=== PATIENT | male | born 1940 | race Caucasian/White ===

== ENCOUNTER → 2023-07-12 09:29 | Outpatient (REF) | payer MEDICARE, BC, SELFPAY ==
[2023-07-12 13:16] LABS: % Basophils 0.4 % (0-2); % Eosinophils 2.1 % (0-6); % Immature Granulocytes 0.6 % (0-0.5); % Lymphocytes 13.8 % (20.5-51.1); % Monocytes 7.5 % (1.7-9.3); % Neutrophils 75.6 % (42.2-75.2); Absolute Eosinophils 0.2 10^3/uL (0-0.7); Absolute Immature Granulocytes 0.1 10^3/uL (0-0.05); Absolute Lymphocytes 1.1 10^3/uL (1.2-3.4); Absolute Monocytes 0.6 10^3/uL (0.1-0.6); Absolute Neutrophils 6.3 10^3/uL (1.4-6.5); Hematocrit 34.4 % (39.0-52.0); Hemoglobin 11.3 g/dL (13.0-18.0); Mean Corp Hgb Conc. 32.8 g/dL (33.0-37.0); Mean Corpuscular Hgb 31.9 pg (27.0-31.0); Mean Corpuscular Volume 97.2 fL (80.0-94.0); Mean Platelet Volume 10.9 fL (7.4-10.4); Nucleated Red Blood Cells % 0 % (-); Platelet Count 207 10^3/uL (130-400); Red Blood Cell Count 3.54 10^6/uL (4.70-6.10); Red Cell Dist. Width 14.6 % (11.5-14.5); White Blood Cell Count 8.3 10^3/uL (4.8-10.8)
[2023-07-12 13:29] LABS: ALT (SGPT) 13 U/L (0-50); AST (SGOT) 22 U/L (17-59); Albumin 3.1 g/dl (3.5-5.0); Alkaline Phosphatase 71 U/L (38-126); Blood Urea Nitrogen 21 mg/dl (9-20); Calcium 8.5 mg/dl (8.4-10.2); Carbon Dioxide 26 mmol/L (22-30); Chloride 108 mmol/L (98-107); Glucose 91 mg/dl (70-99); Potassium 3.8 mmol/L (3.5-5.1); Sodium 137 mmol/L (135-145); Total Bilirubin 0.7 mg/dl (0.2-1.3); Total Protein 5.7 g/dl (6.3-8.2); eGFR 43.29
== END ==
LOC: HWLAB 09:29
PROVIDERS: ATTENDING PHYSICIAN Internal Medicine
DX: I10 Essential (primary) hypertension (principal); I82.501 Chronic embolism and thrombosis of unspecified deep veins of right lower extremity; I48.21 Permanent atrial fibrillation; I50.32 Chronic diastolic (congestive) heart failure; I12.9 Hypertensive chronic kidney disease with stage 1 through stage 4 chronic kidney disease, or unspecified chronic kidney disease; D68.69 Other thrombophilia; N18.32 Chronic kidney disease, stage 3b
CPT/HCPCS: 36415; 80053; 85025

== ENCOUNTER → 2023-08-12 09:59 | Outpatient (REF) | payer MEDICARE, BC, SELFPAY ==
[2023-08-12 13:00] LABS: Blood Urea Nitrogen 26 mg/dl (9-20); Carbon Dioxide 22 mmol/L (22-30); Chloride 108 mmol/L (98-107); Glucose 84 mg/dl (70-99); Potassium 3.9 mmol/L (3.5-5.1); Sodium 137 mmol/L (135-145); eGFR 50.81
== END ==
LOC: HWLAB 09:59
PROVIDERS: ATTENDING PHYSICIAN Internal Medicine Cardiovascular Disease; FAMILY PHYSICIAN Internal Medicine
DX: I50.32 Chronic diastolic (congestive) heart failure (principal)
CPT/HCPCS: 36415; 80048

== ENCOUNTER → 2023-09-19 10:07 | Outpatient (REF) | payer MEDICARE, BC, SELFPAY | LOC: DHCBS MAIN 10:07 | PROVIDERS: ATTENDING PHYSICIAN Internal Medicine Cardiovascular Disease; FAMILY PHYSICIAN Internal Medicine | DX: I50.32 Chronic diastolic (congestive) heart failure (principal) | CPT/HCPCS: 93306 ==

== ENCOUNTER 2023-09-29 12:03 | Inpatient (IN) | payer MEDICARE, BC, SELFPAY ==
[2023-09-29] VITALS (54 sets, daily range): BP systolic 55–147; BP diastolic 31–103; BMI 28.9; BMI 28.4
[2023-09-29 09:54] LABS: Glucose - Point of Care 92 mg/dl (70-99)
[2023-09-29 09:58] LABS: % Basophils 0.3 % (0-2); % Lymphocytes 4.5 % (20.5-51.1); % Monocytes 6.6 % (1.7-9.3); % Neutrophils 86.6 % (42.2-75.2); Absolute Eosinophils 0.2 10^3/uL (0-0.7); Absolute Immature Granulocytes 0.2 10^3/uL (0-0.05); Absolute Lymphocytes 0.7 10^3/uL (1.2-3.4); Absolute Neutrophils 13.6 10^3/uL (1.4-6.5); Hematocrit 29.5 % (39.0-52.0); Hemoglobin 9.9 g/dL (13.0-18.0); Mean Corp Hgb Conc. 33.6 g/dL (33.0-37.0); Mean Corpuscular Hgb 28.7 pg (27.0-31.0); Mean Corpuscular Volume 85.5 fL (80.0-94.0); Nucleated Red Blood Cells % 0 % (-); Platelet Count 132 10^3/uL (130-400); Red Blood Cell Count 3.45 10^6/uL (4.70-6.10); Red Cell Dist. Width 16.8 % (11.5-14.5); White Blood Cell Count 15.7 10^3/uL (4.8-10.8)
--- NOTE | 2023-09-29 10:04 | EDRN ---
the pt is hypotensive at 86/59 (70), rectal temp 94.7, this RN notified Feliciano LEBLANC who is currently at the pts bedside, the pt reports urinating blood and having blood in his stool
[2023-09-29 10:09] LABS: INR 3.19; PT 32.6 Sec (11.4-14.6)
[2023-09-29 10:11] LABS: APTT 102.1 Sec (23.4-35.0)
[2023-09-29] MEDS: LEVOPHED 250 IV ×2 (10:13→19:51)
--- NOTE | 2023-09-29 10:13 | ED.GENMED ---
History of Present Illness
<Feliciano Tierney PA-C - Last Filed: 09/29/23 13:34>
General
Chief Complaint: Rectal Bleeding
Source: patient and ambulance crew
Time Seen by Provider: 09/29/23 09:53
Travel History
Have you had any contact with someone who has COVID-19?: No
Do you have any symptoms of coronavirus? Fever > 100 degrees, chills, cough, shortness of breath, sore throat, loss of taste or smell, muscle aches, or headache?: No
History of Present Illness
History of Present Illness:
82-year-old male with past medical history of atrial fibrillation, CHF, CAD status post coronary stenting, hypertension, hyperlipidemia, chronic kidney disease, previous PE presenting to the emergency department via EMS for evaluation after patient
started to experience some hematuria yesterday, noticed hematochezia today is also stating he may have had blood in his stool earlier in the week. EMS was called to the patient's house where they found patient hypotensive at 60/40, they gave around
500 mL of IV fluids but patient remains hypotensive on arrival. Patient is denying any pain presently but does admit to some generalized weakness and fatigue. Patient is on Xarelto due to a history of atrial fibrillation he states he is also on
another blood thinner but unable to recall (Brilinta is listed on his medication list). Patient denies any history of previous GI bleeding. Unknown last colonoscopy. Denies any fevers, chills, rigors.
Past History
<Feliciano Tierney PA-C - Last Filed: 09/29/23 13:34>
Past History
ED Past Medical History: Arrthythmia, CHF, HTN, Hypercholesterolemia, AL, Renal failure (insufficiency) and Other (DVT X3, Cellulitis)
ED Past Surgical History: Tonsilectomy
Social History
Tobacco: Smoker (Pipe)
Alcohol: Daily (Scotch or Vodka 5-6 glasses)
Drug: None
Personal:
Living: with family
Employment: Employed
Family History
Family History: Other (reviewed and non-contributory)
Review of Systems
<Feliciano Tierney PA-C - Last Filed: 09/29/23 13:34>
Review of Systems
All Other Systems: ROS reviewed and negative except as documented in HPI and ROS
Phy Exam
<Feliciano Tierney PA-C - Last Filed: 09/29/23 13:34>
Physical Exam
Physical Exam:
GENERAL: Alert , appears older than stated age, ill-appearing
EYE: Clear conjunctiva
NECK: Supple
ENT: o/p clr, mmm.
CARDIAC: Irregularly irregular rate and rhythm, currently rate controlled, systolic murmur left sternal border
LUNGS: Clear breath sounds bilaterally, no acute respiratory distress, no wheezes/rales/rhonchi
ABDOMEN: Soft, without focal tenderness, no r/g, no cvat
Rectal exam: Stool dark brown heme positive
NEUROLOGICAL: Alert and oriented x3
SKIN: Warm and dry, skin intact.
MUSCULOSKELETAL: No edema, well perfused.
PSYCH: Normal and appropriate interaction.
Scores
<Feliciano Tierney PA-C - Last Filed: 09/29/23 13:34>
Heart Failure Risk
Heart Failure Risk Score: Not Applicable
Heart Score for Chest Pain Patients
STEMI patient?: Not applicable
Withdrawal Assessment of Alcohol
Withdrawal Assessment Completed?: Not applicable
Course
<GORDY Gandara Last Filed: 09/29/23 13:34>
Orders/Labs/Results
Orders:
Orders
09/29/23 09:46
Electrocardiogram (*1) Urgent
Reason for Study: Vertigo / Dizzy
09/29/23 09:47
EKG- Treatment ONCE
09/29/23 09:50
Type+Screen Urgent
Complete Blood Count/With Diff Urgent
Comprehensive Metabolic Panel Urgent
NT-proBNP Urgent
Comment: PROBNP ADDED ON BY FLOOR 10:10AM 09-29-23
PTT Urgent
Prothrombin Time Urgent
Troponin I Urgent
Urinalysis Reflex To Culture Urgent
Date Specimen was Collected: 09/29/23
Time Specimen was Collected: 09:47
Urine Microscopic Reflex Cult Urgent
Urine Culture Urgent
MATT Source: U
Specimen Description:
Date Specimen was Collected: 09/29/23
Time Specimen was Collected: 09:47
09/29/23 Lunch
NPO
Allow oral meds: No
Allow clear liquids: No
09/29/23 10:10
Add On- LAB Urgent
Tests Added?: Pro BNP
09/29/23 10:11
Ramo Hugger [Ramo Hugger-Treatment] ONCE
Patient's goal temperature:: 97 F
Additional Instructions:: Temperature and skin assessment per unit protocol
09/29/23 10:12
CR Chest Portable - 1 View Urgent
Comment:
Reason For Exam: SOB, GI bleed
Reason Study Needs to be Portable: Patient Unstable
09/29/23 10:15
NORepinephrine 4 MG/250 ML [Levophed] 4 mg in 250 ml IV PER PROTOCOL
Initial dose in mcg/min, then titrate:: 4
Titrate to keep:: MAP > 65 mmHg
Titrate by mcg/min:: 1-2 mcg/min
Frequency of titrations (minutes):: 5
Maximum dose in ICU in mcg/min:: 30
Maximum dose in IMU in mcg/min:: 8
Maximum dose in IVU in mcg/min:: 4
Begin to taper infusion when:: Remained at goal for 4hrs
Taper by mcg/min:: 1-2 mcg/min
Frequency of taper (minutes) if patient maintains goal:: 30
Taper to off?: Yes
If infusion off & no longer maintaining goal:: Contact Provider
09/29/23 10:19
Prothrombin Complex(Pcc),Human [Kcentra] 2,184 unit Empty Viaflex Container 100 ml [Viaflex Empty Container] 80 ml IV NOW
Does patient have a dx of serious acute active bleeding?: Yes
Does patient have prior history of HIT?: No
09/29/23 10:26
Piperacillin/Tazo 4.5 Gram [Zosyn] 4.5 gram in 100 ml IV NOW
09/29/23 10:27
CT Abd/pel Without Iv Or Oral Urgent
Comment:
Reason For Exam: JUAN, uremia, GI bleed/hematuria
09/29/23 10:28
Dextrose 50%-Water [Dextrose 50% Syringe] 25 grams IV NOW STA
Insulin Aspart [NOVOLOG vial] 4 units SC NOW STA
Sodium Bicarbonate 50 meq IV NOW STA
09/29/23 10:31
0.9% Sodium Chloride 500 ml [Nss] 500 ml IV BOLUS
09/29/23 10:32
Vancomycin [Vancocin] 2,000 mg 0.9% Sodium Chloride 500 ml [Nss] 500 ml IV NOW
09/29/23 10:34
Padilla Placement- Treatment ONCE
Reason for insertion: I&O's Critical Care
09/29/23 10:55
CBI- Treatment PRN
Solution: NSS
Irrigate to Clear?: Yes
09/29/23 11:45
Admit/Transfer Patient As Directed
Co-Sign Provider:
Level of Care: Inpatient admission
Assign to:: ICU
Physician / Group: Dr Bone
Diagnosis: Shock
Reason for Hospitalization: pte p/w hypotension, hematuria, possible gi bleed
Expected length of stay greater than two midnights?: Yes
ELOS- Estimated Length of Stay in days: 2
I certify the patient meets the requirements for IP care: Yes
09/29/23 11:46
Code Status As Directed
Resuscitation Status: Full Code
09/29/23 12:24
Arterial Blood Gas Urgent
%Oxygen/Room Air: room air
Comment: severe acidosis - need accurate pH
09/29/23 14:06
Bisacodyl [Dulcolax] 10 mg RECTAL [id number] PRN
Docusate W/Senna [Senokot-S] 1 tablet PO BIDPRN PRN
Polyethylene Glycol Powder [Miralax] 17 grams PO DAILYPRN PRN
09/29/23 14:06
Activity As Directed
Activity Level: Bedrest for limited time
Bedrest duration in hours then activity as indicated above:: 24
Pneumatic Compression Sleeves As Directed
Type: Knee high
Vital Signs As Directed
Frequency: Per unit guidelines
DX Deep Vein Thrombosis Video Routine
09/30/23 06:00
Basic Metabolic Panel IN AM
Complete Blood Count/With Diff IN AM
Abnormal Lab Results
09/29/23
09:50
WBC 15.7 H 10^3/uL
(4.8-10.8)
RBC 3.45 L 10^6/uL
(4.70-6.10)
Hgb 9.9 L g/dL
(13.0-18.0)
Hct 29.5 L %
(39.0-52.0)
RDW 16.8 H %
(11.5-14.5)
Abs Immat Gran (auto) 0.2 H 10^3/uL
(0-0.05)
Absolute Neuts (auto) 13.6 H 10^3/uL
(1.4-6.5)
Absolute Lymphs (auto) 0.7 L 10^3/uL
(1.2-3.4)
Absolute Monos (auto) 1.0 H 10^3/uL
(0.1-0.6)
Immature Gran % 1.0 H %
(0-0.5)
Neutrophils % 86.6 H %
(42.2-75.2)
Lymphocytes % 4.5 L %
(20.5-51.1)
PT 32.6 H Sec
(11.4-14.6)
APTT 102.1 H Sec
(23.4-35.0)
Sodium 127 L mmol/L
(135-145)
Potassium 6.0 H mmol/L
(3.5-5.1)
Chloride 109 H mmol/L
(98-107)
Carbon Dioxide 10 L* mmol/L
(22-30)
BUN 55 H mg/dl
(9-20)
Creatinine 3.2 H mg/dL
(0.7-1.3)
Total Protein 5.4 L g/dl
(6.3-8.2)
Albumin 2.6 L g/dl
(3.5-5.0)
Urine Ketones 1+ A
(Negative)
Ur Occult Blood Reflex 4+ A
(Negative)
Leukocyte Esterase Rfl 2+ A
(Negative)
Urine RBC 80-90 A /HPF
(0-2)
Urine WBC (Reflex) 50-60 A /HPF
(0-5)
Urine Bacteria (Reflex) Many A
(Negative)
Urine Albumin (Reflex) 2+ A
(Neg - Trace)
09/29/23 09:50
09/29/23 09:50
Vital Signs
Initial and Last Documented VS:
Initial Vital Signs
Temp Pulse Resp BP Pulse Ox
94.7 F L 67 21 86/59 96
09/29/23 09:47 09/29/23 09:47 09/29/23 09:47 09/29/23 09:47 09/29/23 09:47
Last Documented Vital Signs
Temp Pulse Resp BP Pulse Ox
96.1 F L 62 23 96/54 98
09/29/23 11:30 09/29/23 14:00 09/29/23 11:41 09/29/23 14:00 09/29/23 13:45
<Dwight Kohli, DO - Last Filed: 09/29/23 14:24>
Orders/Labs/Results
Orders:
Orders
09/29/23 09:46
Electrocardiogram (*1) Urgent
Reason for Study: Vertigo / Dizzy
09/29/23 09:47
EKG- Treatment ONCE
09/29/23 09:50
Type+Screen Urgent
Complete Blood Count/With Diff Urgent
Comprehensive Metabolic Panel Urgent
NT-proBNP Urgent
Comment: PROBNP ADDED ON BY FLOOR 10:10AM 09-29-23
PTT Urgent
Prothrombin Time Urgent
Troponin I Urgent
Urinalysis Reflex To Culture Urgent
Date Specimen was Collected: 09/29/23
Time Specimen was Collected: 09:47
Urine Microscopic Reflex Cult Urgent
Urine Culture Urgent
MATT Source: U
Specimen Description:
Date Specimen was Collected: 09/29/23
Time Specimen was Collected: 09:47
09/29/23 Lunch
NPO
Allow oral meds: No
Allow clear liquids: No
09/29/23 10:10
Add On- LAB Urgent
Tests Added?: Pro BNP
09/29/23 10:11
Ramo Hugger [Ramo Hugger-Treatment] ONCE
Patient's goal temperature:: 97 F
Additional Instructions:: Temperature and skin assessment per unit protocol
09/29/23 10:12
CR Chest Portable - 1 View Urgent
Comment:
Reason For Exam: SOB, GI bleed
Reason Study Needs to be Portable: Patient Unstable
09/29/23 10:15
NORepinephrine 4 MG/250 ML [Levophed] 4 mg in 250 ml IV PER PROTOCOL
Initial dose in mcg/min, then titrate:: 4
Titrate to keep:: MAP > 65 mmHg
Titrate by mcg/min:: 1-2 mcg/min
Frequency of titrations (minutes):: 5
Maximum dose in ICU in mcg/min:: 30
Maximum dose in IMU in mcg/min:: 8
Maximum dose in IVU in mcg/min:: 4
Begin to taper infusion when:: Remained at goal for 4hrs
Taper by mcg/min:: 1-2 mcg/min
Frequency of taper (minutes) if patient maintains goal:: 30
Taper to off?: Yes
If infusion off & no longer maintaining goal:: Contact Provider
09/29/23 10:19
Prothrombin Complex(Pcc),Human [Kcentra] 2,184 unit Empty Viaflex Container 100 ml [Viaflex Empty Container] 80 ml IV NOW
Does patient have a dx of serious acute active bleeding?: Yes
Does patient have prior history of HIT?: No
09/29/23 10:26
Piperacillin/Tazo 4.5 Gram [Zosyn] 4.5 gram in 100 ml IV NOW
09/29/23 10:27
CT Abd/pel Without Iv Or Oral Urgent
Comment:
Reason For Exam: JUAN, uremia, GI bleed/hematuria
09/29/23 10:28
Dextrose 50%-Water [Dextrose 50% Syringe] 25 grams IV NOW STA
Insulin Aspart [NOVOLOG vial] 4 units SC NOW STA
Sodium Bicarbonate 50 meq IV NOW STA
09/29/23 10:31
0.9% Sodium Chloride 500 ml [Nss] 500 ml IV BOLUS
09/29/23 10:32
Vancomycin [Vancocin] 2,000 mg 0.9% Sodium Chloride 500 ml [Nss] 500 ml IV NOW
09/29/23 10:34
Padilla Placement- Treatment ONCE
Reason for insertion: I&O's Critical Care
09/29/23 10:55
CBI- Treatment PRN
Solution: NSS
Irrigate to Clear?: Yes
09/29/23 11:45
Admit/Transfer Patient As Directed
Co-Sign Provider:
Level of Care: Inpatient admission
Assign to:: ICU
Physician / Group: Dr Bone
Diagnosis: Shock
Reason for Hospitalization: pte p/w hypotension, hematuria, possible gi bleed
Expected length of stay greater than two midnights?: Yes
ELOS- Estimated Length of Stay in days: 2
I certify the patient meets the requirements for IP care: Yes
09/29/23 11:46
Code Status As Directed
Resuscitation Status: Full Code
09/29/23 12:24
Arterial Blood Gas Urgent
%Oxygen/Room Air: room air
Comment: severe acidosis - need accurate pH
09/29/23 14:06
Bisacodyl [Dulcolax] 10 mg RECTAL [id number] PRN
Docusate W/Senna [Senokot-S] 1 tablet PO BIDPRN PRN
Polyethylene Glycol Powder [Miralax] 17 grams PO DAILYPRN PRN
09/29/23 14:06
Activity As Directed
Activity Level: Bedrest for limited time
Bedrest duration in hours then activity as indicated above:: 24
Pneumatic Compression Sleeves As Directed
Type: Knee high
Vital Signs As Directed
Frequency: Per unit guidelines
DX Deep Vein Thrombosis Video Routine
09/30/23 06:00
Basic Metabolic Panel IN AM
Complete Blood Count/With Diff IN AM
Abnormal Lab Results
09/29/23
09:50
WBC 15.7 H 10^3/uL
(4.8-10.8)
RBC 3.45 L 10^6/uL
(4.70-6.10)
Hgb 9.9 L g/dL
(13.0-18.0)
Hct 29.5 L %
(39.0-52.0)
RDW 16.8 H %
(11.5-14.5)
Abs Immat Gran (auto) 0.2 H 10^3/uL
(0-0.05)
Absolute Neuts (auto) 13.6 H 10^3/uL
(1.4-6.5)
Absolute Lymphs (auto) 0.7 L 10^3/uL
(1.2-3.4)
Absolute Monos (auto) 1.0 H 10^3/uL
(0.1-0.6)
Immature Gran % 1.0 H %
(0-0.5)
Neutrophils % 86.6 H %
(42.2-75.2)
Lymphocytes % 4.5 L %
(20.5-51.1)
PT 32.6 H Sec
(11.4-14.6)
APTT 102.1 H Sec
(23.4-35.0)
Sodium 127 L mmol/L
(135-145)
Potassium 6.0 H mmol/L
(3.5-5.1)
Chloride 109 H mmol/L
(98-107)
Carbon Dioxide 10 L* mmol/L
(22-30)
BUN 55 H mg/dl
(9-20)
Creatinine 3.2 H mg/dL
(0.7-1.3)
Total Protein 5.4 L g/dl
(6.3-8.2)
Albumin 2.6 L g/dl
(3.5-5.0)
Urine Ketones 1+ A
(Negative)
Ur Occult Blood Reflex 4+ A
(Negative)
Leukocyte Esterase Rfl 2+ A
(Negative)
Urine RBC 80-90 A /HPF
(0-2)
Urine WBC (Reflex) 50-60 A /HPF
(0-5)
Urine Bacteria (Reflex) Many A
(Negative)
Urine Albumin (Reflex) 2+ A
(Neg - Trace)
09/29/23 09:50
09/29/23 09:50
Vital Signs
Initial and Last Documented VS:
Initial Vital Signs
Temp Pulse Resp BP Pulse Ox
94.7 F L 67 21 86/59 96
09/29/23 09:47 09/29/23 09:47 09/29/23 09:47 09/29/23 09:47 09/29/23 09:47
Last Documented Vital Signs
Temp Pulse Resp BP Pulse Ox
96.1 F L 62 23 96/54 98
09/29/23 11:30 09/29/23 14:00 09/29/23 11:41 09/29/23 14:00 09/29/23 13:45
<Feliciano Tierney PA-C - Last Filed: 09/29/23 13:34>
MDM/Problems Addressed
Differential Diagnosis Includes:
Lower GI bleed, upper GI bleed, urinary tract infection, sepsis
MDM/Problems Addressed:
82-year-old male present emergency department for evaluation of hematuria x 1 day, reported hematochezia today. Hypotensive on arrival, also found to be hypothermic. Patient is ill-appearing. Off of chart review patient was recently admitted at
this facility for an extended stay in June where he had an NSTEMI and cardiac stent placed. Patient is on Xarelto due to his history of atrial fibrillation which is permanent as well as a history of PE. He reports compliance with this as well
as the Brilinta. There is significant clinical concern for life-threatening GI bleeding. Will discuss with cardiology about reversing his Xarelto. Will also consent patient for blood transfusion. Would like to try to avoid IV fluids given his
cardiac history but will have low threshold to order this as well patient is septic or needs further resuscitation due to his hypotension. Anticipate admission to the ICU.
Chronic conditions affecting care: CAD, Cardiomyopathy, Arrhythmia and Kidney disease
Acute Exacerbation and/or Progression of Chronic Illness: CAD, Cardiomyopathy, Arrhythmia and Kidney disease
<Feliciano Teirney PA-C - Last Filed: 09/29/23 13:34>
*Pulse Oximetry
Patient hypoxic: no
*EKG
Interpreted by ED Provider?: Yes
Comparison EKG: no changes
Heart Rate: 75
Rate: normal
Rhythm: a-fib
[place]: left axis deviation
Ischemia: no ischemia
*Shoe Sticks Repairer Interpretation
Rate: normal
Rhythm: a-fib
*Critical Care Note
Total Time (30-74mins, 75-104mins- exclusive of procedures): 40
comment:
Critical care statement: A total of 40 minutes of critical care time was provided for this patient. This includes management of unstable vital signs, evaluation of the patient at bedside, reviewing the patient's pertinent medical records, discussion
with consultants, review of old EKGs and review of pertinent medical records. This time with separate from time utilized to perform the aforementioned documented procedures
Data Reviewed
Review of Other/Old Records Reveals: Labs, Records, Radiology Studies and Discharge Summary
Source: patient, records, family and ambulance crew
<Feliciano Tierney PA-C - Last Filed: 09/29/23 13:34>
Comment
Comment:
Patient had colonoscopy in November 2017, he had a single polyp removed which showed tubular adenoma on biopsy. No colonoscopies following this.
Patient Management
Discussion with other providers: Hospitalist and Fire Sprinkler Apparatus Inspector
Escalation/DeEscalation of care consider admission/obs:
10:32 AM: Initially we did order Kcentra and 1 unit of blood however patient's hemoglobin returned at 9.9 and currently without any active bleeding. Decision was made to hold the Kcentra and blood products but if patient is to resume bleeding again
that we would reorder this. Patient has a leukocytosis of near 16,000 with a leftward shift. Patient's chemistry is also significantly deranged with a sodium of 127, potassium of 6.0, bicarb of 10 as well as significant acute on chronic kidney
injury. Dry scan of the abdomen pelvis was ordered to ensure no obstructive process given his hematuria. Additionally we ordered dextrose, insulin and sodium bicarb for the potassium. Would like to avoid Lokelma or Kayexalate given patient's
reported GI bleed. Patient also notes that after he had stopped drinking alcohol for a while he is now drinking bourbon nightly again. Possible upper GI bleed given his current presenting symptoms. Continued plan for likely ICU admission.
Hospitalist team was notified for admission. While in patient's room starting the admission process hospitalist team agreed with initial plan that we should start patient on Kcentra for anticoagulation reversal. Kcentra order was reordered.
Patient will be dispositioned to the ICU.
ED Attending Note
<Feliciano Tierney PA-C - Last Filed: 09/29/23 13:34>
-
Portions of this chart may have been created with voice recognition software.� Occasional wrong word or��sound alike� substitutions may have occurred due to the inherent limitations of voice recognition software.
<Dwight Kohli DO - Last Filed: 09/29/23 14:24>
ED Attending Note
Patient seen and examined by attending physician: Yes
ED Attending Note:
I agree with history and treatment plan by Ruiz Tierney.. My exam revealed 10-year-old male alert and oriented, hypotensive with hematuria, possible GI bleed as well. Patient given Kcentra, admit to ICU. CBI initiated.
Discharge Plan
Departure
Patient Disposition: Admit
Date of Disposition: 09/29/23
Time of Disposition: 11:26
Presentation/result/management discussed w/ accepting MD/DO: Hospitalist
Discharge Problem:
Acute UTI, JUAN (acute kidney injury), Acute GI bleeding, Acute hyperkalemia
Interventions
Interventions:
*Risk Screen - Suicide Last Done: 09/29/23 09:47
*General Assessment Last Done: 09/29/23 09:47
*Neglect/Abuse Screening Last Done: 09/29/23 09:47
ED- Fall Risk Assessment Last Done: 09/29/23 09:47
*ED COVID-19 Vaccine History Last Done: 09/29/23 09:47
*Nursing Disposition Last Done: 09/29/23 14:16
YR-Fpzuti-Xjdfycuxik Assessment Last Done: 09/29/23 09:47
ED- Cardiac Assessment Last Done: 09/29/23 09:47
ED- Pulmonary Assessment Last Done: 09/29/23 09:47
Discharge Date and Time
Discharge Date/Time: 09/29/23 14:17
--- NOTE | 2023-09-29 10:17 | EDRN ---
this RN initiated Levophed at 4mcg/min per providers orders and called pharmacy to confirm Kcentra medication
--- NOTE | 2023-09-29 10:19 | EDRN ---
Dr. Kohli currently at the pts bedside
[2023-09-29 10:24] LABS: Troponin I < 0.012 ng/ml
[2023-09-29 10:26] LABS: ALT (SGPT) 17 U/L (0-50); AST (SGOT) 18 U/L (17-59); Albumin 2.6 g/dl (3.5-5.0); Alkaline Phosphatase 118 U/L (38-126); Blood Urea Nitrogen 55 mg/dl (9-20); Calcium 8.7 mg/dl (8.4-10.2); Carbon Dioxide 10 mmol/L (22-30); Chloride 109 mmol/L (98-107); Estimated Creatinine Clearance 18 ml/min; Glucose 79 mg/dl (70-99); Sodium 127 mmol/L (135-145); Total Bilirubin 0.2 mg/dl (0.2-1.3); Total Protein 5.4 g/dl (6.3-8.2); eGFR 18.84
--- NOTE | 2023-09-29 10:35 | EDRN ---
Marlyn discontinued per the providers Feliciano LEBLANC and Dr. Kohli
[2023-09-29 10:40] LABS: NT-proBNP 6200 pg/ml
--- NOTE | 2023-09-29 10:40 | EDRN ---
this RN attempted to place a 24french and [address] indwelling urinary catheter for CBI however this RN was unsuccessful, this RN notified provider and [address]
[2023-09-29 10:52] LABS: Urine Albumin 2+ (Neg - Trace); Urine Bilirubin Negative (Negative); Urine Character Bloody (Clear); Urine Color Red; Urine Glucose Negative (Negative); Urine Ketone 1+ (Negative); Urine Leukocyte 2+ (Negative); Urine Nitrite Negative (Negative); Urine Occult Blood 4+ (Negative); Urine Specific Gravity 1.015 (<1.030); Urine Urobilinogen Negative (Neg - 1+)
--- NOTE | 2023-09-29 11:06 | EDRN ---
continuous bladder irrigation started per providers orders
[2023-09-29] MEDS: ZOSYN 100 IV (11:11)
[2023-09-29] MEDS: DEXTROSE 50% SYRINGE 25 GRAMS IV (11:11)
[2023-09-29] MEDS: SODIUM BICARBONATE 50 MEQ IV ×2 (11:12→13:19)
[2023-09-29] MEDS: VANCOCIN 540 MG IV (11:13)
[2023-09-29] MEDS: NOVOLOG vial 4 UNITS SC (11:13)
[2023-09-29] MEDS: NSS 500 IV (11:19)
[2023-09-29 11:24] LABS: Urine Red Blood Cell 80-90 /HPF (0-2); Urine Squamous Cell 16-20 /LPF (Few)
[2023-09-29 11:25] LABS: Urine Bacteria Many (Negative); Urine White Cell 50-60 /HPF (0-5)
--- NOTE | 2023-09-29 11:31 | EDRN ---
CBI drainage bag changed to a 4,000cc bag, CBI draining punch colored urine, the pt is resting in stretcher in the lowest position, side rails up x2, call wiggins within reach, HOB elevated, the pt is currently in Afib in the 80's, last BP 101/57 (70),
Levophed currently running at 2mcg/min, the pt is currently on RA Sp02 98%, the pt has an expiratory wheeze that this RN took note to and this RN notified the provider Feliciano Tierney, the pt currently has IVF Bolus hung and running, Zosyn and
Vancomycin running as well, the pt has no c/o chest pain and no c/o SOB, this RN changed the pts gown, pad, brief, and linens, no obvious skin issues other than discoloration to the pts b/l lower extremities, the pts friend is currently at the pts
bedside, will take the pt to CT scan shortly, will continue to monitor the pt closely
--- NOTE | 2023-09-29 11:48 | HPS.HSE ---
Family Physician
-
Family Physician: Maxime Manjarrez
Chief Complaint
-
hypotension
History of Present Illness
Patient 82 years old with history of multiple medical problems including CAD, CHF, alcohol use disorder, A-fib, CKD, BPH, pulmonary hypertension, PE, hypertension, hyperlipidemia, stroke, presented to the hospital with hypotension and hematuria.
Patient has been developing some dysuria and urgency recently and some hematuria over the last week and he has been seen in urology as outpatient. Patient also has been experiencing some bright blood per rectum for last several days and having
hematuria since last Saturday. He has some abdominal discomfort and some nausea. He does take Xarelto on a regular basis and he is not sure but he said he took it last night. Denies melena or hematemesis. Denies chest pain. He denies shortness of
breath although had mild conversational dyspnea. Patient was noted to be hypertensive at his house and EMS was called. Patient was found to have blood pressure 60/40 and given half a liter of fluid and still hypotensive when he came into the ER.
Complains of generalized fatigue and weakness. In the ER, hemoglobin 9.9, INR 3.19, creatinine 3.2, bicarb 10, potassium of 6, sodium 127. Patient is critically ill and started on pressors, bicarb bolus, broad-spectrum IV antibiotics of Zosyn and
vancomycin, and Kcentra ordered by ED to reverse bleeding.
Medical History
Past Medical History
Past Medical History: Reports Other (HFrEF, history of alcoholic abuse, history of NSTEMI, CAD, permanent A-fib on Xarelto, CKD IIIa, BPH, obesity, pulmonary hypertension, history of PE, history of RLE DVT, tobacco use disorder, venous
insufficiency, hypertension, hyperlipidemia, Hx of CVA)
Past Surgical History: Reports Other (Hydrocele surgery, cataract extractions, tonsillectomy)
Social History
Tobacco: Smoker
Alcohol: Daily
Drug: None
Family History
Family History: CAD, Cancer (Colon cancer and lung cancer mother and father.) and Hypertension
Allergies / Home Medications
Allergies reflects when Allergies were last updated in [employer].
Home Medications with original date entered in [employer]
Allergy/Medication List:
Allergies
Allergy/AdvReac Type Severity Reaction Status Date / Time
clopidogrel [From Plavix] Allergy Severe Rash Verified 05/31/23 15:50
ammonium [Ammonium] Allergy Unknown Verified 05/21/23 09:34
hydrochlorothiazide Allergy 'killed my Verified 05/21/23 09:34
[From Dyazide] sex drive'
triamterene [From Dyazide] Allergy 'killed my Verified 05/21/23 09:[address]'
warfarin [Warfarin] Allergy RASH,INCREASED Verified 05/21/23 09:34
BACK PAIN
creams w/ ammonia hydrate Allergy bright red Uncoded 05/21/23 09:34
skin
reaction
Home Medications
multivitamin with folic acid 400 mcg tablet (Tab-A-Edd) 1 tab PO HS Supplement 02/12/08
vitamin B complex (Complex B-100 tablet,extended release) 1 tab PO DAILY Supplement 10/11/14
finasteride 5 mg tablet 5 mg PO DAILY prostate issue 12/22/18
tamsulosin 0.4 mg capsule (Flomax) 0.4 mg PO DAILY Urinary Issue 12/22/18
atorvastatin 40 mg tablet (Lipitor) 40 mg PO HS High Cholesterol 05/21/23
carvedilol 3.125 mg tablet 3.125 mg PO BID 30 days #60 tabs 06/03/23
rivaroxaban 15 mg tablet (Xarelto) 15 mg PO QPM 30 days #30 tabs 06/03/23
ticagrelor 90 mg tablet (Brilinta) 90 mg PO BID 30 days #60 tabs 06/03/23
potassium chloride 20 mEq tablet,extended release 20 meq PO TID #90 tabs 06/04/23
folic acid 1 mg tablet 1 mg PO DAILY 09/29/23
furosemide 40 mg tablet (Lasix) 40 mg PO DAILY@1400 09/29/23
furosemide 80 mg tablet 80 mg PO DAILY 09/29/23
Review of Systems
-
Unable to obtain full review of systems at this time due to: Acuity
Physical Exam
Vital Signs
Vital Signs
Temp Pulse Resp BP Pulse Ox
94.7 F L 79 29 101/57 97
09/29/23 09:47 09/29/23 11:30 09/29/23 11:30 09/29/23 11:30 09/29/23 11:30
Physical exam:
General: Acutely ill
HEENT: Normocephalic, Atraumatic and Dry Mucous Membranes
Respiratory: Decreased breath sounds bilateral; Negative Wheezes, Rales or Rhonchi. Tachypneic
Cardiac: Regular Rhythm and S1/S2
GI: Soft, Nontender and Nondistended
Musculoskeletal: Bilateral edema in lower extremities. No Clubbing, No Cyanosis
Neuro: Lethargic, able to answer questions and falls back to sleep, no gross neurological deficits appreciated.
Physical Exam
General: Other
Laboratory Results
-
09/29/23 09:50
09/29/23 09:50
Laboratory Results
PT 32.6 Sec (11.4-14.6) H 09/29/23 09:50
INR 3.19 09/29/23 09:50
APTT 102.1 Sec (23.4-35.0) H 09/29/23 09:50
Total Bilirubin 0.2 mg/dl (0.2-1.3) 09/29/23 09:50
AST 18 U/L (17-59) 09/29/23 09:50
ALT 17 U/L (0-50) 09/29/23 09:50
Alkaline Phosphatase 118 U/L (38-126) 09/29/23 09:50
Troponin I < 0.012 ng/ml 09/29/23 09:50
Impression/Plan
-
IMPRESSION:
Patient 82 years old male with multiple comorbidities presented to the hospital with shock likely septic versus hypovolemic. Patient with active bleeding from hematuria and possible acute GI bleed and with supratherapeutic INR on anticoagulant.
Patient with several metabolic managements. Patient is critically ill and prognosis guarded.
Impression:
Shock, likely septic shock due to UTI versus hypovolemia with hemorrhage
Gross hematuria
Probable acute GI bleed
Acute blood loss anemia
Coagulopathy with supratherapeutic INR
Alcohol use disorder
Severe metabolic acidosis
Acute kidney injury
Chronic kidney disease
Hyponatremia
Hyperkalemia
Hypothermia
Conditions prior to presentation:
Hypertension
Hyperlipidemia
Chronic systolic congestive heart failure
Chronic kidney disease
BPH
Permanent atrial fibrillation
History of DVT/PE in the past
Alcohol use disorder
PLAN:
Continue with pressors
Stat H&H, BMP, lactic acid.
Obtain blood cultures x 2
Change Zosyn vancomycin to IV cefepime and follow-up cultures
Urology consult ([place] texted specialist today)
GI consult ([place] texted specialist today)
Inspector [place] consult ([place] texted specialist today). Discussed with dental laboratory supervisor in person today.
Nephrology consult ([place] texted specialist today)
Trend hemoglobin
Trend acidosis
Trend electrolytes
IV Protonix twice daily
Obtained consent for blood transfusion or blood products to reverse anticoagulant
Seen and reviewed twelve-lead EKG
Seen and reviewed chest x-ray
CT scan of abdomen pending results
CBI for hematuria
Will place him on alcohol withdrawal protocol.
DVT prophylaxis SCDs
CODE STATUS full code
Total Critical Care Time 65 minutes. I was immediately available to the patient and staff. I personally examined, reviewed labs, diagnostic images/reports, interpretations, treatment plans, discussed patient care with other providers and family
or caregivers (if patient is unable to make decisions), entered orders as appropriate and documented the medical record.
--- NOTE | 2023-09-29 11:50 | CON.INTV ---
Consultation
Consultation Request
Date/Time Consultation Requested: 09/29/2023 - 1139
Date/Time Consultation Performed: 09/29/2023 - 1146
Requesting Provider: Dr. Bone
Performing Provider: Dr. Sands
Reason for Consultation: GIB/Hypotension
Medical History
-
Chief Complaint: Blood and urine + stool
History of Present Illness:
82-year-old male with a past medical history of alcohol abuse, tobacco use disorder, HFrEF, CAD with history of NSTEMI, A-fib on Xarelto, CKD IIIa, pulmonary hypertension, history of PE/DVT, hypertension/hyperlipidemia who presents with blood seen
in urine and stool X 1 day. When EMS arrived patient was hypotensive to 60/40 and they administered 0.5L IV fluid bolus. BG was 100. Here in the ER patient was hypothermic to 94.7 �F, [place]: 67 bpm, RR: 21 breaths/min, SpO2 96% on room air and BP
86/59. Labs showed leukocytosis to 15.7, anemia to 9.9, elevated INR 3.19, serum sodium 127, serum bicarbonate level of 10, creatinine 3.2, potassium of 6, proBNP of 6200, and serum albumin 2.6. Patient had +1 ketones in the urine with +2
leukocyte esterase and many bacteria. Urine culture was collected. CXR shows no evidence of acute pulmonary edema or pneumonia. Patient treated for his hyperkalemia in the ER with insulin aspart 4 units and 25 g dextrose, also given sodium
bicarbonate X1 amp, given antibiotics with vancomycin/Zosyn, given IV fluids with NS 0.5L and started on levophed due to persistent hypotension with SBP in the mid 80s. Due to his electrolyte abnormalities with hypotension requiring vasopressors,
patient being admitted to the ICU. Critical care services now consulted for additional management/recommendations.
When I saw the patient he was in bed, labor crew supervisor/neighbor at bedside. He is on 2mcg/min of Levophed with BP 106/51, HR: 78 and saturating 98% on room air. He does had a bloody bowel movement and he has been bleeding from his rectum for about 1
week. He has been having hematuria since last Saturday as well. He saw urology (Dr. Ortega) here at [facility] on 09/25/2023 and a urinalysis/culture was obtained. Urinalysis dipstick was positive for leukocyte Estrace, nitrites and blood at that
time. No antibiotics were given at that time.
PMHx: HFrEF, history of alcoholic abuse, history of NSTEMI, CAD, permanent A-fib on Xarelto, CKD IIIa, BPH, obesity, pulmonary hypertension, history of PE, history of RLE DVT, tobacco use disorder, venous insufficiency, hypertension, hyperlipidemia,
Hx of CVA
PSHx: Hydrocele surgery, cataract extractions, tonsillectomy
Past Medical History
Past Medical History: Other (Above as per HPI)
Past Surgical History: Other (Above as per HPI)
Social History
Tobacco: Smoker (Smokes a pipe daily)
Alcohol: Daily (2-3 drinks of alcohol daily)
Drug: None
Family History
Family History: CAD (Father), Cancer (Father & Mother: Lung cancer; mother: Colon cancer) and Hypertension (Father)
Allergies / Home Medications
Allergies
Allergy/AdvReac Type Severity Reaction Status Date / Time
clopidogrel [From Plavix] Allergy Severe Rash Verified 05/31/23 15:50
ammonium [Ammonium] Allergy Unknown Verified 05/21/23 09:34
hydrochlorothiazide Allergy 'killed my Verified 05/21/23 09:34
[From Dyazide] sex drive'
triamterene [From Dyazide] Allergy 'killed my Verified 05/21/23 09:[address]'
warfarin [Warfarin] Allergy RASH,INCREASED Verified 05/21/23 09:34
BACK PAIN
creams w/ ammonia hydrate Allergy bright red Uncoded 05/21/23 09:34
skin
reaction
Home Medications
�Medication �Instructions �Recorded �Confirmed �Last Taken �Type
multivitamin with folic acid 400 1 tab PO HS Supplement 02/12/08 09/29/2305/21/23 History
mcg tablet (Tab-A-Edd)
vitamin B complex (Complex B-100 1 tab PO DAILY Supplement 10/11/14 09/29/23 05/20/23 History
tablet,extended release)
finasteride 5 mg tablet 5 mg PO DAILY prostate issue 12/22/18 09/29/23 05/21/23 History
tamsulosin 0.4 mg capsule (Flomax) 0.4 mg PO DAILY Urinary Issue 12/22/18 09/29/23 05/21/23 History
atorvastatin 40 mg tablet (Lipitor) 40 mg PO HS High Cholesterol 05/21/23 09/29/23 05/20/23 History
carvedilol 3.125 mg tablet 3.125 mg PO BID 30 days #60 tabs 06/03/23 09/29/23 Unknown Rx
ferrous sulfate 325 mg (65 mg 325 mg PO DAILY 30 days #30 tabs 06/03/23 09/29/23 Unknown Rx
iron) tablet (FeroSul)
rivaroxaban 15 mg tablet (Xarelto) 15 mg PO QPM 30 days #30 tabs 06/03/23 09/29/23 Unknown Rx
ticagrelor 90 mg tablet (Brilinta) 90 mg PO BID 30 days #60 tabs 06/03/23 09/29/23 Unknown Rx
furosemide 80 mg tablet 80 mg PO BID@0800,1600 #180 tabs 06/04/23 09/29/23 Unknown Rx
potassium chloride 20 mEq 20 meq PO TID #90 tabs 06/04/23 09/29/23 Unknown Rx
tablet,extended release
folic acid 1 mg tablet 1 mg PO DAILY 09/29/23 09/29/23 Unknown History
Review of Systems
-
History Source: Patient
All other systems: Negative unless noted
Vitals / Labs / Diagnostic Testing
Vital Signs
Temp Pulse Resp BP Pulse Ox
94.7 F L 79 29 101/57 97
09/29/23 09:47 09/29/23 11:30 09/29/23 11:30 09/29/23 11:30 09/29/23 11:30
Lab Data
09/29/23 09:50
09/29/23 09:50
Laboratory Results
09/29/23
09:50
PT 32.6 H
INR 3.19
APTT 102.1 H
Diagnostic Testing:
Physical Exam
-
HEENT: Normocephalic and Anicteric
Cardiovascular: S1/S2 and Peripheral Edema (negative)
Respiratory: Wheeze (negative), Rales (negative) and Rhonchi (negative)
GI: Soft, Non Distended, Non Tender and Normal Bowel Sounds
Neurology: Awake and Alert
Skin: Warm and Dry
General: Comfortable, Fever (negative) and Other (appears fatigued; pale)
Assessment
-
Assessment: 82-year-old male with a past medical history of alcohol abuse, tobacco use disorder, HFrEF, CAD with history of NSTEMI, A-fib on Xarelto, CKD IIIa, pulmonary hypertension, history of PE/DVT, hypertension/hyperlipidemia who presents
with blood seen in urine and stool X 1 day. When EMS arrived patient was hypotensive to 60/40 and they administered 0.5L IV fluid bolus. BG was 100. Here in the ER patient was hypothermic to 94.7 �F, [place]: 67 bpm, RR: 21 breaths/min, SpO2 96% on
room air and BP 86/59. Labs showed leukocytosis to 15.7, anemia to 9.9, elevated INR 3.19, serum sodium 127, serum bicarbonate level of 10, creatinine 3.2, potassium of 6, proBNP of 6200, and serum albumin 2.6. Patient had +1 ketones in the urine
with +2 leukocyte esterase and many bacteria. Urine culture was collected. CXR shows no evidence of acute pulmonary edema or pneumonia. Patient treated for his hyperkalemia in the ER with insulin aspart 4 units and 25 g dextrose, also given
sodium bicarbonate X1 amp, given antibiotics with vancomycin/Zosyn, given IV fluids with NS 0.5L and started on levophed due to persistent hypotension with SBP in the mid 80s. Due to his electrolyte abnormalities with hypotension requiring
vasopressors, patient being admitted to the ICU. Critical care services now consulted for additional management/recommendations.
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
hypertension, hyperlipidemia
Impression:
#Shock - suspected sepsis from UTI in setting of vasoplegia from severe metabolic acidosis
#UTI - originally Dx as outpatient on 09/25/2023 with Urology
#JUAN superimposed on CKD with hyperkalemia (baseline Cr approx 1.1)
#Metabolic acidosis with normal anion gap
#Hyponatremia
#Acute on chronic anemia (baseline Hb 11.5-12.5)
#Coagulopathy with elevated INR
#A-fib on Xarelto
#Alcohol abuse
#Tobacco abuse
Plan:
- Empiric Abx for now with cefepime; there is no evidence of PNA so do not need vanco or atypical coverage at this time
- Follow up urine Cx; check blood Cx
- Renally dose all meds, trend UOP, serum [K] and serum HCO3
- Goal K 4-5.2; goal serum HCO3 20-24
- Given severe acidosis, check ABG to get accurate pH and then consider HCO3 infusion depending on results
- Consult nephrology
- Maintain MAP>65
- Consult GI
- Trend Hb with serial CBC and transfuse if needed to keep Hb>7, plt>50k
- Hold antiplatelets/anticoagulants for now
- If Hb downtrends and/or GI bleed worsens then will need to reverse INR with PCC vs FFP
- Goal HR <110
- Maintain SpO2 >90-94%
- Replete electrolytes with K>4, Mg>2
- Maintain euglycemia with goal BG 140-180
- prn nebulized bronchodilators
- Incentive spirometer
- DVT ppx
The above was discussed in layman's terms with the patient and the patient's neighbor/labor crew supervisor, Ken, and all questions were answered.
Critical care statement: A total of 40 minutes of critical care time was provided for this patient today. This includes management of unstable vital signs, evaluation of the patient at bedside, reviewing the patient's pertinent medical records
including radiographs, microbiology, laboratory evaluations, and discussion with primary team, consultants, pharmacy, nutrition, physical therapy, case management, charge nurse, critical care nursing, and respiratory therapy.
Data:
CXR 09-29-2023:
1. Mild cardiomegaly without evidence for acute pulmonary edema.
2. Severe calcific atherosclerotic plaque in the thoracic aorta, axillary, and subclavian arteries.
3. Central pulmonary arterial distention suggesting pulmonary arterial hypertension.
4. Mild to moderate elevation of the right hemidiaphragm.
--- NOTE | 2023-09-29 11:50 | EDRN ---
this RN and Milena BENDER are taking the pt to CT scan
--- NOTE | 2023-09-29 12:02 | EDRN ---
the pt was brought back from CT scan, the pt is resting in stretcher in the lowest position, side rails up x2, call wiggins within reach, HOB elevated, hospitalist currently at the pts bedside, ABG ordered, this RN will notify respiratory
--- NOTE | 2023-09-29 12:08 | EDRN ---
the provider now wants Kcentra given, this RN notified pharmacy
--- NOTE | 2023-09-29 12:23 | CONS.URO ---
Medical History
History of Present Illness
82 male with numerous comorbidities admitted with GIB with severe hypotension.
Pt of Dr Ortega ,most recently seen 09/16/2023 for BPH managed with 5- BRIANA and Alpha-fran.
Grossly blood urine was noted earlier during the week.
Past Medical History
Past Medical History: Other ( Obesity. HYPERLIPIDEMIA (HLP). Hypertension. Pulmonary Embolus. Glaucoma-resolved. right lower extremity DVT. Alcoholism. Gout. Tobacco abuse. Afib. Enlarged prostate.
Neuropathy-legs. CVA. Elevated PSA.)
Allergies/Home Medications
Allergies
Allergy/AdvReac Type Severity Reaction Status Date / Time
clopidogrel [From Plavix] Allergy Severe Rash Verified 05/31/23 15:50
ammonium [Ammonium] Allergy Unknown Verified 05/21/23 09:34
hydrochlorothiazide Allergy 'killed my Verified 05/21/23 09:34
[From Dyazide] sex drive'
triamterene [From Dyazide] Allergy 'killed my Verified 05/21/23 09:[address]'
warfarin [Warfarin] Allergy RASH,INCREASED Verified 05/21/23 09:34
BACK PAIN
creams w/ ammonia hydrate Allergy bright red Uncoded 05/21/23 09:34
skin
reaction
Home Medications
�Medication �Instructions �Recorded �Confirmed �Type
multivitamin with folic acid 400 1 tab PO HS Supplement 02/12/08 09/29/23 History
mcg tablet (Tab-A-Edd)
vitamin B complex (Complex B-100 1 tab PO DAILY Supplement 10/11/14 09/29/23 History
tablet,extended release)
finasteride 5 mg tablet 5 mg PO DAILY prostate issue 12/22/18 09/29/23 History
tamsulosin 0.4 mg capsule (Flomax) 0.4 mg PO DAILY Urinary Issue 12/22/18 09/29/23 History
atorvastatin 40 mg tablet (Lipitor) 40 mg PO HS High Cholesterol 05/21/23 09/29/23 History
carvedilol 3.125 mg tablet 3.125 mg PO BID 30 days #60 tabs 06/03/23 09/29/23 Rx
rivaroxaban 15 mg tablet (Xarelto) 15 mg PO QPM 30 days #30 tabs 06/03/23 09/29/23 Rx
ticagrelor 90 mg tablet (Brilinta) 90 mg PO BID 30 days #60 tabs 06/03/23 09/29/23 Rx
potassium chloride 20 mEq 20 meq PO TID #90 tabs 06/04/23 09/29/23 Rx
tablet,extended release
folic acid 1 mg tablet 1 mg PO DAILY 09/29/23 09/29/23 History
furosemide 40 mg tablet (Lasix) 40 mg PO DAILY@1400 09/29/23 09/29/23 History
furosemide 80 mg tablet 80 mg PO DAILY 09/29/23 09/29/23 History
Physical Exam
Vital Signs
Vital Signs
Temp Pulse Resp BP Pulse Ox
94.7 F L 81 23 106/51 97
09/29/23 09:47 09/29/23 12:00 09/29/23 11:41 09/29/23 11:59 09/29/23 12:00
Physical Exam
adult male who appears acutely ill
conversant
Genito-urinary: Padilla Catheter (18 Fr 3-way with CBI draining frankly bloody outflow)
Assessment / Plan
-
Principal, life-threatening issue is GIB
Gross hematuria can be managed with CBI
Data Reviewed
-
CT Scan: Image personally visualized and interpreted (normal kidneys; enlarge prostate, Padilla in bladder along with clotted blood)
Lab Data: Labs Reviewed
Old Records: Reviewed
[2023-09-29] MEDS: KCENTRA 80 UNIT IV (12:24)
[2023-09-29 12:36] LABS: Hematocrit 26.1 % (39.0-52.0); Hemoglobin 8.9 g/dL (13.0-18.0)
--- NOTE | 2023-09-29 12:41 | W.CON.NEPH ---
Consultation
-
Date/Time Consultation Requested: September 29, 2023 11 AM
Date/Time Consultation Performed: September 29, 2023 12:45 PM
Requesting Provider: Dr. Bone
Performing Provider: Dr. Tse
Reason for Consultation: Acute kidney injury, hyperkalemia, metabolic acidosis, hypotension
Medical History
-
Chief Complaint: Acute kidney injury
History of Present Illness:
This is an 82-year-old gentleman who has no chronic kidney disease stage IIIa with baseline creatinine around 1.3 who has heart failure reduced ejection fraction on chronic diuretic therapy on Xarelto for atrial fibrillation. He came to the
emergency room today because of persistent gross hematuria with blood in the stool as well. When EMS had come to the patient's house he was noted to be hypotensive and remained hypotensive spite IV fluid bolus. He was placed on pressor therapy to
maintain blood pressures. Blood work had shown acute kidney injury with a creatinine of 3.2 up from his baseline as well as hyperkalemia, hyponatremia, metabolic acidosis. He is critically ill and will be going to the ICU.
Past Medical History
Atrial fibrillation, heart failure reduced action fraction, hypertension, hyperlipidemia, pulmonary embolus, right lower extremity DVT, alcoholism, tobacco abuse, neuropathy, BPH, CKD 3A, cellulitis, venous insufficiency, tonsillectomy, hydrocele
surgery, cataract extraction
Social History
Tobacco: Smoker (Type)
Alcohol: Daily
Family History
was on dialysis
Lung cancer colon cancer.
Allergies / Home Medications
Allergy/AdvReac Type Severity Reaction Status Date / Time
clopidogrel [From Plavix] Allergy Severe Rash Verified 05/31/23 15:50
ammonium [Ammonium] Allergy Unknown Verified 05/21/23 09:34
hydrochlorothiazide Allergy 'killed my Verified 05/21/23 09:34
[From Dyazide] sex drive'
triamterene [From Dyazide] Allergy 'killed my Verified 05/21/23 09:[address]'
warfarin [Warfarin] Allergy RASH,INCREASED Verified 05/21/23 09:34
BACK PAIN
creams w/ ammonia hydrate Allergy bright red Uncoded 05/21/23 09:34
skin
reaction
�Medication �Instructions �Recorded �Confirmed �Type
multivitamin with folic acid 400 1 tab PO HS Supplement 02/12/08 09/29/23 History
mcg tablet (Tab-A-Edd)
vitamin B complex (Complex B-100 1 tab PO DAILY Supplement 10/11/14 09/29/23 History
tablet,extended release)
finasteride 5 mg tablet 5 mg PO DAILY prostate issue 12/22/18 09/29/23 History
tamsulosin 0.4 mg capsule (Flomax) 0.4 mg PO DAILY Urinary Issue 12/22/18 09/29/23 History
atorvastatin 40 mg tablet (Lipitor) 40 mg PO HS High Cholesterol 05/21/23 09/29/23 History
carvedilol 3.125 mg tablet 3.125 mg PO BID 30 days #60 tabs 06/03/23 09/29/23 Rx
rivaroxaban 15 mg tablet (Xarelto) 15 mg PO QPM 30 days #30 tabs 06/03/23 09/29/23 Rx
ticagrelor 90 mg tablet (Brilinta) 90 mg PO BID 30 days #60 tabs 06/03/23 09/29/23 Rx
potassium chloride 20 mEq 20 meq PO TID #90 tabs 06/04/23 09/29/23 Rx
tablet,extended release
folic acid 1 mg tablet 1 mg PO DAILY 09/29/23 09/29/23 History
furosemide 40 mg tablet (Lasix) 40 mg PO DAILY@1400 09/29/23 09/29/23 History
furosemide 80 mg tablet 80 mg PO DAILY 09/29/23 09/29/23 History
Review of Systems
-
No chest pain or shortness of breath. Difficulty urinating. Diarrhea. The remainder of the complete review of systems was negative
Physical Exam
Vital Signs
Vital Signs
Temp Pulse Resp BP Pulse Ox
94.7 F L 81 23 106/51 97
09/29/23 09:47 09/29/23 12:00 09/29/23 11:41 09/29/23 11:59 09/29/23 12:00
Lab Results
WBC 15.7 10^3/uL (4.8-10.8) H 09/29/23 09:50
RBC 3.45 10^6/uL (4.70-6.10) L 09/29/23 09:50
Plt Count 132 10^3/uL (130-400) 09/29/23 09:50
eGFR 18.84 09/29/23 09:50
Jbw-A-Xrhckarfpsx Pept 6200 pg/ml 09/29/23 09:50
Albumin 2.6 g/dl (3.5-5.0) L 09/29/23 09:50
Physical Exam
Patient is awake alert oriented and in no distress. Mood and affect were pleasant, insight and judgment were good. Pupils are equal round and reactive to light, extraocular movements are intact, sclera were anicteric. Hearing was normal, ears and
nose are intact. Oropharynx was dry. Neck was supple with trachea midline and no thyromegaly. Heart was regular rate and rhythm without rubs. Lower extremities with 1+ edema. Lungs were clear to auscultation bilaterally and with normal excursion.
Abdomen was soft, nontender, with normal active bowel sounds, and no hepatosplenomegaly. Skin was without rash and with normal turgor.
Data Reviewed
-
Radiology: Image Personally Visualized and interpreted (Chest x-ray on 09/29/2023 by my read shows cardiomegaly with elevated right hemidiaphragm)
Medical Tests (Nuc Med, Echo etc): Image Personally Visualized and interpreted (EKG on 09/21/2023 by read shows atrial fibrillation left axis deviation nonspecific interventricular conduction block)
Labs: Labs Reviewed by me (Sodium 127 potassium 6.0, chloride 109, bicarbonate 10, BUN 55, creatinine 3.2, calcium 8.9, hemoglobin 9.9, INR 3.19, AST 18, ALT 12, troponin less than 0.012, urinalysis pH Phiso-Scrub 1.015, 4+ blood 2+ leuk esterase
many bacteria, 2+ abdomen)
Old Records: Reviewed (On August 12, 2023 creatinine 1.4, bicarbonate 22, sodium 137, potassium 3.9)
Assessment/Plan
-
Assessment:
Acute kidney injury
Hypotension
Metabolic acidosis
Hyponatremia
Hyperkalemia
Anemia
Gross hematuria
GI bleed
Edema
Atrial fibrillation
Heart failure reduced ejection fraction
Moderate pulmonary hypertension
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
Plan:
IV fluid volume resuscitation
Follow hemoglobin, transfuse as required
Use bicarbonate IV fluids
Treat potassium medically, serial BMP
Keep mean arterial pressure greater than 65
Bicarbonate IV bolus
ICU monitoring
Critical care time spent 34 minutes
--- NOTE | 2023-09-29 12:42 | EDRN ---
Dr. Muñoz was at the pts bedside and did not want an 18french indwelling urinary catheter in place, Dr. Muñoz stated to this RN that he wanted a 24french [address], this RN attempted to explain to the provider that this RN did try to
place a 24 czech and was unsuccessful in advancing the catheter, Dr. Muñoz wants this RN to place a 24french [address] catheter, this RN will attempt to do so
[2023-09-29 12:43] LABS: B.E. -14.4 mmol/L; O2 Saturation % 98.5 % (94-98); PCO2 24 mmHg (35-48); PO2 136 mmHg (83-108); pH 7.27 (7.35-7.45)
[2023-09-29 12:48] LABS: Lactic Acid 0.8 mmol/L (0.7-2.0)
[2023-09-29 12:54] LABS: Blood Urea Nitrogen 57 mg/dl (9-20); Calcium 8.1 mg/dl (8.4-10.2); Carbon Dioxide 9 mmol/L (22-30); Chloride 109 mmol/L (98-107); Estimated Creatinine Clearance 20 ml/min; Glucose 142 mg/dl (70-99); Potassium 4.9 mmol/L (3.5-5.1); Sodium 129 mmol/L (135-145); eGFR 20.36
[2023-09-29] MEDS: LIDOCAINE URO-JET 2% 1 SYRINGE TOPICAL (12:56)
--- NOTE | 2023-09-29 12:57 | EDRN ---
this RN place a 24french [address] indwelling urinary catheter per Dr. Muñoz, ANJALII currently running, the pt had a large liquid/soft bowel movement and this RN cleaned the pt, changed the pts brief, pad, gown, and linens, will call report to ICU
--- NOTE | 2023-09-29 13:15 | EDRN ---
pharmacy was called regarding the sodium bicarb gtt that was ordered
[2023-09-29] MEDS: PROTONIX IV 40 MG IV ×2 (13:19→19:51)
[2023-09-29] MEDS: NSS (PRESERVATIVE FREE) 10 ML IV ×2 (13:19→19:50)
[2023-09-29] MEDS: SODIUM BICARBONATE 1150 MEQ IV (13:19)
--- NOTE | 2023-09-29 13:27 | EDRN ---
Sodium Bicarb gtt hung and running at 100cc/hour, Levophed currently still running at 2mcg/min, the pt is AAO, able to answer questions appropriately, the pt had second bowel movement and this RN and another RUG DYER HELPER cleaned the pt and changed the pts
brief, pad, gown, and linens, CBI currently still running with blood tinged urine with blood clots present, second dose of Bicarb administered per Dr. Tse, the pt appears to be pale and stated to this RN that he is, 'wiped out', the pt is currently
still in Afib in the 60-70's, last BP 91/55 (68), the pt is currently still on RA Sp02 98%, this RN attempted to call report to the receiving ICU nurse, will attempt to call back
--- NOTE | 2023-09-29 13:46 | EDRN ---
verbal report called to the receiving ICU nurse Antonio INFANTE
[2023-09-29] MEDS: VALIUM INJECTION 2 MG IV ×2 (15:30→19:52)
--- NOTE | 2023-09-29 15:57 | CON.GI ---
Consultation
-
Date/Time Consultation Requested: 09/29/2023
Date/Time Consultation Performed: 09/29/2023
Requesting Provider:
Performing Provider: Dr. Rivera
Reason for Consultation: Anemia, heme positive stool
Medical History
Chief Complaint / HPI
Chief Complaint: Hematuria/rectal bleeding
History of Present Illness:
82-year-old male with a past medical history of CAD with history of NSTEMI, A-fib on Xarelto, pulmonary hypertension, history of PE/DVT, hypertension/hyperlipidemia, h/o alcohol abuse, smoker , who presenting with complaints of blood in the urine
and also rectal bleeding. Reports that he has had history of constipation/diarrhea, has been taking laxatives, he does have some bright blood with bowel movements on a regular basis, no black stool. He also has been having blood in the urine, UA
last week showing possible infection.he was feeling weak and called 911, noted to be hypotensive to 60/40 by EMS, resuscitated with IV fluid bolus,in the ER patient was hypothermic and BP 86/59. Labs showed leukocytosis- 15.7, anemia - 9.9, - INR
3.19, acidosis, hyponatremia, elevated creatinine 3.2-CXR shows no evidence of acute pulmonary edema or pneumonia. On pressors due to hypotension, broad-spectrum antibiotics for sepsis.
Patient denies any abdominal pain, nausea or vomiting. No heartburn or trouble swallowing.As reported above, either constipation or diarrhea but has been taking MiraLAX and prune juice. Has bright blood on the toilet tissue and in the bowl. He
did report losing significant weight since after his cardiac stent since he has been on diuretics. No NSAID use.
Drinks about 8 ounces of bourbon daily in the last 2 weeks, he has been sober after his cardiac stent for few months. Prior to that reports drinking significant alcohol for few years.
In the emergency room, CT scan of the abdomen and pelvis without contrast, mild right hydronephrosis and hydroureter, moderate air in the bladder, diverticulosis, gallstones noted.
Family history of colon cancer in mother at age 93.
Colonoscopy in [address] Obrien, 8 mm ascending colon tubular adenoma removed and diverticulosis noted.
Past Medical History
Past Medical History: Other (NSTEMI, CAD, permanent A-fib on Xarelto, CKD IIIa, BPH, obesity, pulmonary hypertension, history of PE, history of RLE DVT, tobacco use disorder, venous insufficiency, hypertension, hyperlipidemia, Hx of CVA)
Past Surgical History: Other (Hydrocele repair, tonsillectomy)
Social History
Tobacco: Smoker
Alcohol: Daily
Family History
Family History: Other (Mother with history of colon cancer)
Allergies / Home Medications
Allergy/AdvReac Type Severity Reaction Status Date / Time
clopidogrel [From Plavix] Allergy Severe Rash Verified 05/31/23 15:50
ammonium [Ammonium] Allergy Unknown Verified 05/21/23 09:34
hydrochlorothiazide Allergy 'killed my Verified 05/21/23 09:34
[From Dyazide] sex drive'
triamterene [From Dyazide] Allergy 'killed my Verified 05/21/23 09:[address]'
warfarin [Warfarin] Allergy RASH,INCREASED Verified 05/21/23 09:34
BACK PAIN
creams w/ ammonia hydrate Allergy bright red Uncoded 05/21/23 09:34
skin
reaction
�Medication �Instructions �Recorded
multivitamin with folic acid 400 1 tab PO HS Supplement 02/12/08
mcg tablet (Tab-A-Edd)
vitamin B complex (Complex B-100 1 tab PO DAILY Supplement 10/11/14
tablet,extended release)
finasteride 5 mg tablet 5 mg PO DAILY prostate issue 12/22/18
tamsulosin 0.4 mg capsule (Flomax) 0.4 mg PO DAILY Urinary Issue 12/22/18
atorvastatin 40 mg tablet (Lipitor) 40 mg PO HS High Cholesterol 05/21/23
carvedilol 3.125 mg tablet 3.125 mg PO BID 30 days #60 tabs 06/03/23
rivaroxaban 15 mg tablet (Xarelto) 15 mg PO QPM 30 days #30 tabs 06/03/23
ticagrelor 90 mg tablet (Brilinta) 90 mg PO BID 30 days #60 tabs 06/03/23
potassium chloride 20 mEq 20 meq PO TID #90 tabs 06/04/23
tablet,extended release
folic acid 1 mg tablet 1 mg PO DAILY 09/29/23
furosemide 40 mg tablet (Lasix) 40 mg PO DAILY@1400 09/29/23
furosemide 80 mg tablet 80 mg PO DAILY 09/29/23
Review of Systems
-
All other systems: A 12 pt ROS was Negative except as stated above in HPI
Vital Signs
Temp Pulse Resp BP Pulse Ox
93.6 F L 60 21 77/42 100
09/29/23 15:26 09/29/23 15:15 09/29/23 15:15 09/29/23 15:15 09/29/23 15:16
Physical Exam
Exam
General: Well Developed
HEENT: Normocephalic
Cardiac: S1/S2
GI: Soft, Non Distended and Other (Some discomfort on palpation in the lower abdomen)
Rectal: Other (Green stool, heme positive)
Results
WBC 15.7 10^3/uL (4.8-10.8) H 09/29/23 09:50
Hgb 8.9 g/dL (13.0-18.0) L 09/29/23 12:22
Hct 26.1 % (39.0-52.0) L 09/29/23 12:22
MCV 85.5 fL (80.0-94.0) 09/29/23 09:50
Plt Count 132 10^3/uL (130-400) 09/29/23 09:50
Absolute Neuts (auto) 13.6 10^3/uL (1.4-6.5) H 09/29/23 09:50
PT 32.6 Sec (11.4-14.6) H 09/29/23 09:50
INR 3.19 09/29/23 09:50
APTT 102.1 Sec (23.4-35.0) H 09/29/23 09:50
Sodium 129 mmol/L (135-145) L 09/29/23 12:24
Potassium 4.9 mmol/L (3.5-5.1) 09/29/23 12:24
Chloride 109 mmol/L (98-107) H 09/29/23 12:24
Carbon Dioxide 9 mmol/L (22-30) L* 09/29/23 12:24
BUN 57 mg/dl (9-20) H 09/29/23 12:24
Creatinine 3.0 mg/dL (0.7-1.3) H 09/29/23 12:24
Calcium 8.1 mg/dl (8.4-10.2) L 09/29/23 12:24
Total Bilirubin 0.2 mg/dl (0.2-1.3) 09/29/23 09:50
AST 18 U/L (17-59) 09/29/23 09:50
ALT 17 U/L (0-50) 09/29/23 09:50
Alkaline Phosphatase 118 U/L (38-126) 09/29/23 09:50
Diagnostic Image Results:
Prior GI Procedures:
EGD:
Colonoscopy:
Assessment / Plan
-
83-year-old male with history of multiple medical problems including atrial fibrillation on Xarelto, CAD, DVT/PE, hypertension, high cholesterol, daily alcohol use presenting with hypotension and reports constipation/diarrhea with rectal bleeding,
also significant hematuria. In the ER, hypothermic and hypotensive needing pressor support and currently in the ICU with sepsis-like picture.
CT scan of the abdomen and pelvis without contrast essentially unrevealing.
-Anemia, heme positive blood in the stool-without any history of previous GI bleeding
There is no evidence of overt GI bleeding but heme positive stool noted, unusual to cause hypotension.
Most likely, what he has been having is hemorrhoidal bleeding since he does see bright blood on the tissue and in the bowl with underlying constipation and laxative use.
Colonoscopy in 2018 showing diverticulosis and colon polyp- tubular adenoma removed.
History of alcohol abuse, CT scan showing normal-looking liver, spleen. Gallstone in the neck of the gallbladder noted. LFTs in normal range.
Xarelto is on hold.
Monitor H&H and transfuse as needed
Agree with PPI IV twice daily
Will monitor bowel movements . If any overt GI bleeding, will plan for endoscopy evaluation at that time. But for now, will follow peripherally.
I do not believe that this episode of hypotension is related to life-threatening GI bleed but rather due to sepsis.
-Hematuria-followed by urology
On CBI
-Hypotension, sepsis
Workup in progress, blood culture and urine culture pending
-Acute renal insufficiency-followed by nephrology
-History of atrial fibrillation
-Metabolic acidosis
-
-
Thank you for consultation and allowing me to participate in the patient's care. Please call the clinical operations consultant GI physician during the after hours with any questions or concerns.
--- NOTE | 2023-09-29 16:27 | SUR.OPER ---
Updated assessment, vital signs ongoing and as documented. Follow up admission data with family and friend. Updated plan of cares. Slater Apprentice in and out at bedside with patient. Continue to follow cbi, input/output totals. NaHco3 as per renal ivf
ongoing
--- NOTE | 2023-09-29 16:29 | PTCARENOTE ---
Update with Gi team at bedside. Updated history and follow new plan of cares and orders. Presently levophed at 8mcg/min goal map 65mm. NaHCo3 at 100ml/hr. Follow up labs, cultures and vs trends. Warming protocol with wayne shay continue temperature
trends. Update again with spokesperson. Continue with teaching and emotional support.
[2023-09-29] MEDS: FOLVITE 1 MG PO (18:04)
[2023-09-29] MEDS: STERILE WATER FOR INJECTION 10 ML IV (18:04)
[2023-09-29] MEDS: MAXIPIME 1000 MG IV (18:04)
[2023-09-29 18:29] LABS: Hematocrit 25.6 % (39.0-52.0); Hemoglobin 8.8 g/dL (13.0-18.0)
[2023-09-29 18:57] LABS: Blood Urea Nitrogen 56 mg/dl (9-20); Calcium 8.1 mg/dl (8.4-10.2); Carbon Dioxide 14 mmol/L (22-30); Chloride 107 mmol/L (98-107); Estimated Creatinine Clearance 20 ml/min; Glucose 98 mg/dl (70-99); Sodium 130 mmol/L (135-145)
[2023-09-29] MEDS: THIAMINE INJECTION 200 MG IV (19:51)
--- NOTE | 2023-09-29 21:04 | PTCARENOTE ---
Assumed care of pt at 1900. Pt is A/O x4, pleasant and cooperative with care. Received pt on Levophed at 10mcg/min and IVF with bicarb. Levophed titrated to keep MAP >65. CBI ongoing, running almost wide open and going through CBI bags about 1 every
60-90 minutes. Urine remains punch colored but clear (no clots). Reports pain rated 7-8/10, indicating that it is due to his catheter, medicated with PRN Valium for bladder spasms, see EMAR. Pt able to fall asleep after this. See nursing shift
assessment flowsheet for full physical assessment details. AFib 60s on monitor. SpO2 97% on RA. Pt resting with eyes closed, call wiggins within reach.
[2023-09-30] VITALS (67 sets, daily range): BP systolic 79–151; BP diastolic 33–130; PULSE 94; O2SAT 97; BMI 27.8
[2023-09-30] MEDS: SODIUM BICARBONATE 1150 MEQ IV ×2 (00:33→11:39)
[2023-09-30 00:34] LABS: Hematocrit 25.6 % (39.0-52.0); Hemoglobin 8.6 g/dL (13.0-18.0)
--- NOTE | 2023-09-30 00:40 | PTCARENOTE ---
Assessment unchanged. Remains on Levophed and bicarb drip. Repeat H&H sent. CBI ongoing. AFib 60s on monitor. SpO2 97% on RA. Pt has been asleep for the last few hours, easily arousable.
[2023-09-30] MEDS: LEVOPHED 250 IV ×2 (01:05→05:51)
--- NOTE | 2023-09-30 04:19 | PTCARENOTE ---
Assessment unchanged. Remains on Levophed and bicarb drip. Levo as high as 14mcg/min this shift and as low as 8mcg/min but only briefly, has mainly been at 10mcg/min. CBI ongoing, on 9th bag of saline irrigation fluid so far this shift, now changing
about every 2 hours. At this time urine is dark pink with occasional very small clots. Has not required manual irrigation so far this shift, and pt has not c/o bladder spasms since receiving Valium early in shift. Will occasionally c/o burning at
catheter site. Blood occasionally noted around urinary meatus, area has been cleaned throughout the shift and small blue chux pad placed over penis to keep any blood away from pt's gown/linens. Currently AFib 70s on monitor, SpO2 97% on RA.
[2023-09-30 04:58] LABS: % Basophils 0.2 % (0-2); % Eosinophils 0.5 % (0-6); % Immature Granulocytes 1.1 % (0-0.5); % Lymphocytes 3.5 % (20.5-51.1); % Monocytes 6.1 % (1.7-9.3); % Neutrophils 88.6 % (42.2-75.2); Absolute Eosinophils 0.1 10^3/uL (0-0.7); Absolute Immature Granulocytes 0.2 10^3/uL (0-0.05); Absolute Lymphocytes 0.7 10^3/uL (1.2-3.4); Absolute Monocytes 1.3 10^3/uL (0.1-0.6); Absolute Neutrophils 18.9 10^3/uL (1.4-6.5); Hematocrit 25.2 % (39.0-52.0); Hemoglobin 8.6 g/dL (13.0-18.0); Mean Corp Hgb Conc. 34.1 g/dL (33.0-37.0); Mean Corpuscular Hgb 28.8 pg (27.0-31.0); Mean Corpuscular Volume 84.3 fL (80.0-94.0); Mean Platelet Volume 10.5 fL (7.4-10.4); Nucleated Red Blood Cells % 0.1 % (-); Platelet Count 155 10^3/uL (130-400); Red Blood Cell Count 2.99 10^6/uL (4.70-6.10); Red Cell Dist. Width 16.3 % (11.5-14.5); White Blood Cell Count 21.3 10^3/uL (4.8-10.8)
[2023-09-30 05:14] LABS: PT 18.9 Sec (11.4-14.6)
[2023-09-30 05:28] LABS: Blood Urea Nitrogen 52 mg/dl (9-20); Calcium 7.8 mg/dl (8.4-10.2); Carbon Dioxide 15 mmol/L (22-30); Estimated Creatinine Clearance 22 ml/min; Glucose 83 mg/dl (70-99); Potassium 3.5 mmol/L (3.5-5.1); eGFR 24.02
[2023-09-30 05:37] LABS: Chloride 102 mmol/L (98-107); Sodium 130 mmol/L (135-145)
[2023-09-30] MEDS: MAXIPIME 1000 MG IV ×2 (05:50→17:58)
[2023-09-30] MEDS: STERILE WATER FOR INJECTION 10 ML IV ×2 (05:51→17:58)
--- NOTE | 2023-09-30 06:09 | PTCARENOTE ---
Around 0515 pt started having bladder spasms, small clots noted in catheter tubing and pt bleeding more from urinary meatus. Manually irrigated per order with 250mL sterile saline, no resistance met, all 250 mL returned, multiple large clots
evacuated (>10), pt was in pain during this procedure but overall tolerated and afterwards stated he felt better. Told pt he could have Valium if he felt that the bladder spasms were bad and he stated 'it seems to have calmed down'. Urine now a abhishek
pink color, no clots noted. Pt fully cleaned up, CHG bath done and all linens changed. Pt now resting with eyes closed.
[2023-09-30] MEDS: NSS (PRESERVATIVE FREE) 10 ML IV ×2 (07:42→19:45)
[2023-09-30] MEDS: PROTONIX IV 40 MG IV ×2 (07:42→19:45)
[2023-09-30] MEDS: THIAMINE INJECTION 200 MG IV ×2 (07:43→19:45)
[2023-09-30] MEDS: FOLVITE 1 MG PO (07:43)
--- NOTE | 2023-09-30 08:30 | PTCARENOTE ---
Assumed care of pt at 0700. Pt is A/O x4, pleasant and cooperative with care. Received pt on Levophed at 10mcg/min and IVF with bicarb. Levophed titrated to keep MAP >65. CBI ongoing, running almost wide open and going through CBI bags about 1 every
90-120 minutes. Urine remains light punch colored but clear (no clots). Reports pain rated 4/10, indicating that it is due to his catheter, Pt able to fall asleep after assessment. See nursing shift assessment flowsheet for full physical assessment
details. AFib 60s on monitor. SpO2 97% on RA. call wiggins within reach.
--- NOTE | 2023-09-30 09:02 | W.PN.HOSP.TC ---
Today's Communication/Plan
-
IV antibiotics. IV pressors. Monitor renal function electrolytes and hemoglobin.
Assessment / Plan
Assessment / Plan
Physical exam:
General: Acutely ill
HEENT: Normocephalic, Atraumatic and Moist Mucous Membranes
Respiratory: Clear to Auscultation; Negative Wheezes, Rales or Rhonchi
Cardiac: Regular Rhythm and S1/S2
GI: Soft, Nontender and Nondistended
Musculoskeletal: No Clubbing, No Cyanosis and No Edema
Neuro: Awake, Alert and Oriented
Psych: Calm
A/P:
Impression:
Septic shock due to UTI
Gross hematuria
Probable acute GI bleed
Acute blood loss anemia
Coagulopathy with supratherapeutic INR
Alcohol use disorder
Severe metabolic acidosis
Acute kidney injury
Chronic kidney disease
Hyponatremia
Hyperkalemia
Hypothermia
Leukocytosis
Conditions prior to presentation:
Hypertension
Hyperlipidemia
Chronic systolic congestive heart failure
Chronic kidney disease
BPH
Permanent atrial fibrillation
History of DVT/PE in the past
Alcohol use disorder
PLAN:
Patient remains critically ill but showing signs of improvement
Continue with pressors (Levophed at 8 mcg)--> titrate down as able
Continue IV cefepime
Blood and urine cultures pending. Follow-up cultures
Status post Kcentra in the ER
Continue CBI
Continue IV PPI
Continue to monitor hemoglobin
Start clear liquid diet today
Repeat electrolytes today
Appreciated urology, GI, and critical care consulted
Continue MSA protocol but he has not required any benzodiazepines
SCDs for DVT prophylaxis
CODE STATUS remain full code
Total Critical Care Time 35 minutes. I was immediately available to the patient and staff. I personally examined, reviewed labs, diagnostic images/reports, interpretations, treatment plans, discussed patient care with other providers and family
or caregivers (if patient is unable to make decisions), entered orders as appropriate and documented the medical record.
Anticipated Discharge: > 48 hours
Subjective/Interval History
-
Date of Service: September 30, 2023
Patient alert and oriented today. No hematemesis or melena or bright blood per rectum. Presence of hematuria. Remains on pressors.
Objective Data
-
Labs:
Laboratory Results
09/30/23 09/30/23 09/30/23
00:04 04:33 12:00
WBC 21.3 H
Hgb 8.6 L 8.6 L
Hct 25.6 L 25.2 L
Plt Count 155
PT 18.9 H
INR 1.60
Sodium 130 L Pending
Potassium 3.5 Pending
Chloride 102 Pending
Carbon Dioxide 15 L Pending
BUN 52 H Pending
Creatinine 2.6 H Pending
Glucose 83 Pending
Calcium 7.8 L Pending
Vital Signs:
Vital Signs
Temp Pulse Resp BP Pulse Ox
97.8 F 71 21 113/66 95
09/30/23 06:58 09/30/23 06:00 09/30/23 06:00 09/30/23 06:00 09/30/23 06:00
I&O
09/29/23 09/30/23 10/01/23
06:59 06:59 06:59
Intake Total 2448.7 / 2586.2 137.5 / 137.5
Output Total 46555 / 73463 50 / 50
Balance -9976.3 / -9838.8 87.5 / 87.5
--- NOTE | 2023-09-30 10:27 | W.PN.NEPH.PH ---
Today's Communication / Plan
-
cont bicarb IVF
labs later today
Assessment/Plan
-
Assessment:
Acute kidney injury
Hypotension
Metabolic acidosis
Hyponatremia
Hyperkalemia
Anemia
Gross hematuria
GI bleed
Edema
Atrial fibrillation
Heart failure reduced ejection fraction
Moderate pulmonary hypertension
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
Plan:
JUAN-obst uropathy?, in setting of gross hematuria
improving cr with IVF
UOP not accurate with CBI
met acidosis is better , cont bicarb iVF today
hyponatremia, hyperkalemia improving
titrate pressors to keep MAP>65
prn bolus of NS if needed
hb better post transfusion, GI follows
keep nevarez, improving hematuria- follows
abx per primary-adjust renally
d/w pt and family
d/w nursing
Critical care time spent 31 minutes
-
-
Date of Service: September 30, 2023
CC / HPI / ROS
-
Chief Complaint:
JUAN, met acidosis, hyperkalemia
History of Present Illness:
cr improving to 2.6, UOP ? accurate with CBI, had 8.8lit
remains on pressor for hypotension
potassium normal, na better at 130
Review of Systems:
no cp or sob
feels better today
no n/v
Labs
-
Labs:
WBC 21.3 10^3/uL (4.8-10.8) H 09/30/23 04:33
RBC 2.99 10^6/uL (4.70-6.10) L 09/30/23 04:33
Hgb 8.6 g/dL (13.0-18.0) L 09/30/23 04:33
Hct 25.2 % (39.0-52.0) L 09/30/23 04:33
Plt Count 155 10^3/uL (130-400) 09/30/23 04:33
eGFR 24.02 09/30/23 04:33
Gtt-A-Mbpswvtxpmb Pept 6200 pg/ml 09/29/23 09:50
Albumin 2.6 g/dl (3.5-5.0) L 09/29/23 09:50
Physical Exam
-
Vital Signs:
Vital Signs
Temp Pulse Resp BP Pulse Ox
97.8 F 95 21 122/64 96
09/30/23 06:58 09/30/23 09:30 09/30/23 09:30 09/30/23 09:30 09/30/23 09:30
Cardiovascular:: Regular rate and rhythm
Respiratory:: Bilateral: CTA
Lung Excursion:: Normal
Abdomen:: Nontender and Soft
Extremity Edema:: None: Bilateral:
[place]arez Catheter: Yes
--- NOTE | 2023-09-30 10:57 | W.PN.INTV ---
Today's Communication / Plan
Recommendations
Continue to wean down Levophed
Follow renal function
Continue bicarbonate drip for now
Follow laboratories later
Continue antibiotics
Follow urine culture sensitivities
Assessment
-
Assessment: 82-year-old male with a past medical history of alcohol abuse, tobacco use disorder, HFrEF, CAD with history of NSTEMI, A-fib on Xarelto, CKD IIIa, pulmonary hypertension, history of PE/DVT, hypertension/hyperlipidemia who presents
with blood seen in urine and stool X 1 day. When EMS arrived patient was hypotensive to 60/40 and they administered 0.5L IV fluid bolus. BG was 100. Here in the ER patient was hypothermic to 94.7 �F, VT: 67 bpm, RR: 21 breaths/min, SpO2 96% on
room air and BP 86/59. Labs showed leukocytosis to 15.7, anemia to 9.9, elevated INR 3.19, serum sodium 127, serum bicarbonate level of 10, creatinine 3.2, potassium of 6, proBNP of 6200, and serum albumin 2.6. Patient had +1 ketones in the urine
with +2 leukocyte esterase and many bacteria. Urine culture was collected. CXR shows no evidence of acute pulmonary edema or pneumonia. Patient treated for his hyperkalemia in the ER with insulin aspart 4 units and 25 g dextrose, also given
sodium bicarbonate X1 amp, given antibiotics with vancomycin/Zosyn, given IV fluids with NS 0.5L and started on levophed due to persistent hypotension with SBP in the mid 80s. Due to his electrolyte abnormalities with hypotension requiring
vasopressors, patient being admitted to the ICU. Critical care services now consulted for additional management/recommendations.
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
hypertension, hyperlipidemia
Impression:
#Shock - suspected sepsis from UTI in setting of vasoplegia from severe metabolic acidosis
#UTI - originally Dx as outpatient on 09/25/2023 with Urology
E. coli UTI culture 01/29/2024
#JUAN superimposed on CKD with hyperkalemia (baseline Cr approx 1.1)
#Metabolic acidosis with normal anion gap
#Hyponatremia
#Acute on chronic anemia (baseline Hb 11.5-12.5)
#Coagulopathy with elevated INR
#A-fib on Xarelto
#Alcohol abuse
#Tobacco abuse
Plan:
Critically ill, remains on vasopressor 6 mics NE.
Remains in septic shock.
Lactic acid has cleared
Patient clinically states that he feels better.
Continue to wean down vasopressors to maintain systolic blood pressure above 90. Patient usually runs low.
Monitor renal function and urinary output closely.
-
E. coli UTI: Sensitivities pending
- Empiric Abx for now with cefepime;
-Blood cultures so far negative
-
Hematuria: Followed by urology.
CBI in place
Clearing
-
Renally dose all meds, trend UOP, serum [K] and serum HCO3
Metabolic acidosis noted: Now on bicarbonate drip
Patient's mental status improved. Following commands. Alert.
Nephrology following the patient.
Repeat labs later at noon
Anemia with heme positive stools.
Anticoagulation on hold
Continue to follow H&H
GI recommending conservative management for now.
-
Maintain euglycemia with goal BG 140-180
-
From the respiratory status with clear lungs. Not requiring supplemental oxygen.
- prn nebulized bronchodilators
- Incentive spirometer
DVT ppx with SCDs.
Pharmacological prophylaxis on hold due to anemia with heme positive stools.
Critical care statement: A total of 31 minutes of critical care time was provided for this patient today. This includes management of unstable vital signs, evaluation of the patient at bedside, reviewing the patient's pertinent medical records
including radiographs, microbiology, laboratory evaluations, and discussion with primary team, consultants, pharmacy, nutrition, physical therapy, case management, charge nurse, critical care nursing, and respiratory therapy.

Data:
CXR 09-29-2023:
1. Mild cardiomegaly without evidence for acute pulmonary edema.
2. Severe calcific atherosclerotic plaque in the thoracic aorta, axillary, and subclavian arteries.
3. Central pulmonary arterial distention suggesting pulmonary arterial hypertension.
4. Mild to moderate elevation of the right hemidiaphragm.
Subjective Dataa
Subjective Data
Date of Service:
Date of Service: September 30, 2023
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
Subjective:
Patient states that he feels better.
Padilla in place, complains of some discomfort.
Denies nausea or vomiting.
Denies shortness of breath.
Review of Systems
General: Fever
Cardiopulmonary: Dyspnea (none at rest), Cough (n) and Sputum Production (n)
GI: Abdominal Pain (n)
Objective Data
Data Reviewed
Vital Signs / I&O / Oxygen:
Vital Signs
Temp Pulse Resp BP Pulse Ox
97.8 F 87 19 120/61 98
09/30/23 06:58 09/30/23 10:30 09/30/23 10:30 09/30/23 10:30 09/30/23 10:30
Intake and Output
09/29/23 09/30/23 10/01/23
06:59 06:59 06:59
Intake Total 2448.7 / 2586.2 970.0 / 970.0
Output Total 34263 / 11238 50 / 50
Balance -9976.3 / -9838.8 920.0 / 920.0
SaO2 98
Physical Exam
General: Respiratory Distress (n)
HEENT: Normocephalic (n)
Cardiovascular: S1-S2
Respiratory: Clear and Non-Labored Respirations
GI: Soft and Other (Padilla in place with pink urine)
Neurology: Awake and Alert
Skin: Warm
Labs/Micro/Reports
Lab Data
09/30/23 04:33
Laboratory Results
09/29/23 09/30/23
12:24 04:33
PT 18.9 H
INR 1.60
pH 7.27 L
pCO2 24 L
pO2 136 H
HCO3 11.0 L*
O2 Delivery Level
Microbiology
09/29/23 09:50 Urine Urine Culture - Preliminary
Escherichia coli
--- NOTE | 2023-09-30 11:29 | CM ---
Addendum entered by Rito Alcaraz 09/30/23 15:47:
PT and OT evaluations noted - SNF level of care recommenced.
CM made a referral to pt's preferred SNFs: [facility], [facility] and [facility].
D/C plan: preferred SNF.
Original Note:
CM following re: discharge planning.
Discussed in Rounds, reviewed pt's chart, met with pt.
Pt is an 83 year old female, admitted with primary dx of Septic Shock.
Pt reports he lives alone in a 2SH, 2 steps to enter, has 3 stepchildren. Pt reports he ambulates with a walker and a cane, uses transport chair when goes outside. Pt reports he has caregiver services 6 hours daily and 2 caregivers split days and
they help daily. Pt reports he is known to [facility]. No SNF history.
Pt reports he has been feeling very weak in the past week and he feels he will need to go to a SNF for a short term rehab. Per pt his preferences will be SNFs in [facility]: [facility], [facility] or [facility]. CM will make a
referral to preferred SNFs after PT/OT evaluations.
PT and OT evaluations requested.
D/C plan: most likely preferred SNF if recommended by PT and OT.
CM will follow with discharge plan updates as hospitalization progresses
--- NOTE | 2023-09-30 12:06 | PTCARENOTE ---
Assessment unchanged. Remains on Levophed and bicarb drip. CBI ongoing. AFib 80s on monitor. SpO2 98% on RA. Pt has been asleep for the last few hours, easily arousable.
[2023-09-30 12:52] LABS: Blood Urea Nitrogen 48 mg/dl (9-20); Calcium 7.2 mg/dl (8.4-10.2); Carbon Dioxide 20 mmol/L (22-30); Chloride 100 mmol/L (98-107); Estimated Creatinine Clearance 24 ml/min; Glucose 192 mg/dl (70-99); Potassium 2.7 mmol/L (3.5-5.1); Sodium 128 mmol/L (135-145); eGFR 26.44
[2023-09-30] MEDS: KCL ELIXIR 40 MEQ PO (13:14)
[2023-09-30] MEDS: KCL 270 MEQ IV (13:19)
[2023-09-30] MEDS: SENOKOT-S 1 TABLET PO (14:41)
--- NOTE | 2023-09-30 15:38 | PTCARENOTE ---
PT/OT to bedside-see note. Able to sit at side of bed but not able to stand at this time. Levophed remains off.
[2023-09-30] MEDS: NSS 1000 IV (16:02)
--- NOTE | 2023-09-30 16:04 | W.PN.UPDATE ---
Update Note
Progress Note Update
Patient has remained hemodynamically stable.
Vasopressors discontinued
Hypokalemia noted.
Will replete IV NPO.
Repeat BMP 6 PM. Magnesium also will be obtained.
After potassium repletion, transfer to telemetry.
--- NOTE | 2023-09-30 18:43 | W.PN.GI.CBS2 ---
Today's Communication / Plan
-
-Anemia, heme positive blood in the stool-without any history of previous GI bleeding
No evidence of GI bleeding causing hypotension
Most likely, what he has been having is hemorrhoidal bleeding since he does see bright blood on the tissue and in the bowl with underlying constipation and laxative use. No further bright blood this admission.
Will monitor H&H and follow peripherally
Colonoscopy in 2018 showing diverticulosis and colon polyp- tubular adenoma removed.
History of alcohol abuse, CT scan showing normal-looking liver, spleen. Gallstone in the neck of the gallbladder noted. LFTs in normal range.
Xarelto is on hold.
Monitor H&H and transfuse as needed
Continue PPI IV twice daily
-Hematuria-followed by urology
On CBI
-Hypotension, sepsis
Workup in progress, blood culture and urine culture pending
-Acute renal insufficiency-followed by nephrology
-History of atrial fibrillation
-Metabolic acidosis
Assessment / Plan
-
83-year-old male with history of multiple medical problems including atrial fibrillation on Xarelto, CAD, DVT/PE, hypertension, high cholesterol, daily alcohol use presenting with hypotension and reports constipation/diarrhea with rectal bleeding,
also significant hematuria. In the ER, hypothermic and hypotensive needing pressor support and currently in the ICU with sepsis-like picture.
CT scan of the abdomen and pelvis without contrast essentially unrevealing.
-Anemia, heme positive blood in the stool-without any history of previous GI bleeding
No evidence of GI bleeding causing hypotension
Most likely, what he has been having is hemorrhoidal bleeding since he does see bright blood on the tissue and in the bowl with underlying constipation and laxative use. No further bright blood this admission.
Will monitor H&H and follow peripherally
Colonoscopy in 2018 showing diverticulosis and colon polyp- tubular adenoma removed.
History of alcohol abuse, CT scan showing normal-looking liver, spleen. Gallstone in the neck of the gallbladder noted. LFTs in normal range.
Xarelto is on hold.
Monitor H&H and transfuse as needed
Continue PPI IV twice daily
-Hematuria-followed by urology
On CBI
-Hypotension, sepsis
Workup in progress, blood culture and urine culture pending
-Acute renal insufficiency-followed by nephrology
-History of atrial fibrillation
-Metabolic acidosis
Subjective
Subjective
Date of Service: September 30, 2023
Patient without any bowel movements today. Continues to have hematuria
Objective
Data Reviewed
Laboratory Data:
Laboratory Results
09/30/23 04:33
Laboratory Results
PT 18.9 Sec (11.4-14.6) H 09/30/23 04:33
INR 1.60 09/30/23 04:33
APTT 102.1 Sec (23.4-35.0) H 09/29/23 09:50
Magnesium 2.0 mg/dl (1.6-2.3) 09/30/23 11:42
Total Bilirubin 0.2 mg/dl (0.2-1.3) 09/29/23 09:50
AST 18 U/L (17-59) 09/29/23 09:50
ALT 17 U/L (0-50) 09/29/23 09:50
Alkaline Phosphatase 118 U/L (38-126) 09/29/23 09:50
Vital Signs and I&O:
Vital Signs
Temp Pulse Resp BP Pulse Ox
97.1 F 81 21 79/51 99
09/30/23 15:18 09/30/23 18:04 09/30/23 18:04 09/30/23 18:04 09/30/23 18:04
I&O
09/29/23 09/30/23 10/01/23
06:59 06:59 06:59
Intake Total 2448.7 / 2586.2 1800.0 / 1800.0
Output Total 36476 / 09830 625 / 625
Balance -9976.3 / -9838.8 1175.0 / 1175.0
Physical Exam
Physical Exam
GI: Soft, Non Distended and Non Tender
[2023-09-30 18:45] LABS: Blood Urea Nitrogen 45 mg/dl (9-20); Calcium 6.8 mg/dl (8.4-10.2); Carbon Dioxide 21 mmol/L (22-30); Chloride 101 mmol/L (98-107); Estimated Creatinine Clearance 25 ml/min; Glucose 164 mg/dl (70-99); Magnesium 1.8 mg/dl (1.6-2.3); Potassium 3.7 mmol/L (3.5-5.1); Sodium 127 mmol/L (135-145); eGFR 27.83
[2023-09-30] MEDS: CALCIUM GLUCONATE 130 MG IV (19:44)
--- NOTE | 2023-09-30 20:10 | PTCARENOTE ---
Pt aaox3, cooperative. c/o abd pain, stating 'the catheter is really hurting'. CBI infusing with minimal output. Irrigated Pt per protocol, removed large amounts of clots. CBI reconnected, draining blood tinged urine. Pt incontinent of large amount
of liquid stool. Pt changed and repositioned in bed. Bed linens changed. Padilla care completed. Pt states 'I am feeling better.' call wiggins within reach.
[2023-10-01] VITALS (45 sets, daily range): BP systolic 87–152; BP diastolic 36–131; BMI 28.7
[2023-10-01] MEDS: NSS 1000 IV (02:20)
[2023-10-01 05:21] LABS: % Basophils 0.1 % (0-2); % Eosinophils 0.8 % (0-6); % Immature Granulocytes 1.1 % (0-0.5); % Lymphocytes 5.7 % (20.5-51.1); % Monocytes 8.7 % (1.7-9.3); % Neutrophils 83.6 % (42.2-75.2); Absolute Eosinophils 0.1 10^3/uL (0-0.7); Absolute Immature Granulocytes 0.2 10^3/uL (0-0.05); Absolute Lymphocytes 0.8 10^3/uL (1.2-3.4); Absolute Monocytes 1.2 10^3/uL (0.1-0.6); Absolute Neutrophils 11.7 10^3/uL (1.4-6.5); Hematocrit 22.6 % (39.0-52.0); Hemoglobin 7.6 g/dL (13.0-18.0); Mean Corp Hgb Conc. 33.6 g/dL (33.0-37.0); Mean Corpuscular Hgb 28.3 pg (27.0-31.0); Mean Platelet Volume 10.6 fL (7.4-10.4); Nucleated Red Blood Cells % 0.1 % (-); Platelet Count 105 10^3/uL (130-400); Red Blood Cell Count 2.69 10^6/uL (4.70-6.10); Red Cell Dist. Width 16.5 % (11.5-14.5)
[2023-10-01 05:42] LABS: ALT (SGPT) 10 U/L (0-50); AST (SGOT) 19 U/L (17-59); Albumin 1.9 g/dl (3.5-5.0); Alkaline Phosphatase 87 U/L (38-126); Blood Urea Nitrogen 43 mg/dl (9-20); Calcium 7.9 mg/dl (8.4-10.2); Carbon Dioxide 19 mmol/L (22-30); Chloride 104 mmol/L (98-107); Estimated Creatinine Clearance 29 ml/min; Glucose 89 mg/dl (70-99); Potassium 3.2 mmol/L (3.5-5.1); Sodium 132 mmol/L (135-145); Total Bilirubin 0.4 mg/dl (0.2-1.3); Total Protein 4.3 g/dl (6.3-8.2); eGFR 32.91
--- NOTE | 2023-10-01 05:57 | W.PN.GI.CBS2 ---
Today's Communication / Plan
-
See assessment and plan for details.
Assessment / Plan
-
1. Rectal bleeding: Likely hemorrhoidal, intermittent, none further, no signs of significant GI bleeding. His diarrhea now is more likely antibiotic associated, and current at this point we will underlying illness more related to UTI/
bleeding/hydronephrosis on CT scan. Continue care per critical care and urology, hold on further GI workup for now. Will sign off for now, please call back with any further questions.
Subjective
Subjective
Date of Service: October 01, 2023
Patient feeling okay, no abdominal pain. Several loose bowel movements overnight per nursing though no blood. Still with hematuria.
Objective
Data Reviewed
Laboratory Data:
Laboratory Results
10/01/23 04:28
Laboratory Results
PT 18.9 Sec (11.4-14.6) H 09/30/23 04:33
INR 1.60 09/30/23 04:33
APTT 102.1 Sec (23.4-35.0) H 09/29/23 09:50
Magnesium 2.0 mg/dl (1.6-2.3) 10/01/23 04:28
Total Bilirubin 0.4 mg/dl (0.2-1.3) 10/01/23 04:28
AST 19 U/L (17-59) 10/01/23 04:28
ALT 10 U/L (0-50) 10/01/23 04:28
Alkaline Phosphatase 87 U/L (38-126) 10/01/23 04:28
Vital Signs and I&O:
Vital Signs
Temp Pulse Resp BP Pulse Ox
98.5 F 57 17 89/48 96
10/01/23 03:10 10/01/23 05:34 10/01/23 05:34 10/01/23 05:34 10/01/23 05:34
I&O
04/09/30/23 10/01/23
06:59 06:59 06:59
Intake Total 2448.7 / 2586.2 2871.3 / 2871.3
Output Total 84445 / 35154 625 / 625
Balance -9976.3 / -9838.8 2246.3 / 2246.3
Physical Exam
Physical Exam
General: NAD
Abdomen: normal bowel sounds, soft, no tenderness, no masses or bruits, no ascites
[2023-10-01] MEDS: MAXIPIME 1000 MG IV (06:16)
[2023-10-01] MEDS: STERILE WATER FOR INJECTION 10 ML IV (06:16)
--- NOTE | 2023-10-01 07:41 | W.PN.HOSP.TC ---
Today's Communication/Plan
-
IV antibiotics. Pressors.
Assessment / Plan
Assessment / Plan
Physical exam:
General: Acutely ill
HEENT: Normocephalic, Atraumatic and Moist Mucous Membranes
Respiratory: Clear to Auscultation; Negative Wheezes, Rales or Rhonchi
Cardiac: Regular Rhythm and S1/S2
GI: Soft, Nontender and Nondistended
: Padilla catheter in place with CBI-clear urine.
Musculoskeletal: No Clubbing, No Cyanosis and No Edema
Neuro: Awake, Alert and Oriented, no gross neurodeficits.
Psych: Calm
A/P:
Septic shock due to urinary tract infection:
Improving
Narrow down to appropriate antibiotics. Change IV cefepime to IV cefazolin
Urine cultures growing E. coli, pansensitive
WBC from 21.3 yesterday--> 14 today
Titrate pressors--> yesterday was able to titrate down and it went back up again but currently on a low-dose. Discussed with sessions clerk today and they will titrate as able today.
PT OT eval
Gross hematuria:
Continue CBI per urology
Monitor hemoglobin
Off anticoagulant
Appreciate urology consult and follow-up
Possible GI bleed:
Upgrade to regular diet today
Monitor hemoglobin
GI on board and no plans for procedures unless clinical status changes per consultation.
Acute blood loss anemia:
Blood transfusion as needed
Hemoglobin 7.6 today
Continue monitor hemoglobin
Coagulopathy and bleeding:
Status post Kcentra in the ED
Xarelto on hold
Resume anticoagulants once safe to do so and no further bleeding.
Acute kidney injury chronic kidney disease:
On IV fluids
Padilla catheter in place
Nephrology following
Severe metabolic acidosis:
On IV fluids with bicarb, now off
Monitor acidosis but overall improving
Nephrology on board
Hyperkalemia:
Resolved
Hypokalemia:
Replete today and trend
Hypocalcemia:
Replete today and trend
Hyponatremia:
Monitor
Hypothermia:
Likely related to sepsis
Currently improved
Alcohol use disorder:
On MSA protocol but no evidence of alcohol withdrawal at the moment.
Hypertension:
Holding antihypertensives but resume once blood pressure stable
Hyperlipidemia:
Will resume statin soon
Chronic systolic congestive heart failure:
Euvolemic
No need for diuretics at this point but can use as needed.
Continue to monitor volume status
BPH:
On Flomax and finasteride on hold but resume once blood pressure stable
Permanent atrial fibrillation:
Rate controlled on hold due to hypotension
Anticoagulation on hold due to bleeding
History of DVT/PE in the past:
Anticoagulation on hold due to bleeding
DVT prophylaxis:
SCDs
CODE STATUS:
Full code
Total time spent on today's encounter was 52 minutes which included time spent in counseling the patient/family regarding diagnosis and treatment plan as listed above, goals of care, and symptom management. Case was discussed with nursing staff,
specialists, and care coordinators/case management. All labs and imaging personally reviewed by me. Remainder the time spent in detailed review of previous records, lab data, imaging, and other medical provider documentation.
Anticipated Discharge: > 48 hours
Subjective/Interval History
-
Date of Service: October 01, 2023
Patient denies chest pain or shortness of breath. Denies any abdominal pain. No melena or hematemesis. No nausea or vomiting. Hematuria clearing.
Objective Data
-
Labs:
Laboratory Results
10/01/23
04:28
WBC 14.0 H
Hgb 7.6 L
Hct 22.6 L
Plt Count 105 L D
Sodium 132 L
Potassium 3.2 L
Chloride 104
Carbon Dioxide 19 L
BUN 43 H
Creatinine 2.0 H
Glucose 89
Calcium 7.9 L
Total Bilirubin 0.4
AST 19
ALT 10
Alkaline Phosphatase 87
Vital Signs:
Vital Signs
Temp Pulse Resp BP Pulse Ox
98.5 F 70 20 107/48 98
10/01/23 03:10 10/01/23 06:30 10/01/23 06:30 10/01/23 06:30 10/01/23 06:30
I&O
09/30/23 10/01/23 10/02/23
06:59 06:59 06:59
Intake Total 2448.7 / 2586.2 2978.8 / 2978.8
Output Total 52680 / 56053 2425 / 2425
Balance -9976.3 / -9838.8 553.8 / 553.8
[2023-10-01] MEDS: LEVOPHED 250 IV (09:00)
[2023-10-01] MEDS: THIAMINE INJECTION 200 MG IV ×2 (10:08→19:47)
[2023-10-01] MEDS: KCL ELIXIR 40 MEQ PO (10:08)
[2023-10-01] MEDS: FOLVITE 1 MG PO (10:08)
[2023-10-01] MEDS: PROTONIX IV 40 MG IV ×2 (10:08→19:47)
[2023-10-01] MEDS: NSS (PRESERVATIVE FREE) 10 ML IV ×2 (10:08→19:47)
--- NOTE | 2023-10-01 10:55 | W.PN.INTV ---
Today's Communication / Plan
Recommendations
Wean off Levophed
Continue antibiotics-has been consolidated
IV fluids, hopefully can discontinue if tolerating diet
Increase activity as able
Hopefully can discontinue CBI
Follow renal function electrolytes
Assessment
-
Assessment: 82-year-old male with a past medical history of alcohol abuse, tobacco use disorder, HFrEF, CAD with history of NSTEMI, A-fib on Xarelto, CKD IIIa, pulmonary hypertension, history of PE/DVT, hypertension/hyperlipidemia who presents
with blood seen in urine and stool X 1 day. When EMS arrived patient was hypotensive to 60/40 and they administered 0.5L IV fluid bolus. BG was 100. Here in the ER patient was hypothermic to 94.7 �F, LA: 67 bpm, RR: 21 breaths/min, SpO2 96% on
room air and BP 86/59. Labs showed leukocytosis to 15.7, anemia to 9.9, elevated INR 3.19, serum sodium 127, serum bicarbonate level of 10, creatinine 3.2, potassium of 6, proBNP of 6200, and serum albumin 2.6. Patient had +1 ketones in the urine
with +2 leukocyte esterase and many bacteria. Urine culture was collected. CXR shows no evidence of acute pulmonary edema or pneumonia. Patient treated for his hyperkalemia in the ER with insulin aspart 4 units and 25 g dextrose, also given
sodium bicarbonate X1 amp, given antibiotics with vancomycin/Zosyn, given IV fluids with NS 0.5L and started on levophed due to persistent hypotension with SBP in the mid 80s. Due to his electrolyte abnormalities with hypotension requiring
vasopressors, patient being admitted to the ICU. Critical care services now consulted for additional management/recommendations.
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
hypertension, hyperlipidemia
Impression:
#Shock - suspected sepsis from UTI in setting of vasoplegia from severe metabolic acidosis
#UTI - originally Dx as outpatient on 09/25/2023 with Urology
E. coli UTI culture 01/29/2024
#JUAN superimposed on CKD with hyperkalemia (baseline Cr approx 1.1)
#Metabolic acidosis with normal anion gap
#Hyponatremia
#Acute on chronic anemia (baseline Hb 11.5-12.5)
#Coagulopathy with elevated INR
#A-fib on Xarelto
#Alcohol abuse
#Tobacco abuse
Plan:
Yesterday vasopressors weaned off. Overnight restarted at 4 mics per minute.
Continue to target systolic of 90 mmHg.
Renal function is improving.
Patient appears nontoxic
Hopefully can wean off today.
-
Lactic acid has cleared
Patient clinically states that he feels better.
Urine in place with CBI.
-
E. coli UTI: Sensitivities pending
-Pansensitive. Now on cefazolin
-Blood cultures so far negative
-
Hematuria: Followed by urology.
Hematuria has resolved.
CBI in place, hopefully can discontinue
-
Metabolic acidosis noted: Bicarbonate drip discontinued per
Patient developed significant hypokalemia, will continue to replete aggressively.
Nephrology following the patient.
Currently on normal saline.
If able to tolerate diet hopefully can discontinue.
Anemia with heme positive stools.
Anticoagulation on hold
Continue to follow H&H
GI recommending conservative management for now. No evidence for acute bleeding
-
Maintain euglycemia with goal BG 140-180
-
From the respiratory status with clear lungs. Not requiring supplemental oxygen.
- prn nebulized bronchodilators
- Incentive spirometer
DVT ppx with SCDs.
Pharmacological prophylaxis on hold due to anemia with heme positive stools.
Critical care statement: A total of 32 minutes of critical care time was provided for this patient today. This includes management of unstable vital signs, evaluation of the patient at bedside, reviewing the patient's pertinent medical records
including radiographs, microbiology, laboratory evaluations, and discussion with primary team, consultants, pharmacy, nutrition, physical therapy, case management, charge nurse, critical care nursing, and respiratory therapy.

Data:
CXR 09-29-2023:
1. Mild cardiomegaly without evidence for acute pulmonary edema.
2. Severe calcific atherosclerotic plaque in the thoracic aorta, axillary, and subclavian arteries.
3. Central pulmonary arterial distention suggesting pulmonary arterial hypertension.
4. Mild to moderate elevation of the right hemidiaphragm.
Subjective Dataa
Subjective Data
Date of Service:
Date of Service: October 01, 2023
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
Subjective:
Patient offers no new complaints.
Continues to report some discomfort in his legs with movement
Has poor appetite.
Denies nausea or vomiting.
Back on vasopressors overnight
Review of Systems
General: Fever (n)
Cardiopulmonary: Dyspnea (n), Cough (n) and Sputum Production (n)
GI: Abdominal Pain (n), Nausea (n) and Vomiting (n)
Objective Data
Data Reviewed
Vital Signs / I&O / Oxygen:
Vital Signs
Temp Pulse Resp BP Pulse Ox
98.5 F 70 20 107/48 98
10/01/23 03:10 10/01/23 06:30 10/01/23 06:30 10/01/23 06:30 10/01/23 06:30
Intake and Output
09/30/23 10/01/23 10/02/23
06:59 06:59 06:59
Intake Total 2448.7 / 2586.2 2978.8 / 2978.8
Output Total 95569 / 09882 2425 / 2425
Balance -9976.3 / -9838.8 553.8 / 553.8
SaO2 98
Physical Exam
General: Respiratory Distress (n)
HEENT: Normocephalic (n)
Cardiovascular: S1-S2
Respiratory: Clear and Non-Labored Respirations
GI: Soft and Other (Padilla in place with clear urine. CBI in place)
Neurology: Awake and Alert
Skin: Warm
Labs/Micro/Reports
Lab Data
10/01/23 04:28
Microbiology
09/29/23 09:50 Urine Urine Culture - Final
Escherichia coli
09/29/23 12:22 Blood/Venous Blood Culture - Preliminary
No Growth in 24 hours- Final report to follow
09/29/23 12:22 Blood/Venous Blood Culture - Preliminary
No Growth in 24 hours- Final report to follow
--- NOTE | 2023-10-01 11:42 | W.PN.NEPH.PH ---
Today's Communication / Plan
-
monitor off IVF
reaplce k
Assessment/Plan
-
Assessment:
Acute kidney injury
Hypotension
Metabolic acidosis
Hyponatremia
Hyperkalemia
Anemia
Gross hematuria
GI bleed
Edema
Atrial fibrillation
Heart failure reduced ejection fraction
Moderate pulmonary hypertension
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
Plan:
JUAN-obst uropathy?, in setting of gross hematuria
improving cr with IVF and nevarez
UOP not accurate with CBI, expect non oliguric
monitor met acidosis off bicarb IVF
wt increasing and po intake seem appropriate-d/c IVF
replace k
hyponatremia improving
titrate pressors to keep MAP>65
follow h/h, prn transfusion
keep nevarez, improving hematuria on CBI per
abx per primary
corrected emilee i snormal range
d/w pt
d/w nursing
high risk encounter with need of pressor and JUAN
-
-
Date of Service: October 01, 2023
CC / HPI / ROS
-
Chief Complaint:
JUAN, met acidosis, hyperkalemia
History of Present Illness:
cr improving to 2, UOP ? accurate with CBI
on and off pressor for hypotension
potassium low 3.2, na better at 132
WBC improving to 14k, hb low 7.6
Review of Systems:
no cp or sob at rest
feels well
no n/v
Labs
-
Labs:
WBC 14.0 10^3/uL (4.8-10.8) H 10/01/23 04:28
RBC 2.69 10^6/uL (4.70-6.10) L 10/01/23 04:28
Plt Count 105 10^3/uL (130-400) L D 10/01/23 04:28
Sodium 132 mmol/L (135-145) L 10/01/23 04:28
Potassium 3.2 mmol/L (3.5-5.1) L 10/01/23 04:28
Chloride 104 mmol/L (98-107) 10/01/23 04:28
Carbon Dioxide 19 mmol/L (22-30) L 10/01/23 04:28
BUN 43 mg/dl (9-20) H 10/01/23 04:28
Creatinine 2.0 mg/dL (0.7-1.3) H 10/01/23 04:28
eGFR 32.91 10/01/23 04:28
Glucose 89 mg/dl (70-99) 10/01/23 04:28
Calcium 7.9 mg/dl (8.4-10.2) L 10/01/23 04:28
Bvs-A-Sqwmgqgezmh Pept 6200 pg/ml 09/29/23 09:50
Albumin 1.9 g/dl (3.5-5.0) L 10/01/23 04:28
Physical Exam
-
Vital Signs:
Vital Signs
Temp Pulse Resp BP Pulse Ox
98.5 F 70 20 107/48 98
10/01/23 03:10 10/01/23 06:30 10/01/23 06:30 10/01/23 06:30 10/01/23 06:30
Cardiovascular:: Regular rate and rhythm
Respiratory:: Bilateral: CTA (decreased anteriorly)
Lung Excursion:: Normal
Abdomen:: Nontender and Soft
Extremity Edema:: None: Bilateral: (trace)
Nevarez Catheter: Yes
--- NOTE | 2023-10-01 12:02 | PTCARENOTE ---
pt awake and alert, forgetful at times, cooperative , Afib on monitor , pt on Levophed to keep SBT 90 , on 4 mcg currently , pt now on cholesterol lowering diet , tolerated well, abd soft non tender, urine is pink 3 way Padilla cath , complains of
lower extremity pain and numbness at times , chronic , improved with repositioning
--- NOTE | 2023-10-01 13:32 | CM ---
CM following re: discharge planing.
Discussed in Rounds, reviewed pt's chart, met with pt.
Per rounds meeting,continue supportive care, improving creatinine, nephrology following.
Pt brought his concerns regarding ending up with dialysis, support offered and provided. 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 Pt stated that one of his stepchildren
might move to his house and will be able to help.
Pt is aware that [facility], [facility] and [facility] are offered a bed for a short term rehab when pt is medically stable and pt preferred [facility].
D/C plan: [facility] when medically stabel.
CM will follow with discharge plan updates as hospitalization progresses
--- NOTE | 2023-10-01 15:22 | PTCARENOTE ---
attempted to turn off Levophed several times today , pt SBP 80s with Levophed off , currently on 2mcg, pt also complains of lower extremity pain , states he has a history of neuropathy , Dr Bone notified
[2023-10-01] MEDS: ProAmatine 5 MG PO ×2 (15:58→19:47)
[2023-10-01] MEDS: TYLENOL 650 MG PO ×2 (15:58→22:25)
[2023-10-01] MEDS: ANCEF 5 IV ×2 (15:59→23:17)
[2023-10-01 16:10] LABS: Hematocrit 22.5 % (39.0-52.0); Hemoglobin 7.7 g/dL (13.0-18.0)
--- NOTE | 2023-10-01 17:32 | PTCARENOTE ---
pt to transfer to [facility] , report given to receiving RN
--- NOTE | 2023-10-01 18:14 | PTCARENOTE ---
Addendum entered by Melanie Santiago RN 10/01/23 18:15:
temp 94.6 rectal
Original Note:
pt rectal temp 94.1 , receiving RN notified of temp , pt placed in warm blankets , pt asymptomatic with low temp
--- NOTE | 2023-10-01 18:32 | PTCARENOTE ---
Pt rec'd into 3341 from ICU as a transfer. Pt was turned and changed for incont green stool prior to arrival, FIXED INCOME DIRECTOR reports rectal temp of 94.1 Warm blankets applied. Pt AOx2-3, slightly forgetful but pleasant and talkative. Pt remains with levo
infusing at 2 mcg/min, 7.5 ml/hr. Pts bp stable at 102/[address] Bone notified by this RN re:hypothermia, orders for wayne hugger rec'd. Handoff to awake overnight counselor completed.
--- NOTE | 2023-10-01 20:45 | PTCARENOTE ---
Received pt from [facility]. Pt is AAOx3, forgetful @ times. Pt placed on wayne hugger for temp of 94.9 rectal. MSAS per protocol. Afib on the monitor, on levo gtt @ 2 mcg/min. On RA O2 sat 96%, lungs coarse/diminished. Incont of stool. CBI infusing
pink color, hygiene provided. SCDs in place. Q2T provided. Pt is laying comfortable in bed with call wiggins in reach.
[2023-10-02] VITALS (25 sets, daily range): BP systolic 83–139; BP diastolic 32–78; PULSE 104–127; O2SAT 97; BMI 28.8
[2023-10-02 03:40] LABS: % Basophils 0.3 % (0-2); % Eosinophils 0.9 % (0-6); % Immature Granulocytes 1.3 % (0-0.5); % Lymphocytes 5.8 % (20.5-51.1); % Monocytes 9.3 % (1.7-9.3); % Neutrophils 82.4 % (42.2-75.2); Absolute Eosinophils 0.1 10^3/uL (0-0.7); Absolute Immature Granulocytes 0.2 10^3/uL (0-0.05); Absolute Lymphocytes 0.7 10^3/uL (1.2-3.4); Absolute Monocytes 1.1 10^3/uL (0.1-0.6); Absolute Neutrophils 9.7 10^3/uL (1.4-6.5); Hematocrit 22.4 % (39.0-52.0); Hemoglobin 7.6 g/dL (13.0-18.0); Mean Corp Hgb Conc. 33.9 g/dL (33.0-37.0); Mean Corpuscular Hgb 28.5 pg (27.0-31.0); Mean Corpuscular Volume 83.9 fL (80.0-94.0); Mean Platelet Volume 10.6 fL (7.4-10.4); Nucleated Red Blood Cells % 0 % (-); Platelet Count 121 10^3/uL (130-400); Red Blood Cell Count 2.67 10^6/uL (4.70-6.10); Red Cell Dist. Width 16.3 % (11.5-14.5); White Blood Cell Count 11.8 10^3/uL (4.8-10.8)
[2023-10-02 04:05] LABS: ALT (SGPT) 12 U/L (0-50); AST (SGOT) 14 U/L (17-59); Alkaline Phosphatase 88 U/L (38-126); Blood Urea Nitrogen 38 mg/dl (9-20); Carbon Dioxide 23 mmol/L (22-30); Chloride 107 mmol/L (98-107); Estimated Creatinine Clearance 34 ml/min; Glucose 101 mg/dl (70-99); Potassium 3.3 mmol/L (3.5-5.1); Sodium 133 mmol/L (135-145); Total Bilirubin 0.2 mg/dl (0.2-1.3); Total Protein 4.4 g/dl (6.3-8.2)
[2023-10-02] MEDS: KCL ELIXIR 40 MEQ PO (04:26)
--- NOTE | 2023-10-02 08:20 | W.PN.NEPH.PH ---
Today's Communication / Plan
-
follow bmp
pressor support to keep MAP >65
Assessment/Plan
-
Assessment:
Acute kidney injury
Hypotension
Metabolic acidosis
Hyponatremia
Hyperkalemia
Anemia
Gross hematuria
GI bleed
Edema
Atrial fibrillation
Heart failure reduced ejection fraction
Moderate pulmonary hypertension
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
Plan:
JUAN-obst uropathy?, in setting of gross hematuria
improving cr now down to 1.7 with IVF and nevarez
Replete potassium
Hyponatremia likely due to postobstructive diuresis
UOP not accurate with CBI, expect non oliguric
monitor met acidosis off bicarb IVF
wt increasing and po intake seem appropriate-d/c IVF
titrate pressors to keep MAP>65
follow h/h, prn transfusion
keep nevarez, improving hematuria on CBI per
abx per primary
d/w pt
maintain MAP ~65 with pressor support
high risk encounter with need of pressor and JUAN
-
-
Date of Service: October 02, 2023
CC / HPI / ROS
-
Chief Complaint:
JUAN, met acidosis, hyperkalemia
History of Present Illness:
cr improving to 2, UOP ? accurate with CBI
pressor support for hypotension
potassium low 3.2, na better at 132
WBC improving to 14k, hb low 7.6
Review of Systems:
no cp or sob at rest
feels well
no n/v
Labs
-
Labs:
WBC 11.8 10^3/uL (4.8-10.8) H 10/02/23 03:25
RBC 2.67 10^6/uL (4.70-6.10) L 10/02/23 03:25
Hgb 7.6 g/dL (13.0-18.0) L 10/02/23 03:25
Hct 22.4 % (39.0-52.0) L 10/02/23 03:25
Plt Count 121 10^3/uL (130-400) L 10/02/23 03:25
Sodium 133 mmol/L (135-145) L 10/02/23 03:25
Potassium 3.3 mmol/L (3.5-5.1) L 10/02/23 03:25
Chloride 107 mmol/L (98-107) 10/02/23 03:25
Carbon Dioxide 23 mmol/L (22-30) 10/02/23 03:25
BUN 38 mg/dl (9-20) H 10/02/23 03:25
Creatinine 1.7 mg/dL (0.7-1.3) H 10/02/23 03:25
eGFR 40.00 10/02/23 03:25
Glucose 101 mg/dl (70-99) H 10/02/23 03:25
Calcium 8.0 mg/dl (8.4-10.2) L 10/02/23 03:25
Fas-Y-Lfjwwbdhuaw Pept 6200 pg/ml 09/29/23 09:50
Albumin 2.0 g/dl (3.5-5.0) L 10/02/23 03:25
Physical Exam
-
Vital Signs:
Vital Signs
Temp Pulse Resp BP Pulse Ox
98.6 F 75 29 113/50 98
10/02/23 07:30 10/02/23 06:00 10/02/23 06:00 10/02/23 06:00 10/02/23 06:00
Cardiovascular:: Regular rate and rhythm
Respiratory:: Bilateral: Coarse
Lung Excursion:: Normal
Abdomen:: Nontender and Soft
Bowel Sounds:: Normal
Extremity Edema:: None: Bilateral:
Nevarez Catheter: Yes
[2023-10-02] MEDS: ANCEF 5 IV ×3 (09:14→23:19)
[2023-10-02] MEDS: FOLVITE 1 MG PO (09:15)
[2023-10-02] MEDS: NSS (PRESERVATIVE FREE) 10 ML IV (09:16)
[2023-10-02] MEDS: PROTONIX IV 40 MG IV (09:16)
[2023-10-02] MEDS: THIAMINE INJECTION 200 MG IV (09:16)
--- NOTE | 2023-10-02 09:47 | PTCARENOTE ---
Pt rec'd from previous RN, AOx3 pleasant and cooperative. Off Pressor support since 0200, BP stable, currently 107/57. CBI continues, very light pink -no clots noted. Right fa PIV leaking, Left fa PIV painful to flush, VAT RN paged. Dr. Haddad
notified per TT-request IV meds changed to PO wherever possible. Continuing to monitor.
--- NOTE | 2023-10-02 10:03 | W.PN.HOSP.TC ---
Addendum entered and electronically signed by Aidan Haddad MD 10/02/23 10:16:
Dictation area-should read- await UROLOGY follow up.
Original Note:
Today's Communication/Plan
-
Await neurology follow-up
Restart home some medication
Off pressors
Continue antibiotics
Assessment / Plan
Assessment / Plan
Physical exam:
General: Acutely ill
HEENT: Normocephalic, Atraumatic and Moist Mucous Membranes
Respiratory: Clear to Auscultation; Negative Wheezes, Rales or Rhonchi
Cardiac: Regular Rhythm and S1/S2
GI: Soft, Nontender and Nondistended
: Padilla catheter in place with CBI-mild pink-tinged clear urine.
Musculoskeletal: No Clubbing, No Cyanosis and No Edema
Neuro: Awake, Alert and Oriented, no gross neurodeficits.
Psych: Calm
A/P:
Septic shock due to urinary tract infection: POA
Off Levophed.
Narrow down to appropriate antibiotics. Change IV cefepime to IV cefazolin
Urine cultures growing E. coli, pansensitive
WBC from 21.3 yesterday--> 14 to 11.8
Monitor off pressors.
PT OT eval
Gross hematuria:
Continue CBI per urology
Monitor hemoglobin
Off anticoagulant
Appreciate urology consult and follow-up
Hemorrhoidal bleeding
Monitor hemoglobin
GI on board and no plans for procedures unless clinical status changes per consultation.
Acute blood loss anemia:
Blood transfusion as needed
Hemoglobin 7.6 today
Continue monitor hemoglobin
Coagulopathy and bleeding:
Status post Kcentra in the ED
Xarelto on hold
Resume anticoagulants once safe to do so from urological perspective
Acute kidney injury chronic kidney disease:
On IV fluids
Padilla catheter in place
Creatinine continues to slowly improve
Nephrology following
Severe metabolic acidosis:
On IV fluids with bicarb, now off
Monitor acidosis but overall improving
Nephrology on board
Hyperkalemia:
Resolved
Hypokalemia:
Replete and monitor
Hypocalcemia:
Replete and monitor
Hyponatremia:
Monitor
Hypothermia:
Likely related to sepsis
Currently improved
Alcohol use disorder:
On MSA protocol but no evidence of alcohol withdrawal at the moment.
Hypertension primary
Restart low-dose carvedilol with hold parameters
Hyperlipidemia:
Restart statin
Chronic systolic congestive heart failure:
Euvolemic
No need for diuretics at this point but can use as needed.
Continue to monitor volume status. Restart diuretics pending nephro recs
BPH:
On Flomax and finasteride restarted
Permanent atrial fibrillation:
Rate controlled on hold due to hypotension
Anticoagulation on hold due to bleeding
History of DVT/PE in the past:
Anticoagulation on hold due to bleeding
DVT prophylaxis:
SCDs
CODE STATUS:
Full code
Discussed with family member at bedside in detail
Anticipated Discharge: > 48 hours
Subjective/Interval History
-
Date of Service: October 02, 2023
Close hypothermic overnight
Remains on CBI urine with mild pink-tinged urine
Objective Data
-
Labs:
Laboratory Results
10/02/23
03:25
WBC 11.8 H
Hgb 7.6 L
Hct 22.4 L
Plt Count 121 L
Sodium 133 L
Potassium 3.3 L
Chloride 107
Carbon Dioxide 23
BUN 38 H
Creatinine 1.7 H
Glucose 101 H
Calcium 8.0 L
Total Bilirubin 0.2
AST 14 L
ALT 12
Alkaline Phosphatase 88
Vital Signs:
Vital Signs
Temp Pulse Resp BP Pulse Ox
98.6 F 75 29 113/50 98
10/02/23 07:30 10/02/23 06:00 10/02/23 06:00 10/02/23 06:00 10/02/23 06:00
I&O
10/01/23 10/02/23 10/03/23
06:59 06:59 06:59
Intake Total 2978.8 / 3086.3 2255.0 / 2255.0
Output Total 2425 / 2425 4010 / 4010
Balance 553.8 / 661.3 -1755.0 / -1755.0
Data Reviewed
-
Total Time Spent with Patient (in minutes): 55
[2023-10-02] MEDS: FLOMAX 0.400000000000000022 MG PO (11:23)
[2023-10-02] MEDS: TYLENOL 650 MG PO (11:23)
[2023-10-02] MEDS: ProAmatine 5 MG PO ×2 (13:48→17:04)
[2023-10-02] MEDS: ProAmatine PO (14:12)
--- NOTE | 2023-10-02 14:12 | PTCARENOTE ---
Pt has been normothermic all day, rectal probe removed. Pt now sl hypotesive with BP 80s/40s-Dr. Haddad notified, orders for stat dose 5 mg midodrine as well as standing midodrine TID rec'd. Pt drowsy but arousable, AOx3. CBI cont running light
pink. Awaiting urology f/u re: CBI.
--- NOTE | 2023-10-02 14:38 | W.PN.URO.CBU ---
Today's Communication / Plan
-
d/w Padilla in AM [order entered]
Assessment / Plan
-
resolved hematuria
Diagnosis
-
Date of Service: October 02, 2023
-
Patient Diagnosis:
chronic BPH with GEORGE now with GH
Subjective
-
tired
Objective
-
Vital Signs
Temp Pulse Resp BP Pulse Ox
98.7 F 80 28 102/43 97
10/02/23 11:30 10/02/23 13:48 10/02/23 13:29 10/02/23 13:48 10/02/23 13:29
Intake and Output
10/01/23 10/02/23 10/03/23
06:59 06:59 06:59
Intake Total 2978.8 / 3086.3 2255.0 / 2255.0
Output Total 2425 / 2425 4010 / 4010
Balance 553.8 / 661.3 -1755.0 / -1755.0
Intake:
Oral fluids 450 / 450 1450 / 1450
IV fluids (Total) 2528.8 / 2636.3 805.0 / 805.0
Levophed 228.8 / 236.3 105.0 / 105.0
Nss 1,000 ml @ 100 mls/hr IV . 1400 / 1500 700 / 700
Q10H QUEENIE Rx#:[id number]
Sterile Water For Injection 900 / 900
1000 ml 1,000 ml @ 100 mls/hr
IV .[id number] QUEENIE with Sodium
Bicarbonate 150 Meq Rx#:
[id number]
Output:
True Urine Output from CBI 2425 / 2425 4010 / 4010
Laboratory Results
10/02/23 03:25
05/01/24 03:25
Physical Exam
-
General - no acute distress
Genitalia - Padilla with CBI draining pale outflow
--- NOTE | 2023-10-02 16:45 | CM ---
Patient with Septic shock, UTI, JUAN, hematuria, Acute blood loss anemia, Coagulopathy and bleeding. Room air. Receiving IV Abx. CBI. PT & OT recommend skilled rehab.
As per prior CM notes: Pt is aware that [facility], [facility] and [facility] all offered a bed for a short term rehab when pt is medically stable, and pt preferred [facility].
Plan [facility] when medically ready.
--- NOTE | 2023-10-02 17:54 | PTCARENOTE ---
Pt continues with hypotension, Midodrine doses per MAR, forearm cuff applied to verify accuracy, SBP 96 currently, will continue to closely monitor. Pt AOX3 states 'I feel great.'
[2023-10-02] MEDS: COREG PO (19:42)
[2023-10-02] MEDS: VITAMIN B1 100 MG PO (20:07)
[2023-10-02] MEDS: THERAGRAN 1 TABLET PO (20:07)
[2023-10-02] MEDS: LIPITOR 40 MG PO (20:07)
[2023-10-03] VITALS (33 sets, daily range): BP systolic 82–126; BP diastolic 30–62; PULSE 76–83; BMI 28.8
--- NOTE | 2023-10-03 05:53 | PTCARENOTE ---
no acute events overnight, nevarez to be pulled in AM per order. CBI has been clear yellow all night with CBI running at slow rate. pt has been inc of stool x2- pt changed. q2t with foam wedge. care ongoing.
[2023-10-03 06:09] LABS: Blood Urea Nitrogen 30 mg/dl (9-20); Calcium 7.9 mg/dl (8.4-10.2); Carbon Dioxide 24 mmol/L (22-30); Chloride 105 mmol/L (98-107); Estimated Creatinine Clearance 34 ml/min; Glucose 102 mg/dl (70-99); Potassium 3.6 mmol/L (3.5-5.1); Sodium 131 mmol/L (135-145)
--- NOTE | 2023-10-03 06:16 | PTCARENOTE ---
nevarez removed this AM per order.
[2023-10-03] MEDS: ANCEF 5 IV ×2 (08:18→15:46)
[2023-10-03] MEDS: B COMPLEX w/VITAMIN C 1 CAPLET PO (08:19)
[2023-10-03] MEDS: FLOMAX 0.400000000000000022 MG PO (08:23)
[2023-10-03] MEDS: COREG PO ×2 (08:23→20:10)
[2023-10-03] MEDS: ProAmatine 5 MG PO ×2 (08:24→08:44)
[2023-10-03] MEDS: FOLVITE 1 MG PO (08:24)
[2023-10-03] MEDS: VITAMIN B1 100 MG PO ×2 (08:25→20:09)
[2023-10-03] MEDS: PROTONIX 40 MG PO (08:25)
[2023-10-03] MEDS: PROSCAR 5 MG PO (08:25)
[2023-10-03] MEDS: TYLENOL 650 MG PO (08:45)
--- NOTE | 2023-10-03 08:53 | W.PN.HOSP.TC ---
Addendum entered and electronically signed by Aidan Haddad MD 10/03/23 13:23:
Discussed with Dr. Muñoz okay to restart patient on Brilinta and Xarelto today.
Original Note:
Today's Communication/Plan
-
increase midodrine
TOV
Restart AP/DOAC per urology
monitor BP
Check orthostatics
Assessment / Plan
Assessment / Plan
Physical exam:
General: Acutely ill
HEENT: Normocephalic, Atraumatic and Moist Mucous Membranes
Respiratory: Clear to Auscultation; Negative Wheezes, Rales or Rhonchi
Cardiac: Regular Rhythm and S1/S2
GI: Soft, Nontender and Nondistended
: Nevarez removed
Musculoskeletal: No Clubbing, No Cyanosis and No Edema
Neuro: Awake, Alert and Oriented, no gross neurodeficits.
Psych: Calm
A/P:
Septic shock due to urinary tract infection: POA
Off Levophed.
Narrow down to appropriate antibiotics. Change IV cefepime to IV cefazolin
Urine cultures growing E. coli, pansensitive
WBC from 21.3 yesterday--> 14 to 11.8
Monitor off pressors.
Started midodrine-increase dose to 10mg TID
If persistently hypotensive may need to restart levophed
PT OT eval
Gross hematuria:
DC CBI and nevarez out. TOV.
Monitor hemoglobin
Off anticoagulant
Appreciate urology consult and follow-up
Hemorrhoidal bleeding
Monitor hemoglobin
GI on board and no plans for procedures unless clinical status changes per consultation.
Acute blood loss anemia:
Blood transfusion as needed
Continue monitor hemoglobin
Coagulopathy and bleeding:
Status post Kcentra in the ED
Xarelto on hold
Resume anticoagulants once safe to do so from urological perspective
Acute kidney injury chronic kidney disease:
On IV fluids
Nevarez catheter in place
Creatinine continues to slowly improve
Nephrology following
Severe metabolic acidosis:
On IV fluids with bicarb, now off
Monitor acidosis but overall improving
Nephrology on board
Hyperkalemia:
Resolved
Hypokalemia:
Replete and monitor
Hypocalcemia:
Replete and monitor
Hyponatremia:
Monitor
Hypothermia:
Likely related to sepsis
Currently improved
Alcohol use disorder:
On MSA protocol but no evidence of alcohol withdrawal at the moment.
Hypertension primary
Restart low-dose carvedilol with hold parameters
Hyperlipidemia:
Restart statin
Chronic systolic congestive heart failure:
Euvolemic
No need for diuretics at this point but can use as needed.
Continue to monitor volume status. Restart diuretics pending nephro recs
BPH:
On Flomax and finasteride restarted
Permanent atrial fibrillation:
Rate controlled on hold due to hypotension
Anticoagulation on hold due to bleeding
History of DVT/PE in the past:
Anticoagulation on hold due to bleeding
DVT prophylaxis:
SCDs
CODE STATUS:
Full code
Discussed with family member at bedside in detail on 10/01
Anticipated Discharge: > 48 hours
Subjective/Interval History
-
Date of Service: October 03, 2023
CBI stopped and nevarez removed
feeling tired
Objective Data
-
Labs:
Laboratory Results
10/03/23
05:34
Sodium 131 L
Potassium 3.6
Chloride 105
Carbon Dioxide 24
BUN 30 H
Creatinine 1.7 H
Glucose 102 H
Calcium 7.9 L
Vital Signs:
Vital Signs
Temp Pulse Resp BP Pulse Ox
97.9 F 88 25 90/46 100
10/03/23 07:05 10/03/23 08:44 10/03/23 07:05 10/03/23 08:44 10/03/23 07:05
I&O
10/02/23 10/03/23 10/04/23
06:59 06:59 06:59
Intake Total 2255.0 / 2255.0 240 / 240
Output Total 4010 / 4010 800 / 800 1300 / 1300
Balance -1755.0 / -1755.0 -560 / -560 -1300 / -1300
Data Reviewed
-
Total Time Spent with Patient (in minutes): 55
--- NOTE | 2023-10-03 09:10 | W.PN.NEPH.PH ---
Today's Communication / Plan
-
Support blood pressure with midodrine
still holding diuretics
Follow BMP
Assessment/Plan
-
Assessment:
Acute kidney injury
Hypotension
Ecoli UTI
Metabolic acidosis
Hyponatremia
Hyperkalemia
Anemia
Gross hematuria
GI bleed
Edema
Atrial fibrillation
Heart failure reduced ejection fraction
Moderate pulmonary hypertension
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
Plan:
JUAN-obst uropathy?, in setting of gross hematuria
improving cr now down to 1.7 with nevarez no change:UOP ? secondary to CBI
Replete potassium
Hyponatremia persists ~131
wt increasing and po intake seem appropriate
Will eventually have to add back Lasix, but currently hypotensive
remains hypotensive on 10mg TID midodrine
follow h/h, prn transfusion
Nevarez removed but no urge to urinate as of this am
abx per primary, Cefazolin
d/w pt
-
-
Date of Service: October 03, 2023
CC / HPI / ROS
-
Chief Complaint:
JUAN, met acidosis, hyperkalemia
History of Present Illness:
cr unchanged at 1.7
Remains with hypotension despite midodrine 10 mg 3 times daily
potassium low 3.6,
Hyponatremia at 131
Review of Systems:
no cp or sob at rest
nevarez out, no uop since removal
no n/v
pain in left leg
Labs
-
Labs:
WBC 11.8 10^3/uL (4.8-10.8) H 10/02/23 03:25
RBC 2.67 10^6/uL (4.70-6.10) L 10/02/23 03:25
Hgb 7.6 g/dL (13.0-18.0) L 10/02/23 03:25
Hct 22.4 % (39.0-52.0) L 10/02/23 03:25
Plt Count 121 10^3/uL (130-400) L 10/02/23 03:25
Sodium 131 mmol/L (135-145) L 10/03/23 05:34
Potassium 3.6 mmol/L (3.5-5.1) 10/03/23 05:34
Chloride 105 mmol/L (98-107) 10/03/23 05:34
Carbon Dioxide 24 mmol/L (22-30) 10/03/23 05:34
BUN 30 mg/dl (9-20) H 10/03/23 05:34
Creatinine 1.7 mg/dL (0.7-1.3) H 10/03/23 05:34
eGFR 40.00 10/03/23 05:34
Glucose 102 mg/dl (70-99) H 10/03/23 05:34
Calcium 7.9 mg/dl (8.4-10.2) L 10/03/23 05:34
Fht-B-Xvagheqxreh Pept 6200 pg/ml 09/29/23 09:50
Albumin 2.0 g/dl (3.5-5.0) L 10/02/23 03:25
Physical Exam
-
Vital Signs:
Vital Signs
Temp Pulse Resp BP Pulse Ox
97.9 F 88 25 90/46 100
10/03/23 07:05 10/03/23 08:44 10/03/23 07:05 10/03/23 08:44 10/03/23 07:05
Cardiovascular:: Regular rate and rhythm
Respiratory:: Bilateral: Coarse
Lung Excursion:: Normal
Abdomen:: Nontender
Bowel Sounds:: Normal
Extremity Edema:: +1: Bilateral:
Nevarez Catheter: No
--- NOTE | 2023-10-03 09:58 | W.PN.URO.CBU ---
Today's Communication / Plan
-
observe volitional voiding
Assessment / Plan
-
resolved hematuria
know BPH
Diagnosis
-
Date of Service: October 03, 2023
-
Patient Diagnosis:
chronic BPH with GEORGE with GH -- GH has resolved
Subjective
-
Padilla recently removed -- no urge to void yet
Objective
-
Vital Signs
Temp Pulse Resp BP Pulse Ox
97.9 F 88 23 90/46 98
10/03/23 07:05 10/03/23 08:44 10/03/23 08:20 10/03/23 08:44 10/03/23 08:20
Intake and Output
10/02/23 10/03/23 10/04/23
06:59 06:59 06:59
Intake Total 2255.0 / 2255.0 240 / 240
Output Total 4010 / 4010 800 / 800 1300 / 1300
Balance -1755.0 / -1755.0 -560 / -560 -1300 / -1300
Intake:
Oral fluids 1450 / 1450 240 / 240
IV fluids (Total) 805.0 / 805.0
Levophed 105.0 / 105.0
Nss 1,000 ml @ 100 mls/hr IV . 700 / 700
Q10H QUEENIE Rx#:[id number]
Output:
True Urine Output from CBI 4010 / 4010 800 / 800 1300 / 1300
Laboratory Results
10/02/23 03:25
10/03/23 05:34
Physical Exam
-
General - no acute distress
--- NOTE | 2023-10-03 10:24 | PTCARENOTE ---
Pt c/o of intermittent, shooting pain down his left leg. Pt reports he has had this in the past but very occasionally and has just dealt with it when it comes one. Pt reports the pain is happening more frequently and at least 10 times this morning.
Pt was given Tylenol this morning without any improvement. TT to , order for Gabapentin, see MAR.
[2023-10-03] MEDS: NEURONTIN 100 MG PO (11:22)
[2023-10-03] MEDS: ProAmatine 10 MG PO ×2 (13:13→17:32)
[2023-10-03] MEDS: BRILINTA 90 MG PO (15:47)
--- NOTE | 2023-10-03 17:15 | PTCARENOTE ---
Pt's bladder scans since 1200 have resulted in 200-300. Advised patient to drink more fluid which he has. Pt was able to void a small amount that soaked into brief. Post-void BS resulted in 269. TT to nylon hot wire cutter urologist, Dr. Alonso and he advised
'I would try not to instrument him unless he feels distended or pain if distended or pain you�ll have to put an indwelling Padilla in and measure the output but for right now I can live with 270 or so cc oppose residual, but I wouldn�t want to go
higher than say 300 word to the threshold of him having pain or discomfort if you have a question verbally [phone].'
[2023-10-03] MEDS: XARELTO 15 MG PO (17:32)
[2023-10-03] MEDS: LIPITOR 40 MG PO (20:34)
[2023-10-03] MEDS: THERAGRAN 1 TABLET PO (20:34)
--- NOTE | 2023-10-03 21:53 | PTCARENOTE ---
Addendum entered by Carmen Brito RN 10/03/23 21:59:
Nevarez placed per order. Pt with 390 ml of dark red bloody urine with multiple visible clots. and CARI notifed.
Original Note:
Pt received from day shift. Pt's nevarez was removed this AM. Pt with minimal output throughout day. Pt c/o difficulty voiding to this RN. Each attempt to urinate pt voids small immeasurable amounts of [place] urine. Pt bladder scanned for 388ml. pt
with visible bladder distention and pain upon palpation of the bladder. Dr. Alonso with urology notified of findings. ordered to replace a [address] CARI notified and order received.
[2023-10-04] VITALS (37 sets, daily range): BP systolic 88–123; BP diastolic 24–59; PULSE 83–90; O2SAT 97; BMI 28.7
[2023-10-04] MEDS: ANCEF 5 IV ×3 (00:08→20:14)
[2023-10-04 05:51] LABS: Blood Urea Nitrogen 35 mg/dl (9-20); Calcium 8.3 mg/dl (8.4-10.2); Carbon Dioxide 22 mmol/L (22-30); Chloride 104 mmol/L (98-107); Estimated Creatinine Clearance 30 ml/min; Glucose 99 mg/dl (70-99); Potassium 3.8 mmol/L (3.5-5.1); Sodium 132 mmol/L (135-145)
[2023-10-04 06:23] LABS: Cortisol, Random 19.6 ug/dl
--- NOTE | 2023-10-04 08:34 | W.PN.URO.CBU ---
Today's Communication / Plan
-
keep nevarez hand irrigae if major clots cbi only if plud=gging up nevarez
Assessment / Plan
-
resolved hematuria but acute urinary retention Pt prefers nevarez will leave in fr now If remains hospitalized will do voiding trial again but if rehab willsend with nevarez and try vt while recuperating
know BPH
Diagnosis
-
Date of Service: October 04, 2023
-
Patient Diagnosis:
Post Op Day:
Patient Diagnosis:
chronic BPH with GEORGE with GH -- GH has resolved
Subjective
-
coud not void nevarez placed
Objective
-
Vital Signs
Temp Pulse Resp BP Pulse Ox
98.7 F 81 26 97/33 96
10/04/23 07:40 10/04/23 06:30 10/04/23 06:30 10/04/23 06:31 10/04/23 06:30
Intake and Output
10/03/23 10/04/23 10/05/23
06:59 06:59 06:59
Intake Total 240 / 240
Output Total 800 / 800 2039 / 2039
Balance -560 / -560 -2039 / -2039
Intake:
Oral fluids 240 / 240
Output:
Urine, Nevarez 740 / 740
True Urine Output from CBI 800 / 800 1300 / 1300
Laboratory Results
10/04/23 05:07
Review of Systems
-
: Difficulty Voiding
Physical Exam
-
General - well developed, well nourished, no acute distress
Chest - clear bilaterally
Abdomen - soft, non-tender, positive bowel sounds, no CVAT, no incisional pain or distention
Genitalia - normal
Rectal - normal
Skin - warm & dry with no rash
Neuro - AOx3, no motor deficits
Extremities - no clubbing, no cyanosis, no edema
Incision - clean, dry
Dressing - clean, dry, intact
Care Review
Data Reviewed
Discussed with: Hospitalist and Nursing
[2023-10-04 08:35] LABS: % Basophils 0.1 % (0-2); % Eosinophils 0.6 % (0-6); % Lymphocytes 6.7 % (20.5-51.1); % Monocytes 8.3 % (1.7-9.3); % Neutrophils 82.3 % (42.2-75.2); Absolute Eosinophils 0.1 10^3/uL (0-0.7); Absolute Immature Granulocytes 0.2 10^3/uL (0-0.05); Absolute Lymphocytes 0.8 10^3/uL (1.2-3.4); Hematocrit 22.4 % (39.0-52.0); Hemoglobin 7.5 g/dL (13.0-18.0); Mean Corp Hgb Conc. 33.5 g/dL (33.0-37.0); Mean Corpuscular Hgb 28.3 pg (27.0-31.0); Mean Corpuscular Volume 84.5 fL (80.0-94.0); Mean Platelet Volume 9.7 fL (7.4-10.4); Nucleated Red Blood Cells % 0 % (-); Platelet Count 110 10^3/uL (130-400); Red Blood Cell Count 2.65 10^6/uL (4.70-6.10); Red Cell Dist. Width 16.9 % (11.5-14.5); White Blood Cell Count 12.1 10^3/uL (4.8-10.8)
[2023-10-04] MEDS: VITAMIN B1 100 MG PO ×2 (08:58→20:14)
[2023-10-04] MEDS: B COMPLEX w/VITAMIN C 1 CAPLET PO (08:58)
[2023-10-04] MEDS: ProAmatine 10 MG PO ×3 (08:58→17:00)
[2023-10-04] MEDS: PROTONIX 40 MG PO (08:58)
[2023-10-04] MEDS: PROSCAR 5 MG PO (08:58)
[2023-10-04] MEDS: BRILINTA 90 MG PO ×2 (08:58→20:14)
[2023-10-04] MEDS: TYLENOL 650 MG PO ×2 (08:59→23:22)
[2023-10-04] MEDS: FLOMAX 0.400000000000000022 MG PO (08:59)
[2023-10-04] MEDS: FOLVITE 1 MG PO (08:59)
[2023-10-04] MEDS: COREG 3.125 MG PO ×2 (08:59→20:13)
--- NOTE | 2023-10-04 09:34 | PTCARENOTE ---
Assumed care of patient this morning. He reports pain all over from 'arthritis' and pt was medicated with Tylenol, see MAR. Pt with Padilla catheter replaced last night per urology. Catheter draining blood tinged urine this morning.
advised this morning to leave Padilla, hand irrigate if needed and text him with any issues. Pt not c/o of any pain in bladder or distention. Assessment, care and VS as charted.
--- NOTE | 2023-10-04 11:34 | W.PN.HOSP.TC ---
Today's Communication/Plan
-
Arthritis/gout flareup
Adjust antibiotics based on creatinine
Monitor blood pressure
Monitor urinary output
Assessment / Plan
Assessment / Plan
Physical exam:
General: Acutely ill
HEENT: Normocephalic, Atraumatic and Moist Mucous Membranes
Respiratory: Clear to Auscultation; Negative Wheezes, Rales or Rhonchi
Cardiac: Regular Rhythm and S1/S2
GI: Soft, Nontender and Nondistended
: Padilla noted
Musculoskeletal: No Clubbing, No Cyanosis and No Edema
Neuro: Awake, Alert and Oriented, no gross neurodeficits.
Psych: Calm
A/P:
Septic shock due to urinary tract infection: POA
Off Levophed.
Narrow down to appropriate antibiotics. Change IV cefepime to IV cefazolin 1 g every 12 based on creatinine clearance. Discussed with pharmacist.
Urine cultures growing E. coli, pansensitive
Monitor off pressors.
Started midodrine-increase dose to 10mg TID
If persistently hypotensive may need to restart levophed
PT OT eval
Gross hematuria:
Failed voiding trial. Padilla catheter placed back overnight. Monitor urine closely.
CBI stopped.
Monitor hemoglobin
Discussed with Dr. Muñoz on 10/02 and okay to restart patient on Brilinta and Xarelto
Appreciate urology consult and follow-up
Hemorrhoidal bleeding
Monitor hemoglobin
Resolved.
GI on board and no plans for procedures unless clinical status changes per consultation.
Acute blood loss anemia:
Blood transfusion as needed
Continue monitor hemoglobin
Coagulopathy and bleeding:
Status post Kcentra in the ED
Acute kidney injury chronic kidney disease:
Padilla catheter back in place
Creatinine monitor.
Nephrology following
Severe metabolic acidosis:
On IV fluids with bicarb, now off
Monitor acidosis but overall improving
Nephrology on board
Suspect arthritis/gout flareup
Unable to do NSAIDs
Try a course of steroids
Hyperkalemia:
Resolved
Hypokalemia:
Replete and monitor
Hypocalcemia:
Replete and monitor
Hyponatremia:
Monitor
Hypothermia:
Likely related to sepsis
Currently improved
Alcohol use disorder:
On MSA protocol but no evidence of alcohol withdrawal at the moment.
Hypertension primary
Restart low-dose carvedilol with hold parameters
Hyperlipidemia:
Restart statin
Chronic systolic congestive heart failure:
Euvolemic
Continue to monitor volume status. Restart diuretics pending nephro recs
BPH:
On Flomax and finasteride restarted
Permanent atrial fibrillation:
Rate controlled
Restarted on Xarelto
History of DVT/PE in the past:
Restarted on Xarelto
DVT prophylaxis: xarelto
CODE STATUS:
Full code
Anticipated Discharge: > 48 hours
Subjective/Interval History
-
Date of Service: October 04, 2023
States of his sciatica pain and also states of pain due to neuropathy
Overnight with abdominal discomfort and Padilla catheter was placed back in
States of diffuse joint pains
Objective Data
-
Labs:
Laboratory Results
10/04/23 10/04/23
05:07 08:28
WBC 12.1 H
Hgb 7.5 L
Hct 22.4 L
Plt Count 110 L
Sodium 132 L
Potassium 3.8
Chloride 104
Carbon Dioxide 22
BUN 35 H
Creatinine 1.9 H
Glucose 99
Calcium 8.3 L
Vital Signs:
Vital Signs
Temp Pulse Resp BP Pulse Ox
98.9 F 77 21 113/45 98
10/04/23 11:20 10/04/23 11:00 10/04/23 11:00 10/04/23 11:00 10/04/23 11:00
I&O
10/03/23 10/04/23 10/05/23
06:59 06:59 06:59
Intake Total 240 / 240 360 / 360
Output Total 800 / 800 2039 / 0
Balance -560 / -560 -2040 / -2040 360 / 360
Data Reviewed
-
Total Time Spent with Patient (in minutes): 56
--- NOTE | 2023-10-04 11:54 | W.PN.NEPH.PH ---
Today's Communication / Plan
-
follow labs
Assessment/Plan
-
Assessment:
Acute kidney injury
Hypotension
Ecoli UTI
Metabolic acidosis
Hyponatremia
Hyperkalemia
Anemia
Gross hematuria
GI bleed
Edema
Atrial fibrillation
Heart failure reduced ejection fraction
Moderate pulmonary hypertension
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
Plan:
JUAN-obst uropathy?, in setting of gross hematuria
cr slightly up today at 1.9, non oliguric with nevarez and off CBI
Hyponatremia persists ~132
wt stable, Will eventually have to add back Lasix
BP soft on 10mg TID midodrine
follow h/h-stable, prn transfusion
abx per primary, Cefazolin
arthritis/gout flare up -steroid started per primary
d/w pt and family at bedside
-
-
Date of Service: October 04, 2023
CC / HPI / ROS
-
Chief Complaint:
JUAN, met acidosis, hyperkalemia
History of Present Illness:
cr slightly up at 1.9
BP soft on midodrine 10 mg 3 times daily
no fever, hb low but stable at 7.5
Hyponatremia at 132
Review of Systems:
no cp or sob at rest
nevarez out, no uop since removal, reinserted on 10/02
no n/v
pain bilat hand, needed help to feed him
Labs
-
Labs:
WBC 12.1 10^3/uL (4.8-10.8) H 10/04/23 08:28
RBC 2.65 10^6/uL (4.70-6.10) L 10/04/23 08:28
Hgb 7.5 g/dL (13.0-18.0) L 10/04/23 08:28
Hct 22.4 % (39.0-52.0) L 10/04/23 08:28
Plt Count 110 10^3/uL (130-400) L 10/04/23 08:28
Sodium 132 mmol/L (135-145) L 10/04/23 05:07
Potassium 3.8 mmol/L (3.5-5.1) 10/04/23 05:07
Chloride 104 mmol/L (98-107) 10/04/23 05:07
Carbon Dioxide 22 mmol/L (22-30) 10/04/23 05:07
BUN 35 mg/dl (9-20) H 10/04/23 05:07
Creatinine 1.9 mg/dL (0.7-1.3) H 10/04/23 05:07
eGFR 35.00 10/04/23 05:07
Glucose 99 mg/dl (70-99) 10/04/23 05:07
Calcium 8.3 mg/dl (8.4-10.2) L 10/04/23 05:07
Bdv-R-Lpgqjvrajrh Pept 6200 pg/ml 09/29/23 09:50
Albumin 2.0 g/dl (3.5-5.0) L 10/02/23 03:25
Physical Exam
-
Vital Signs:
Vital Signs
Temp Pulse Resp BP Pulse Ox
98.9 F 77 21 113/45 98
10/04/23 11:20 10/04/23 11:00 10/04/23 11:00 10/04/23 11:00 10/04/23 11:00
Cardiovascular:: Regular rate and rhythm
Respiratory:: Bilateral: CTA
Lung Excursion:: Normal
Abdomen:: Nontender and Soft
Extremity Edema:: None: Bilateral: (trace)
Nevarez Catheter: Yes
Other Findings::
bilat hand finger joints swelling and erythema
[2023-10-04] MEDS: DELTASONE 40 MG PO (12:47)
[2023-10-04] MEDS: XARELTO 15 MG PO (17:00)
[2023-10-04] MEDS: LIPITOR 40 MG PO (20:13)
[2023-10-04] MEDS: THERAGRAN 1 TABLET PO (20:14)
--- NOTE | 2023-10-04 23:56 | PTCARENOTE ---
Pt received from previous nurse. Pt alert, watching TV, agreeable to care. Pt C/O hand pain. Hands are visibly red and swollen. This RN avoids palpating or touching Pt hands to avoid unnecessary discomfort for Pt. Pt Afib on the monitor. Pt with 22
gauge thai catheter. Padilla care provided. Padilla remains putting out bloody urine, with occasional clots. Padilla emptied for 250 ml. Please see nursing shift assessment for full head to toe. Call wiggins in reach.
[2023-10-05] VITALS (27 sets, daily range): BP systolic 96–145; BP diastolic 36–74; BMI 28.6
--- NOTE | 2023-10-05 00:04 | PTCARENOTE ---
Pt with 100.3 temp. This RN administered Tylenol per existing order.
[2023-10-05 04:31] LABS: % Basophils 0.1 % (0-2); % Lymphocytes 4.3 % (20.5-51.1); % Monocytes 6.2 % (1.7-9.3); % Neutrophils 87.4 % (42.2-75.2); Absolute Immature Granulocytes 0.3 10^3/uL (0-0.05); Absolute Lymphocytes 0.7 10^3/uL (1.2-3.4); Absolute Neutrophils 14.4 10^3/uL (1.4-6.5); Hemoglobin 7.1 g/dL (13.0-18.0); Mean Corp Hgb Conc. 33.8 g/dL (33.0-37.0); Mean Corpuscular Hgb 28.5 pg (27.0-31.0); Mean Corpuscular Volume 84.3 fL (80.0-94.0); Mean Platelet Volume 10.3 fL (7.4-10.4); Nucleated Red Blood Cells % 0 % (-); Platelet Count 138 10^3/uL (130-400); Red Blood Cell Count 2.49 10^6/uL (4.70-6.10); Red Cell Dist. Width 16.3 % (11.5-14.5); White Blood Cell Count 16.5 10^3/uL (4.8-10.8)
[2023-10-05 04:51] LABS: Blood Urea Nitrogen 45 mg/dl (9-20); Calcium 8.1 mg/dl (8.4-10.2); Carbon Dioxide 20 mmol/L (22-30); Chloride 104 mmol/L (98-107); Estimated Creatinine Clearance 30 ml/min; Glucose 125 mg/dl (70-99); Potassium 4.1 mmol/L (3.5-5.1); Sodium 133 mmol/L (135-145)
--- NOTE | 2023-10-05 06:32 | W.PN.HOSP.TC ---
Today's Communication/Plan
-
.
Assessment / Plan
Assessment / Plan
Physical exam:
General: not in respiratory distress
HEENT: Normocephalic, Atraumatic and Moist Mucous Membranes
Respiratory: limited, no wheezes
Cardiac: S1/S2
GI: Soft, Nontender and Nondistended
: Padilla noted
Musculoskeletal: diffuse aches in joints, tender swollen hand joints/ fingers
Neuro: Awake, Alert and Oriented to self and surroundings, followed commands.
Psych: Calm
A/P:
# Arthritis/gout flare-up
Still with diffuse aches with swollen and inflamed hand joints.
History of gout but not on gout prophylactic treatment
Continue with oral prednisone treatment
#Septic shock due to urinary tract infection: POA
Off Levophed.
Narrow down to appropriate antibiotics. Change IV cefepime to IV cefazolin 1 g every 12 based on creatinine clearance. Discussed with pharmacist.
Urine cultures growing E. coli, pansensitive
Monitor off pressors.
Started midodrine-increase dose to 10mg TID
Gross hematuria:
Failed voiding trial. Padilla catheter placed back overnight. Monitor urine closely.
CBI stopped. He did not need manual irrigation
Monitor hemoglobin
Discussed with Dr. Muñoz on 10/02 and okay to restart patient on Brilinta and Xarelto
Appreciate urology consult and follow-up
# Acute blood loss anemia. Patient had GI bleed with hematuria exacerbated by use of Xarelto. Consent signed. Transfuse blood to keep hemoglobin more than 8 due to ongoing hypotension with history of heart failure/coronary artery disease
Will give 1 unit of blood
#Hemorrhoidal bleeding
Monitor hemoglobin
Resolved.
GI on board and no plans for procedures unless clinical status changes per consultation.
Coagulopathy and bleeding:
Status post Kcentra in the ED
Acute kidney injury chronic kidney disease:
Padilla catheter back in place
Creatinine monitor.
Nephrology following
Severe metabolic acidosis:
On IV fluids with bicarb, now off
Monitor acidosis but overall improving
Nephrology on board
Hyperkalemia:
Resolved
Hypokalemia:
Replete and monitor
Hypocalcemia:
Replete and monitor
Hyponatremia:
Monitor
Hypothermia:
Likely related to sepsis
Currently improved
Alcohol use disorder:
On MSA protocol but no evidence of alcohol withdrawal at the moment.
Hypertension primary
Restart low-dose carvedilol with hold parameters
Hyperlipidemia:
Restart statin
Chronic systolic congestive heart failure:
Euvolemic
Continue to monitor volume status. Restart diuretics pending nephro recs
BPH:
On Flomax and finasteride restarted
Permanent atrial fibrillation:
Rate controlled
Restarted on Xarelto
History of DVT/PE in the past:
Restarted on Xarelto
DVT prophylaxis: xarelto
CODE STATUS:
Full code
Total time spent to see the patient, examine the patient, review data and lab results, discuss treatment plan with patient, nursing staff around 55 minutes
Anticipated Discharge: > 48 hours
Subjective/Interval History
-
Date of Service: October 05, 2023
Still with diffuse pain in his joints, mostly hands
No chest pain
No sob
Night team: no events over night
Objective Data
-
Labs:
Laboratory Results
10/05/23
04:17
WBC 16.5 H
Hgb 7.1 L
Hct 21.0 L
Plt Count 138 D
Sodium 133 L
Potassium 4.1
Chloride 104
Carbon Dioxide 20 L
BUN 45 H
Creatinine 1.9 H
Glucose 125 H
Calcium 8.1 L
Vital Signs:
Vital Signs
Temp Pulse Resp BP Pulse Ox
98.7 F 78 25 99/43 99
10/05/23 04:47 10/05/23 06:00 10/05/23 06:00 10/05/23 06:00 10/05/23 06:00
I&O
10/03/23 10/04/23 10/05/23
06:59 06:59 06:59
Intake Total 240 / 240 840 / 840
Output Total 800 / 800 2040 / 2040 700 / 700
Balance -560 / -560 -0 / -2039 140 / 140
[2023-10-05] MEDS: TYLENOL 650 MG PO ×3 (08:05→21:39)
[2023-10-05] MEDS: DELTASONE 40 MG PO (08:06)
[2023-10-05] MEDS: ANCEF 5 IV ×2 (08:07→19:59)
[2023-10-05] MEDS: VITAMIN B1 100 MG PO ×2 (09:58→19:32)
[2023-10-05] MEDS: B COMPLEX w/VITAMIN C 1 CAPLET PO (09:58)
[2023-10-05] MEDS: FLOMAX 0.400000000000000022 MG PO (09:59)
[2023-10-05] MEDS: BRILINTA 90 MG PO ×2 (09:59→19:31)
[2023-10-05] MEDS: COREG 3.125 MG PO ×2 (09:59→19:31)
[2023-10-05] MEDS: ProAmatine 10 MG PO ×3 (10:00→17:31)
[2023-10-05] MEDS: FOLVITE 1 MG PO (10:00)
[2023-10-05] MEDS: PROSCAR 5 MG PO (10:00)
[2023-10-05] MEDS: PROTONIX 40 MG PO (10:01)
--- NOTE | 2023-10-05 11:08 | W.PN.NEPH.PH ---
Today's Communication / Plan
-
lasix with PRBC
Assessment/Plan
-
Assessment:
Acute kidney injury
Hypotension
Ecoli UTI
Metabolic acidosis
Hyponatremia
Hyperkalemia
Anemia
Gross hematuria
GI bleed
Edema
Atrial fibrillation
Heart failure reduced ejection fraction
Moderate pulmonary hypertension
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
Plan:
JUAN-obst uropathy?, in setting of gross hematuria
cr stable today at 1.9, non oliguric with nevarez and off CBI
monitor hematuria
Hyponatremia stable at 133
wt stable, Will eventually have to add back Lasix
BP soft on 10mg TID midodrine
h/h decreasing for transfusion today with lasix
abx per primary, Cefazolin
arthritis/gout flare up -steroid started per primary
d/w pt and nursing
-
-
Date of Service: October 05, 2023
CC / HPI / ROS
-
Chief Complaint:
JUAN, met acidosis, hyperkalemia
History of Present Illness:
cr no change at 1.9
BP soft on midodrine 10 mg 3 times daily
no fever, hb low at 7.1
Hyponatremia at 133
Review of Systems:
no cp or sob at rest
nevarez reinserted on 10/02
no n/v
pain bilat hand no change
Labs
-
Labs:
WBC 16.5 10^3/uL (4.8-10.8) H 10/05/23 04:17
RBC 2.49 10^6/uL (4.70-6.10) L 10/05/23 04:17
Hgb 7.1 g/dL (13.0-18.0) L 10/05/23 04:17
Hct 21.0 % (39.0-52.0) L 10/05/23 04:17
Plt Count 138 10^3/uL (130-400) D 10/05/23 04:17
Sodium 133 mmol/L (135-145) L 10/05/23 04:17
Potassium 4.1 mmol/L (3.5-5.1) 10/05/23 04:17
Chloride 104 mmol/L (98-107) 10/05/23 04:17
Carbon Dioxide 20 mmol/L (22-30) L 10/05/23 04:17
BUN 45 mg/dl (9-20) H 10/05/23 04:17
Creatinine 1.9 mg/dL (0.7-1.3) H 10/05/23 04:17
eGFR 35.00 10/05/23 04:17
Glucose 125 mg/dl (70-99) H 10/05/23 04:17
Calcium 8.1 mg/dl (8.4-10.2) L 10/05/23 04:17
Prc-J-Sedxhfgiagv Pept 6200 pg/ml 09/29/23 09:50
Albumin 2.0 g/dl (3.5-5.0) L 10/02/23 03:25
Physical Exam
-
Vital Signs:
Vital Signs
Temp Pulse Resp BP Pulse Ox
97.5 F 81 19 106/44 97
10/05/23 07:00 10/05/23 10:00 10/05/23 10:00 10/05/23 10:00 10/05/23 09:00
Cardiovascular:: Regular rate and rhythm
Respiratory:: Bilateral: CTA
Lung Excursion:: Normal
Abdomen:: Nontender and Soft
Extremity Edema:: None: Bilateral: (trace)
Nevarez Catheter: Yes
Other Findings::
dark urine in nevarez
--- NOTE | 2023-10-05 13:36 | W.PN.URO.CBU ---
Today's Communication / Plan
-
hand irrigate prn clots may restart cbi if jaki retentin
Assessment / Plan
-
resolved hematuria but acute urinary retention Pt prefers nevarez will leave in fr now If remains hospitalized will do voiding trial again but if rehab willsend with nevarez and try vt while recuperating
know BPH
Diagnosis
-
Date of Service: October 05, 2023
-
Patient Diagnosis:
Post Op Day:
Patient Diagnosis:
Post Op Day:
Patient Diagnosis:
chronic BPH with GEORGE with GH -- GH has resolved
Subjective
-
coud not void nevarez in some hematuria with clots
Objective
-
Vital Signs
Temp Pulse Resp BP Pulse Ox
98 F 81 19 106/44 97
10/05/23 11:00 10/05/23 10:00 10/05/23 10:00 10/05/23 10:00 10/05/23 09:00
Intake and Output
10/04/23 10/05/23 10/06/23
06:59 06:59 06:59
Intake Total 840 / 840
Output Total 2039 / 2039 700 / 700
Balance -2039 / -2039 140 / 140
Intake:
Oral fluids 840 / 840
Output:
Urine, Nevarez 740 / 740 300 / 300
Urine, Voided 400 / 400
True Urine Output from CBI 1300 / 1300
Laboratory Results
10/05/23 04:17
10/05/23 04:17
Review of Systems
-
: Difficulty Voiding and Bleeding
Physical Exam
-
General - well developed, well nourished, no acute distress
Chest - clear bilaterally
Abdomen - soft, non-tender, positive bowel sounds, no CVAT, no incisional pain or distention
Genitalia - normal
Rectal - normal
Skin - warm & dry with no rash
Neuro - AOx3, no motor deficits
Extremities - no clubbing, no cyanosis, no edema
Incision - clean, dry
Dressing - clean, dry, intact
Care Review
Data Reviewed
Discussed with: Hospitalist and Nursing
--- NOTE | 2023-10-05 16:57 | PTCARENOTE ---
pt assisted oob max assist x 2 with walker to chair. no desat; tolerated x 2hrs. hand irrigated nevarez with 40 ml sterile saline for bladder pressure. No obstruction; flushes easily. draining tea colored urine with sediment. 2 units PRBCs ordered for
hgb 7.1. first unit infused without complications. lasix 20 mg given IV between units. MAP remaining greater than 60 throughout the shift; midodrine 10 mg po TID. Tylenol given x 2 for bilateral hand pain. continuing to monitor
[2023-10-05] MEDS: LASIX 20 MG IV (17:21)
[2023-10-05] MEDS: XARELTO 15 MG PO (17:30)
--- NOTE | 2023-10-05 21:09 | PTCARENOTE ---
pt is aaox3, blood transfusion completed. VSS. no reaction noted. pt had lg BM. nevarez cleaned. pt turned. pt watching tv w/ call wiggins in reach.
[2023-10-05] MEDS: THERAGRAN 1 TABLET PO (21:39)
[2023-10-05] MEDS: LIPITOR 40 MG PO (21:39)
[2023-10-06] VITALS (13 sets, daily range): BP systolic 99–128; BP diastolic 41–68; BMI 28.7
[2023-10-06 06:14] LABS: % Basophils 0.1 % (0-2); % Eosinophils 0.1 % (0-6); % Immature Granulocytes 1.5 % (0-0.5); % Lymphocytes 6.1 % (20.5-51.1); % Monocytes 5.5 % (1.7-9.3); % Neutrophils 86.7 % (42.2-75.2); Absolute Immature Granulocytes 0.2 10^3/uL (0-0.05); Absolute Lymphocytes 0.8 10^3/uL (1.2-3.4); Absolute Monocytes 0.7 10^3/uL (0.1-0.6); Absolute Neutrophils 11.6 10^3/uL (1.4-6.5); Hematocrit 26.5 % (39.0-52.0); Mean Corp Hgb Conc. 32.5 g/dL (33.0-37.0); Mean Corpuscular Hgb 27.7 pg (27.0-31.0); Mean Corpuscular Volume 85.2 fL (80.0-94.0); Mean Platelet Volume 10.4 fL (7.4-10.4); Nucleated Red Blood Cells % 0 % (-); Platelet Count 132 10^3/uL (130-400); Red Blood Cell Count 3.11 10^6/uL (4.70-6.10); Red Cell Dist. Width 16.2 % (11.5-14.5); White Blood Cell Count 13.4 10^3/uL (4.8-10.8)
--- NOTE | 2023-10-06 06:34 | W.PN.HOSP.TC ---
Today's Communication/Plan
-
..
Assessment / Plan
Assessment / Plan
Physical exam:
General: not in respiratory distress, chronically ill looking
HEENT: Normocephalic, Atraumatic and Moist Mucous Membranes
Respiratory: limited, no wheezes
Cardiac: S1/S2
GI: Soft, Nontender and Nondistended
: Padilla noted
Musculoskeletal: muscle atrophy with deformity of fingers, less tender swollen hand joints/ fingers
Neuro: Awake, Alert and Oriented to self and surroundings, followed commands.
Psych: Calm
A/P:
Arthritis/gout flare-up
Less diffuse aches with swollen and inflamed hand joints. Less swelling of fingers, less erythema.
History of gout but not on gout prophylactic treatment
Continue with oral prednisone treatment
Septic shock due to urinary tract infection: POA
Off Levophed.
Narrow down to appropriate antibiotics. Change IV cefepime to IV cefazolin 1 g every 12 based on creatinine clearance. Discussed with pharmacist.
Urine cultures growing E. coli, pansensitive
Monitor off pressors.
Started midodrine-increase dose to 10mg TID
Gross hematuria:
Failed voiding trial. Padilla catheter placed back. Monitor urine closely.
CBI stopped. He did not need manual irrigation over night
Monitor hemoglobin
Discussed with Dr. Muñoz on 10/02 and okay to restart patient on Brilinta and Xarelto
Appreciate urology consult and follow-up
Acute blood loss anemia. Patient had GI bleed with hematuria exacerbated by use of Xarelto. Consent signed. Transfuse blood to keep hemoglobin more than 8 due to ongoing hypotension with history of heart failure/coronary artery disease
s/p 2 units of blood on 10/04
#Hemorrhoidal bleeding
Monitor hemoglobin
Resolved.
GI on board and no plans for procedures unless clinical status changes per consultation.
Coagulopathy and bleeding:
Status post Kcentra in the ED
Acute kidney injury chronic kidney disease:
Padilla catheter back in place
Creatinine monitor. Creatinine at 1.8
Nephrology following
Severe metabolic acidosis:
On IV fluids with bicarb, now off
Monitor acidosis but overall improving
Nephrology on board
Hyperkalemia:
Resolved
Hypokalemia:
Replete and monitor
Hypocalcemia:
Replete and monitor
Hyponatremia:
Monitor
Hypothermia:
Likely related to sepsis
Currently improved
Alcohol use disorder:
On MSA protocol but no evidence of alcohol withdrawal at the moment.
Hypertension primary
Restart low-dose carvedilol with hold parameters
Hyperlipidemia:
Restart statin
Chronic systolic congestive heart failure:
Euvolemic
Continue to monitor volume status. Restart diuretics pending nephro recs
BPH:
On Flomax and finasteride restarted
Permanent atrial fibrillation:
Rate controlled
Restarted on Xarelto
History of DVT/PE in the past:
Restarted on Xarelto
DVT prophylaxis: xarelto
CODE STATUS:
Full code
Total time spent to see the patient, examine the patient, review data and lab results, discuss treatment plan with patient, nursing staff around 55 minutes
Anticipated Discharge: 24 - 48 hours
Subjective/Interval History
-
Date of Service: October 06, 2023
He feels better, slept well
less pain in hands
Objective Data
-
Labs:
Laboratory Results
10/06/23
06:01
WBC Pending
Hgb Pending
Hct Pending
Plt Count Pending
Sodium Pending
Potassium Pending
Chloride Pending
Carbon Dioxide Pending
BUN Pending
Creatinine Pending
Glucose Pending
Calcium Pending
Vital Signs:
Vital Signs
Temp Pulse Resp BP Pulse Ox
97.8 F 52 15 114/46 97
10/06/23 03:20 10/06/23 02:00 10/06/23 02:00 10/06/23 02:00 10/06/23 02:00
I&O
10/04/23 10/05/23 10/06/23
06:59 06:59 06:59
Intake Total 840 / 840 1420 / 1420
Output Total 0 / 2040 700 / 700 1590 / 1590
Balance -2039 / -0 140 / 140 -170 / -170
[2023-10-06 06:43] LABS: Hemoglobin 8.6 g/dL (13.0-18.0)
[2023-10-06 06:50] LABS: Blood Urea Nitrogen 55 mg/dl (9-20); Glucose 131 mg/dl (70-99)
[2023-10-06 06:51] LABS: Calcium 8.3 mg/dl (8.4-10.2); Carbon Dioxide 20 mmol/L (22-30); Chloride 104 mmol/L (98-107); Estimated Creatinine Clearance 32 ml/min; Potassium 3.8 mmol/L (3.5-5.1); Sodium 133 mmol/L (135-145); eGFR 37.35
[2023-10-06] MEDS: PROTONIX 40 MG PO (07:55)
[2023-10-06] MEDS: DELTASONE 40 MG PO (07:55)
[2023-10-06] MEDS: ProAmatine 10 MG PO ×3 (07:55→17:45)
[2023-10-06] MEDS: VITAMIN B1 100 MG PO ×2 (07:56→19:13)
[2023-10-06] MEDS: BRILINTA 90 MG PO ×2 (07:56→19:13)
[2023-10-06] MEDS: FOLVITE 1 MG PO (07:56)
[2023-10-06] MEDS: FLOMAX 0.400000000000000022 MG PO (07:57)
[2023-10-06] MEDS: PROSCAR 5 MG PO (07:57)
[2023-10-06] MEDS: B COMPLEX w/VITAMIN C 1 CAPLET PO (07:57)
[2023-10-06] MEDS: COREG PO (07:57)
[2023-10-06] MEDS: ANCEF 5 IV ×2 (08:06→19:12)
--- NOTE | 2023-10-06 10:02 | W.PN.URO.CBU ---
Today's Communication / Plan
-
home when stable with nevarez
Assessment / Plan
-
resolved hematuria but acute urinary retention Pt prefers nevarez will leave in fr now If remains hospitalized will do voiding trial again but if rehab willsend with nevarez and try vt while recuperating
know BPH
Diagnosis
-
Date of Service: October 06, 2023
-
Patient Diagnosis:
Post Op Day:
Patient Diagnosis:
Post Op Day:
Patient Diagnosis:
Post Op Day:
Patient Diagnosis:
chronic BPH with GEORGE with GH -- GH has resolved
Subjective
-
hematuria much immprovd
Objective
-
Vital Signs
Temp Pulse Resp BP Pulse Ox
97.7 F 71 21 103/68 99
10/06/23 07:26 10/06/23 07:57 10/06/23 06:00 10/06/23 07:57 10/06/23 06:00
Intake and Output
10/05/23 10/06/23 10/07/23
06:59 06:59 06:59
Intake Total 840 / 840 1420 / 1420
Output Total 700 / 700 1590 / 1590
Balance 140 / 140 -170 / -170
Intake:
Oral fluids 840 / 840 920 / 920
Blood Product Amount Infused ( 500 / 500
mL)
Packed Rbc Leukoreduced Unit 250 / 250
[id number]
Packed Rbc Leukoreduced Unit 250 / 250
[id number]
Output:
Urine, Nevarez 300 / 300 1550 / 1550
Urine, Voided 400 / 400
True urine output from hand 40 / 40
irrigation
Other:
How many times incontinent 1
MODERATE amount urine
Laboratory Results
10/06/23 06:01
10/06/23 06:01
Review of Systems
-
: Difficulty Voiding and Dark Urine
Physical Exam
-
General - well developed, well nourished, no acute distress
Chest - clear bilaterally
Abdomen - soft, non-tender, positive bowel sounds, no CVAT, no incisional pain or distention
Genitalia - normal
Rectal - normal
Skin - warm & dry with no rash
Neuro - AOx3, no motor deficits
Extremities - no clubbing, no cyanosis, no edema
Incision - clean, dry
Dressing - clean, dry, intact
Counseling
-
teach please nevarez and eg bag care
--- NOTE | 2023-10-06 10:10 | W.PN.NEPH.PH ---
Today's Communication / Plan
-
observe
Assessment/Plan
-
Assessment:
Acute kidney injury
Hypotension
Ecoli UTI
Metabolic acidosis
Hyponatremia
Hyperkalemia
Anemia
Gross hematuria
GI bleed
Edema
Atrial fibrillation
Heart failure reduced ejection fraction
Moderate pulmonary hypertension
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
Gout flare
Plan:
JUAN-obst uropathy?, in setting of gross hematuria
cr stable today at 1.8, non oliguric with nevarez and off CBI
monitor hematuria
worsening azotemia likely from steroids
Hyponatremia stable at 133
wt stable, Will eventually have to add back Lasix
BP soft on 10mg TID midodrine
h/h better transfusion 10/04
abx per primary, Cefazolin
arthritis/gout flare up -steroid started per primary
d/w pt
-
-
Date of Service: October 06, 2023
CC / HPI / ROS
-
Chief Complaint:
JUAN, met acidosis, hyperkalemia
History of Present Illness:
cr no change at 1.8
BP soft on midodrine 10 mg 3 times daily
no fever, hb better at 8.6 s/p PRBC 2 units
Hyponatremia at 133
Review of Systems:
no cp or sob at rest
nevarez reinserted on 10/02 for retnetion
no n/v
pain bilat hand improving
Labs
-
Labs:
WBC 13.4 10^3/uL (4.8-10.8) H 10/06/23 06:01
RBC 3.11 10^6/uL (4.70-6.10) L 10/06/23 06:01
Hgb 8.6 g/dL (13.0-18.0) L D 10/06/23 06:01
Hct 26.5 % (39.0-52.0) L 10/06/23 06:01
Plt Count 132 10^3/uL (130-400) 10/06/23 06:01
Sodium 133 mmol/L (135-145) L 10/06/23 06:01
Potassium 3.8 mmol/L (3.5-5.1) 10/06/23 06:01
Chloride 104 mmol/L (98-107) 10/06/23 06:01
Carbon Dioxide 20 mmol/L (22-30) L 10/06/23 06:01
BUN 55 mg/dl (9-20) H 10/06/23 06:01
Creatinine 1.8 mg/dL (0.7-1.3) H 10/06/23 06:01
eGFR 37.35 10/06/23 06:01
Glucose 131 mg/dl (70-99) H 10/06/23 06:01
Calcium 8.3 mg/dl (8.4-10.2) L 10/06/23 06:01
Ksb-M-Kcnefppacmq Pept 6200 pg/ml 09/29/23 09:50
Albumin 2.0 g/dl (3.5-5.0) L 10/02/23 03:25
Physical Exam
-
Vital Signs:
Vital Signs
Temp Pulse Resp BP Pulse Ox
97.7 F 71 21 103/68 99
10/06/23 07:26 10/06/23 07:57 10/06/23 06:00 10/06/23 07:57 10/06/23 06:00
Cardiovascular:: Regular rate and rhythm
Respiratory:: Bilateral: CTA (anteriorly)
Lung Excursion:: Normal
Abdomen:: Nontender and Soft
Extremity Edema:: None: Bilateral: (trace)
Nevarez Catheter: Yes
--- NOTE | 2023-10-06 14:02 | PTCARENOTE ---
Patient in chair position in bed , in good spirits today with visitors at bedside. Patient eating 100% of lunch. Denying pain when asked. Padilla catheter draining [place]/tea colored urine with occasional blood clots/blood. Padilla irrigated. Patient
complaint with medication regimen.
[2023-10-06] MEDS: XARELTO 15 MG PO (17:45)
[2023-10-06] MEDS: COREG 3.125 MG PO (19:13)
[2023-10-06] MEDS: TYLENOL 650 MG PO (21:04)
[2023-10-06] MEDS: THERAGRAN 1 TABLET PO (21:04)
[2023-10-06] MEDS: LIPITOR 40 MG PO (21:04)
[2023-10-07] VITALS (14 sets, daily range): BP systolic 109–126; BP diastolic 45–63; PULSE 80; O2SAT 95
[2023-10-07] MEDS: COREG 3.125 MG PO ×2 (09:53→20:29)
[2023-10-07] MEDS: B COMPLEX w/VITAMIN C 1 CAPLET PO (09:53)
[2023-10-07] MEDS: ProAmatine 10 MG PO ×3 (09:53→17:23)
[2023-10-07] MEDS: DELTASONE 40 MG PO (09:53)
[2023-10-07] MEDS: PROSCAR 5 MG PO (09:53)
[2023-10-07] MEDS: BRILINTA 90 MG PO (09:53)
[2023-10-07] MEDS: VITAMIN B1 100 MG PO ×2 (09:53→20:29)
[2023-10-07] MEDS: ANCEF 5 IV ×2 (09:54→20:28)
[2023-10-07] MEDS: FOLVITE 1 MG PO (09:54)
[2023-10-07] MEDS: FLOMAX 0.400000000000000022 MG PO (09:54)
[2023-10-07] MEDS: PROTONIX 40 MG PO (09:55)
--- NOTE | 2023-10-07 10:05 | W.PN.NEPH.PH ---
Today's Communication / Plan
-
Observe
Assessment/Plan
-
Assessment:
Acute kidney injury
Hypotension
Ecoli UTI
Metabolic acidosis
Hyponatremia
Hyperkalemia
Anemia
Gross hematuria
GI bleed
Edema
Atrial fibrillation
Heart failure reduced ejection fraction
Moderate pulmonary hypertension
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
Gout flare
Plan:
JUAN-obst uropathy?, in setting of gross hematuria
cr stable today at 1.8, non oliguric with nevarez and off CBI
Morning labs still not available
monitor hematuria
worsening azotemia likely from steroids
Hyponatremia stable at 133
wt stable, Will eventually have to add back Lasix
BP soft on 10mg TID midodrine as of 10/07/2019
h/h better transfusion 10/04
abx per primary, Cefazolin
arthritis/gout flare up -steroid started per primary
d/w pt
-
-
Date of Service: October 07, 2023
CC / HPI / ROS
-
Chief Complaint:
JUAN, met acidosis, hyperkalemia
History of Present Illness:
cr no change at 1.8 aso f 10/05
BP soft on midodrine 10 mg 3 times daily
no fever, hb better at 8.6 s/p PRBC 2 units
Hyponatremia at 133
Review of Systems:
no cp or sob at rest
nevarez reinserted on 10/02 for retention
no n/v
pain bilat hand improving
Labs
-
Labs:
WBC 13.4 10^3/uL (4.8-10.8) H 10/06/23 06:01
RBC 3.11 10^6/uL (4.70-6.10) L 10/06/23 06:01
Hgb 8.6 g/dL (13.0-18.0) L D 10/06/23 06:01
Hct 26.5 % (39.0-52.0) L 10/06/23 06:01
Plt Count 132 10^3/uL (130-400) 10/06/23 06:01
eGFR 37.35 10/06/23 06:01
Qcg-O-Ydnjpkvjqmm Pept 6200 pg/ml 09/29/23 09:50
Albumin 2.0 g/dl (3.5-5.0) L 10/02/23 03:25
Physical Exam
-
Vital Signs:
Vital Signs
Temp Pulse Resp BP Pulse Ox
97.5 F 86 22 120/59 96
10/07/23 07:41 10/07/23 09:53 10/07/23 08:00 10/07/23 09:53 10/07/23 08:00
Cardiovascular:: Regular rate and rhythm
Respiratory:: Bilateral: Coarse
Lung Excursion:: Normal
Abdomen:: Nontender and Soft
Bowel Sounds:: Normal
Extremity Edema:: +1: Bilateral:
Nevarez Catheter: Yes
[2023-10-07 10:55] LABS: Blood Urea Nitrogen 56 mg/dl (9-20); Calcium 8.5 mg/dl (8.4-10.2); Carbon Dioxide 22 mmol/L (22-30); Chloride 106 mmol/L (98-107); Estimated Creatinine Clearance 41 ml/min; Glucose 132 mg/dl (70-99); Potassium 3.2 mmol/L (3.5-5.1); Sodium 134 mmol/L (135-145); eGFR 50.49
--- NOTE | 2023-10-07 11:02 | W.PN.HOSP.TC ---
Today's Communication/Plan
-
nephro recs
replete kcl
Assessment / Plan
Assessment / Plan
Physical exam:
General: not in respiratory distress, chronically ill looking
HEENT: Normocephalic, Atraumatic and Moist Mucous Membranes
Respiratory: limited, no wheezes
Cardiac: S1/S2
GI: Soft, Nontender and Nondistended
: Padilla noted
Musculoskeletal: muscle atrophy with deformity of fingers, less tender swollen hand joints/ fingers
Neuro: Awake, Alert and Oriented to self and surroundings, followed commands.
Psych: Calm
A/P:
#Arthritis/gout flare-up
Less diffuse aches with swollen and inflamed hand joints. Less swelling of fingers, less erythema.
History of gout but not on gout prophylactic treatment
Continue with oral prednisone treatment 40mg x 1 more day then can do quick taper if needed. Otherwise plan to stop it.
#Septic shock due to urinary tract infection: POA
Off Levophed.
Narrow down to appropriate antibiotics. Change IV cefepime to IV cefazolin 1 g every 12 based on creatinine clearance. Discussed with pharmacist.
Urine cultures growing E. coli, pansensitive
Monitor off pressors.
Started midodrine-increase dose to 10mg TID
#Gross hematuria:
Failed voiding trial. Padilla catheter placed back. Monitor urine closely.
CBI stopped. He did not need manual irrigation over night
Monitor hemoglobin
Discussed with Dr. Muñoz on 10/02 and okay to restart patient on Brilinta and Xarelto
Appreciate urology consult and follow-up
#Acute blood loss anemia.
Patient had GI bleed with hematuria exacerbated by use of Xarelto.
Transfuse blood to keep hemoglobin more than 8 due to ongoing hypotension with history of heart failure/coronary artery disease
s/p 2 units of blood on 10/04
Hgb improved to 8.6
#Hemorrhoidal bleeding
Monitor hemoglobin
Resolved.
GI on board and no plans for procedures unless clinical status changes per consultation.
#Coagulopathy and bleeding:
Status post Kcentra in the ED
#Acute kidney injury chronic kidney disease:
Padilla catheter back in place
Creatinine monitor. Creatinine at 1.4
Nephrology following
Severe metabolic acidosis:
On IV fluids with bicarb, now off
Monitor acidosis but overall improving
Nephrology on board
Hyperkalemia:
Resolved
Hypokalemia:
Replete and monitor
Hypocalcemia:
Replete and monitor
Hyponatremia:
Monitor
Hypothermia:
Likely related to sepsis
Currently improved
Alcohol use disorder:
On MSA protocol but no evidence of alcohol withdrawal at the moment.
Hypertension primary
Restart low-dose carvedilol with hold parameters
Hyperlipidemia:
Restart statin
Chronic systolic congestive heart failure:
Euvolemic
Continue to monitor volume status. Restart diuretics pending nephro recs
BPH:
On Flomax and finasteride restarted
Permanent atrial fibrillation:
Rate controlled
Restarted on Xarelto
History of DVT/PE in the past:
Restarted on Xarelto
DVT prophylaxis: xarelto
CODE STATUS:
Full code
PT/OT-SNF on dc.
Anticipated Discharge: 24 - 48 hours
Subjective/Interval History
-
Date of Service: October 07, 2023
Improvement in joint movements
Objective Data
-
Labs:
Laboratory Results
10/07/23
10:14
Sodium 134 L
Potassium 3.2 L
Chloride 106
Carbon Dioxide 22
BUN 56 H
Creatinine 1.4 H
Glucose 132 H
Calcium 8.5
Vital Signs:
Vital Signs
Temp Pulse Resp BP Pulse Ox
97.5 F 86 22 120/59 96
10/07/23 07:41 10/07/23 09:53 10/07/23 08:00 10/07/23 09:53 10/07/23 08:00
I&O
10/06/23 10/07/23 10/08/23
06:59 06:59 06:59
Intake Total 1420 / 1420 440 / 440
Output Total 1590 / 1590 1740 / 1740
Balance -170 / -170 -1300 / -1300
Data Reviewed
-
Total Time Spent with Patient (in minutes): 55
[2023-10-07] MEDS: KCL 40 MEQ PO (12:43)
--- NOTE | 2023-10-07 17:02 | PTCARENOTE ---
Pt with nose bleed. Dr. Haddad notified, holding xarelto, will order saline spray.
[2023-10-07] MEDS: OCEAN, SALINE MIST 2 SPRAYS NASAL ×2 (17:22→20:30)
--- NOTE | 2023-10-07 19:28 | PTCARENOTE ---
Pt still has nevarez catheter in place per Dr. Alonso's note, urologist continuity reader notified via TT, will place order.
--- NOTE | 2023-10-07 20:10 | PTCARENOTE ---
Received pt from jey RN. Pt is AAOx3. Afib on the monitor. On RA O2 sat 97%, lungs diminished. Padilla in place, hygiene provided. Incont of stool. SCDs in place. Mouth care provided. Pt is laying comfortable in bed with call wiggins in reach.
Padilla order was supposed to be placed by Dr. Santamaria, no order placed, CARI Ibarra notified for an order.
[2023-10-07] MEDS: LIPITOR 40 MG PO (20:29)
[2023-10-07] MEDS: THERAGRAN 1 TABLET PO (20:29)
[2023-10-08] VITALS (9 sets, daily range): BP systolic 105–147; BP diastolic 47–76; PULSE 85; O2SAT 94; BMI 28.9; BMI 28.8
--- NOTE | 2023-10-08 02:12 | PTCARENOTE ---
Urologist on air host notified from dayshift RN about pt having a nevarez with no order. No order placed at this time, CARI Ibarra notified, nevarez order placed.
[2023-10-08 03:38] LABS: % Basophils 0.1 % (0-2); % Lymphocytes 3.6 % (20.5-51.1); % Monocytes 4.1 % (1.7-9.3); % Neutrophils 91.2 % (42.2-75.2); Absolute Immature Granulocytes 0.2 10^3/uL (0-0.05); Absolute Lymphocytes 0.6 10^3/uL (1.2-3.4); Absolute Monocytes 0.7 10^3/uL (0.1-0.6); Absolute Neutrophils 14.8 10^3/uL (1.4-6.5); Hematocrit 27.6 % (39.0-52.0); Hemoglobin 8.9 g/dL (13.0-18.0); Mean Corp Hgb Conc. 32.2 g/dL (33.0-37.0); Mean Corpuscular Hgb 28.1 pg (27.0-31.0); Mean Corpuscular Volume 87.1 fL (80.0-94.0); Mean Platelet Volume 10.6 fL (7.4-10.4); Nucleated Red Blood Cells % 0 % (-); Platelet Count 187 10^3/uL (130-400); Red Blood Cell Count 3.17 10^6/uL (4.70-6.10); Red Cell Dist. Width 16.2 % (11.5-14.5); White Blood Cell Count 16.3 10^3/uL (4.8-10.8)
[2023-10-08 04:39] LABS: Blood Urea Nitrogen 53 mg/dl (9-20); Calcium 8.3 mg/dl (8.4-10.2); Carbon Dioxide 22 mmol/L (22-30); Chloride 106 mmol/L (98-107); Estimated Creatinine Clearance 48 ml/min; Glucose 117 mg/dl (70-99); Potassium 4.8 mmol/L (3.5-5.1); Sodium 132 mmol/L (135-145); eGFR > 60.00
[2023-10-08] MEDS: PROTONIX 40 MG PO (08:01)
[2023-10-08] MEDS: FLOMAX 0.400000000000000022 MG PO (08:01)
[2023-10-08] MEDS: ANCEF 5 IV ×2 (08:01→20:22)
[2023-10-08] MEDS: VITAMIN B1 100 MG PO ×2 (08:01→20:23)
[2023-10-08] MEDS: B COMPLEX w/VITAMIN C 1 CAPLET PO (08:01)
[2023-10-08] MEDS: DELTASONE 40 MG PO (08:01)
[2023-10-08] MEDS: OCEAN, SALINE MIST 2 SPRAYS NASAL ×3 (08:02→22:19)
[2023-10-08] MEDS: ProAmatine 10 MG PO ×3 (08:02→17:30)
[2023-10-08] MEDS: PROSCAR 5 MG PO (08:02)
[2023-10-08] MEDS: FOLVITE 1 MG PO (08:02)
[2023-10-08] MEDS: COREG 3.125 MG PO ×2 (08:03→20:23)
--- NOTE | 2023-10-08 10:52 | PTCARENOTE ---
Received pt from IMU via stretcher, accompanied by volunteer. Pt AAO x3, [place] slowly, transferred to bed with assist x4. VSS. Placed on telemetry:A fib. On room air- pulse ox 97%, no SOB noted. Abd large, soft, non-tender. Padilla P/I clear
yellow urine. Foam dsgs in place to rt arm, Rt lower leg and sacrum. Knee hig SCD's in place. Oriented to 4 east, resting quietly at present. Will continue to monitor.
[2023-10-08] MEDS: BRILINTA 90 MG PO ×2 (10:58→20:23)
--- NOTE | 2023-10-08 11:56 | W.PN.HOSP.TC ---
Today's Communication/Plan
-
nephro recs
cr continues to improves
saline spray
restarted xarelto
SNF on dc
Assessment / Plan
Assessment / Plan
Physical exam:
General: not in respiratory distress, chronically ill looking
HEENT: Normocephalic, Atraumatic and Moist Mucous Membranes
Respiratory: limited, no wheezes
Cardiac: S1/S2
GI: Soft, Nontender and Nondistended
: Padilla noted
Musculoskeletal: muscle atrophy with deformity of fingers, less tender swollen hand joints/ fingers
Neuro: Awake, Alert and Oriented to self and surroundings, followed commands.
Psych: Calm
A/P:
#Arthritis/gout flare-up
Less diffuse aches with swollen and inflamed hand joints. Less swelling of fingers, less erythema.
History of gout but not on gout prophylactic treatment
s/p 5d course of 40mg prednisone. Monitor for now.
#Septic shock due to urinary tract infection: POA
Off Levophed.
Narrow down to appropriate antibiotics. Change IV cefepime to IV cefazolin 1 g every 12 based on creatinine clearance. Discussed with pharmacist.
Plan for 14d course.
Urine cultures growing E. coli, pansensitive
Monitor off pressors. Bump in wbc due to steroids.
Started midodrine-increase dose to 10mg TID
#Gross hematuria:
Failed voiding trial. Padilla catheter placed back. Monitor urine closely.
CBI stopped. He did not need manual irrigation over night
Monitor hemoglobin
Discussed with Dr. Muñoz on 10/02 and okay to restart patient on Brilinta and Xarelto
Appreciate urology consult and follow-up
#Acute blood loss anemia.
Patient had GI bleed with hematuria exacerbated by use of Xarelto.
Transfuse blood to keep hemoglobin more than 8 due to ongoing hypotension with history of heart failure/coronary artery disease
s/p 2 units of blood on 10/04
Hgb improved to 8.6
#Acute kidney injury chronic kidney disease:
Padilla catheter back in place
Creatinine monitor. Creatinine continues to improve at 1.2
Nephrology following
Mild hyponatremia.
#Hemorrhoidal bleeding
Monitor hemoglobin
Resolved.
GI on board and no plans for procedures unless clinical status changes per consultation.
#Mild epistaxis
-saline spray
-Stopped and restarted xarelto.
#Coagulopathy and bleeding:
Status post Kcentra in the ED
Severe metabolic acidosis:
On IV fluids with bicarb, now off
Monitor acidosis but overall improving
Nephrology on board
Hyperkalemia:
Resolved
Hypokalemia:
Replete and monitor
Hypocalcemia:
Replete and monitor
Hyponatremia:
Monitor
Hypothermia:
Likely related to sepsis
Currently improved
Alcohol use disorder:
On MSA protocol but no evidence of alcohol withdrawal at the moment.
Hypertension primary
Restart low-dose carvedilol with hold parameters
Hyperlipidemia:
Restart statin
Chronic systolic congestive heart failure:
Euvolemic
Continue to monitor volume status. Restart diuretics pending nephro recs
BPH:
On Flomax and finasteride restarted
Permanent atrial fibrillation:
Rate controlled
Restarted on Xarelto
History of DVT/PE in the past:
Restarted on Xarelto
DVT prophylaxis: xarelto
CODE STATUS:
Full code
PT/OT-SNF on dc.
d/w with family member at bedside
Anticipated Discharge: Within 24 hours
Subjective/Interval History
-
Date of Service: October 08, 2023
states of dry nares
no further epistaxis
remains with urinary output
tolerating diet
Objective Data
-
Labs:
Laboratory Results
10/08/23
03:17
WBC 16.3 H
Hgb 8.9 L
Hct 27.6 L
Plt Count 187 D
Sodium 132 L
Potassium 4.8 D
Chloride 106
Carbon Dioxide 22
BUN 53 H
Creatinine 1.2
Glucose 117 H
Calcium 8.3 L
Vital Signs:
Vital Signs
Temp Pulse Resp BP Pulse Ox
98.5 F 82 18 105/49 97
10/08/23 10:33 10/08/23 10:33 10/08/23 10:33 10/08/23 10:33 10/08/23 11:18
I&O
10/07/23 10/08/23 10/09/23
06:59 06:59 06:59
Intake Total 440 / 440 650 / 650
Output Total 1740 / 1740 1350 / 1350
Balance -1300 / -1300 -700 / -700
Data Reviewed
-
Total Time Spent with Patient (in minutes): 56
--- NOTE | 2023-10-08 12:15 | W.PN.NEPH.PH ---
Today's Communication / Plan
-
Sign off
can add lasix back at discharge
Assessment/Plan
-
Assessment:
Acute kidney injury
Hypotension
Ecoli UTI
Metabolic acidosis
Hyponatremia
Hyperkalemia
Anemia
Gross hematuria
GI bleed
Edema
Atrial fibrillation
Heart failure reduced ejection fraction
Moderate pulmonary hypertension
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
Gout flare
Plan:
JUAN-obst uropathy?, in setting of gross hematuria
cr stable today at 1.2 baseline non oliguric with nevarez and off CBI
worsening azotemia likely from steroids
Hyponatremia stable at 132
wt stable, can add back Lasix at discharge
BP soft on 10mg TID midodrine as of 10/07/2019
h/h better transfusion 10/04
abx per primary, Cefazolin
arthritis/gout flare up -steroid started per primary
we will sign off
-
-
Date of Service: October 08, 2023
CC / HPI / ROS
-
Chief Complaint:
JUAN, met acidosis, hyperkalemia
History of Present Illness:
cr no change at 1.2
BP soft on midodrine 10 mg 3 times daily
hb at 8.9 s/p PRBC 2 units
Hyponatremia at 132
Review of Systems:
no cp or sob at rest
nevarez reinserted on 10/02 for retention
no n/v
Labs
-
Labs:
WBC 16.3 10^3/uL (4.8-10.8) H 10/08/23 03:17
RBC 3.17 10^6/uL (4.70-6.10) L 10/08/23 03:17
Hgb 8.9 g/dL (13.0-18.0) L 10/08/23 03:17
Hct 27.6 % (39.0-52.0) L 10/08/23 03:17
Plt Count 187 10^3/uL (130-400) D 10/08/23 03:17
Sodium 132 mmol/L (135-145) L 10/08/23 03:17
Potassium 4.8 mmol/L (3.5-5.1) D 10/08/23 03:17
Chloride 106 mmol/L (98-107) 10/08/23 03:17
Carbon Dioxide 22 mmol/L (22-30) 10/08/23 03:17
BUN 53 mg/dl (9-20) H 10/08/23 03:17
Creatinine 1.2 mg/dL (0.7-1.3) 10/08/23 03:17
eGFR > 60.00 10/08/23 03:17
Glucose 117 mg/dl (70-99) H 10/08/23 03:17
Calcium 8.3 mg/dl (8.4-10.2) L 10/08/23 03:17
Fio-P-Gllwixbsxfy Pept 6200 pg/ml 09/29/23 09:50
Albumin 2.0 g/dl (3.5-5.0) L 10/02/23 03:25
Physical Exam
-
Vital Signs:
Vital Signs
Temp Pulse Resp BP Pulse Ox
98.5 F 82 18 105/49 97
10/08/23 10:33 10/08/23 10:33 10/08/23 10:33 10/08/23 10:33 10/08/23 11:18
Cardiovascular:: Regular rate and rhythm
Respiratory:: Bilateral: Coarse
Lung Excursion:: Normal
Abdomen:: Nontender and Soft
Bowel Sounds:: Normal
Extremity Edema:: +1: Bilateral:
Nevarez Catheter: Yes
--- NOTE | 2023-10-08 12:55 | CM ---
Patient with Arthritis/gout flare, Septic shock due to UTI, hematuria, Acute blood loss anemia, JUAN. Room air. Receiving IV Abx. PT & OT recommend skilled rehab. Patient transferred from IMU to today.
Spoke with Adm Magalies [facility]; they are able to accept the patient tomorrow. The for report [phone], fax [phone].
Spoke with patient who agrees to d/c tomorrow to [facility]. Patient shares that he plans on going home alone from [facility], however his stepson Mraciano plans on moving in with him soon. He has 2 other stepsons that he also has contact with. Patient
says he has a few friends that check on him also, including his friend Ken Alvarez, who is listed as the contact in the chart. The patient does not want his stepsons added as contacts at this time, as he wants Ken to be the one who would receive
any communication. He does not think needs to contact Ken about the d/c plans.
Plan [facility] tomorrow.
--- NOTE | 2023-10-08 16:12 | PTCARENOTE ---
Pt resting comfortably since tx to unit from IMU. VSS. Telemetry:A fib. On room air- pulse ox 96%, no SOB noted. Abd soft, rounded, helena PO well. Padilla P/I clear yellow urine. No c/o at present. Will continue to monitor.
[2023-10-08] MEDS: XARELTO 15 MG PO (17:30)
[2023-10-08] MEDS: MIRALAX 17 GRAMS PO (17:43)
[2023-10-08] MEDS: THERAGRAN 1 TABLET PO (20:24)
[2023-10-08] MEDS: LIPITOR 40 MG PO (20:24)
[2023-10-09] MEDS: SENOKOT-S 1 TABLET PO ×2 (02:07→08:46)
[2023-10-09 03:55] VITALS: BP 134/69
[2023-10-09 06:00] VITALS: BMI 28.1
[2023-10-09 07:25] VITALS: BP 133/63
[2023-10-09 07:59] LABS: Blood Urea Nitrogen 50 mg/dl (9-20); Calcium 8.6 mg/dl (8.4-10.2); Carbon Dioxide 22 mmol/L (22-30); Chloride 104 mmol/L (98-107); Estimated Creatinine Clearance 48 ml/min; Glucose 75 mg/dl (70-99); Potassium 4.4 mmol/L (3.5-5.1); Sodium 134 mmol/L (135-145); eGFR > 60.00
[2023-10-09] MEDS: ANCEF 5 IV (08:43)
[2023-10-09] MEDS: ProAmatine 10 MG PO ×2 (08:44→12:24)
[2023-10-09] MEDS: PROSCAR 5 MG PO (08:44)
[2023-10-09] MEDS: OCEAN, SALINE MIST 2 SPRAYS NASAL (08:44)
[2023-10-09] MEDS: B COMPLEX w/VITAMIN C 1 CAPLET PO (08:45)
[2023-10-09] MEDS: VITAMIN B1 100 MG PO (08:45)
[2023-10-09] MEDS: PROTONIX 40 MG PO (08:45)
[2023-10-09] MEDS: FOLVITE 1 MG PO (08:45)
[2023-10-09] MEDS: COREG 3.125 MG PO (08:45)
[2023-10-09] MEDS: FLOMAX 0.400000000000000022 MG PO (08:45)
[2023-10-09] MEDS: BRILINTA 90 MG PO (08:46)
[2023-10-09] MEDS: DULCOLAX 10 MG PO (09:43)
--- NOTE | 2023-10-09 10:53 | CM ---
MD entered order for discharge.
Spoke with Magalie from [facility] pt accepted bed ready.
Spoke with MD and pt .
Pt agrees with dc to [place] . Pt requested ambulance . Medical nec form completed.
IMM reviewed and pt agrees with dc today.
PT requested CM call [facility] . Ken called aware and agrees with dc to [facility]
report [phone]
fax [phone]
PLAN TO [facility] via ambulance
[2023-10-09 11:09] VITALS: BP 134/77
--- NOTE | 2023-10-09 11:47 | W.PN.HOSP.TC ---
Today's Communication/Plan
-
restart lasix
OP f/u with urology
hand irrigate prn
po abx
DC to SNF
Assessment / Plan
Assessment / Plan
Physical exam:
General: not in respiratory distress, chronically ill looking
HEENT: Normocephalic, Atraumatic and Moist Mucous Membranes, R nares with dried blood
Respiratory: limited, no wheezes
Cardiac: S1/S2
GI: Soft, Nontender and Nondistended
: Padilla noted
Musculoskeletal: muscle atrophy with deformity of fingers, less tender swollen hand joints/ fingers
Neuro: Awake, Alert and Oriented to self and surroundings, followed commands.
Psych: Calm
A/P:
#Arthritis/gout flare-up
Less diffuse aches with swollen and inflamed hand joints. Less swelling of fingers, less erythema.
History of gout but not on gout prophylactic treatment
s/p 5d course of 40mg prednisone. Improved. Monitor for now.
#Septic shock due to urinary tract infection: POA
Off Levophed.
Narrow down to appropriate antibiotics. Change IV cefepime to IV cefazolin 1 g every 12 based on creatinine clearance. Discussed with pharmacist.
Plan for 14d course. Po keflex on dc.
Urine cultures growing E. coli, pansensitive
Monitor off pressors. Bump in wbc due to steroids.
Started midodrine-increase dose to 10mg TID
#Gross hematuria:
Failed voiding trial. Padilla catheter placed back. Monitor urine closely.
CBI stopped. PRN hand irrigation
Monitor hemoglobin
Discussed with Dr. Muñoz on 10/02 and okay to restart patient on Brilinta and Xarelto
Appreciate urology consult and follow-up
#Acute blood loss anemia.
Patient had GI bleed with hematuria exacerbated by use of Xarelto.
Transfuse blood to keep hemoglobin more than 8 due to ongoing hypotension with history of heart failure/coronary artery disease
s/p 2 units of blood on 10/04
Hgb improved to 8.9
#Acute kidney injury chronic kidney disease:
Padilla catheter back in place
Creatinine monitor. Creatinine continues to improve at 1.2
Nephrology -okay to restart lasix on dc.
Mild hyponatremia.
#Hemorrhoidal bleeding
Monitor hemoglobin
Resolved.
GI on board and no plans for procedures unless clinical status changes per consultation.
#Mild epistaxis
-saline spray
-Stopped and restarted xarelto.
#Coagulopathy and bleeding:
Status post Kcentra in the ED
Severe metabolic acidosis:
On IV fluids with bicarb, now off
Monitor acidosis but overall improving
Nephrology on board
Hyperkalemia:
Resolved
Hypokalemia:
Replete and monitor
Hypocalcemia:
Replete and monitor
Hyponatremia:
Monitor
Hypothermia:
Likely related to sepsis
Currently improved
Alcohol use disorder:
On MSA protocol but no evidence of alcohol withdrawal at the moment.
Hyperlipidemia:
Restart statin
Chronic systolic congestive heart failure:
Euvolemic
Continue to monitor volume status. Restart diuretics
BPH:
On Flomax and finasteride restarted
Permanent atrial fibrillation:
Rate controlled
Restarted on Xarelto
History of DVT/PE in the past:
Restarted on Xarelto
DVT prophylaxis: xarelto
CODE STATUS:
Full code
PT/OT-SNF on dc.
d/w with family member at bedside
More than 30 minutes spent in discharge including
Final examination of the patient
Summarizing hospital stay
Instructions for continuing care to all relevant caregivers
Preparation of discharge records, prescriptions, and referral forms
Total time spent (in minutes): 45
Anticipated Discharge: Today
Subjective/Interval History
-
Date of Service: October 09, 2023
shaving in bed
states of nasal dryness-no further epistaxis after initial event
Objective Data
-
Labs:
Laboratory Results
10/09/23
06:14
Sodium 134 L
Potassium 4.4
Chloride 104
Carbon Dioxide 22
BUN 50 H
Creatinine 1.2
Glucose 75
Calcium 8.6
Vital Signs:
Vital Signs
Temp Pulse Resp BP Pulse Ox
97.7 F 78 18 134/77 96
10/09/23 11:09 10/09/23 11:09 10/09/23 11:09 10/09/23 11:09 10/09/23 11:09
I&O
10/08/23 10/09/23 10/10/23
06:59 06:59 06:59
Intake Total 650 / 650 1200 / 1200
Output Total 1350 / 1350 1325 / 1325
Balance -700 / -700 -125 / -125
--- NOTE | 2023-10-09 11:52 | W.DCSUMMARY ---
Discharge Summary
Discharge Data
Date of Admission: 09/29/23
Date of Discharge: 10/09/23
-
Pending Results: No
Hospital Course
83-year-old male past medical history of CAD status post stents, atrial fibrillation on Xarelto, BPH, history of DVT PE, hyperlipidemia, alcohol use disorder who is presenting to close hematuria and hemorrhoidal bleeding. Patient was started on CBI
after Padilla catheter placement. Hematuria eventually resolved and CBI was stopped. Padilla catheter remained as patient with persistent urinary retention. Xarelto and Brilinta was restarted. Patient was also complaining of body pain and states he
has a history of arthritis and gout. For suspected gout flareup and was started on prednisone and completed course of 5 days with significant improvement. Patient also with JUAN and creatinine slowly downtrending. Patient with hemorrhoidal
bleeding and per GI no acute intervention required. Nephrology evaluated patient. Patient was also found to have a E. coli urinary tract infection and was on IV antibiotic, switch to p.o. antibiotics on discharge. Patient also with hypertension
which was seen secondary septic shock. Levophed was weaned off and started on midodrine. Blood pressure stabilized with midodrine. Patient was eval by PT and OT be going to appointment. Patient to follow-up outpatient with urology. Lasix will
be restarted.
Discharge Plan
-
Patient Disposition: Assisted/SNF
Discharge Diagnosis/Procedures: Arthritis/gout flareup
Septic shock due to urinary tract infection secondary to E. coli
Gross hematuria
Acute blood loss anemia
Acute kidney injury on chronic kidney disease
Hemorrhoidal bleeding
Mild epistaxis
Hypokalemia
Hypokalemia
Acute blood loss anemia status post blood transfusion.
Condition: Fair
Diet: 2 Gram Sodium and Restrict fluids to 48 oz
Activity: With assistance and As tolerated
Driving Restrictions: Not until seen by your Dr
Blood Work: CBC and BMP in 1 week via primary doctor.
Referrals:
Maxime Manjarrez I., DO [Family Provider] - in less than 1 week
Adryan Ortega MD [Active] -
Prescriptions:
New
Saline Nasal 0.65 % Aerosol,[place]
2 spray intranasal TID 7 Days Qty: 44 0RF
midodrine 5 mg Tablet
10 mg PO TID@0800,1300,1800 Qty: 90 0RF
pantoprazole 40 mg Tablet,Delayed Release (Dr/Ec)
40 mg PO DAILY Qty: 30 0RF
cephalexin 500 mg capsule
500 mg PO BID 7 Days Qty: 14 0RF
Continued
multivitamin with folic acid [Tab-A-Edd] 1 TABLET tablet
1 tab PO HS
Complex B-100 1 EACH tablet extended release
1 tab PO DAILY
tamsulosin [Flomax] 0.4 MG capsule
0.4 mg PO DAILY
finasteride 5 MG tablet
5 mg PO DAILY
atorvastatin [Lipitor] 40 MG tablet
40 mg PO HS
carvedilol 3.125 mg Tablet
3.125 mg PO BID 30 Days Qty: 60 0RF
Brilinta 90 mg Tablet
90 mg PO BID 30 Days Qty: 60 0RF
Xarelto 15 mg Tablet
15 mg PO QPM 30 Days Qty: 30 0RF
folic acid 1 mg Tablet
1 mg PO DAILY
furosemide [Lasix] 40 mg Tablet
40 mg PO DAILY@1400
furosemide 80 mg tablet
80 mg PO DAILY
Changed
potassium chloride 20 mEq tablet extended release
20 meq PO BID Qty: 90 0RF
Discharge Orders:
Discharge Patient (As Directed); Ordered 10/09/23
Ordered By: Aidan Haddad
Discharge Date and Time
Print Language: SLOVENIAN
[2023-10-09] MEDS: MIRALAX 17 GRAMS PO (12:28)
[2023-10-09 15:17] VITALS: BP 136/72
== END 2023-10-09 16:17 | DRG 871 ==
LOC: 4 EAST ACU 12:03
PROVIDERS: Internal Medicine Critical Care Medicine; Nurse Practitioner Gerontology; Specialist; ADMITTING PHYSICIAN Hospitalist; ATTENDING PHYSICIAN Hospitalist; CONSULT PHYSICIAN Internal Medicine Critical Care Medicine; CONSULT PHYSICIAN Internal Medicine Gastroenterology; CONSULT PHYSICIAN Specialist; EMERGENCY PHYSICIAN Emergency Medicine; FAMILY PHYSICIAN Internal Medicine; OTHER PHYSICIAN Specialist
PROC: 3E1K78Z Irrigation of Genitourinary Tract using Irrigating Substance, Via Natural or Artificial Opening (ICD-10-PCS; 2023-09-29)
PROC: 30283B1 Transfusion of Nonautologous 4-Factor Prothrombin Complex Concentrate into Vein, Percutaneous Approach (ICD-10-PCS; 2023-09-29)
PROC: 0T9B70Z Drainage of Bladder with Drainage Device, Via Natural or Artificial Opening (ICD-10-PCS; 2023-09-29)
PROC: 30233N1 Transfusion of Nonautologous Red Blood Cells into Peripheral Vein, Percutaneous Approach (ICD-10-PCS; 2023-10-05)
DX: A41.51 Sepsis due to Escherichia coli [E. coli] (principal); R65.21 Severe sepsis with septic shock; N39.0 Urinary tract infection, site not specified; K92.1 Melena; D68.9 Coagulation defect, unspecified; E87.1 Hypo-osmolality and hyponatremia; E87.20 Acidosis, unspecified; I13.0 Hypertensive heart and chronic kidney disease with heart failure and stage 1 through stage 4 chronic kidney disease, or unspecified chronic kidney disease; I48.21 Permanent atrial fibrillation; I50.22 Chronic systolic (congestive) heart failure; N17.9 Acute kidney failure, unspecified; D62 Acute posthemorrhagic anemia; N13.8 Other obstructive and reflux uropathy; D68.32 Hemorrhagic disorder due to extrinsic circulating anticoagulants; E78.00 Pure hypercholesterolemia, unspecified; F17.290 Nicotine dependence, other tobacco product, uncomplicated; I25.10 Atherosclerotic heart disease of native coronary artery without angina pectoris; E87.5 Hyperkalemia; I27.20 Pulmonary hypertension, unspecified; K64.9 Unspecified hemorrhoids; R31.0 Gross hematuria; E83.51 Hypocalcemia; G62.9 Polyneuropathy, unspecified; E66.9 Obesity, unspecified; I87.2 Venous insufficiency (chronic) (peripheral); N40.1 Benign prostatic hyperplasia with lower urinary tract symptoms; E87.6 Hypokalemia; F10.20 Alcohol dependence, uncomplicated; M10.9 Gout, unspecified; M19.90 Unspecified osteoarthritis, unspecified site; R04.0 Epistaxis; N18.31 Chronic kidney disease, stage 3a; I25.2 Old myocardial infarction; Z86.711 Personal history of pulmonary embolism; Z95.5 Presence of coronary angioplasty implant and graft; Z79.01 Long term (current) use of anticoagulants; Z86.718 Personal history of other venous thrombosis and embolism; Z80.0 Family history of malignant neoplasm of digestive organs; Z80.1 Family history of malignant neoplasm of trachea, bronchus and lung; Z82.49 Family history of ischemic heart disease and other diseases of the circulatory system; Z88.8 Allergy status to other drugs, medicaments and biological substances; Z79.02 Long term (current) use of antithrombotics/antiplatelets; Z68.28 Body mass index [BMI] 28.0-28.9, adult; Z86.73 Personal history of transient ischemic attack (TIA), and cerebral infarction without residual deficits; Z86.010 Personal history of colon polyps
CPT/HCPCS: 51702; 71045; 74176; 80048; 80053; 81003; 81015; 82533; 82805; 82962; 83605; 83735; 83880; 84484; 85014; 85018; 85025; 85610; 85730; 86850; 86900; 86901; 86920; 87040; 87086; 87088; 87186; 93005; 96365; 96366; 96367; 96372; 96375; 97110; 97163; 97167; 97530; 97535; 99291; J7168; P9016

== ENCOUNTER → 2023-10-11 10:22 | Outpatient (REF) | payer MEDICARE, BC, SELFPAY ==
[2023-10-11 10:47] LABS: Hematocrit 28.7 % (39.0-52.0); Hemoglobin 9.3 g/dL (13.0-18.0); Mean Corp Hgb Conc. 32.4 g/dL (33.0-37.0); Mean Corpuscular Hgb 29.2 pg (27.0-31.0); Mean Corpuscular Volume 90.3 fL (80.0-94.0); Mean Platelet Volume 10.9 fL (7.4-10.4); Platelet Count 295 10^3/uL (130-400); Red Blood Cell Count 3.18 10^6/uL (4.70-6.10); Red Cell Dist. Width 16.3 % (11.5-14.5)
[2023-10-11 12:55] LABS: Blood Urea Nitrogen 46 mg/dl (9-20); Calcium 8.1 mg/dl (8.4-10.2); Carbon Dioxide 24 mmol/L (22-30); Chloride 102 mmol/L (98-107); Glucose 82 mg/dl (70-99); Potassium 5.1 mmol/L (3.5-5.1); Sodium 130 mmol/L (135-145); eGFR 50.49
== END ==
LOC: OLABP 10:22
PROVIDERS: ATTENDING PHYSICIAN Family Medicine
DX: N17.9 Acute kidney failure, unspecified (principal); D62 Acute posthemorrhagic anemia
CPT/HCPCS: 36415; 80048; 85027

== ENCOUNTER 2023-10-11 14:17 | Emergency (ER) | payer MEDICARE, BC, SELFPAY ==
[2023-10-11] VITALS (9 sets, daily range): BP systolic 100–127; BP diastolic 52–75; BMI 30.8
[2023-10-11 14:54] LABS: % Basophils 0.1 % (0-2); % Eosinophils 0.3 % (0-6); % Lymphocytes 2.9 % (20.5-51.1); % Monocytes 4.1 % (1.7-9.3); % Neutrophils 91.6 % (42.2-75.2); Absolute Eosinophils 0.1 10^3/uL (0-0.7); Absolute Immature Granulocytes 0.2 10^3/uL (0-0.05); Absolute Lymphocytes 0.5 10^3/uL (1.2-3.4); Absolute Monocytes 0.7 10^3/uL (0.1-0.6); Absolute Neutrophils 16.3 10^3/uL (1.4-6.5); Hematocrit 30.1 % (39.0-52.0); Hemoglobin 10.2 g/dL (13.0-18.0); Mean Corp Hgb Conc. 33.9 g/dL (33.0-37.0); Mean Corpuscular Hgb 29.5 pg (27.0-31.0); Mean Platelet Volume 10.5 fL (7.4-10.4); Nucleated Red Blood Cells % 0 % (-); Platelet Count 325 10^3/uL (130-400); Red Blood Cell Count 3.46 10^6/uL (4.70-6.10); Red Cell Dist. Width 16.4 % (11.5-14.5); White Blood Cell Count 17.7 10^3/uL (4.8-10.8)
[2023-10-11 15:07] LABS: ALT (SGPT) < 10 U/L (0-50); AST (SGOT) 23 U/L (17-59); Albumin 2.4 g/dl (3.5-5.0); Alkaline Phosphatase 91 U/L (38-126); Blood Urea Nitrogen 51 mg/dl (9-20); Calcium 8.3 mg/dl (8.4-10.2); Carbon Dioxide 28 mmol/L (22-30); Chloride 99 mmol/L (98-107); Estimated Creatinine Clearance 47 ml/min; Glucose 112 mg/dl (70-99); Potassium 5.1 mmol/L (3.5-5.1); Sodium 130 mmol/L (135-145); Total Bilirubin 0.8 mg/dl (0.2-1.3); Total Protein 5.1 g/dl (6.3-8.2); eGFR 50.49
--- NOTE | 2023-10-11 15:33 | EDRN ---
Dr. Erwin in room w/pt at this time.Pt had a bloody, melena smelling stool, bloody and brown noted in diaper so rectal exam not done.
--- NOTE | 2023-10-11 15:36 | ED.GENMED ---
History of Present Illness
General
Chief Complaint: Rectal Bleeding
Source: patient
Time Seen by Provider: 10/11/23 15:20
Travel History
Have you had any contact with someone who has COVID-19?: No
Do you have any symptoms of coronavirus? Fever > 100 degrees, chills, cough, shortness of breath, sore throat, loss of taste or smell, muscle aches, or headache?: No
History of Present Illness
History of Present Illness:
83-year-old male presents to the emergency room from [facility] due to continued passage of bloody urine and clots as well as some bloody stool. Patient had been hospitalized recently for both these issues as well as septic shock. Hematuria was
treated with CBI. They were unable to completely remove his catheter due to urinary retention. Patient was evaluated by GI who thought his bloody stools were related to hemorrhoidal bleeding and required no further evaluation. Patient's
anticoagulant and antiplatelet medications were restarted. Evidently the patient has had intermittent hematuria since discharge.
Past History
Past History
ED Past Medical History: Arrthythmia, CHF, HTN, Hypercholesterolemia, [place], Renal failure (insufficiency) and Other (DVT X3, Cellulitis)
ED Past Surgical History: Tonsilectomy
Social History
Tobacco: Smoker (Pipe)
Alcohol: Daily (Scotch or Vodka 5-6 glasses)
Drug: None
Personal:
Living: with family
Employment: Employed
Family History
Family History: Other (reviewed and non-contributory)
Phy Exam
Physical Exam
Physical Exam:
General: Awake, Alert, Oriented X3. Appears chronically ill
Vitals: unremarkable
Head: Atraumatic
Eyes: Pupils equal, EOMI
Throat: Airway intact, no exudates, dry mucosa
Neck: Trachea midline
Lungs: Clear and equal b/l
Heart: Regular rate, no murmurs
Abd: Soft, tender to palpation lower abdomen, No pulsatile mass
Rectal: Brown stool with admixed blood
Neuro: Nonfocal
Skin: Warm, dry, no rash
Extremities: pulses equal b/l, changes of chronic venous stasis
Course
Orders/Labs/Results
Orders:
Orders
10/11/23 14:42
Cardiac Monitoring- Treatment ONCE
IV Insert/Care/Rem.- Treatment PRN
10/11/23 14:44
Type+Screen Urgent
Complete Blood Count/With Diff Urgent
Comprehensive Metabolic Panel Urgent
10/11/23 15:40
0.9% Sodium Chloride 500 ml [Nss] 500 ml IV BOLUS
10/11/23 15:48
CT Abd/pelvis W Iv Cont Urgent
Comment:
Reason For Exam: lower abd pain
10/11/23 18:54
Enema- Treatment ONCE
Type: Milk of Molasses
Abnormal Lab Results
10/11/23
14:44
WBC 17.7 H 10^3/uL
(4.8-10.8)
RBC 3.46 L 10^6/uL
(4.70-6.10)
Hgb 10.2 L g/dL
(13.0-18.0)
Hct 30.1 L %
(39.0-52.0)
RDW 16.4 H %
(11.5-14.5)
MPV 10.5 H fL
(7.4-10.4)
Abs Immat Gran (auto) 0.2 H 10^3/uL
(0-0.05)
Absolute Neuts (auto) 16.3 H 10^3/uL
(1.4-6.5)
Absolute Lymphs (auto) 0.5 L 10^3/uL
(1.2-3.4)
Absolute Monos (auto) 0.7 H 10^3/uL
(0.1-0.6)
Immature Gran % 1.0 H %
(0-0.5)
Neutrophils % 91.6 H %
(42.2-75.2)
Lymphocytes % 2.9 L %
(20.5-51.1)
Sodium 130 L mmol/L
(135-145)
BUN 51 H mg/dl
(9-20)
Creatinine 1.4 H mg/dL
(0.7-1.3)
Glucose 112 H mg/dl
(70-99)
Calcium 8.3 L mg/dl
(8.4-10.2)
Total Protein 5.1 L g/dl
(6.3-8.2)
Albumin 2.4 L g/dl
(3.5-5.0)
10/11/23 14:44
10/11/23 14:44
Vital Signs
Initial and Last Documented VS:
Initial Vital Signs
Temp
98.4 F
10/11/23 14:28
Last Documented Vital Signs
Temp Pulse Resp BP Pulse Ox
98.4 F 101 27 127/57 75
10/11/23 14:28 10/11/23 18:15 10/11/23 18:15 10/11/23 18:15 10/11/23 18:15
MDM/Problems Addressed
Differential Diagnosis Includes:
lower gi bleed from internal hemorrhoids, avm, diverticulosis. Constipation,
MDM/Problems Addressed:
Patient presents to the blood noted per rectum as well as hematuria. Patient was just discharged hospital for similar complaints. GI evaluation noted internal hemorrhoids as the cause for his bleeding. On my exam the patient has actually normal
stool with some blood around the stool consistent with internal hemorrhoids. Patient's hemoglobin is stable. Patient has a Padilla catheter which does contain bloody urine in the bag but the urine draining from the catheter is currently clear with
some small clots. Patient observed in the emergency room for several hours. He has not had any further hematuria or GI bleeding. CT of the abdomen pelvis was obtained which revealed significant fecal impaction. A milk of molasses enema was
administered with tremendous results. Patient feels much better. We can send him back to his care home
*Radiology
Radiology exam reviewed: radiology read reviewed
*Critical Care Note
Total Time (30-74mins, 75-104mins- exclusive of procedures): Not Applicable
ED Attending Note
-
Portions of this chart may have been created with voice recognition software.� Occasional wrong word or��sound alike� substitutions may have occurred due to the inherent limitations of voice recognition software.
Discharge Plan
Departure
Patient Disposition: Longterm/SNF
Date of Disposition: 10/11/23
Time of Disposition: 19:54
Condition: Good
Discharge Problem:
Fecal impaction in rectum, Internal hemorrhoid, bleeding
Instructions: Fecal Impaction (DC), Hemorrhoids ED
Prescriptions:
No Action
multivitamin with folic acid [Tab-A-Edd] 1 TABLET tablet
1 tab PO HS
Complex B-100 1 EACH tablet extended release
1 tab PO DAILY
tamsulosin [Flomax] 0.4 MG capsule
0.4 mg PO DAILY
finasteride 5 MG tablet
5 mg PO DAILY
atorvastatin [Lipitor] 40 MG tablet
40 mg PO HS
carvedilol 3.125 mg Tablet
3.125 mg PO BID 30 Days Qty: 60 0RF
Brilinta 90 mg Tablet
90 mg PO BID 30 Days Qty: 60 0RF
Xarelto 15 mg Tablet
15 mg PO QPM 30 Days Qty: 30 0RF
folic acid 1 mg Tablet
1 mg PO DAILY
furosemide [Lasix] 40 mg Tablet
40 mg PO DAILY@1400
furosemide 80 mg tablet
80 mg PO DAILY
Saline Nasal 0.65 % Aerosol,[place]
2 spray intranasal TID 7 Days Qty: 44 0RF
midodrine 5 mg Tablet
10 mg PO TID@0800,1300,1800 Qty: 90 0RF
pantoprazole 40 mg Tablet,Delayed Release (Dr/Ec)
40 mg PO DAILY Qty: 30 0RF
cephalexin 500 mg capsule
500 mg PO BID 7 Days Qty: 14 0RF
Patient Comments:
TAKE FROM 10/09/23-10/17/23
potassium chloride 20 mEq tablet extended release
20 meq PO BID Qty: 90 0RF
acetaminophen [Tylenol] 325 mg Tablet
650 mg PO Q4HPRN PRN (Reason: MILD PAIN)
magnesium hydroxide [Milk of Magnesia] 400 mg/5 mL Suspension
2,400 mg PO DAILYPRN PRN (Reason: IF NO BM ON 4TH DAY)
bisacodyl [Dulcolax (bisacodyl)] 10 mg Suppository
10 mg NV DAILYPRN PRN (Reason: IF NO BM AFTR MOM OR ON 5TH DAY)
Fleet Enema 19-7 gram/118 mL Enema
118 ml NV DAILYPRN PRN (Reason: IF NO BM AFTR DULCOLAX OR ON 6TH DAY)
Referrals:
UNKNOWN - PT DOES,NOT KNOW [Family Provider] -
Interventions
Interventions:
*Risk Screen - Suicide Last Done: 10/11/23 14:28
*Neglect/Abuse Screening Last Done: 10/11/23 14:28
ED- Fall Risk Assessment Last Done: 10/11/23 14:28
*ED COVID-19 Vaccine History Last Done: 10/11/23 14:28
DU-Ljhsjm-Mvvverkilc Assessment Last Done: 10/11/23 16:10
ED- Cardiac Assessment Last Done: 10/11/23 16:10
ED-Male Genitourinary Assessment Last Done: 10/11/23 16:10
ED- Pulmonary Assessment Last Done: 10/11/23 16:10
Discharge Date and Time
Print Language: [place]
[2023-10-11] MEDS: NSS 500 IV (16:10)
--- NOTE | 2023-10-11 16:28 | EDRN ---
Padilla irrigated at this time w/ 500 mL. Only tiny clots retrieved. No large clots noted. Irrigant infused and same quantity retrieved.
--- NOTE | 2023-10-11 18:23 | EDRN ---
Pt incontinent of soft unformed melena stool, red brick colored at this time, med amount. Pt cleansed w/ good pericare and skin barrier placed to rectal area and buttocks at this time. Pt asking to drink but CT is not resulted at this time.
--- NOTE | 2023-10-11 18:25 | EDRN ---
Vaseline placed to pt's lips at 16:40 and at this time.
[2023-10-12 01:26] VITALS: BP 112/58
== END 2023-10-12 01:35 ==
LOC: EMR 14:17
PROVIDERS: Emergency Medicine; EMERGENCY PHYSICIAN Emergency Medicine
DX: K56.41 Fecal impaction (principal); K64.8 Other hemorrhoids; F17.290 Nicotine dependence, other tobacco product, uncomplicated
CPT/HCPCS: 99285; 96360; 74177; 80053; 85025; 86850; 86900; 86901; Q9967

== ENCOUNTER → 2023-10-14 09:30 | Outpatient (REF) | payer OTHER, MEDICARE, BC, SELFPAY ==
[2023-10-14 10:12] LABS: Hematocrit 22.1 % (39.0-52.0); Hemoglobin 7.9 g/dL (13.0-18.0); Mean Corp Hgb Conc. 35.7 g/dL (33.0-37.0); Mean Corpuscular Hgb 31.7 pg (27.0-31.0); Mean Corpuscular Volume 88.8 fL (80.0-94.0); Mean Platelet Volume 10.6 fL (7.4-10.4); Platelet Count 312 10^3/uL (130-400); Red Blood Cell Count 2.49 10^6/uL (4.70-6.10); Red Cell Dist. Width 16.1 % (11.5-14.5); White Blood Cell Count 6.3 10^3/uL (4.8-10.8)
[2023-10-14 10:30] LABS: Blood Urea Nitrogen 39 mg/dl (9-20); Calcium 7.6 mg/dl (8.4-10.2); Carbon Dioxide 23 mmol/L (22-30); Chloride 101 mmol/L (98-107); Glucose 77 mg/dl (70-99); Potassium 3.5 mmol/L (3.5-5.1); Sodium 132 mmol/L (135-145); eGFR 43.02
== END ==
LOC: OLABP 09:30
PROVIDERS: ATTENDING PHYSICIAN Family Medicine
DX: D62 Acute posthemorrhagic anemia (principal); R31.9 Hematuria, unspecified; B96.20 Unspecified Escherichia coli [E. coli] as the cause of diseases classified elsewhere; K92.2 Gastrointestinal hemorrhage, unspecified; A41.9 Sepsis, unspecified organism
CPT/HCPCS: 36415; 80048; 85027

== ENCOUNTER → 2023-10-15 09:17 | Outpatient (REF) | payer OTHER, MEDICARE, BC, SELFPAY ==
[2023-10-15 10:29] LABS: Blood Urea Nitrogen 38 mg/dl (9-20); Calcium 7.5 mg/dl (8.4-10.2); Carbon Dioxide 26 mmol/L (22-30); Chloride 102 mmol/L (98-107); Glucose 81 mg/dl (70-99); Potassium 3.4 mmol/L (3.5-5.1); Sodium 134 mmol/L (135-145); eGFR 43.02
[2023-10-15 10:35] LABS: Hematocrit 22.2 % (39.0-52.0); Hemoglobin 7.7 g/dL (13.0-18.0); Mean Corp Hgb Conc. 34.7 g/dL (33.0-37.0); Mean Corpuscular Hgb 31.4 pg (27.0-31.0); Mean Corpuscular Volume 90.6 fL (80.0-94.0); Mean Platelet Volume 10.7 fL (7.4-10.4); Platelet Count 317 10^3/uL (130-400); Red Blood Cell Count 2.45 10^6/uL (4.70-6.10); Red Cell Dist. Width 16.3 % (11.5-14.5); White Blood Cell Count 7.1 10^3/uL (4.8-10.8)
== END ==
LOC: OLABP 09:17
PROVIDERS: ATTENDING PHYSICIAN Family Medicine
DX: D62 Acute posthemorrhagic anemia (principal); R31.9 Hematuria, unspecified; B96.20 Unspecified Escherichia coli [E. coli] as the cause of diseases classified elsewhere; K92.2 Gastrointestinal hemorrhage, unspecified; A41.9 Sepsis, unspecified organism
CPT/HCPCS: 36415; 80048; 85027

== ENCOUNTER → 2023-10-16 11:11 | Outpatient (REF) | payer OTHER, MEDICARE, BC, SELFPAY ==
[2023-10-16 11:48] LABS: Hematocrit 24.8 % (39.0-52.0); Hemoglobin 8.2 g/dL (13.0-18.0); Mean Corp Hgb Conc. 33.1 g/dL (33.0-37.0); Mean Corpuscular Hgb 29.9 pg (27.0-31.0); Mean Corpuscular Volume 90.5 fL (80.0-94.0); Mean Platelet Volume 10.5 fL (7.4-10.4); Platelet Count 346 10^3/uL (130-400); Red Blood Cell Count 2.74 10^6/uL (4.70-6.10); Red Cell Dist. Width 16.3 % (11.5-14.5); White Blood Cell Count 8.3 10^3/uL (4.8-10.8)
== END ==
LOC: OLABP 11:11
PROVIDERS: ATTENDING PHYSICIAN Family Medicine
DX: A41.9 Sepsis, unspecified organism (principal); D62 Acute posthemorrhagic anemia; R31.9 Hematuria, unspecified; B96.20 Unspecified Escherichia coli [E. coli] as the cause of diseases classified elsewhere; K92.2 Gastrointestinal hemorrhage, unspecified
CPT/HCPCS: 36415; 85027

== ENCOUNTER → 2023-10-17 10:18 | Outpatient (REF) | payer OTHER, MEDICARE, BC, SELFPAY ==
[2023-10-17 11:00] LABS: % Basophils 0.2 % (0-2); % Eosinophils 2.1 % (0-6); % Immature Granulocytes 0.9 % (0-0.5); % Lymphocytes 7.6 % (20.5-51.1); % Monocytes 7.8 % (1.7-9.3); % Neutrophils 81.4 % (42.2-75.2); Absolute Eosinophils 0.2 10^3/uL (0-0.7); Absolute Immature Granulocytes 0.1 10^3/uL (0-0.05); Absolute Lymphocytes 0.7 10^3/uL (1.2-3.4); Absolute Monocytes 0.7 10^3/uL (0.1-0.6); Absolute Neutrophils 7.1 10^3/uL (1.4-6.5); Hematocrit 25.1 % (39.0-52.0); Hemoglobin 8.1 g/dL (13.0-18.0); Mean Corp Hgb Conc. 32.3 g/dL (33.0-37.0); Mean Corpuscular Hgb 28.6 pg (27.0-31.0); Mean Corpuscular Volume 88.7 fL (80.0-94.0); Mean Platelet Volume 10.4 fL (7.4-10.4); Nucleated Red Blood Cells % 0 % (-); Platelet Count 376 10^3/uL (130-400); Red Blood Cell Count 2.83 10^6/uL (4.70-6.10); Red Cell Dist. Width 16.1 % (11.5-14.5); White Blood Cell Count 8.7 10^3/uL (4.8-10.8)
== END ==
LOC: OLABP 10:18
PROVIDERS: ATTENDING PHYSICIAN Family Medicine
DX: D62 Acute posthemorrhagic anemia (principal); R31.9 Hematuria, unspecified; B96.20 Unspecified Escherichia coli [E. coli] as the cause of diseases classified elsewhere; K92.2 Gastrointestinal hemorrhage, unspecified; A41.9 Sepsis, unspecified organism
CPT/HCPCS: 36415; 85025

== ENCOUNTER 2023-10-18 12:03 | Emergency (ER) | payer MEDICARE, BC, SELFPAY ==
[2023-10-18 12:09] VITALS: BP 104/39
[2023-10-18 12:13] VITALS: BMI 29.3
[2023-10-18 13:00] VITALS: BP 95/43
[2023-10-18 13:01] LABS: % Basophils 0.3 % (0-2); % Eosinophils 1.8 % (0-6); % Immature Granulocytes 1.3 % (0-0.5); % Lymphocytes 6.5 % (20.5-51.1); % Monocytes 7.3 % (1.7-9.3); % Neutrophils 82.8 % (42.2-75.2); Absolute Eosinophils 0.2 10^3/uL (0-0.7); Absolute Immature Granulocytes 0.1 10^3/uL (0-0.05); Absolute Lymphocytes 0.6 10^3/uL (1.2-3.4); Absolute Monocytes 0.7 10^3/uL (0.1-0.6); Hemoglobin 8.2 g/dL (13.0-18.0); Mean Corp Hgb Conc. 32.8 g/dL (33.0-37.0); Mean Corpuscular Volume 85.3 fL (80.0-94.0); Mean Platelet Volume 10.2 fL (7.4-10.4); Nucleated Red Blood Cells % 0 % (-); Platelet Count 383 10^3/uL (130-400); Red Blood Cell Count 2.93 10^6/uL (4.70-6.10); White Blood Cell Count 9.7 10^3/uL (4.8-10.8)
[2023-10-18 13:12] LABS: Urine Albumin Negative (Neg - Trace); Urine Bilirubin Negative (Negative); Urine Character Clear (Clear); Urine Color Yellow; Urine Glucose Negative (Negative); Urine Ketone Negative (Negative); Urine Leukocyte 2+ (Negative); Urine Nitrite Positive (Negative); Urine Occult Blood 4+ (Negative); Urine Urobilinogen Negative (Neg - 1+)
[2023-10-18 13:19] LABS: Lactic Acid 1.3 mmol/L (0.7-2.0)
[2023-10-18 13:21] LABS: ALT (SGPT) 17 U/L (0-50); AST (SGOT) 24 U/L (17-59); Albumin 2.3 g/dl (3.5-5.0); Alkaline Phosphatase 100 U/L (38-126); Blood Urea Nitrogen 28 mg/dl (9-20); Calcium 7.7 mg/dl (8.4-10.2); Carbon Dioxide 25 mmol/L (22-30); Chloride 101 mmol/L (98-107); Estimated Creatinine Clearance 41 ml/min; Glucose 93 mg/dl (70-99); Potassium 3.1 mmol/L (3.5-5.1); Sodium 133 mmol/L (135-145); Total Bilirubin 0.4 mg/dl (0.2-1.3); Total Protein 5.1 g/dl (6.3-8.2); eGFR 50.49
[2023-10-18 13:45] LABS: Urine Bacteria Moderate (Negative); Urine White Cell >100 /HPF (0-5)
[2023-10-18 13:46] LABS: Urine Squamous Cell 0-2 /LPF (Few)
[2023-10-18 13:49] LABS: Urine Red Blood Cell 0-2 /HPF (0-2); Urine Yeast Few (Negative)
--- NOTE | 2023-10-18 13:53 | ED.GENMED ---
History of Present Illness
General
Chief Complaint: Breathing Problem
Source: patient, records, family and previous hospital records
Exam Limitations: none
Time Seen by Provider: 10/18/23 13:33
Travel History
Have you had any contact with someone who has COVID-19?: No
Do you have any symptoms of coronavirus? Fever > 100 degrees, chills, cough, shortness of breath, sore throat, loss of taste or smell, muscle aches, or headache?: No
History of Present Illness
History of Present Illness:
83-year-old male sent from [place] for increased respiratory rate concern for developing sepsis been in the hospital with similar issues recently previously living independently he believes he is on an antibiotic now but is not sure no fever chills
no nausea or vomiting
Past History
Past History
ED Past Medical History: Arrthythmia, CHF, HTN, Hypercholesterolemia, [place], Renal failure (insufficiency) and Other (DVT X3, Cellulitis)
ED Past Surgical History: Tonsilectomy
Social History
Tobacco: Smoker (Pipe)
Alcohol: Daily (Scotch or Vodka 5-6 glasses)
Drug: None
Personal:
Living: with family
Employment: Employed
Family History
Family History: Other (reviewed and non-contributory)
Review of Systems
Review of Systems
All Other Systems: ROS reviewed and negative except as documented in HPI and ROS
Constitutional: Denies fever, fatigue or chills
EENT: Reports no symptoms
Respiratory: Denies cough or trouble breathing
Cardiac: Reports no symptoms
ABD/GI: Reports no symptoms
: Reports no symptoms
Musculoskeletal: Reports no symptoms
Skin: Reports no symptoms
Neurological: Reports no symptoms
Endocrine: Reports no symptoms
Phy Exam
Physical Exam
Physical Exam:
Physical Exam
General: Chronically ill-appearing male blood pressure in the mid 90s
Neck: No jaundice
Heart: Regular
Lungs: Faint wheeze
Abdomen: Soft nontender
Neuro: alert and oriented. Globally weak
Skin: no rash
Psychiatric: cooperative
Extremities: Venous stasis changes
Scores
Heart Failure Risk
Heart Failure Risk Score: Not Applicable
Course
Orders/Labs/Results
Orders:
Orders
10/18/23 12:07
EKG [Electrocardiogram (*1)] Urgent
Reason for Study: Shortness of Breath
EKG- Treatment ONCE
10/18/23 12:21
O2 Therapy [RESP] Urgent
Titrate/Wean O2 to maintain O2 sat greater than (%): 93
Special Instructions: TO MAINTAIN CONTINUOUS O2 SATS > OR = 93%
10/18/23 12:36
Complete Blood Count/With Diff Urgent
Comprehensive Metabolic Panel Urgent
Lactic Acid Q4H
Comment: ON ICE, CANCEL 2ND ORDER IF FIRST LACTIC ACID LEVEL <2
Urinalysis Reflex To Culture Urgent
Date Specimen was Collected: 10/18/23
Time Specimen was Collected: 12:22
Urine Microscopic Reflex Cult Urgent
Blood Culture Q30M
MATT Source: Blood/Venous
Specimen Description:
Comment: FROM 2 SEPARATE SITES
Blood Culture Q30M
MATT Source: Blood/Venous
Specimen Description:
Comment: FROM 2 SEPARATE SITES
Urine Culture Urgent
MATT Source: U
Specimen Description:
Date Specimen was Collected: 10/18/23
Time Specimen was Collected: 12:22
10/18/23 13:46
Bladder Scan- Treatment ONCE
Rectal Temp- Treatment ONCE
CR Chest Portable - 1 View Urgent
Comment:
Reason For Exam: weknss
Reason Study Needs to be Portable: Patient Unstable
10/18/23 13:58
Midodrine [ProAmatine] 5 mg PO NOW STA
Potassium Chloride [KCl] 40 meq PO NOW STA
10/18/23 15:24
Acetaminophen [Tylenol] 650 mg PO NOW STA
10/18/23 16:30
Lactic Acid Q4H
Comment: ON ICE, CANCEL 2ND ORDER IF FIRST LACTIC ACID LEVEL <2
Abnormal Lab Results
10/18/23
12:36
RBC 2.93 L 10^6/uL
(4.70-6.10)
Hgb 8.2 L g/dL
(13.0-18.0)
Hct 25.0 L %
(39.0-52.0)
MCHC 32.8 L g/dL
(33.0-37.0)
RDW 16.0 H %
(11.5-14.5)
Abs Immat Gran (auto) 0.1 H 10^3/uL
(0-0.05)
Absolute Neuts (auto) 8.0 H 10^3/uL
(1.4-6.5)
Absolute Lymphs (auto) 0.6 L 10^3/uL
(1.2-3.4)
Absolute Monos (auto) 0.7 H 10^3/uL
(0.1-0.6)
Immature Gran % 1.3 H %
(0-0.5)
Neutrophils % 82.8 H %
(42.2-75.2)
Lymphocytes % 6.5 L %
(20.5-51.1)
Sodium 133 L mmol/L
(135-145)
Potassium 3.1 L mmol/L
(3.5-5.1)
BUN 28 H mg/dl
(9-20)
Creatinine 1.4 H mg/dL
(0.7-1.3)
Calcium 7.7 L mg/dl
(8.4-10.2)
Total Protein 5.1 L g/dl
(6.3-8.2)
Albumin 2.3 L g/dl
(3.5-5.0)
Ur Occult Blood Reflex 4+ A
(Negative)
Urine Nitrite (Reflex) Positive A
(Negative)
Leukocyte Esterase Rfl 2+ A
(Negative)
Urine WBC (Reflex) >100 A /HPF
(0-5)
Urine Bacteria (Reflex) Moderate A
(Negative)
Urine Yeast Few A
(Negative)
10/18/23 12:36
10/18/23 12:36
Vital Signs
Initial and Last Documented VS:
Initial Vital Signs
Temp Pulse Resp BP Pulse Ox
99.3 F 94 25 104/39 96
10/18/23 12:09 10/18/23 12:09 10/18/23 12:09 10/18/23 12:09 10/18/23 12:09
Last Documented Vital Signs
Temp Pulse Resp BP Pulse Ox
100.6 F H 89 28 111/53 95
10/18/23 15:18 10/18/23 15:15 10/18/23 14:45 10/18/23 15:00 10/18/23 15:15
MDM/Problems Addressed
Differential Diagnosis Includes:
Deconditioning, infection, is anticoagulated making PE less likely apparently has orthostasis is on midodrine
MDM/Problems Addressed:
Respiratory distress fatigue possible UTI
Chronic conditions affecting care: HTN, Cardiomyopathy, Arrhythmia and Neurological disorder
Acute Exacerbation and/or Progression of Chronic Illness: Cardiomyopathy, Arrhythmia and Neurological disorder
*Radiology
Radiology exam reviewed: preliminary read by ED provider
*Pulse Oximetry
Patient hypoxic: no
Comment: 100
*EKG
Interpreted by ED Provider?: Yes
Interpretation: abnormal
Comparison EKG: no changes
Heart Rate: 78
Rate: normal
Rhythm: a-fib
Ischemia: non-specific ST changes
*Probate Paralegal Interpretation
Rate: normal
Interpretation: normal
Heart Rate: 78
Rhythm: sinus
*Critical Care Note
Total Time (30-74mins, 75-104mins- exclusive of procedures): Not Applicable
Data Reviewed
Review of Other/Old Records Reveals: Labs and Records
Source: patient and family
Update Note
Update Note:
Update patient nontoxic borderline hypotension, similar in the past apparently doubt PE as he is anticoagulated, does appear to been prescribed midodrine will give him his p.o. dose does not appear to be acutely volume overloaded will check bladder
scan make sure he is draining his catheter appropriately, chest x-ray
3:24 PM patient update feeling better blood pressure improved after midodrine rectal temp 100.6, offered admission versus transfer back to facility prefers to go back to his facility cultures have been sent as have an indwelling catheter, will hold
on further antibiotics at this time
ED Attending Note
-
Portions of this chart may have been created with voice recognition software.� Occasional wrong word or��sound alike� substitutions may have occurred due to the inherent limitations of voice recognition software.
Discharge Plan
Departure
Patient Disposition: Home (Routine Discharge)
Date of Disposition: 10/18/23
Time of Disposition: 15:25
Patient with high blood pressure during this ER visit?: No
Condition: Good
Discharge Problem:
Encounter for medical assessment
Instructions: General
Prescriptions:
No Action
multivitamin with folic acid [Tab-A-Edd] 1 TABLET tablet
1 tab PO HS
Complex B-100 1 EACH tablet extended release
1 tab PO DAILY
tamsulosin [Flomax] 0.4 MG capsule
0.4 mg PO DAILY
finasteride 5 MG tablet
5 mg PO DAILY
atorvastatin [Lipitor] 40 MG tablet
40 mg PO HS
carvedilol 3.125 mg Tablet
3.125 mg PO BID 30 Days Qty: 60 0RF
Brilinta 90 mg Tablet
90 mg PO BID 30 Days Qty: 60 0RF
Xarelto 15 mg Tablet
15 mg PO QPM 30 Days Qty: 30 0RF
folic acid 1 mg Tablet
1 mg PO DAILY
furosemide [Lasix] 40 mg Tablet
40 mg PO DAILY@1400
furosemide 80 mg tablet
80 mg PO DAILY
Saline Nasal 0.65 % Aerosol,[place]
2 spray intranasal TID 7 Days Qty: 44 0RF
midodrine 5 mg Tablet
10 mg PO TID@0800,1300,1800 Qty: 90 0RF
pantoprazole 40 mg Tablet,Delayed Release (Dr/Ec)
40 mg PO DAILY Qty: 30 0RF
cephalexin 500 mg capsule
500 mg PO BID 7 Days Qty: 14 0RF
Patient Comments:
TAKE FROM 10/09/23-10/17/23
potassium chloride 20 mEq tablet extended release
20 meq PO BID Qty: 90 0RF
acetaminophen [Tylenol] 325 mg Tablet
650 mg PO Q4HPRN PRN (Reason: MILD PAIN)
magnesium hydroxide [Milk of Magnesia] 400 mg/5 mL Suspension
2,400 mg PO DAILYPRN PRN (Reason: IF NO BM ON 4TH DAY)
bisacodyl [Dulcolax (bisacodyl)] 10 mg Suppository
[address] DAILYPRN PRN (Reason: IF NO BM AFTR MOM OR ON 5TH DAY)
Fleet Enema 19-7 gram/118 mL Enema
[address] DAILYPRN PRN (Reason: IF NO BM AFTR DULCOLAX OR ON 6TH DAY)
Referrals:
Maxime Manjarrez I., DO [Family Provider] -
Interventions
Interventions:
*Risk Screen - Suicide Last Done: 10/18/23 12:13
*General Assessment Last Done: 10/18/23 12:13
*Neglect/Abuse Screening Last Done: 10/18/23 12:13
ED- Fall Risk Assessment Last Done: 10/18/23 12:15
*ED COVID-19 Vaccine History Last Done: 10/18/23 12:13
ED- Cardiac Assessment Last Done: 10/18/23 12:14
ED- Pulmonary Assessment Last Done: 10/18/23 12:14
Discharge Date and Time
Print Language: [id number]
[2023-10-18 14:00] VITALS: BP 114/51
[2023-10-18] MEDS: KCL 40 MEQ PO (14:40)
[2023-10-18] MEDS: ProAmatine 5 MG PO (14:40)
[2023-10-18 15:00] VITALS: BP 111/53
[2023-10-18] MEDS: TYLENOL 650 MG PO (15:29)
[2023-10-18 16:00] VITALS: BP 96/43
== END 2023-10-18 18:11 | disposition home or self-care (01) ==
LOC: EMR 12:03
PROVIDERS: EMERGENCY PHYSICIAN Emergency Medicine; FAMILY PHYSICIAN Internal Medicine
DX: Z04.89 Encounter for examination and observation for other specified reasons (principal); I11.0 Hypertensive heart disease with heart failure; I50.9 Heart failure, unspecified; E78.00 Pure hypercholesterolemia, unspecified; I25.2 Old myocardial infarction; F17.290 Nicotine dependence, other tobacco product, uncomplicated; I48.91 Unspecified atrial fibrillation; Z86.718 Personal history of other venous thrombosis and embolism
CPT/HCPCS: 99283; 71045; 80053; 81003; 81015; 83605; 85025; 87040; 87086; 87088; 87147; 87186; 87205; 93005

== ENCOUNTER 2023-10-19 19:39 | Inpatient (IN) | payer MEDICARE, BC, SELFPAY ==
[2023-10-19] VITALS (11 sets, daily range): BP systolic 102–143; BP diastolic 42–61; BMI 29.0; BMI 27.3
--- NOTE | 2023-10-19 14:24 | ED.GENMED ---
History of Present Illness
<Lucita Almeida PA-C - Last Filed: 10/20/23 11:03>
General
Chief Complaint: Oral/Mouth Problem
Source: patient
Exam Limitations: none
Time Seen by Provider: 10/19/23 14:07
Nursing documentation reviewed up to this point in time: agreed with
Travel History
Have you had any contact with someone who has COVID-19?: No
Do you have any symptoms of coronavirus? Fever > 100 degrees, chills, cough, shortness of breath, sore throat, loss of taste or smell, muscle aches, or headache?: No
History of Present Illness
History of Present Illness:
Patient is an 83-year-old male who presents to the emergency department via EMS from [facility] for report of bleeding from mouth. Patient states this started around 9 AM this morning. He believes that he bit his tongue. Patient denies any pain in
mouth. He denies any loss of consciousness, headache, dizziness. Patient denies any fever, chills, chest pain, or shortness of breath.
Patient denies any other acute complaints this time.
Patient recently in emergency department yesterday. Discharged back to facility following workup.
Past History
<Lucita Almeida PA-C - Last Filed: 10/20/23 11:03>
Past History
ED Past Medical History: Arrthythmia, CHF, HTN, Hypercholesterolemia, VT, Renal failure (insufficiency) and Other (DVT X3, Cellulitis)
ED Past Surgical History: Tonsilectomy
Social History
Tobacco: Smoker (Pipe)
Alcohol: Daily (Scotch or Vodka 5-6 glasses)
Drug: None
Personal:
Living: with family
Employment: Employed
Family History
Family History: Other (reviewed and non-contributory)
Review of Systems
<Lucita Almeida PA-C - Last Filed: 10/20/23 11:03>
Review of Systems
Allergies reviewed?: Yes
All Other Systems: ROS reviewed and negative except as documented in HPI and ROS
Phy Exam
<Lucita Almeida PA-C - Last Filed: 10/20/23 11:03>
Physical Exam
Physical Exam:
Vitals: Mildly tachycardic, otherwise vital signs stable. Afebrile
General: Patient in no acute distress, appears chronically ill
Skin: Warm and dry, no rashes or lesions
Head: Normocephalic, atraumatic
Eyes: Sclera nonicteric. EOMs intact. No nystagmus.
Throat: Small laceration on dorsal aspect of left-sided tongue near tip, no blood in posterior pharynx, dry mucosa
Neck: Normal ROM, no cervical spine tenderness, no meningismus
Cardiac: Regular rate, irregular rhythm, no murmurs.
Pulm: Normal respiratory effort, no wheezes, rales, rhonchi heard on exam.
Abdomen: Abdomen soft. No abdominal tenderness.
Extremities: Chronic venous stasis changes on bilateral lower legs. DP pulses palpable and equal bilaterally
Neuro: AAOx3. CN II-XII intact. No focal neurologic deficits.
Psychiatric: Normal affect.
Course
<Lucita Almeida PA-C - Last Filed: 10/20/23 11:03>
Orders/Labs/Results
Orders:
Orders
10/19/23 Lunch
Cholesterol Lowering
At Your Request: Full Participation
Cholesterol Lowering: Sodium, 2 Gram
10/19/23 14:57
Complete Blood Count/With Diff Urgent
Comprehensive Metabolic Panel Urgent
Magnesium Urgent
Comment: ADD ON
10/19/23 16:43
LevoFLOXacin [Levaquin] 750 mg PO NOW STA
10/19/23 17:48
Vancomycin 1 Gram/200 ml [Vancocin] 1 gram in 200 ml IV NOW
10/19/23 18:11
Blood Culture Q30M
MATT Source: Blood/Venous
Specimen Description:
Blood Culture Q30M
MATT Source: Blood/Venous
Specimen Description:
10/19/23 19:04
Admit/Transfer Patient As Directed
Co-Sign Provider:
Level of Care: Inpatient admission
Assign to:: Telemetry
Physician / Group: Amairani/Hospitalist
Diagnosis: UTI, bacteremia
Reason for Telemetry: Arrhythmia
Date to Stop Telemetry: 10/22/23
Time to Stop Telemetry: 11:00
Reason for Hospitalization: UTI, bacteremia
Expected length of stay greater than two midnights?: Yes
ELOS- Estimated Length of Stay in days: 3
I certify the patient meets the requirements for IP care: Yes
10/19/23 19:16
Code Status As Directed
Resuscitation Status: Full Code
10/19/23 20:49
Acetaminophen [Tylenol] 650 mg PO Q4HPRN PRN
Bisacodyl [Dulcolax] 10 mg RECTAL DAILYPRN PRN
Bisacodyl [Dulcolax] 10 mg RECTAL [id number] PRN
Docusate W/Senna [Senokot-S] 1 tablet PO BIDPRN PRN
Magnesium Hydroxide [Milk of Magnesia] 30 ml PO DAILYPRN PRN
Phosphate Enema [Fleet Phosphate Enema-Adult] 118 ml RECTAL DAILYPRN PRN
Polyethylene Glycol Powder [Miralax] 17 grams PO DAILYPRN PRN
VANCOMYCIN Pharmacy to Dose [VANCOCIN Pharmacy to Dose] 1 each Pharmacy To Prepare [Call Pharmacy To Prepare] 0 ml IV PER PROTOCOL
10/19/23 20:49
Activity As Directed
Activity Level: With Assistance
Vital Signs As Directed
Frequency: Per unit guidelines
Pulse Ox/spot Check [RESP] Routine
Quantity: 1
10/19/23 21:00
Furosemide [Lasix] 40 mg PO BID
10/19/23 22:00
Atorvastatin [Lipitor] 40 mg PO HS
Midodrine [ProAmatine] 10 mg PO TID
10/20/23 07:52
Complete Blood Count/With Diff IN AM
Comprehensive Metabolic Panel IN AM
Magnesium IN AM
10/20/23 08:00
FOLic ACID [Folvite] 1 mg PO DAILY
Finasteride [Proscar] 5 mg PO DAILY
LevoFLOXacin [Levaquin] 750 mg PO DAILY
Pantoprazole [Protonix] 40 mg PO DAILY
Tamsulosin [Flomax] 0.4 mg PO DAILY
Ticagrelor [Brilinta] 90 mg PO BID
Vitamin B Complex with C [B COMPLEX w/VITAMIN C] 1 caplet PO DAILY
10/20/23 18:00
Rivaroxaban [Xarelto] 15 mg PO QPM
10/22/23 11:00
DC Protocol for Telemetry ONCE
Abnormal Lab Results
10/19/23
14:57
RBC 2.98 L 10^6/uL
(4.70-6.10)
Hgb 8.3 L g/dL
(13.0-18.0)
Hct 26.1 L %
(39.0-52.0)
MCHC 31.8 L g/dL
(33.0-37.0)
RDW 16.0 H %
(11.5-14.5)
Abs Immat Gran (auto) 0.1 H 10^3/uL
(0-0.05)
Absolute Neuts (auto) 8.7 H 10^3/uL
(1.4-6.5)
Absolute Lymphs (auto) 0.5 L 10^3/uL
(1.2-3.4)
Immature Gran % 1.1 H %
(0-0.5)
Neutrophils % 85.5 H %
(42.2-75.2)
Lymphocytes % 5.3 L %
(20.5-51.1)
Sodium 134 L mmol/L
(135-145)
Potassium 3.1 L mmol/L
(3.5-5.1)
BUN 28 H mg/dl
(9-20)
Glucose 134 H mg/dl
(70-99)
Calcium 7.7 L mg/dl
(8.4-10.2)
Magnesium 1.3 L mg/dl
(1.6-2.3)
Alkaline Phosphatase 130 H U/L
(38-126)
Total Protein 5.3 L g/dl
(6.3-8.2)
Albumin 2.4 L g/dl
(3.5-5.0)
10/19/23 14:57
10/19/23 14:57
Vital Signs
Initial and Last Documented VS:
Initial Vital Signs
BP
123/59
10/19/23 13:36
Last Documented Vital Signs
Temp Pulse Resp BP Pulse Ox
98.6 F 100 32 114/54 97
10/20/23 07:27 10/20/23 07:27 10/20/23 07:27 10/20/23 07:27 10/20/23 07:27
<Orlando Kevin MD - Last Filed: 10/19/23 20:49>
Orders/Labs/Results
Orders:
Orders
10/19/23 Lunch
Cholesterol Lowering
At Your Request: Full Participation
Cholesterol Lowering: Sodium, 2 Gram
10/19/23 14:57
Complete Blood Count/With Diff Urgent
Comprehensive Metabolic Panel Urgent
Magnesium Urgent
Comment: ADD ON
10/19/23 16:43
LevoFLOXacin [Levaquin] 750 mg PO NOW STA
10/19/23 17:48
Vancomycin 1 Gram/200 ml [Vancocin] 1 gram in 200 ml IV NOW
10/19/23 18:11
Blood Culture Q30M
MATT Source: Blood/Venous
Specimen Description:
Blood Culture Q30M
MATT Source: Blood/Venous
Specimen Description:
10/19/23 19:04
Admit/Transfer Patient As Directed
Co-Sign Provider:
Level of Care: Inpatient admission
Assign to:: Telemetry
Physician / Group: Amairani/Hospitalist
Diagnosis: UTI, bacteremia
Reason for Telemetry: Arrhythmia
Date to Stop Telemetry: 10/22/23
Time to Stop Telemetry: 11:00
Reason for Hospitalization: UTI, bacteremia
Expected length of stay greater than two midnights?: Yes
ELOS- Estimated Length of Stay in days: 3
I certify the patient meets the requirements for IP care: Yes
10/19/23 19:16
Code Status As Directed
Resuscitation Status: Full Code
10/19/23 20:49
Acetaminophen [Tylenol] 650 mg PO Q4HPRN PRN
Bisacodyl [Dulcolax] 10 mg RECTAL DAILYPRN PRN
Bisacodyl [Dulcolax] 10 mg RECTAL [id number] PRN
Docusate W/Senna [Senokot-S] 1 tablet PO BIDPRN PRN
Magnesium Hydroxide [Milk of Magnesia] 30 ml PO DAILYPRN PRN
Phosphate Enema [Fleet Phosphate Enema-Adult] 118 ml RECTAL DAILYPRN PRN
Polyethylene Glycol Powder [Miralax] 17 grams PO DAILYPRN PRN
VANCOMYCIN Pharmacy to Dose [VANCOCIN Pharmacy to Dose] 1 each Pharmacy To Prepare [Call Pharmacy To Prepare] 0 ml IV PER PROTOCOL
10/19/23 20:49
Activity As Directed
Activity Level: With Assistance
Vital Signs As Directed
Frequency: Per unit guidelines
Pulse Ox/spot Check [RESP] Routine
Quantity: 1
10/19/23 21:00
Furosemide [Lasix] 40 mg PO BID
10/19/23 22:00
Atorvastatin [Lipitor] 40 mg PO HS
Midodrine [ProAmatine] 10 mg PO TID
10/20/23 07:52
Complete Blood Count/With Diff IN AM
Comprehensive Metabolic Panel IN AM
Magnesium IN AM
10/20/23 08:00
FOLic ACID [Folvite] 1 mg PO DAILY
Finasteride [Proscar] 5 mg PO DAILY
LevoFLOXacin [Levaquin] 750 mg PO DAILY
Pantoprazole [Protonix] 40 mg PO DAILY
Tamsulosin [Flomax] 0.4 mg PO DAILY
Ticagrelor [Brilinta] 90 mg PO BID
Vitamin B Complex with C [B COMPLEX w/VITAMIN C] 1 caplet PO DAILY
10/20/23 18:00
Rivaroxaban [Xarelto] 15 mg PO QPM
10/22/23 11:00
DC Protocol for Telemetry ONCE
Abnormal Lab Results
10/19/23
14:57
RBC 2.98 L 10^6/uL
(4.70-6.10)
Hgb 8.3 L g/dL
(13.0-18.0)
Hct 26.1 L %
(39.0-52.0)
MCHC 31.8 L g/dL
(33.0-37.0)
RDW 16.0 H %
(11.5-14.5)
Abs Immat Gran (auto) 0.1 H 10^3/uL
(0-0.05)
Absolute Neuts (auto) 8.7 H 10^3/uL
(1.4-6.5)
Absolute Lymphs (auto) 0.5 L 10^3/uL
(1.2-3.4)
Immature Gran % 1.1 H %
(0-0.5)
Neutrophils % 85.5 H %
(42.2-75.2)
Lymphocytes % 5.3 L %
(20.5-51.1)
Sodium 134 L mmol/L
(135-145)
Potassium 3.1 L mmol/L
(3.5-5.1)
BUN 28 H mg/dl
(9-20)
Glucose 134 H mg/dl
(70-99)
Calcium 7.7 L mg/dl
(8.4-10.2)
Magnesium 1.3 L mg/dl
(1.6-2.3)
Alkaline Phosphatase 130 H U/L
(38-126)
Total Protein 5.3 L g/dl
(6.3-8.2)
Albumin 2.4 L g/dl
(3.5-5.0)
10/19/23 14:57
10/19/23 14:57
Vital Signs
Initial and Last Documented VS:
Initial Vital Signs
BP
123/59
10/19/23 13:36
Last Documented Vital Signs
Temp Pulse Resp BP Pulse Ox
98.6 F 100 32 114/54 97
10/20/23 07:27 10/20/23 07:27 10/20/23 07:27 10/20/23 07:27 10/20/23 07:27
<Lucita Almeida PA-C - Last Filed: 10/20/23 11:03>
MDM/Problems Addressed
Differential Diagnosis Includes:
Not limited to: Tongue laceration, UTI, urosepsis, bacteremia
MDM/Problems Addressed:
Patient is an 83-year-old male on Brilinta and Xarelto presenting to the emergency department from [facility] for tongue laceration. Mildly tachycardic on arrival. Otherwise vital signs stable. Exam as above. Chronically ill-appearing. He does
have a small bleeding laceration on left dorsal tongue near tip. Patient did apply direct pressure with gauze for approximately 25 minutes which did stop bleeding. Plan to monitor patient to ensure bleeding does not recur. On review of previous
labs�urine microbiology specimen positive for Pseudomonas. Patient appears nontoxic, afebrile. No indication for admission at this time. Will treat with Levaquin for 10 days. First dose given in emergency department today.
Prior to discharge�received call from microbiology lab that blood culture drawn yesterday positive for gram-positive cocci in clusters. This will require admission for IV antibitoics. Discussed with the patient. Repeat blood cultures drawn.
Patient started on IV vancomycin. Admitted to hospitalist for bacteremia and complicated UTI. Hospitalist aware
Chronic conditions affecting care:
Atrial fibrillation on Xarelto, DVT on Brilinta
Acute Exacerbation and/or Progression of Chronic Illness:
N/A
<Lucita Almeida PA-C - Last Filed: 10/20/23 11:03>
*Pulse Oximetry
Patient hypoxic: no
*Pocket And Pulley Machine Operator Interpretation
Rate: normal
Interpretation: abnormal
Heart Rate: 92
Rhythm: a-fib
*Critical Care Note
Total Time (30-74mins, 75-104mins- exclusive of procedures): Not Applicable
Data Reviewed
Review of Other/Old Records Reveals: Labs (Urine microbiology) and Records
Source: previous hospital records
<Lucita Almeida PA-C - Last Filed: 10/20/23 11:03>
Patient Management
Discussion with other providers: Hospitalist
ED Attending Note
<Lucita Almeida PA-C - Last Filed: 10/20/23 11:03>
-
Portions of this chart may have been created with voice recognition software.� Occasional wrong word or��sound alike� substitutions may have occurred due to the inherent limitations of voice recognition software.
<Orlando Kevin MD - Last Filed: 10/19/23 20:49>
ED Attending Note
Patient seen and examined by attending physician: Yes
ED Attending Note:
I have seen and evaluated the patient with a [id number] encounter. I have spoken to the advance practicer provider and involved in the medical history, the physical exam, medical decision making.
Evaluation and management service: agree unless noted differently below.
Results interpretation: agree unless noted differently below.
Focused HPI: 83-year-old male with extensive medical history as documented returns to the emergency room today�was seen yesterday for elevated respiratory rate and ultimately discharged after evaluation showed no clear abnormalities. He returns
today for bleeding in his tongue�he says that he bit his tongue and that is bleeding. He is on both Xarelto and Brilinta. Aside from his tongue bleeding he reports he is fatigued. He denies any shortness of breath. He is a chronic Padilla catheter
urine has been darker than usual. No other complaints.
Physical exam: Awake and alert, not in distress. Tachycardic, mild tachypnea. Rest of vitals normal. He has a tiny punctate abrasion on the left anterior tongue with slow steady bleeding.
Medical Decision Makin-year-old male with medical history as documented presents for evaluation of bleeding from his tongue after he accidentally bit it. He is on both Xarelto and Brilinta. Bleeding was controlled with direct pressure. He is
still feeling very fatigued; was seen yesterday in the emergency room for elevated respiratory rate and had no clear etiology of his tachypnea identified. Reviewed records from yesterday and unfortunately his urine culture was positive for
Pseudomonas�he was not started on antibiotics. His blood culture also came back positive for gram-positive cocci. He does have multiple SIRS criteria and with positive urine and blood cultures will admit on antibiotics. Repeat cultures sent.
Discharge Plan
Departure
Patient Disposition: Admit
Date of Disposition: 10/19/23
Time of Disposition: 16:51
Presentation/result/management discussed w/ accepting MD/DO: Hospitalist
Patient with high blood pressure during this ER visit?: No
Condition: Good
Covid-19: Not Applicable
Discharge Problem:
Bacteremia, Simple laceration of tongue, Complicated UTI (urinary tract infection)
Interventions
Interventions:
*Risk Screen - Suicide Last Done: 10/19/23 21:16
*General Assessment Last Done: 10/19/23 13:40
*Neglect/Abuse Screening Last Done: 10/19/23 13:40
ED- Fall Risk Assessment Last Done: 10/19/23 13:46
*ED COVID-19 Vaccine History Last Done: 10/19/23 21:16
*Nursing Disposition Last Done: 10/19/23 17:22
Discharge Date and Time
Discharge Date/Time: 10/19/23 20:37
[2023-10-19 15:16] LABS: % Basophils 0.2 % (0-2); % Eosinophils 1.9 % (0-6); % Immature Granulocytes 1.1 % (0-0.5); % Lymphocytes 5.3 % (20.5-51.1); % Neutrophils 85.5 % (42.2-75.2); Absolute Eosinophils 0.2 10^3/uL (0-0.7); Absolute Immature Granulocytes 0.1 10^3/uL (0-0.05); Absolute Lymphocytes 0.5 10^3/uL (1.2-3.4); Absolute Monocytes 0.6 10^3/uL (0.1-0.6); Absolute Neutrophils 8.7 10^3/uL (1.4-6.5); Hematocrit 26.1 % (39.0-52.0); Hemoglobin 8.3 g/dL (13.0-18.0); Mean Corp Hgb Conc. 31.8 g/dL (33.0-37.0); Mean Corpuscular Hgb 27.9 pg (27.0-31.0); Mean Corpuscular Volume 87.6 fL (80.0-94.0); Mean Platelet Volume 9.8 fL (7.4-10.4); Nucleated Red Blood Cells % 0 % (-); Platelet Count 359 10^3/uL (130-400); Red Blood Cell Count 2.98 10^6/uL (4.70-6.10); White Blood Cell Count 10.1 10^3/uL (4.8-10.8)
[2023-10-19 15:33] LABS: ALT (SGPT) 25 U/L (0-50); AST (SGOT) 43 U/L (17-59); Albumin 2.4 g/dl (3.5-5.0); Alkaline Phosphatase 130 U/L (38-126); Blood Urea Nitrogen 28 mg/dl (9-20); Calcium 7.7 mg/dl (8.4-10.2); Carbon Dioxide 23 mmol/L (22-30); Chloride 102 mmol/L (98-107); Estimated Creatinine Clearance 45 ml/min; Glucose 134 mg/dl (70-99); Potassium 3.1 mmol/L (3.5-5.1); Sodium 134 mmol/L (135-145); Total Bilirubin 0.4 mg/dl (0.2-1.3); Total Protein 5.3 g/dl (6.3-8.2); eGFR 55.19
[2023-10-19] MEDS: LEVAQUIN 750 MG PO (16:47)
[2023-10-19] MEDS: VANCOCIN 200 IV ×2 (18:03→21:45)
--- NOTE | 2023-10-19 19:25 | HPS.HSE ---
Addendum entered and electronically signed by Nisha Bales DO 10/19/23 19:59:
#Check EKG in am to monitor QTc
Original Note:
Family Physician
-
Family Physician: Luis Carlos Oscar MD
Chief Complaint
-
tongue bleeding, abnormal culture results
History of Present Illness
The patient is an 83-year-old male past medical history of CAD status post stents, atrial fibrillation on Xarelto, BPH, history of DVT PE, hyperlipidemia, alcohol use disorder, chronic indwelling Padilla catheter, recent admission (09/28 to 10/08) due to
sepsis and UTI, presented to the ED yesterday for concern for developing sepsis again and was discharged to home yesterday with oral Levaquin for UTI, presents again today due to tongue bleed on Brilinta (for recent cardiac stents) and Xarelto (for
A.fib), and was told his blood culture from yesterday is positive, and urine culture is also positive. Urine culture taken 10/17 is positive for P. Aeruginosa and blood cx / bottles positive for GPC clusters, pending sensitivities for both. Pt's HR
is in low 100s, he has leftward shift, and indwelling Padilla cathete in place, and no other symptoms at this time. He has a cut on his tongue from where he bit his tongue, and bleeding has stopped at this time after compression in the ED. No CP, no
SOB, no n/v/d, no abdominal pain, no further bleeding.
Medical History
Past Medical History
Past Medical History: Reports Other (HFrEF, history of alcoholic abuse, history of NSTEMI, CAD, permanent A-fib on Xarelto, CKD IIIa, BPH, obesity, pulmonary hypertension, history of PE, history of RLE DVT, tobacco use disorder, venous
insufficiency, hypertension, hyperlipidemia, Hx of CVA)
Past Surgical History: Reports Other (Hydrocele surgery, cataract extractions, tonsillectomy)
Social History
Tobacco: Smoker
Alcohol: Daily
Drug: None
Family History
Family History: CAD, Cancer (Colon cancer and lung cancer mother and father.) and Hypertension
Allergies / Home Medications
Allergies reflects when Allergies were last updated in [facility].
Home Medications with original date entered in [facility]
Allergy/Medication List:
Allergies
Allergy/AdvReac Type Severity Reaction Status Date / Time
clopidogrel [From Plavix] Allergy Severe Rash Verified 10/19/23 13:38
ammonium [Ammonium] Allergy Unknown Verified 10/19/23 13:38
hydrochlorothiazide Allergy 'killed my Verified 10/19/23 13:38
[From Dyazide] sex drive'
triamterene [From Dyazide] Allergy 'killed my Verified 10/19/23 13:[address]'
warfarin [Warfarin] Allergy RASH,INCREASED Verified 10/19/23 13:38
BACK PAIN
creams w/ ammonia hydrate Allergy bright red Uncoded 10/19/23 13:38
skin
reaction
Home Medications
vitamin B complex (Complex B-100 tablet,extended release) 1 tab PO DAILY Supplement 10/11/14
finasteride 5 mg tablet 5 mg PO DAILY prostate issue 12/22/18
tamsulosin 0.4 mg capsule (Flomax) 0.4 mg PO DAILY Urinary Issue 12/22/18
atorvastatin 40 mg tablet (Lipitor) 40 mg PO HS High Cholesterol 05/21/23
rivaroxaban 15 mg tablet (Xarelto) 15 mg PO QPM 30 days #30 tabs 06/03/23
ticagrelor 90 mg tablet (Brilinta) 90 mg PO BID 30 days #60 tabs 06/03/23
folic acid 1 mg tablet 1 mg PO DAILY Supplement 09/29/23
furosemide 40 mg tablet (Lasix) 40 mg PO BID Fluid Retention/Swelling 09/29/23
pantoprazole 40 mg tablet,delayed release 40 mg PO DAILY #30 tabs 10/08/23
acetaminophen 325 mg tablet (Tylenol) 650 mg PO Q4HPRN PRN mild pain/fever>100 10/11/23
bisacodyl 10 mg rectal suppository (Dulcolax (bisacodyl)) 10 mg OH DAILYPRN PRN if MOM ineffective/on 5th day 10/11/23
magnesium hydroxide 400 mg/5 mL oral suspension (Milk of Magnesia) 2,400 mg PO DAILYPRN PRN IF NO BM ON 4TH DAY 10/11/23
sodium phosphates 19 gram-7 gram/118 mL enema (Fleet Enema) 118 ml OH DAILYPRN PRN if dulcolax ineffective/on 6th day 10/11/23
levofloxacin 750 mg tablet 750 mg PO DAILY 10 days #10 tabs 10/19/23
midodrine 5 mg tablet 10 mg PO TID 10/19/23
multivitamin with folic acid 400 mcg tablet (Tab-A-Edd) 1 tab PO HS 10/19/23
potassium chloride 20 mEq oral packet 20 meq PO BID 10/19/23
Review of Systems
-
A 12 point ROS was completed and negative except as noted: Yes
Physical Exam
Vital Signs
Vital Signs
Temp Pulse Resp BP Pulse Ox
98.1 F 101 17 118/42 99
10/19/23 13:39 10/19/23 18:45 10/19/23 18:45 10/19/23 18:00 10/19/23 18:00
Physical Exam
General: Well Developed, Well Nourished, No Apparent Distress, Comfortable and Conversant
HEENT: NormoCephalic, Anicteric and Moist mucous membranes
Respiratory: Clear
Cardiac: S1/S2, Irregular Rhythm and Tachycardia
GI: Soft, Non Tender and Non Distended
Musculoskeletal: No Clubbing, No Cyanosis and No Edema
Skin: Warm and Dry
Neuro: AO x 3 and Other (no new focal deficits)
Psych: Calm
Laboratory Results
-
10/19/23 14:57
10/19/23 14:57
Laboratory Results
Total Bilirubin 0.4 mg/dl (0.2-1.3) 10/19/23 14:57
AST 43 U/L (17-59) 10/19/23 14:57
ALT 25 U/L (0-50) 10/19/23 14:57
Alkaline Phosphatase 130 U/L (38-126) H 10/19/23 14:57
Data Reviewed
-
Medical Tests (Nuc Med, Echo, EKG etc): Image Personally Visualized and interpreted and Report Reviewed by me (EKG 10/17 a.fib unchanged)
Lab Data: Labs Reviewed by me and Discussed with Patient
Impression/Plan
-
IMPRESSION:The patient is an 83-year-old male past medical history of CAD status post stents, atrial fibrillation on Xarelto, BPH, history of DVT PE, hyperlipidemia, alcohol use disorder, chronic indwelling Padilla catheter, recent admission (09/28 to
10/08) due to sepsis and UTI, presented to the ED yesterday for concern for developing sepsis again and was discharged to home yesterday with oral Levaquin for UTI, presents again today due to tongue bleed on Brilinta (for recent cardiac stents) and
Xarelto (for A.fib), and was told his blood culture from yesterday is positive, and urine culture is also positive. Urine culture taken 10/17 is positive for P. Aeruginosa and blood cx 1/2 bottles positive for GPC clusters, pending sensitivities for
both. Pt's HR is in low 100s, he has leftward shift, and indwelling Padilla cathete in place, and no other symptoms at this time. He has a cut on his tongue from where he bit his tongue, and bleeding has stopped at this time after compression in the
ED. No CP, no SOB, no n/v/d, no abdominal pain, no further bleeding.
#Complicated UTI with chronic indwelling Padilla catheter and bacteremia, associated with abnormal UA P. Aeruginosa on 10/17, and 1/2 bottles positive for GPC clusters 10/17
-repeat blood cx today taken in ED
-discussed with MATTHEW subramanian - plan to change out Padilla catheter and continue oral Levaquin and IV Vancomycin renally adjusted
-monitor clinically
-await sensitivities
#Tongue bleed, from biting tongue, no active bleeding at this time
-restart anticoagulation tomorrow as long as no active bleeding
-monitor
Chronic medical conditions:
#HFrEF, currently euvolemic
-cont Lasix
# Alcoholic abuse
-last drink was one month ago, hold off on withdrawal protocol
#CAD, History of NSTEMI
-s/p cardiac stent on Brilinta, restart Brilinta tomorrow
#Permanent A-fib on Xarelto
-will restart Xarelto for tomorrow night, as long as no further bleeding from tongue
-monitor on tele overnight
#CKD IIIa
-stable, dose meds to renal function
# BPH
# obesity
# Pulmonary hypertension
# history of PE and RLE DVT
# tobacco use disorder
# Venous insufficiency
# hypertension,
# hyperlipidemia,
# Hx of CVA
DVT proph-Xarelto
Full Code
[2023-10-19] MEDS: KCL 40 MEQ PO (20:04)
--- NOTE | 2023-10-19 21:00 | PTCARENOTE ---
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 Pt VSS and denies pain. Pt oriented to the room and call wiggins within reach.
[2023-10-19 21:39] LABS: Magnesium 1.3 mg/dl (1.6-2.3)
--- NOTE | 2023-10-19 21:44 | PHA.VAN.IN ---
Assessment
- Assessment
Renal Function: Other (appears rather fluid, SCr 1.2-1.6, with JUAN in September )
Maximum Temperature: 98.1
Concomitant Antimicrobials: levofloxacin
Plan
- Plan
Initial / Loading Dose: 1000mg 10/18 18:03, 1000mg 10/18 21:45
Maintenance Regimen: dose by level to assess SCr
Monitoring: R 10/19 AM
MRSA Screen: Ordered per protocol
Pharmacokinetics Vancomycin I
- -
Patient Age: 83
Patient Sex: Male
Vancomycin Day #: 1
Indication: Bacteremia
Requesting Provider: Dr Bales
Pertinent Antimicrobial Allergies:
no pertinent allergies
Height / Weight:
Height 5 ft 9 in
Actual Weight 89 kg
- Vital Signs / Lab Results
Temp Pulse Resp BP Pulse Ox
98.1 F 99 23 111/44 99
10/19/23 13:39 10/19/23 20:30 10/19/23 20:30 10/19/23 20:00 10/19/23 18:00
Lab Results - Hematology
10/19/23
14:57
WBC 10.1
Lab Results - Chemistry
10/19/23
14:57
BUN 28 H
Creatinine 1.3
Estimated Creat Clear 45
Albumin 2.4 L
[2023-10-19] MEDS: ProAmatine 10 MG PO (21:46)
[2023-10-19] MEDS: LASIX 40 MG PO (21:46)
[2023-10-19] MEDS: LIPITOR 40 MG PO (21:47)
[2023-10-20 03:34] VITALS: BP 105/72
[2023-10-20 07:27] VITALS: BP 114/54
[2023-10-20 08:48] LABS: % Basophils 0.3 % (0-2); % Eosinophils 1.7 % (0-6); % Lymphocytes 7.4 % (20.5-51.1); % Monocytes 6.5 % (1.7-9.3); % Neutrophils 82.1 % (42.2-75.2); Absolute Eosinophils 0.2 10^3/uL (0-0.7); Absolute Immature Granulocytes 0.2 10^3/uL (0-0.05); Absolute Lymphocytes 0.6 10^3/uL (1.2-3.4); Absolute Monocytes 0.6 10^3/uL (0.1-0.6); Absolute Neutrophils 7.1 10^3/uL (1.4-6.5); Hemoglobin 7.7 g/dL (13.0-18.0); Mean Corp Hgb Conc. 32.1 g/dL (33.0-37.0); Mean Corpuscular Hgb 27.2 pg (27.0-31.0); Mean Corpuscular Volume 84.8 fL (80.0-94.0); Mean Platelet Volume 9.9 fL (7.4-10.4); Nucleated Red Blood Cells % 0 % (-); Platelet Count 349 10^3/uL (130-400); Red Blood Cell Count 2.83 10^6/uL (4.70-6.10); Red Cell Dist. Width 15.9 % (11.5-14.5); White Blood Cell Count 8.7 10^3/uL (4.8-10.8)
[2023-10-20 09:03] LABS: Vancomycin Random 15.4 ug/ml
[2023-10-20 09:07] LABS: ALT (SGPT) 25 U/L (0-50); AST (SGOT) 37 U/L (17-59); Albumin 2.3 g/dl (3.5-5.0); Alkaline Phosphatase 125 U/L (38-126); Blood Urea Nitrogen 28 mg/dl (9-20); Calcium 8.1 mg/dl (8.4-10.2); Carbon Dioxide 22 mmol/L (22-30); Chloride 102 mmol/L (98-107); Estimated Creatinine Clearance 41 ml/min; Glucose 88 mg/dl (70-99); Magnesium 1.3 mg/dl (1.6-2.3); Potassium 3.4 mmol/L (3.5-5.1); Sodium 133 mmol/L (135-145); Total Bilirubin 0.6 mg/dl (0.2-1.3); Total Protein 5.3 g/dl (6.3-8.2); eGFR 50.49
--- NOTE | 2023-10-20 09:11 | PHA.VAN.FU ---
Vancomycin Assessment / Plan
- Assessment
Renal Function: SCR Increasing (1.3-->1.4)
WBC's are: WNL
In the past 24 hrs, patient has been: Afebrile
Concomitant Antimicrobials: LEVOFLOXACIN
- Assessment - Therapeutic Drug Monitoring
Random Level: 15.4
- Dosing Plan
Dosing by Level: Re-dose today (1000MG)
- Monitoring Plan
Random Level: 5/20 IN AM
- Follow Up
Pharmacy will continue to follow.
Vancomycin Follow UP
- -
Patient Age: 83
Patient Sex: Male
Vancomycin Day #: 2
Indication: Bacteremia
Requesting Provider: Dr Bales
Pertinent Antimicrobial Allergies:
no pertinent allergies
Height / Weight:
Height 5 ft 9 in
Actual Weight 83.716 kg
- Vital Signs / Lab Results
Temp Pulse Resp BP Pulse Ox
98.6 F 100 32 114/54 97
10/20/23 07:27 10/20/23 07:27 10/20/23 07:27 10/20/23 07:27 10/20/23 07:27
Lab Results - Hematology
10/19/23 10/20/23
14:57 07:52
WBC 10.1 8.7
Lab Results - Chemistry
10/19/23 10/20/23
14:57 07:52
BUN 28 H 28 H
Creatinine 1.3 1.4 H
Estimated Creat Clear 45 41
Albumin 2.4 L 2.3 L
Therapeutic Drug Monitoring
Random Vancomycin 15.4 ug/ml 10/20/23 07:52
[2023-10-20] MEDS: FOLVITE 1 MG PO (09:26)
[2023-10-20] MEDS: LASIX 40 MG PO ×2 (09:27→22:14)
[2023-10-20] MEDS: ProAmatine 10 MG PO ×3 (09:27→22:15)
[2023-10-20] MEDS: PROSCAR 5 MG PO (09:27)
[2023-10-20] MEDS: B COMPLEX w/VITAMIN C 1 CAPLET PO (09:27)
[2023-10-20] MEDS: FLOMAX 0.400000000000000022 MG PO (09:27)
[2023-10-20] MEDS: BRILINTA 90 MG PO ×2 (09:27→22:14)
--- NOTE | 2023-10-20 09:33 | W.PN.HOSP.TC ---
Addendum entered and electronically signed by Adriano Magana MD 10/20/23 09:46:
Hypokalemia -replete
Original Note:
Today's Communication/Plan
-
Consult OMFS tomorrow
CW ABX
Follow culture data
Assessment / Plan
Assessment / Plan
IMPRESSION:The patient is an 83-year-old male past medical history of CAD status post stents, atrial fibrillation on Xarelto, BPH, history of DVT PE, hyperlipidemia, alcohol use disorder, chronic indwelling Padilla catheter, recent admission (09/28 to
10/08) due to sepsis and UTI, presented to the ED yesterday for concern for developing sepsis again and was discharged to home yesterday with oral Levaquin for UTI, presents again today due to tongue bleed on Brilinta (for recent cardiac stents) and
Xarelto (for A.fib), and was told his blood culture from yesterday is positive, and urine culture is also positive. Urine culture taken 10/17 is positive for P. Aeruginosa and blood cx /2 bottles positive for GPC clusters, pending sensitivities for
both. Pt's HR is in low 100s, he has leftward shift, and indwelling Padilla cathete in place, and no other symptoms at this time. He has a cut on his tongue from where he bit his tongue, and bleeding has stopped at this time after compression in the
ED. No CP, no SOB, no n/v/d, no abdominal pain, no further bleeding.
#Tongue bleed - Spontaneous during breakfast. Patient states he did not bite his tongue nor he had any pain when the bleeding started. He has an abnormal area on the left anterior superior tongue. He is a smoker-has been smoking pipe since he
was in 20s. He would need a biopsy of his tongue. Consult OMFS tomorrow.
-restart anticoagulation as no further bleeding
-monitor
# Recent Febrile illness. He had a fever of 100.6 with tachycardia ruling in for sepsis on 10/17 ER visit
urine culture also positive for Pseudomonas but patient has chronic Padilla catheter.
Blood culture shows gram-positive cocci 1 out of 2 bottles collected then
unclear which is playing a role here.
Patient currently on empirical Pseudomonas treatment as well as IV vancomycin for gram-positive cocci bacteremia. Follow culture data.
Patient's chronic Padilla catheter has been changed.
Depending on the culture data from the bloodstream will consult ID.
Chronic medical conditions:
#HFrEF, currently euvolemic
-cont Lasix
# Alcoholic abuse
-last drink was one month ago, hold off on withdrawal protocol
#CAD, History of NSTEMI
-s/p cardiac stent on Brilinta, restart Brilinta
#Permanent A-fib on Xarelto
- restart Xarelto , as long as no further bleeding from tongue
-monitor on tele overnight
#CKD IIIa
-stable, dose meds to renal function
# BPH
# obesity
# Pulmonary hypertension
# history of PE and RLE DVT
# tobacco use disorder
# Venous insufficiency
# hypertension,
# hyperlipidemia,
# Hx of CVA
DVT proph-Xarelto
Full Code
Total time spent on today's encounter was 52 minutes which included time spent in counseling the patient regarding diagnosis and treatment plan as listed above, goals of care, and symptom management. Case was discussed with nursing staff, . All
labs and imaging personally reviewed by me. Remainder the time spent in detailed review of previous records, lab data, imaging, and other medical provider documentation.
Anticipated Discharge: 24 - 48 hours
Subjective/Interval History
-
Date of Service: October 20, 2023
No further tongue bleeding.
He was having breakfast yesterday at [employer]. During breakfast he started to spontaneously have a bleeding. There were clots to apparently per patient. He states that he did not bite the tongue he has no pain in the tongue when the
bleeding started.
Intermittent chills. No fevers at the facility.
Ever since he had a sepsis episode and low blood pressure issue in the previous admission he started to suffer from polyarthralgia pains. multiple joints hurting his body. Prior to that no pain in the joints but he osteo arthritis issue.
Objective Data
-
Labs:
Laboratory Results
10/20/23
07:52
WBC 8.7
Hgb 7.7 L
Hct 24.0 L
Plt Count 349
Sodium 133 L
Potassium 3.4 L
Chloride 102
Carbon Dioxide 22
BUN 28 H
Creatinine 1.4 H
Glucose 88
Calcium 8.1 L
Total Bilirubin 0.6
AST 37
ALT 25
Alkaline Phosphatase 125
Vital Signs:
Vital Signs
Temp Pulse Resp BP Pulse Ox
98.6 F 100 32 114/54 97
10/20/23 07:27 10/20/23 07:27 10/20/23 07:27 10/20/23 07:27 10/20/23 07:27
I&O
10/19/23 10/20/23 10/21/23
06:59 06:59 06:59
Intake Total 650 / 650
Output Total 1460 / 1460
Balance -810 / -810
Review of Systems
-
Respiratory: Denies Trouble Breathing
Cardiac: Denies Chest Pain
Abdomen/GI: Denies Abdominal Pain, Nausea or Vomiting
Neuro: Denies Dizzy
Physical Exam
-
General: No Apparent Distress
HEENT: Moist Mucous Membranes and Other (Tongue - left anterior superior area - mild area of nodular growth with tiny open sore .)
Respiratory: Clear to Auscultation
Cardiac: Regular Rhythm and S1/S2
GI: Soft
Neuro: AO x 3
Data Reviewed
-
Labs: Labs Reviewed by me
[2023-10-20] MEDS: PROTONIX 40 MG PO (09:36)
[2023-10-20] MEDS: TYLENOL 650 MG PO ×2 (09:49→22:13)
[2023-10-20] MEDS: LEVAQUIN 750 MG PO (09:50)
[2023-10-20 11:49] VITALS: BP 101/48
[2023-10-20] MEDS: VANCOCIN 200 IV (12:09)
[2023-10-20] MEDS: FLUSH (NSS) 1 FLUSH IV (12:11)
[2023-10-20] MEDS: KCL 40 MEQ PO (12:11)
[2023-10-20 15:41] VITALS: BP 118/66
[2023-10-20] MEDS: XARELTO 15 MG PO (17:19)
[2023-10-20 19:27] VITALS: BP 135/54
[2023-10-20] MEDS: LIPITOR 40 MG PO (22:14)
[2023-10-20 23:17] VITALS: BP 104/61
[2023-10-21] VITALS (11 sets, daily range): BP systolic 119–166; BP diastolic 55–87; PULSE 98–149; O2SAT 98–99; BMI 27.3
[2023-10-21 07:29] LABS: Hematocrit 23.7 % (39.0-52.0); Hemoglobin 7.7 g/dL (13.0-18.0); Mean Corp Hgb Conc. 32.5 g/dL (33.0-37.0); Mean Corpuscular Hgb 27.8 pg (27.0-31.0); Mean Corpuscular Volume 85.6 fL (80.0-94.0); Mean Platelet Volume 9.7 fL (7.4-10.4); Platelet Count 300 10^3/uL (130-400); Red Blood Cell Count 2.77 10^6/uL (4.70-6.10); Red Cell Dist. Width 15.9 % (11.5-14.5); White Blood Cell Count 7.2 10^3/uL (4.8-10.8)
[2023-10-21 07:42] LABS: Vancomycin Random 17.7 ug/ml
[2023-10-21 07:55] LABS: Blood Urea Nitrogen 33 mg/dl (9-20); Calcium 8.2 mg/dl (8.4-10.2); Carbon Dioxide 23 mmol/L (22-30); Chloride 104 mmol/L (98-107); Estimated Creatinine Clearance 36 ml/min; Glucose 90 mg/dl (70-99); Potassium 3.2 mmol/L (3.5-5.1); Sodium 137 mmol/L (135-145); eGFR 43.02
[2023-10-21 08:17] LABS: Erythrocyte Sed Rate > 145 mm/hour (0-20)
--- NOTE | 2023-10-21 08:42 | PHA.VAN.FU ---
Vancomycin Assessment / Plan
- Assessment
Renal Function: SCR Increasing
WBC's are: WNL
In the past 24 hrs, patient has been: Afebrile
Concomitant Antimicrobials: levofloxacin
- Assessment - Therapeutic Drug Monitoring
Random Level: 17.7 - drawn ~19H after previous dose of 1000mg
- Dosing Plan
Dosing by Level: Hold off on dosing today
- Monitoring Plan
Random Level: 10/21 599
- Follow Up
Pharmacy will continue to follow.
Vancomycin Follow UP
- -
Patient Age: 83
Patient Sex: Male
Vancomycin Day #: 3
Indication: Bacteremia
Requesting Provider: Dr Bales
Pertinent Antimicrobial Allergies:
no pertinent allergies
Height / Weight:
Height 5 ft 9 in
Actual Weight 83.716 kg
Pertinent Past Medical History: ckd
- Vital Signs / Lab Results
Temp Pulse Resp BP Pulse Ox
97.9 F 97 18 121/63 99
10/21/23 07:30 10/21/23 07:30 10/21/23 07:30 10/21/23 07:30 10/21/23 07:30
Lab Results - Hematology
10/19/23 10/20/23 10/21/23
14:57 07:52 06:52
WBC 10.1 8.7 7.2
Lab Results - Chemistry
10/19/23 10/20/23 10/21/23
14:57 07:52 06:52
BUN 28 H 28 H 33 H
Creatinine 1.3 1.4 H 1.6 H
Estimated Creat Clear 45 41 36
Albumin 2.4 L 2.3 L
Microbiology Results
10/19/23 18:11 Blood Culture - Preliminary
Blood/Venous No Growth in 24 hours- Final report to follow
10/19/23 18:11 Blood Culture - Preliminary
Blood/Venous No Growth in 24 hours- Final report to follow
Therapeutic Drug Monitoring
Random Vancomycin 17.7 ug/ml 10/21/23 06:52
[2023-10-21] MEDS: ProAmatine 10 MG PO ×3 (08:53→20:53)
[2023-10-21] MEDS: FOLVITE 1 MG PO (08:54)
[2023-10-21] MEDS: LEVAQUIN 750 MG PO (08:54)
[2023-10-21] MEDS: PROSCAR 5 MG PO (08:54)
[2023-10-21] MEDS: PROTONIX 40 MG PO (08:54)
[2023-10-21] MEDS: LASIX 40 MG PO ×2 (08:54→19:46)
[2023-10-21] MEDS: B COMPLEX w/VITAMIN C 1 CAPLET PO (08:54)
[2023-10-21] MEDS: BRILINTA 90 MG PO ×2 (08:54→19:46)
[2023-10-21] MEDS: FLOMAX 0.400000000000000022 MG PO (08:54)
--- NOTE | 2023-10-21 11:21 | W.PN.HOSP.TC ---
Today's Communication/Plan
-
Transfuse PRBC. Check heme test stools and iron studies.
Consult OMFS.
Consult rheumatology.
Assessment / Plan
Assessment / Plan
IMPRESSION:The patient is an 83-year-old male past medical history of CAD status post stents, atrial fibrillation on Xarelto, BPH, history of DVT PE, hyperlipidemia, alcohol use disorder, chronic indwelling Padilla catheter, recent admission (09/28 to
10/08) due to sepsis and UTI, presented to the ED yesterday for concern for developing sepsis again and was discharged to home yesterday with oral Levaquin for UTI, presents again today due to tongue bleed on Brilinta (for recent cardiac stents) and
Xarelto (for A.fib), and was told his blood culture from yesterday is positive, and urine culture is also positive. Urine culture taken 10/17 is positive for P. Aeruginosa and blood cx 1/2 bottles positive for GPC clusters, pending sensitivities for
both. Pt's HR is in low 100s, he has leftward shift, and indwelling Padilla cathete in place, and no other symptoms at this time. He has a cut on his tongue from where he bit his tongue, and bleeding has stopped at this time after compression in the
ED. No CP, no SOB, no n/v/d, no abdominal pain, no further bleeding.
#Tongue bleed - Spontaneous during breakfast. Patient states he did not bite his tongue nor he had any pain when the bleeding started. He has an abnormal area on the left anterior superior tongue. He is a smoker-has been smoking pipe since he
was in 20s. He would need a biopsy of his tongue. Consult OMFS today.
-restart anticoagulation as no further bleeding
-monitor
# Recent Febrile illness. He had a fever of 100.6 with tachycardia ruling in for sepsis on 10/17 ER visit
urine culture also positive for Pseudomonas but patient has chronic Padilla catheter.
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
Patient currently on empirical Pseudomonas treatment ;dc IV vancomycin
Patient's chronic Padilla catheter has been changed.
# Polyarthritis with significant inflammatory marker elevation-consult rheumatology.
# Severe normocytic anemia. Patient lately has been anemic this year. He had transfusion support. Check iron studies. Check hemtest stools. Transfuse 1 more unit of PRBC. Chronic kidney disease stage IIIa and also has a history of alcoholism
which might be playing role. He also has increased inflammatory markers which could be causing anemia of inflammation.
Chronic medical conditions:
#HFrEF, currently euvolemic
-cont Lasix
# Alcoholic abuse
-last drink was one month ago, hold off on withdrawal protocol
#CAD, History of NSTEMI
-s/p cardiac stent on Brilinta, restart Brilinta
#Permanent A-fib on Xarelto
- restart Xarelto , as long as no further bleeding from tongue
-monitor on tele overnight
#CKD IIIa
-stable, dose meds to renal function
# BPH
# obesity
# Pulmonary hypertension
# history of PE and RLE DVT
# tobacco use disorder
# Venous insufficiency
# hypertension,
# hyperlipidemia,
# Hx of CVA
DVT proph-Xarelto
Full Code
Total time spent on today's encounter was 52 minutes which included time spent in counseling the patient regarding diagnosis and treatment plan as listed above, goals of care, and symptom management. Case was discussed with nursing staff, . All
labs and imaging personally reviewed by me. Remainder the time spent in detailed review of previous records, lab data, imaging, and other medical provider documentation.
Anticipated Discharge: > 48 hours
Subjective/Interval History
-
Date of Service: October 21, 2023
He says he had bleeding form tongue again but this time he bite his tongue he says.
Now resolved.
Had issues with anemia needing transfusion recently.
Persistent Polyarthralgia pains- known to have chronic arthritis but since his recent discharge after infection he seems to have significant flareup of his polyarthralgias and now not able to walk. Today's a second time he sat out of bed in a
chair in last 20 days.
Objective Data
-
Labs:
Laboratory Results
10/21/23
06:52
WBC 7.2
Hgb 7.7 L
Hct 23.7 L
Plt Count 300
Sodium 137
Potassium 3.2 L
Chloride 104
Carbon Dioxide 23
BUN 33 H
Creatinine 1.6 H
Glucose 90
Calcium 8.2 L
Vital Signs:
Vital Signs
Temp Pulse Resp BP Pulse Ox
97.9 F 97 18 121/63 99
10/21/23 07:30 10/21/23 07:30 10/21/23 07:30 10/21/23 07:30 10/21/23 07:30
I&O
10/20/23 10/21/23 10/22/23
06:59 06:59 06:59
Intake Total 650 / 650 1070 / 1070
Output Total 1460 / 1460 1500 / 1500
Balance -810 / -810 -430 / -430
Review of Systems
-
Constitutional: Denies Fever or Chills
EENT: Denies Sore Throat
Respiratory: Denies Trouble Breathing
Cardiac: Denies Chest Pain
Abdomen/GI: Denies Abdominal Pain, Nausea or Vomiting
Neuro: Denies Dizzy
Physical Exam
-
General: No Apparent Distress
HEENT: Moist Mucous Membranes and Other (Tongue as yesterday with no active bleeding)
Respiratory: Clear to Auscultation
Cardiac: Regular Rhythm and S1/S2
GI: Soft
Musculoskeletal: Other (PROM in BL R>L wrist , elbows,knees )
Neuro: AO x 3
Psych: Calm
Data Reviewed
-
Labs: Labs Reviewed by me
[2023-10-21 11:54] LABS: Reticulocyte Count 1.9 % (0.4-2.8)
[2023-10-21 12:14] LABS: Iron 27 ug/dl (49-181)
[2023-10-21 12:23] LABS: Percent Saturation 13 % (20-50); Total Iron Binding Capacity 206 ug/dl (261-462)
--- NOTE | 2023-10-21 13:57 | PN.CDI ---
CDI
- -
CDI:
Physician Documentation Request
Admit Date: 10/19/23 19:39
Dear Doctor Chino,
Patient admitted with spontaneous bleeding tongue.
10/19 Nursing skin assessment, 'Stage 2 left upper posterior pressure injury....Stage 2 sacral pressure injury , POA.'
Physician documentation of the type and location of wounds is required for compliant documentation. Based on the above clinical findings and your assessment, please provide the following in your progress note:
Type (etiology) of ulcer/wound:
- Pressure (decubitus) ulcer
- Other
- Unable to determine
For a pressure ulcer, please also include the stage* of the ulcer:
- Stage 1 - Skin intact, non-blanchable redness
- Stage 2 - Partial thickness loss of dermis, includes intact or open blister
- Stage 3 - Full thickness tissue not including bone, tendon or muscle
- Stage 4 - Full thickness tissue loss, including exposed bone, tendon or muscle
- Unstageable - Full thickness loss in which the base of the ulcer is covered by slough (yellow, llamas, dutton, green or brown) and/or eschar (llamas, brown or black) in the wound bed.
- Unable to determine
Use of terms such as suspected, likely, concern for, or probable (associated with a specific diagnosis that is being evaluated, monitored, or treated as if it exists) are acceptable and can be coded in the inpatient setting, when documented at the
time of discharge.
Thank you,
Denice DONOVAN,RN,CCDS
CDI Specialist
Available via tiger text
Please use your independent medical judgment in providing your response.
*Source: National Pressure Ulcer Advisory Panel (NPUAP)
--- NOTE | 2023-10-21 14:08 | PN.CDI ---
CDI
- -
CDI:
Physician Documentation Request
Admit Date: 10/19/23 19:39
Dear Doctor Chino,
Patient admitted 10/18 with spontaneous bleeding tongue.
Ed note, 'He does have a small bleeding laceration on left dorsal tongue near tip. Patient did apply direct pressure with gauze for approximately 25 minutes which did stop bleeding.'
10/20 PN,' .....presents again today due to tongue bleed on Brilinta (for recent cardiac stents) and Xarelto (for A.fib)....restart anticoagulation as no further bleeding.'
Please clarify the likely relationship between these conditions:
Yes, tongue bleed is associated with/ enhanced by Brilinta and Xarelto.
No, tongue bleed is not associated with/ enhanced by Brilinta and Xarelto but it is due to ___. (Please specify)
Unable to determine
Use of terms such as suspected, likely, concern for, or probable (associated with a specific diagnosis that is being evaluated, monitored, or treated as if it exists) are acceptable and can be coded in the inpatient setting, when documented at the
time of discharge.
Thank you,
Denice DONOVAN,RN,CCDS
CDI Specialist
Available via [employer]ut[employer] text
Please use your independent medical judgment in providing your response.
--- NOTE | 2023-10-21 16:21 | CM ---
commercial property manager reviewed patient's chart and met with tiara and tiara was living alone in a 2 story home, patient was independent with adl's and uses walker and w/c with ambulation. patient is currently at [facility] skilled, and per admissions patient
is holding the bed at [facility] skilled.
Plan; Skilled placement at [facility]
[2023-10-21] MEDS: XARELTO 15 MG PO (17:23)
[2023-10-21] MEDS: LASIX 20 MG IV (20:51)
[2023-10-21] MEDS: LIPITOR 40 MG PO (20:54)
[2023-10-22 03:35] VITALS: BP 140/62
[2023-10-22 06:25] LABS: Hematocrit 25.1 % (39.0-52.0); Hemoglobin 8.2 g/dL (13.0-18.0); Mean Corp Hgb Conc. 32.7 g/dL (33.0-37.0); Mean Corpuscular Hgb 27.9 pg (27.0-31.0); Mean Corpuscular Volume 85.4 fL (80.0-94.0); Mean Platelet Volume 9.9 fL (7.4-10.4); Platelet Count 298 10^3/uL (130-400); Red Blood Cell Count 2.94 10^6/uL (4.70-6.10); Red Cell Dist. Width 16.8 % (11.5-14.5)
[2023-10-22 06:36] LABS: Vancomycin Random 12.8 ug/ml
[2023-10-22 07:00] VITALS: BP 109/44
[2023-10-22 07:03] LABS: Blood Urea Nitrogen 36 mg/dl (9-20); Calcium 8.1 mg/dl (8.4-10.2); Carbon Dioxide 22 mmol/L (22-30); Chloride 102 mmol/L (98-107); Estimated Creatinine Clearance 34 ml/min; Glucose 92 mg/dl (70-99); Sodium 135 mmol/L (135-145)
[2023-10-22] MEDS: FLOMAX 0.400000000000000022 MG PO (07:50)
[2023-10-22] MEDS: B COMPLEX w/VITAMIN C 1 CAPLET PO (07:50)
[2023-10-22] MEDS: PROTONIX 40 MG PO (07:50)
[2023-10-22] MEDS: ProAmatine 10 MG PO ×3 (07:50→21:09)
[2023-10-22] MEDS: FOLVITE 1 MG PO (07:50)
[2023-10-22] MEDS: LASIX 40 MG PO ×2 (07:50→19:28)
[2023-10-22] MEDS: LEVAQUIN 750 MG PO (07:50)
[2023-10-22] MEDS: BRILINTA 90 MG PO ×2 (07:50→19:28)
[2023-10-22] MEDS: PROSCAR 5 MG PO (07:50)
[2023-10-22] MEDS: KCL 40 MEQ PO ×2 (08:43→15:25)
--- NOTE | 2023-10-22 09:44 | PHA.VAN.FU ---
Vancomycin Assessment / Plan
- Assessment
Renal Function: SCR Increasing
WBC's are: WNL
In the past 24 hrs, patient has been: Afebrile
Concomitant Antimicrobials: levofloxacin
- Assessment - Therapeutic Drug Monitoring
Random Level: 12.8 - drawn ~22.5H after previous level of 17.7
Calculated ke: 0.0144
Calculated half life (H): 48
Level today was drawn ~41.5H after previous dose of 1000mg
- Dosing Plan
Dosing by Level: Re-dose today (Vanc 1000mg)
- Monitoring Plan
No level(s) ordered at this time: will plan for level 10/23 based on half-life
- Follow Up
Pharmacy will continue to follow.
Vancomycin Follow UP
- -
Patient Age: 83
Patient Sex: Male
Vancomycin Day #: 4
Indication: Bacteremia
Requesting Provider: Dr Bales
Pertinent Antimicrobial Allergies:
no pertinent allergies
Height / Weight:
Height 5 ft 9 in
Actual Weight 83.716 kg
Pertinent Past Medical History: ckd
- Vital Signs / Lab Results
Temp Pulse Resp BP Pulse Ox
98.0 F 90 16 109/44 99
10/22/23 07:00 10/22/23 07:00 10/22/23 07:00 10/22/23 07:00 10/22/23 07:00
Lab Results - Hematology
10/19/23 10/20/23 10/21/23
14:57 07:52 06:52
WBC 10.1 8.7 7.2
10/22/23
05:26
WBC 9.0
Lab Results - Chemistry
10/19/23 10/20/23 10/21/23
14:57 07:52 06:52
BUN 28 H 28 H 33 H
Creatinine 1.3 1.4 H 1.6 H
Estimated Creat Clear 45 41 36
Albumin 2.4 L 2.3 L
10/22/23
05:26
BUN 36 H
Creatinine 1.7 H
Estimated Creat Clear 34
Albumin
Microbiology Results
10/19/23 18:11 Blood Culture - Preliminary
Blood/Venous No Growth in 48 hours- Final report to follow
10/19/23 18:11 Blood Culture - Preliminary
Blood/Venous No Growth in 48 hours- Final report to follow
10/20/23 05:33 MRSA Screen - Final
Nose No Methicillin Resistant Staphylococcus aureus isolated.
Therapeutic Drug Monitoring
Random Vancomycin 12.8 ug/ml 10/22/23 05:26
[2023-10-22 10:01] VITALS: BMI 27.6
--- NOTE | 2023-10-22 10:57 | CM ---
Patient to return to [facility] skilled when stable, patient is private pay bedhold at facility, updated clinical faxed to admissions at [facility].
Plan; Skilled placement at [facility].
[2023-10-22 11:00] VITALS: BP 138/60
[2023-10-22] MEDS: VANCOCIN 200 IV (11:30)
[2023-10-22 15:00] VITALS: BP 114/53
--- NOTE | 2023-10-22 15:11 | W.PN.HOSP.TC ---
Addendum entered and electronically signed by Adriano Magana MD 10/22/23 15:16:
hypokalemia -replete
Original Note:
Today's Communication/Plan
-
Start on colchicine
Check Lyme serology
DC planning
Assessment / Plan
Assessment / Plan
IMPRESSION:The patient is an 83-year-old male past medical history of CAD status post stents, atrial fibrillation on Xarelto, BPH, history of DVT PE, hyperlipidemia, alcohol use disorder, chronic indwelling Padilla catheter, recent admission (09/28 to
10/08) due to sepsis and UTI, presented to the ED yesterday for concern for developing sepsis again and was discharged to home yesterday with oral Levaquin for UTI, presents again today due to tongue bleed on Brilinta (for recent cardiac stents) and
Xarelto (for A.fib), and was told his blood culture from yesterday is positive, and urine culture is also positive. Urine culture taken 10/17 is positive for P. Aeruginosa and blood cx /2 bottles positive for GPC clusters, pending sensitivities for
both. Pt's HR is in low 100s, he has leftward shift, and indwelling Padilla cathete in place, and no other symptoms at this time. He has a cut on his tongue from where he bit his tongue, and bleeding has stopped at this time after compression in the
ED. No CP, no SOB, no n/v/d, no abdominal pain, no further bleeding.
#Tongue bleed - Spontaneous during breakfast. Patient states he did not bite his tongue nor he had any pain when the bleeding started. He has an abnormal area on the left anterior superior tongue. He is a smoker-has been smoking pipe since he
was in 20s. He would need a biopsy of his tongue i feel . DW OMFS via TT and had sent a picture of his tongue - advised OP follow up .
-restart anticoagulation as no further bleeding
# Recent Febrile illness. He had a fever of 100.6 with tachycardia ruling in for sepsis on 10/17 ER visit
urine culture also positive for Pseudomonas but patient has chronic Padilla catheter.
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
Patient currently on empirical Pseudomonas treatment ;dced IV vancomycin
Patient's chronic Padilla catheter has been changed.
# Polyarthritis with significant inflammatory marker elevation- rheumatology - Recs blood test -see orders. With elevated uric acid and hx of gout will give a trail of colchicine , check lyme serologies as well.
# Severe normocytic anemia. Patient lately has been anemic this year. He had transfusion support. Check iron studies. Check hemtest stools. Transfused 1 more unit of PRBC. Chronic kidney disease stage IIIa and also has a history of alcoholism
which might be playing role. He also has increased inflammatory markers which could be causing anemia of inflammation.
Chronic medical conditions:
#HFrEF, currently euvolemic
-cont Lasix
# Alcoholic abuse
-last drink was one month ago, hold off on withdrawal protocol
#CAD, History of NSTEMI
-s/p cardiac stent on Brilinta, restart Brilinta
#Permanent A-fib on Xarelto
- restart Xarelto , as long as no further bleeding from tongue
-monitor on tele overnight
#CKD IIIa
-stable, dose meds to renal function
# BPH
# obesity
# Pulmonary hypertension
# history of PE and RLE DVT
# tobacco use disorder
# Venous insufficiency
# hypertension,
# hyperlipidemia,
# Hx of CVA
DVT proph-Xarelto
Full Code
Anticipated Discharge: 24 - 48 hours
Subjective/Interval History
-
Date of Service: October 22, 2023
No further tongue bleeding.
Persistent multijoint arthralgias. He had a prior history of gout.
He says he was living in a place where the deer used to be frequent visitors to his backyard's and was questioning about Lyme's disease.
No fever or chills.
Objective Data
-
Labs:
Laboratory Results
10/22/23
05:26
WBC 9.0
Hgb 8.2 L
Hct 25.1 L
Plt Count 298
Sodium 135
Potassium 3.0 L
Chloride 102
Carbon Dioxide 22
BUN 36 H
Creatinine 1.7 H
Glucose 92
Calcium 8.1 L
Vital Signs:
Vital Signs
Temp Pulse Resp BP Pulse Ox
97.4 F 95 16 138/60 99
10/22/23 11:00 10/22/23 11:00 10/22/23 11:00 10/22/23 11:00 10/22/23 11:00
I&O
10/21/23 10/22/23 10/23/23
06:59 06:59 06:59
Intake Total 1070 / 1070 490 / 490
Output Total 1500 / 1500 1000 / 1000
Balance -430 / -430 -510 / -510
Review of Systems
-
Respiratory: Denies Trouble Breathing
Cardiac: Denies Chest Pain
Neuro: Denies Dizzy
Physical Exam
-
General: No Apparent Distress
HEENT: Moist Mucous Membranes
Respiratory: Clear to Auscultation
Cardiac: Regular Rhythm and S1/S2
Neuro: AO x 3
Data Reviewed
-
Labs: Labs Reviewed by me
[2023-10-22] MEDS: COLCHICINE 0.599999999999999978 MG PO (15:25)
[2023-10-22] MEDS: XARELTO 15 MG PO (17:09)
[2023-10-22 20:16] VITALS: BP 155/78
[2023-10-22] MEDS: LIPITOR 40 MG PO (21:09)
[2023-10-22 23:31] VITALS: BP 143/72
[2023-10-23 03:00] VITALS: BP 116/58
[2023-10-23 05:45] LABS: Blood Urea Nitrogen 36 mg/dl (9-20); Calcium 7.8 mg/dl (8.4-10.2); Carbon Dioxide 21 mmol/L (22-30); Chloride 105 mmol/L (98-107); Estimated Creatinine Clearance 36 ml/min; Glucose 105 mg/dl (70-99); Potassium 3.1 mmol/L (3.5-5.1); Sodium 137 mmol/L (135-145); eGFR 43.02
[2023-10-23 07:57] VITALS: BP 104/56
[2023-10-23] MEDS: PROTONIX 40 MG PO (08:39)
[2023-10-23] MEDS: LASIX 40 MG PO (08:39)
[2023-10-23] MEDS: FLOMAX 0.400000000000000022 MG PO (08:39)
[2023-10-23] MEDS: B COMPLEX w/VITAMIN C 1 CAPLET PO (08:39)
[2023-10-23] MEDS: FOLVITE 1 MG PO (08:40)
[2023-10-23] MEDS: PROSCAR 5 MG PO (08:40)
[2023-10-23] MEDS: ProAmatine PO (08:40)
[2023-10-23] MEDS: BRILINTA 90 MG PO (08:40)
[2023-10-23] MEDS: COLCHICINE 0.599999999999999978 MG PO (08:40)
[2023-10-23] MEDS: ProAmatine 10 MG PO (08:48)
[2023-10-23 11:12] VITALS: BP 113/50
--- NOTE | 2023-10-23 11:32 | CM ---
Addendum entered by Tracee Walsh 10/23/23 12:46:
[facility]
Report [phone]

Original Note:
Patient to return to [facility] skilled when stable.
Plan; [facility] skilled when stable.
[2023-10-23 11:50] VITALS: BMI 27.1
--- NOTE | 2023-10-23 12:07 | W.PN.HOSP.TC ---
Addendum entered and electronically signed by Adriano Magana MD 11/07/23 16:36:
Yes, UTI is related to chronic indwelling Padilla catheter
Addendum entered and electronically signed by Adriano Magana MD 10/25/23 16:00:
Stage 2 left upper posterior pressure injury....Stage 2 sacral pressure injury , POA.'
Tongue bleeding was assoicated with Brilinta/Xarelto use
Original Note:
Today's Communication/Plan
-
DC
Assessment / Plan
Assessment / Plan
IMPRESSION:The patient is an 83-year-old male past medical history of CAD status post stents, atrial fibrillation on Xarelto, BPH, history of DVT PE, hyperlipidemia, alcohol use disorder, chronic indwelling Padilla catheter, recent admission (09/28 to
10/08) due to sepsis and UTI, presented to the ED yesterday for concern for developing sepsis again and was discharged to home yesterday with oral Levaquin for UTI, presents again today due to tongue bleed on Brilinta (for recent cardiac stents) and
Xarelto (for A.fib), and was told his blood culture from yesterday is positive, and urine culture is also positive. Urine culture taken 10/17 is positive for P. Aeruginosa and blood cx /2 bottles positive for GPC clusters, pending sensitivities for
both. Pt's HR is in low 100s, he has leftward shift, and indwelling Padilla cathete in place, and no other symptoms at this time. He has a cut on his tongue from where he bit his tongue, and bleeding has stopped at this time after compression in the
ED. No CP, no SOB, no n/v/d, no abdominal pain, no further bleeding.
#Tongue bleed - Spontaneous during breakfast. Patient states he did not bite his tongue nor he had any pain when the bleeding started. He has an abnormal area on the left anterior superior tongue. He is a smoker-has been smoking pipe since he
was in 20s. He would need a biopsy of his tongue i feel . DW OMFS via TT and had sent a picture of his tongue - advised OP follow up .
-restarted anticoagulation as no further bleeding
# Recent Febrile illness. He had a fever of 100.6 with tachycardia ruling in for sepsis on 10/17 ER visit
urine culture also positive for Pseudomonas but patient has chronic Padilla catheter.
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
Patient currently on empirical Pseudomonas treatment -total for 7 days;dced IV vancomycin
Patient's chronic Padilla catheter has been changed.
# Polyarthritis with significant inflammatory marker elevation-DW rheumatology - Recs blood test -see orders. With elevated uric acid and hx of gout will give a trail of colchicine - 5 days, check lyme serologies as well. Follow with Dr Restrepo as
OP next week
# Severe normocytic anemia. Patient lately has been anemic this year. He had transfusion support. iron studies suggest ACD. Transfused 1 more unit of PRBC. Chronic kidney disease stage IIIa and also has a history of alcoholism which might be
playing role. He also has increased inflammatory markers which could be causing anemia of inflammation.
Chronic medical conditions:
#HFrEF, currently euvolemic
-cont Lasix
# Alcoholic abuse
-last drink was one month ago, hold off on withdrawal protocol
#CAD, History of NSTEMI
-s/p cardiac stent on Brilinta, restart Brilinta
#Permanent A-fib on Xarelto
- restart Xarelto , as long as no further bleeding from tongue
-monitor on tele overnight
#CKD IIIa
-stable, dose meds to renal function
# BPH
# obesity
# Pulmonary hypertension
# history of PE and RLE DVT
# tobacco use disorder
# Venous insufficiency
# hypertension,
# hyperlipidemia,
# Hx of CVA
DVT proph-Xarelto
Full Code
Discussed with patient that he has reached medical stability for discharge back to rehab. Also reminded him about follow-up with oral surgeon and as well as rheumatology as an outpatient.
Total time of discharge 35 minutes
Anticipated Discharge: Today
Subjective/Interval History
-
Date of Service: October 23, 2023
no further tongue bleeding.
Tolerating diet without nausea or vomiting.
No fever or chills.
Still troubled with polyarthralgias. No worse.
Objective Data
-
Labs:
Laboratory Results
10/23/23
04:51
Sodium 137
Potassium 3.1 L
Chloride 105
Carbon Dioxide 21 L
BUN 36 H
Creatinine 1.6 H
Glucose 105 H
Calcium 7.8 L
Vital Signs:
Vital Signs
Temp Pulse Resp BP Pulse Ox
98.5 F 97 28 104/56 98
10/23/23 07:57 10/23/23 07:57 10/23/23 07:57 10/23/23 07:57 10/23/23 07:57
I&O
10/22/23 10/23/23 10/24/23
06:59 06:59 06:59
Intake Total 490 / 490 1080 / 1080
Output Total 1000 / 1000 1375 / 1375
Balance -510 / -510 -295 / -295
Review of Systems
-
Constitutional: Denies Fever
Respiratory: Denies Trouble Breathing
Cardiac: Denies Chest Pain
Abdomen/GI: Denies Abdominal Pain, Nausea or Vomiting
Neuro: Denies Dizzy
Physical Exam
-
General: No Apparent Distress
HEENT: Moist Mucous Membranes and Other (no further bleeding)
Respiratory: Clear to Auscultation
Cardiac: Regular Rhythm and S1/S2
GI: Soft
Musculoskeletal: Other (PROM in BL L > R wrist ,elbows)
Neuro: AO x 3
Psych: Calm
Data Reviewed
-
Labs: Labs Reviewed by me
--- NOTE | 2023-10-23 12:15 | W.DS.TRANS ---
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
-
Discharge Instructions:
Sleep Apnea Risk Low
Discharge Diagnosis/Procedures Tongue bleeding; Acute chronic anemia needing
blood transfusion
Pseudomonas UTI
Polyarthritis
Diet Low Cholesterol
Activity As tolerated
Driving Restrictions No driving
Other Services OT,PT
Instructions:
Stand-Alone Forms:
Changes to Home Medications: Yes
Discharge Medications:
DC Medications w/original date entered in [employer]
vitamin B complex (Complex B-100 tablet,extended release) 1 tab PO DAILY Supplement 10/11/14
finasteride 5 mg tablet 5 mg PO DAILY prostate issue 12/22/18
tamsulosin 0.4 mg capsule (Flomax) 0.4 mg PO DAILY Urinary Issue 12/22/18
atorvastatin 40 mg tablet (Lipitor) 40 mg PO HS High Cholesterol 05/21/23
rivaroxaban 15 mg tablet (Xarelto) 15 mg PO QPM 30 days #30 tabs 06/03/23
ticagrelor 90 mg tablet (Brilinta) 90 mg PO BID 30 days #60 tabs 06/03/23
folic acid 1 mg tablet 1 mg PO DAILY Supplement 09/29/23
furosemide 40 mg tablet (Lasix) 40 mg PO BID Fluid Retention/Swelling 09/29/23
pantoprazole 40 mg tablet,delayed release 40 mg PO DAILY #30 tabs 10/08/23
acetaminophen 325 mg tablet (Tylenol) 650 mg PO Q4HPRN PRN mild pain/fever>100 10/11/23
bisacodyl 10 mg rectal suppository (Dulcolax (bisacodyl)) 10 mg SD DAILYPRN PRN if MOM ineffective/on 5th day 10/11/23
magnesium hydroxide 400 mg/5 mL oral suspension (Milk of Magnesia) 2,400 mg PO DAILYPRN PRN IF NO BM ON 4TH DAY 10/11/23
sodium phosphates 19 gram-7 gram/118 mL enema (Fleet Enema) 118 ml SD DAILYPRN PRN if dulcolax ineffective/on 6th day 10/11/23
midodrine 5 mg tablet 10 mg PO TID Blood Pressure 10/19/23
multivitamin with folic acid 400 mcg tablet (Tab-A-Edd) 1 tab PO HS Supplement 10/19/23
potassium chloride 20 mEq oral packet 20 meq PO BID Electrolyte Repletion 10/19/23
colchicine 0.6 mg tablet 0.6 mg PO DAILY #4 tabs 10/23/23
levofloxacin 750 mg tablet 750 mg PO Q48H #3 tabs 10/23/23
Home Medication Changes
New medication-Levaquin and colchicine
Pending Results: No
[2023-10-23 15:00] VITALS: BP 115/54
[2023-10-24 14:54] LABS: Rheumatoid Agglutinin Positive (<10 IU)
[2023-10-24 16:16] LABS: CCP Antibody IgG/IgA 3 Units (0-19)
[2023-10-24 17:24] LABS: Rheumatoid Agg. Semi-quant 512 IU
[2023-10-24 18:28] LABS: HLA-B27 Negative (Negative)
[2023-10-25 01:59] LABS: Parvo B19 Ab, IgM 0.12 IV (<=0.90); Parvo Virus B19 Ab, IgG 2.46 IV (<=0.90)
[2023-10-25 15:08] LABS: Lyme Antibody Screen, EIA Negative (Negative)
--- NOTE | 2023-10-29 13:46 | PN.CDI ---
CDI
- -
CDI:
Physician Documentation Request
Admit Date: 10/19/23 19:39
Dear Doctor Chino,
Patient admitted 10/18 with spontaneous bleeding tongue.
10/22 PN, '....chronic indwelling Padilla catheter.'
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
Please clarify the likely relationship between these conditions:
Yes, UTI is related to/associated with/due chronic indwelling Padilla catheter.
No, UTI is not related to/associated with/due to chronic indwelling Padilla catheter but it is due to ___. (Please specify)
Unable to determine
Use of terms such as suspected, likely, concern for, or probable (associated with a specific diagnosis that is being evaluated, monitored, or treated as if it exists) are acceptable and can be coded in the inpatient setting, when documented at the
time of discharge.
Thank you,
Denice DONOVAN,RN,CCDS
CDI Specialist
Available via [place] [employer]
Please use your independent medical judgment in providing your response.
== END 2023-10-23 15:11 | DRG 699 ==
LOC: 4 WEST ACU 19:39
PROVIDERS: ADMITTING PHYSICIAN Internal Medicine; ATTENDING PHYSICIAN Internal Medicine; EMERGENCY PHYSICIAN Emergency Medicine; FAMILY PHYSICIAN Family Medicine
PROC: 30233N1 Transfusion of Nonautologous Red Blood Cells into Peripheral Vein, Percutaneous Approach (ICD-10-PCS; 2023-10-21)
DX: T83.511A Infection and inflammatory reaction due to indwelling urethral catheter, initial encounter (principal); D68.32 Hemorrhagic disorder due to extrinsic circulating anticoagulants; I13.0 Hypertensive heart and chronic kidney disease with heart failure and stage 1 through stage 4 chronic kidney disease, or unspecified chronic kidney disease; I50.22 Chronic systolic (congestive) heart failure; I48.21 Permanent atrial fibrillation; N39.0 Urinary tract infection, site not specified; Y84.6 Urinary catheterization as the cause of abnormal reaction of the patient, or of later complication, without mention of misadventure at the time of the procedure; B96.5 Pseudomonas (aeruginosa) (mallei) (pseudomallei) as the cause of diseases classified elsewhere; N18.31 Chronic kidney disease, stage 3a; L89.152 Pressure ulcer of sacral region, stage 2; F17.200 Nicotine dependence, unspecified, uncomplicated; K14.8 Other diseases of tongue; T45.515A Adverse effect of anticoagulants, initial encounter; I25.10 Atherosclerotic heart disease of native coronary artery without angina pectoris; Z95.5 Presence of coronary angioplasty implant and graft; F17.290 Nicotine dependence, other tobacco product, uncomplicated; F10.20 Alcohol dependence, uncomplicated; D63.8 Anemia in other chronic diseases classified elsewhere; E66.9 Obesity, unspecified; E78.00 Pure hypercholesterolemia, unspecified; I25.2 Old myocardial infarction; I27.20 Pulmonary hypertension, unspecified; I87.2 Venous insufficiency (chronic) (peripheral); M13.0 Polyarthritis, unspecified; N40.0 Benign prostatic hyperplasia without lower urinary tract symptoms; Z79.01 Long term (current) use of anticoagulants; Z79.02 Long term (current) use of antithrombotics/antiplatelets; Z86.711 Personal history of pulmonary embolism; Z86.718 Personal history of other venous thrombosis and embolism; Z86.73 Personal history of transient ischemic attack (TIA), and cerebral infarction without residual deficits; Z68.27 Body mass index [BMI] 27.0-27.9, adult
CPT/HCPCS: 71045; 80048; 80053; 80202; 81003; 81015; 82728; 83540; 83550; 83605; 83735; 84550; 85025; 85027; 85045; 85652; 86140; 86200; 86430; 86431; 86618; 86747; 86812; 86850; 86900; 86901; 86920; 86922; 87040; 87070; 87086; 87088; 87147; 87186; 87205; 93005; 96365; 97163; 97166; 99285; P9016

== ENCOUNTER → 2023-10-29 11:41 | Outpatient (REF) | payer MEDICARE, BC, SELFPAY ==
[2023-10-29 12:31] LABS: % Basophils 0.4 % (0-2); % Eosinophils 3.8 % (0-6); % Immature Granulocytes 1.9 % (0-0.5); % Lymphocytes 11.1 % (20.5-51.1); % Monocytes 10.3 % (1.7-9.3); % Neutrophils 72.5 % (42.2-75.2); Absolute Eosinophils 0.3 10^3/uL (0-0.7); Absolute Immature Granulocytes 0.1 10^3/uL (0-0.05); Absolute Lymphocytes 0.8 10^3/uL (1.2-3.4); Absolute Monocytes 0.7 10^3/uL (0.1-0.6); Hematocrit 26.9 % (39.0-52.0); Hemoglobin 8.3 g/dL (13.0-18.0); Mean Corp Hgb Conc. 30.9 g/dL (33.0-37.0); Mean Corpuscular Hgb 26.1 pg (27.0-31.0); Mean Corpuscular Volume 84.6 fL (80.0-94.0); Mean Platelet Volume 10.3 fL (7.4-10.4); Nucleated Red Blood Cells % 0 % (-); Platelet Count 222 10^3/uL (130-400); Red Blood Cell Count 3.18 10^6/uL (4.70-6.10); Red Cell Dist. Width 16.7 % (11.5-14.5); White Blood Cell Count 6.9 10^3/uL (4.8-10.8)
[2023-10-29 13:23] LABS: ALT (SGPT) 18 U/L (0-50); AST (SGOT) 21 U/L (17-59); Albumin 2.4 g/dl (3.5-5.0); Alkaline Phosphatase 108 U/L (38-126); Blood Urea Nitrogen 30 mg/dl (9-20); Calcium 8.1 mg/dl (8.4-10.2); Carbon Dioxide 21 mmol/L (22-30); Chloride 105 mmol/L (98-107); Glucose 79 mg/dl (70-99); Potassium 3.5 mmol/L (3.5-5.1); Sodium 136 mmol/L (135-145); Total Bilirubin 0.3 mg/dl (0.2-1.3); Total Protein 5.2 g/dl (6.3-8.2); eGFR 46.48
== END ==
LOC: OLABP 11:41
PROVIDERS: ATTENDING PHYSICIAN Family Medicine
DX: D62 Acute posthemorrhagic anemia (principal); R31.9 Hematuria, unspecified; B96.20 Unspecified Escherichia coli [E. coli] as the cause of diseases classified elsewhere; K92.2 Gastrointestinal hemorrhage, unspecified; A41.9 Sepsis, unspecified organism
CPT/HCPCS: 36415; 80053; 85025

== ENCOUNTER → 2023-11-04 09:55 | Outpatient (REF) | payer OTHER, MEDICARE, BC, SELFPAY ==
[2023-11-04 11:21] LABS: % Basophils 0.3 % (0-2); % Eosinophils 3.6 % (0-6); % Immature Granulocytes 0.9 % (0-0.5); % Lymphocytes 11.3 % (20.5-51.1); % Monocytes 8.9 % (1.7-9.3); Absolute Eosinophils 0.3 10^3/uL (0-0.7); Absolute Immature Granulocytes 0.1 10^3/uL (0-0.05); Absolute Monocytes 0.8 10^3/uL (0.1-0.6); Absolute Neutrophils 6.9 10^3/uL (1.4-6.5); Hematocrit 24.7 % (39.0-52.0); Mean Corp Hgb Conc. 32.4 g/dL (33.0-37.0); Mean Corpuscular Hgb 26.4 pg (27.0-31.0); Mean Corpuscular Volume 81.5 fL (80.0-94.0); Mean Platelet Volume 10.1 fL (7.4-10.4); Nucleated Red Blood Cells % 0 % (-); Platelet Count 226 10^3/uL (130-400); Red Blood Cell Count 3.03 10^6/uL (4.70-6.10); Red Cell Dist. Width 17.6 % (11.5-14.5); White Blood Cell Count 9.1 10^3/uL (4.8-10.8)
[2023-11-04 11:43] LABS: Blood Urea Nitrogen 25 mg/dl (9-20); Calcium 7.5 mg/dl (8.4-10.2); Carbon Dioxide 23 mmol/L (22-30); Chloride 103 mmol/L (98-107); Glucose 69 mg/dl (70-99); Sodium 138 mmol/L (135-145); eGFR 55.19
== END ==
LOC: OLABP 09:55
PROVIDERS: ATTENDING PHYSICIAN Family Medicine
DX: A41.9 Sepsis, unspecified organism (principal); K92.2 Gastrointestinal hemorrhage, unspecified; R31.9 Hematuria, unspecified
CPT/HCPCS: 36415; 80048; 85025

== ENCOUNTER → 2023-11-08 18:23 | Outpatient (REF) | payer OTHER, MEDICARE, BC, SELFPAY ==
[2023-11-08 19:05] LABS: Blood Urea Nitrogen 22 mg/dl (9-20); Calcium 8.4 mg/dl (8.4-10.2); Carbon Dioxide 27 mmol/L (22-30); Chloride 103 mmol/L (98-107); Glucose 85 mg/dl (70-99); Potassium 3.6 mmol/L (3.5-5.1); Sodium 137 mmol/L (135-145); eGFR 55.19
== END ==
LOC: OLABP 18:23
PROVIDERS: ATTENDING PHYSICIAN Family Medicine
DX: D62 Acute posthemorrhagic anemia (principal); R31.9 Hematuria, unspecified; B96.20 Unspecified Escherichia coli [E. coli] as the cause of diseases classified elsewhere; K92.2 Gastrointestinal hemorrhage, unspecified; A41.9 Sepsis, unspecified organism
CPT/HCPCS: 80048

== ENCOUNTER → 2023-11-13 09:30 | Outpatient (REF) | payer OTHER, MEDICARE, BC, SELFPAY | LOC: RAD 09:30 | PROVIDERS: ATTENDING PHYSICIAN Physician Assistant; FAMILY PHYSICIAN Internal Medicine | DX: M25.50 Pain in unspecified joint (principal) | CPT/HCPCS: 73080; 73130 ==

== ENCOUNTER → 2023-11-25 10:23 | Outpatient (REF) | payer OTHER, MEDICARE, BC, SELFPAY ==
[2023-11-25 11:16] LABS: Hematocrit 25.6 % (39.0-52.0); Hemoglobin 7.8 g/dL (13.0-18.0); Mean Corp Hgb Conc. 30.5 g/dL (33.0-37.0); Mean Corpuscular Hgb 26.3 pg (27.0-31.0); Mean Corpuscular Volume 86.2 fL (80.0-94.0); Mean Platelet Volume 10.8 fL (7.4-10.4); Platelet Count 162 10^3/uL (130-400); Red Blood Cell Count 2.97 10^6/uL (4.70-6.10); Red Cell Dist. Width 19.1 % (11.5-14.5); White Blood Cell Count 5.7 10^3/uL (4.8-10.8)
[2023-11-25 11:38] LABS: Blood Urea Nitrogen 23 mg/dl (9-20); Calcium 8.4 mg/dl (8.4-10.2); Carbon Dioxide 26 mmol/L (22-30); Chloride 106 mmol/L (98-107); Glucose 73 mg/dl (70-99); Potassium 3.5 mmol/L (3.5-5.1); Sodium 139 mmol/L (135-145); eGFR 55.19
[2023-11-25 11:39] LABS: NT-proBNP 2720 pg/ml
== END ==
LOC: OLABP 10:23
PROVIDERS: ATTENDING PHYSICIAN Family Medicine
DX: A41.9 Sepsis, unspecified organism (principal); D62 Acute posthemorrhagic anemia; R31.9 Hematuria, unspecified; B96.20 Unspecified Escherichia coli [E. coli] as the cause of diseases classified elsewhere; R92.2 Inconclusive mammogram
CPT/HCPCS: 36415; 80048; 83880; 85027

== ENCOUNTER → 2023-11-27 13:30 | Outpatient (REF) | payer OTHER, MEDICARE, BC, SELFPAY ==
[2023-11-27 13:57] LABS: Hematocrit 28.2 % (39.0-52.0); Hemoglobin 8.9 g/dL (13.0-18.0); Mean Corp Hgb Conc. 31.6 g/dL (33.0-37.0); Mean Corpuscular Volume 85.5 fL (80.0-94.0); Mean Platelet Volume 11.1 fL (7.4-10.4); Platelet Count 207 10^3/uL (130-400); Red Cell Dist. Width 19.3 % (11.5-14.5); White Blood Cell Count 8.6 10^3/uL (4.8-10.8)
[2023-11-27 14:06] LABS: Blood Urea Nitrogen 32 mg/dl (9-20); Carbon Dioxide 23 mmol/L (22-30); Chloride 105 mmol/L (98-107); Glucose 79 mg/dl (70-99); Potassium 4.3 mmol/L (3.5-5.1); Sodium 140 mmol/L (135-145); eGFR 43.02
== END ==
LOC: OLABP 13:30
PROVIDERS: ATTENDING PHYSICIAN Family Medicine
DX: D62 Acute posthemorrhagic anemia (principal); R31.9 Hematuria, unspecified; B96.20 Unspecified Escherichia coli [E. coli] as the cause of diseases classified elsewhere; K92.2 Gastrointestinal hemorrhage, unspecified; A41.9 Sepsis, unspecified organism
CPT/HCPCS: 36415; 80048; 85027

== ENCOUNTER → 2023-11-29 14:51 | Outpatient (REF) | payer OTHER, MEDICARE, BC, SELFPAY ==
[2023-11-29 15:15] LABS: Blood Urea Nitrogen 25 mg/dl (9-20); Calcium 8.3 mg/dl (8.4-10.2); Carbon Dioxide 22 mmol/L (22-30); Chloride 106 mmol/L (98-107); Glucose 109 mg/dl (70-99); Potassium 3.7 mmol/L (3.5-5.1); Sodium 139 mmol/L (135-145); eGFR 46.48
[2023-11-29 15:17] LABS: % Basophils 0.3 % (0-2); % Eosinophils 2.2 % (0-6); % Immature Granulocytes 0.8 % (0-0.5); % Lymphocytes 8.9 % (20.5-51.1); % Monocytes 7.5 % (1.7-9.3); % Neutrophils 80.3 % (42.2-75.2); Absolute Eosinophils 0.1 10^3/uL (0-0.7); Absolute Immature Granulocytes 0.1 10^3/uL (0-0.05); Absolute Lymphocytes 0.6 10^3/uL (1.2-3.4); Absolute Monocytes 0.5 10^3/uL (0.1-0.6); Absolute Neutrophils 5.2 10^3/uL (1.4-6.5); Hematocrit 26.2 % (39.0-52.0); Hemoglobin 8.1 g/dL (13.0-18.0); Mean Corp Hgb Conc. 30.9 g/dL (33.0-37.0); Mean Corpuscular Hgb 26.6 pg (27.0-31.0); Mean Corpuscular Volume 85.9 fL (80.0-94.0); Mean Platelet Volume 10.9 fL (7.4-10.4); Nucleated Red Blood Cells % 0 % (-); Platelet Count 180 10^3/uL (130-400); Red Blood Cell Count 3.05 10^6/uL (4.70-6.10); White Blood Cell Count 6.4 10^3/uL (4.8-10.8)
== END ==
LOC: OLABP 14:51
PROVIDERS: ATTENDING PHYSICIAN Family Medicine
DX: I50.20 Unspecified systolic (congestive) heart failure (principal); E87.1 Hypo-osmolality and hyponatremia; N18.31 Chronic kidney disease, stage 3a; A41.9 Sepsis, unspecified organism; D64.9 Anemia, unspecified
CPT/HCPCS: 36415; 80048; 85025

== ENCOUNTER → 2023-12-03 10:27 | Outpatient (REF) | payer OTHER, MEDICARE, BC, SELFPAY ==
[2023-12-03 14:23] LABS: Blood Urea Nitrogen 33 mg/dl (9-20); Carbon Dioxide 31 mmol/L (22-30); Chloride 97 mmol/L (98-107); Glucose 79 mg/dl (70-99); Potassium 3.6 mmol/L (3.5-5.1); Sodium 137 mmol/L (135-145)
[2023-12-03 14:29] LABS: NT-proBNP 3000 pg/ml
== END ==
LOC: OLABP 10:27
PROVIDERS: ATTENDING PHYSICIAN Family Medicine
DX: A41.9 Sepsis, unspecified organism (principal); D62 Acute posthemorrhagic anemia; M62.59 Muscle wasting and atrophy, not elsewhere classified, multiple sites; R26.2 Difficulty in walking, not elsewhere classified; Z74.1 Need for assistance with personal care; N39.0 Urinary tract infection, site not specified; D64.9 Anemia, unspecified
CPT/HCPCS: 36415; 80048; 83880

== ENCOUNTER → 2023-12-06 08:51 | Outpatient (REF) | payer MEDICARE, BC, SELFPAY ==
[2023-12-06 12:06] LABS: Blood Urea Nitrogen 41 mg/dl (9-20); Calcium 8.8 mg/dl (8.4-10.2); Carbon Dioxide 36 mmol/L (22-30); Chloride 94 mmol/L (98-107); Glucose 85 mg/dl (70-99); Sodium 138 mmol/L (135-145)
== END ==
LOC: HWLAB 08:51
PROVIDERS: ATTENDING PHYSICIAN Family Medicine; FAMILY PHYSICIAN Internal Medicine
DX: A41.9 Sepsis, unspecified organism (principal)
CPT/HCPCS: 36415; 80048

== ENCOUNTER → 2024-01-06 10:05 | Outpatient (REF) | payer MEDICARE, BC, SELFPAY ==
[2024-01-06 12:43] LABS: % Basophils 0.3 % (0-2); % Eosinophils 0.5 % (0-6); % Immature Granulocytes 0.8 % (0-0.5); % Monocytes 7.2 % (1.7-9.3); % Neutrophils 80.2 % (42.2-75.2); Absolute Eosinophils 0.1 10^3/uL (0-0.7); Absolute Immature Granulocytes 0.1 10^3/uL (0-0.05); Absolute Lymphocytes 1.2 10^3/uL (1.2-3.4); Absolute Monocytes 0.8 10^3/uL (0.1-0.6); Absolute Neutrophils 8.4 10^3/uL (1.4-6.5); Hematocrit 35.9 % (39.0-52.0); Hemoglobin 11.6 g/dL (13.0-18.0); Mean Corp Hgb Conc. 32.3 g/dL (33.0-37.0); Mean Corpuscular Hgb 28.2 pg (27.0-31.0); Mean Corpuscular Volume 87.3 fL (80.0-94.0); Mean Platelet Volume 10.6 fL (7.4-10.4); Nucleated Red Blood Cells % 0 % (-); Platelet Count 190 10^3/uL (130-400); Red Blood Cell Count 4.11 10^6/uL (4.70-6.10); Red Cell Dist. Width 19.9 % (11.5-14.5); White Blood Cell Count 10.4 10^3/uL (4.8-10.8)
[2024-01-06 12:55] LABS: ALT (SGPT) 11 U/L (0-50); AST (SGOT) 23 U/L (17-59); Albumin 3.7 g/dl (3.5-5.0); Alkaline Phosphatase 66 U/L (38-126); Blood Urea Nitrogen 90 mg/dl (9-20); Carbon Dioxide 31 mmol/L (22-30); Chloride 88 mmol/L (98-107); Glucose 99 mg/dl (70-99); HDL Cholesterol 49 mg/dl; LDL Cholesterol, Calculated 20 mg/dl; Potassium 2.6 mmol/L (3.5-5.1); Sodium 132 mmol/L (135-145); Total Bilirubin 0.8 mg/dl (0.2-1.3); Total Cholesterol 105 mg/dl (50-199); Total Protein 6.6 g/dl (6.3-8.2); Triglyceride 181 mg/dl (10-149); Very Low Density Lipoprotein 36 mg/dl (0-30); eGFR 31.04
== END ==
LOC: HWLAB 10:05
PROVIDERS: ATTENDING PHYSICIAN Internal Medicine
DX: I10 Essential (primary) hypertension (principal); I82.501 Chronic embolism and thrombosis of unspecified deep veins of right lower extremity; I48.21 Permanent atrial fibrillation; Z12.5 Encounter for screening for malignant neoplasm of prostate
CPT/HCPCS: 36415; 80053; 80061; 85025; G0103

== ENCOUNTER → 2024-01-10 09:24 | Outpatient (REF) | payer MEDICARE, BC, SELFPAY ==
[2024-01-10 11:39] LABS: ALT (SGPT) 12 U/L (0-50); AST (SGOT) 22 U/L (17-59); Albumin 3.6 g/dl (3.5-5.0); Alkaline Phosphatase 63 U/L (38-126); Blood Urea Nitrogen 88 mg/dl (9-20); Carbon Dioxide 31 mmol/L (22-30); Chloride 89 mmol/L (98-107); Glucose 91 mg/dl (70-99); Potassium 3.1 mmol/L (3.5-5.1); Sodium 131 mmol/L (135-145); Total Bilirubin 0.8 mg/dl (0.2-1.3); Total Protein 6.4 g/dl (6.3-8.2); eGFR 27.83
== END ==
LOC: HWLAB 09:24
PROVIDERS: ATTENDING PHYSICIAN Internal Medicine
DX: E87.6 Hypokalemia (principal)
CPT/HCPCS: 36415; 80053

== ENCOUNTER → 2024-01-17 09:45 | Outpatient (REF) | payer MEDICARE, BC, SELFPAY ==
[2024-01-17 13:16] LABS: ALT (SGPT) 12 U/L (0-50); AST (SGOT) 22 U/L (17-59); Albumin 3.9 g/dl (3.5-5.0); Alkaline Phosphatase 68 U/L (38-126); Blood Urea Nitrogen 96 mg/dl (9-20); Calcium 9.5 mg/dl (8.4-10.2); Carbon Dioxide 28 mmol/L (22-30); Chloride 90 mmol/L (98-107); Glucose 103 mg/dl (70-99); Potassium 3.3 mmol/L (3.5-5.1); Sodium 131 mmol/L (135-145); Total Bilirubin 0.5 mg/dl (0.2-1.3); Total Protein 6.8 g/dl (6.3-8.2); eGFR 26.44
== END ==
LOC: HWLAB 09:45
PROVIDERS: ATTENDING PHYSICIAN Internal Medicine
DX: E87.5 Hyperkalemia (principal)
CPT/HCPCS: 36415; 80053

== ENCOUNTER → 2024-01-24 09:14 | Outpatient (REF) | payer MEDICARE, BC, SELFPAY ==
[2024-01-24 12:10] LABS: ALT (SGPT) 11 U/L (0-50); AST (SGOT) 20 U/L (17-59); Albumin 3.7 g/dl (3.5-5.0); Alkaline Phosphatase 64 U/L (38-126); Blood Urea Nitrogen 80 mg/dl (9-20); Calcium 9.2 mg/dl (8.4-10.2); Carbon Dioxide 32 mmol/L (22-30); Chloride 88 mmol/L (98-107); Glucose 92 mg/dl (70-99); Potassium 3.4 mmol/L (3.5-5.1); Sodium 133 mmol/L (135-145); Total Bilirubin 0.5 mg/dl (0.2-1.3); Total Protein 6.3 g/dl (6.3-8.2); eGFR 26.44
== END ==
LOC: HWLAB 09:14
PROVIDERS: ATTENDING PHYSICIAN Internal Medicine
DX: I10 Essential (primary) hypertension (principal)
CPT/HCPCS: 36415; 80053

== ENCOUNTER → 2024-02-04 09:27 | Outpatient (REF) | payer MEDICARE, BC, SELFPAY ==
[2024-02-04 12:33] LABS: Blood Urea Nitrogen 77 mg/dl (9-20); Calcium 9.2 mg/dl (8.4-10.2); Carbon Dioxide 30 mmol/L (22-30); Chloride 94 mmol/L (98-107); Glucose 153 mg/dl (70-99); Potassium 3.6 mmol/L (3.5-5.1); Sodium 138 mmol/L (135-145); eGFR 27.83
== END ==
LOC: HWLAB 09:27
PROVIDERS: ATTENDING PHYSICIAN Physician Assistant Medical; FAMILY PHYSICIAN Internal Medicine
DX: I50.32 Chronic diastolic (congestive) heart failure (principal)
CPT/HCPCS: 36415; 80048

== ENCOUNTER → 2024-02-10 10:00 | Outpatient (REF) | payer MEDICARE, BC, SELFPAY ==
[2024-02-10 14:06] LABS: Blood Urea Nitrogen 46 mg/dl (9-20); Calcium 9.3 mg/dl (8.4-10.2); Carbon Dioxide 26 mmol/L (22-30); Chloride 102 mmol/L (98-107); Glucose 76 mg/dl (70-99); Potassium 4.3 mmol/L (3.5-5.1); Sodium 141 mmol/L (135-145); eGFR 32.91
[2024-02-10 15:17] LABS: Urine Albumin 3+ (Neg - Trace); Urine Bilirubin Negative (Negative); Urine Character Bloody (Clear); Urine Color Red; Urine Glucose Negative (Negative); Urine Ketone Negative (Negative); Urine Leukocyte 1+ (Negative); Urine Nitrite Negative (Negative); Urine Occult Blood 4+ (Negative); Urine Specific Gravity 1.015 (<1.030); Urine Urobilinogen Negative (Neg - 1+); Urine pH 6.5 (5.0-9.0)
[2024-02-10 15:28] LABS: Urine Red Blood Cell >100 /HPF (0-2)
== END ==
LOC: CLAB 10:00
PROVIDERS: ATTENDING PHYSICIAN Physician Assistant Medical; FAMILY PHYSICIAN Internal Medicine; OTHER PHYSICIAN Specialist
DX: I13.0 Hypertensive heart and chronic kidney disease with heart failure and stage 1 through stage 4 chronic kidney disease, or unspecified chronic kidney disease (principal); N18.32 Chronic kidney disease, stage 3b; R31.9 Hematuria, unspecified
CPT/HCPCS: 36415; 80048; 81003; 81015; 87077; 87086; 87186

== ENCOUNTER → 2024-02-17 09:50 | Outpatient (REF) | payer MEDICARE, BC, SELFPAY ==
[2024-02-17 13:34] LABS: % Basophils 0.4 % (0-2); % Eosinophils 0.9 % (0-6); % Lymphocytes 10.7 % (20.5-51.1); % Monocytes 9.2 % (1.7-9.3); % Neutrophils 77.8 % (42.2-75.2); Absolute Eosinophils 0.1 10^3/uL (0-0.7); Absolute Immature Granulocytes 0.1 10^3/uL (0-0.05); Absolute Lymphocytes 1.1 10^3/uL (1.2-3.4); Absolute Neutrophils 8.2 10^3/uL (1.4-6.5); Hemoglobin 10.9 g/dL (13.0-18.0); Mean Corp Hgb Conc. 31.1 g/dL (33.0-37.0); Mean Corpuscular Hgb 27.7 pg (27.0-31.0); Mean Corpuscular Volume 88.8 fL (80.0-94.0); Mean Platelet Volume 10.6 fL (7.4-10.4); Nucleated Red Blood Cells % 0 % (-); Platelet Count 224 10^3/uL (130-400); Red Blood Cell Count 3.94 10^6/uL (4.70-6.10); Red Cell Dist. Width 17.9 % (11.5-14.5); White Blood Cell Count 10.5 10^3/uL (4.8-10.8)
[2024-02-17 14:59] LABS: Blood Urea Nitrogen 31 mg/dl (9-20); Calcium 9.5 mg/dl (8.4-10.2); Carbon Dioxide 22 mmol/L (22-30); Chloride 105 mmol/L (98-107); Glucose 82 mg/dl (70-99); Potassium 4.5 mmol/L (3.5-5.1); Sodium 143 mmol/L (135-145)
== END ==
LOC: CLAB 09:50
PROVIDERS: ATTENDING PHYSICIAN Physician Assistant Medical; FAMILY PHYSICIAN Internal Medicine
DX: I13.0 Hypertensive heart and chronic kidney disease with heart failure and stage 1 through stage 4 chronic kidney disease, or unspecified chronic kidney disease (principal); I50.20 Unspecified systolic (congestive) heart failure; D63.1 Anemia in chronic kidney disease; N18.32 Chronic kidney disease, stage 3b
CPT/HCPCS: 80048; 85025

== ENCOUNTER → 2024-03-16 09:25 | Outpatient (REF) | payer MEDICARE, BC, SELFPAY ==
[2024-03-16 18:31] LABS: Blood Urea Nitrogen 66 mg/dl (9-20); Calcium 9.1 mg/dl (8.4-10.2); Carbon Dioxide 32 mmol/L (22-30); Chloride 94 mmol/L (98-107); Glucose 82 mg/dl (70-99); Magnesium 1.7 mg/dl (1.6-2.3); Potassium 3.4 mmol/L (3.5-5.1); Sodium 139 mmol/L (135-145); eGFR 37.35
[2024-03-16 18:51] LABS: NT-proBNP 1440 pg/ml
== END ==
LOC: CLAB 09:25
PROVIDERS: ATTENDING PHYSICIAN Internal Medicine
DX: N18.32 Chronic kidney disease, stage 3b (principal); I50.20 Unspecified systolic (congestive) heart failure
CPT/HCPCS: 36415; 80048; 83735; 83880

== ENCOUNTER → 2024-06-17 10:45 | Outpatient (REF) | payer MEDICARE, BC, SELFPAY ==
[2024-06-17 16:53] LABS: Urine Albumin 1+ (Neg - Trace); Urine Bilirubin Negative (Negative); Urine Character Slightly Cloudy (Clear); Urine Color Yellow; Urine Glucose Negative (Negative); Urine Ketone Negative (Negative); Urine Leukocyte 2+ (Negative); Urine Nitrite Negative (Negative); Urine Occult Blood 4+ (Negative); Urine Urobilinogen Negative (Neg - 1+)
[2024-06-17 17:14] LABS: Urine Red Blood Cell 50-60 /HPF (0-2)
[2024-06-17 17:15] LABS: Urine Bacteria Moderate (Negative); Urine Epithelial Cast 0-2 /LPF; Urine White Cell 90-100 /HPF (0-5)
== END ==
LOC: CLAB 10:45
PROVIDERS: ATTENDING PHYSICIAN Internal Medicine; OTHER PHYSICIAN Specialist
DX: Z87.440 Personal history of urinary (tract) infections (principal); Z46.6 Encounter for fitting and adjustment of urinary device; N39.0 Urinary tract infection, site not specified
CPT/HCPCS: 81003; 81015; 87077; 87086

== ENCOUNTER → 2024-07-07 09:17 | Outpatient (REF) | payer MEDICARE, BC, SELFPAY ==
[2024-07-07 11:16] LABS: % Basophils 0.2 % (0-2); % Eosinophils 1.3 % (0-6); % Immature Granulocytes 0.5 % (0-0.5); % Lymphocytes 13.5 % (20.5-51.1); % Monocytes 6.5 % (1.7-9.3); Absolute Eosinophils 0.1 10^3/uL (0-0.7); Absolute Immature Granulocytes 0.1 10^3/uL (0-0.05); Absolute Lymphocytes 1.4 10^3/uL (1.2-3.4); Absolute Monocytes 0.7 10^3/uL (0.1-0.6); Absolute Neutrophils 8.1 10^3/uL (1.4-6.5); Hematocrit 36.5 % (39.0-52.0); Hemoglobin 10.9 g/dL (13.0-18.0); Mean Corp Hgb Conc. 29.9 g/dL (33.0-37.0); Mean Corpuscular Hgb 25.6 pg (27.0-31.0); Mean Corpuscular Volume 85.9 fL (80.0-94.0); Nucleated Red Blood Cells % 0 % (-); Platelet Count 189 10^3/uL (130-400); Red Blood Cell Count 4.25 10^6/uL (4.70-6.10); Red Cell Dist. Width 17.9 % (11.5-14.5); White Blood Cell Count 10.4 10^3/uL (4.8-10.8)
[2024-07-07 11:39] LABS: ALT (SGPT) 12 U/L (0-50); AST (SGOT) 21 U/L (17-59); Albumin 4.2 g/dl (3.5-5.0); Alkaline Phosphatase 64 U/L (38-126); Blood Urea Nitrogen 52 mg/dl (9-20); Calcium 8.9 mg/dl (8.4-10.2); Carbon Dioxide 31 mmol/L (22-30); Chloride 96 mmol/L (98-107); Glucose 81 mg/dl (70-99); Potassium 3.8 mmol/L (3.5-5.1); Sodium 138 mmol/L (135-145); Total Bilirubin 0.5 mg/dl (0.2-1.3); Uric Acid 10.9 mg/dl (3.5-8.5)
[2024-07-07 11:49] LABS: Erythrocyte Sed Rate 32 mm/hour (0-20)
[2024-07-07 12:32] LABS: Rheumatoid Agglutinin Less Than 10 IU (<10 IU)
[2024-07-08 18:26] LABS: Glu-6-Phosphate Dehydrogenase 20.1 U/g Hb (9.9-16.6)
[2024-07-09 00:56] LABS: CCP Antibody IgG/IgA 2 Units (0-19)
== END ==
LOC: HWLAB 09:17
PROVIDERS: ATTENDING PHYSICIAN Internal Medicine Rheumatology; FAMILY PHYSICIAN Internal Medicine
DX: M10.9 Gout, unspecified (principal); M25.40 Effusion, unspecified joint
CPT/HCPCS: 36415; 73130; 80053; 82955; 84550; 85025; 85652; 86140; 86200; 86430

== ENCOUNTER 2024-08-22 19:20 | Inpatient (IN) | payer MEDICARE, BC, SELFPAY ==
[2024-08-22] VITALS (9 sets, daily range): BP systolic 118–152; BP diastolic 64–84; BMI 35.5; BMI 34.5
[2024-08-22 15:32] LABS: % Basophils 0.2 % (0-2); % Eosinophils 0.5 % (0-6); % Immature Granulocytes 0.4 % (0-0.5); % Lymphocytes 4.1 % (20.5-51.1); % Monocytes 5.3 % (1.7-9.3); % Neutrophils 89.5 % (42.2-75.2); Absolute Eosinophils 0.1 10^3/uL (0-0.7); Absolute Immature Granulocytes 0.1 10^3/uL (0-0.05); Absolute Lymphocytes 0.6 10^3/uL (1.2-3.4); Absolute Monocytes 0.7 10^3/uL (0.1-0.6); Absolute Neutrophils 11.9 10^3/uL (1.4-6.5); Hematocrit 37.1 % (39.0-52.0); Hemoglobin 10.9 g/dL (13.0-18.0); Mean Corp Hgb Conc. 29.4 g/dL (33.0-37.0); Mean Corpuscular Hgb 25.8 pg (27.0-31.0); Mean Corpuscular Volume 87.9 fL (80.0-94.0); Mean Platelet Volume 11.7 fL (7.4-10.4); Nucleated Red Blood Cells % 0 % (-); Platelet Count 149 10^3/uL (130-400); Red Blood Cell Count 4.22 10^6/uL (4.70-6.10); Red Cell Dist. Width 19.5 % (11.5-14.5); White Blood Cell Count 13.3 10^3/uL (4.8-10.8)
--- NOTE | 2024-08-22 15:38 | ED.GENMED ---
History of Present Illness
General
Chief Complaint: Breathing Problem
Source: patient
Exam Limitations: none
Time Seen by Provider: 08/22/24 15:17
History of Present Illness
History of Present Illness:
83yoM with a history of CHF, coronary artery disease, atrial fibrillation on Xarelto, hypertension, hyperlipidemia, and CKD presenting via EMS for evaluation of shortness of breath. Patient started with URI symptoms about a week ago. He initially
got better but symptoms worsened about 2 days ago. He reports a cough productive of clear phlegm. He also is having wheezing and shortness of breath. No reported fevers. No chest pain. No known sick contacts. His family member was reportedly
concerned about his breathing today prompting EMS call. Patient was hypoxic to 82% on room air on EMS arrival. He was given a DuoNeb prehospital and arrives on 2 L nasal cannula. He does not use oxygen at baseline.
Past History
Past History
ED Past Medical History: Arrthythmia, CHF, HTN, Hypercholesterolemia, [place], Renal failure (insufficiency) and Other (DVT X3, Cellulitis)
ED Past Surgical History: Tonsilectomy
Social History
Tobacco: Smoker (Pipe)
Alcohol: Daily (Scotch or Vodka 5-6 glasses)
Drug: None
Personal:
Living: with family
Employment: Employed
Family History
Family History: Other (reviewed and non-contributory)
Phy Exam
General Physical Exam
General Presentation: no apparent distress
General Skin: warm and dry
General Habitus: elderly
General Mental: alert
ENT Exam
ENT Exam: normocephalic
Cardiovascular Exam
Cardiovascular Exam: irregularly irregular and tachycardia
Pulmonary Exam
Pulmonary Exam: generalized wheezing and other (Mild tachypnea noted with diffuse wheezes. No conversational dyspnea. )
Neurological Exam
Neurological Exam: alert
[place] Coma Scale
Eye Opening: Spontaneous
Verbal Response: Oriented
Motor Response: Obeys Commands
GCS Total Score: 15
Skin Exam
Skin Exam: normal color and warm/dry
Psychiatric Exam
Psychiatric Exam: normal mood/affect
Scores
Heart Failure Risk
Heart Failure Risk Score: Not Applicable
Course
Orders/Labs/Results
Orders:
Orders
08/22/24 Dinner
Cholesterol Lowering
At Your Request: Full Participation
Cholesterol Lowering: Sodium, 2 Gram
08/22/24 15:14
Electrocardiogram (*1) Urgent
Reason for Study: Shortness of Breath
Other Reason for Exam: Afib
EKG- Treatment ONCE
08/22/24 15:17
BNP [NT-proBNP] Urgent
Basic Metabolic Panel Urgent
Complete Blood Count/With Diff Urgent
Troponin I Urgent
Comment: ADD ON
08/22/24 15:39
Ipratropium/Albuterol Sulfate [Duoneb] 3 ml INH R NOW STA
08/22/24 15:40
Add On- LAB Urgent
Tests Added?: troponin
CR Chest - 2 Views Urgent
Comment:
Reason For Exam: SOB, cough
08/22/24 15:51
COVID-19 Antigen Urgent
Source: Nasal Swab
Influenza A+B Rapid Molecular Urgent
MATT Source: Nasal Swab
Specimen Description:
08/22/24 16:20
LFT [[id number]] Urgent
Potassium Urgent
08/22/24 17:33
CefTRIAXone [Rocephin] 2,000 mg IV NOW STA
Dexamethasone Sod Phosphate [Decadron] 10 mg IV NOW STA
08/22/24 17:42
Sterile Water [Sterile Water For Injection] 20 ml .ROUTE .STK-MED
08/22/24 18:49
Admit/Transfer Patient As Directed
Co-Sign Provider:
Level of Care: Inpatient admission
Assign to:: Telemetry
Physician / Group: khalida
Diagnosis: pneumonia
Reason for Telemetry: Arrhythmia
Date to Stop Telemetry: 08/25/24
Time to Stop Telemetry: 11:00
Reason for Hospitalization: pneumonia
Expected length of stay greater than two midnights?: Yes
ELOS- Estimated Length of Stay in days: 2
I certify the patient meets the requirements for IP care: Yes
Code Status As Directed
Resuscitation Status: Full Code
PRN Pain Medication Management As Directed
May give lesser potent ordered pain med per pt: Yes
preference::
Protocol:: Medication orders for pain may be administered in a
manner that supports deferring to patient preference
when the pt is:
- Requesting an ordered lesser potent pain medication.
Least to most potent pain medications are defined
as: acetaminophen < NSAID < tramadol < opioids
(morphine, oxycodone, hydromorphone).
- Requesting a lesser dose of the same medication IF
ORDERED.
- Requesting a less intrusive route of administration
if both routes are prescribed by the provider (PO <
IV).
08/22/24 18:51
Sodium Zirconium Cyclosilicate [Lokelma] 10 gram PO NOW STA
08/22/24 19:18
Respiratory Culture/Gram Stain Urgent
MATT Source: Sputum
Specimen Description:
Date Specimen was Collected: 08/22/24
Time Specimen was Collected: 19:15
08/22/24 20:43
Acetaminophen [Tylenol] 650 mg PO Q4HPRN PRN
Doxycycline [Vibramycin] 100 mg PO Q12
08/22/24 20:43
VTE Contraindication Routine
VTE Mechanical Device Contraindication: Medical Contraindication
Pharmocologic Contraindication: Medical Contraindication
Activity As Directed
Activity Level: As Tolerated
Vital Signs As Directed
Frequency: Per unit guidelines
08/23/24 06:00
Complete Blood Count/With Diff IN AM
Comprehensive Metabolic Panel IN AM
08/23/24 18:00
CefTRIAXone [Rocephin] 1,000 mg IV Q24H
08/25/24 11:00
DC Protocol for Telemetry ONCE
Abnormal Lab Results
08/22/24 08/22/24
15:17 16:20
WBC 13.3 H 10^3/uL
(4.8-10.8)
RBC 4.22 L 10^6/uL
(4.70-6.10)
Hgb 10.9 L g/dL
(13.0-18.0)
Hct 37.1 L %
(39.0-52.0)
MCH 25.8 L pg
(27.0-31.0)
MCHC 29.4 L g/dL
(33.0-37.0)
RDW 19.5 H %
(11.5-14.5)
MPV 11.7 H fL
(7.4-10.4)
Abs Immat Gran (auto) 0.1 H 10^3/uL
(0-0.05)
Absolute Neuts (auto) 11.9 H 10^3/uL
(1.4-6.5)
Absolute Lymphs (auto) 0.6 L 10^3/uL
(1.2-3.4)
Absolute Monos (auto) 0.7 H 10^3/uL
(0.1-0.6)
Neutrophils % 89.5 H %
(42.2-75.2)
Lymphocytes % 4.1 L %
(20.5-51.1)
Potassium 5.6 H mmol/L
(3.5-5.1)
Chloride 97 L mmol/L
(98-107)
BUN 64 H mg/dl
(9-20)
Creatinine 2.0 H mg/dL
(0.7-1.3)
Glucose 149 H mg/dl
(70-99)
Troponin I 0.060 H* ng/ml
Total Protein 6.2 L g/dl
(6.3-8.2)
Albumin 3.4 L g/dl
(3.5-5.0)
08/22/24 15:17
08/22/24 16:20
Vital Signs
Initial and Last Documented VS:
Initial Vital Signs
Temp Pulse Resp BP Pulse Ox
98.4 F 112 25 125/64 93
08/22/24 14:56 08/22/24 14:56 08/22/24 14:56 08/22/24 14:56 08/22/24 14:56
Last Documented Vital Signs
Temp Pulse Resp BP Pulse Ox
97.3 F 95 20 142/68 96
08/22/24 21:03 08/22/24 21:03 08/22/24 21:03 08/22/24 21:03 08/22/24 21:03
MDM/Problems Addressed
Differential Diagnosis Includes:
83yoM here with cough, wheezing, and SOB. Was hypoxic to 82% for EMS and arrives on 2L NC. No chest pain or fevers. Hx of multiple medical comorbidities including CHF, CAD, afib. HR 112 in triage. Patient is mildly tachypneic with diffuse wheezes.
Differential diagnosis includes but is not limited to: Bronchitis, viral syndrome, pneumonia
Initial ED plan: Check cardiac labs, COVID/flu swab, EKG, and chest x-ray. DuoNeb and reassess.
*EKG
Interpreted by ED Provider?: Yes
EKG Intrepretation Date: 08/22/24
Heart Rate: 104
Rate: tachycardiac
Rhythm: a-fib
[place]: left axis deviation
Interval: normal interval
Ischemia: no ischemia
*Critical Care Note
Total Time (30-74mins, 75-104mins- exclusive of procedures): Not Applicable
Update Note
Update Note:
Labs reveal a leukocytosis with a white count of 13.3. Viral testing negative. Troponin elevated at 0.06. No ischemic changes on EKG and he denies any chest pain. Chest x-ray shows a patchy opacity in the left lung base possibly representing
mild pneumonia. IV Rocephin and Decadron ordered. He was admitted for further management. Patient on 2 L nasal cannula at time of admission.
ED Attending Note
-
Portions of this chart may have been created with voice recognition software.� Occasional wrong word or��sound alike� substitutions may have occurred due to the inherent limitations of voice recognition software.
Discharge Plan
Departure
Patient Disposition: Admit
Date of Disposition: 08/22/24
Time of Disposition: 18:28
Presentation/result/management discussed w/ accepting MD/DO: Hospitalist
Discharge Problem:
Acute hypoxic respiratory failure, Pneumonia, Elevated troponin
Interventions
Interventions:
*Risk Screen - Suicide Last Done: 08/22/24 21:14
*General Assessment Last Done: 08/22/24 14:56
*Neglect/Abuse Screening Last Done: 08/22/24 14:56
*ED- Fall Risk Assessment Last Done: 08/22/24 15:06
*ED COVID-19 Vaccine History Last Done: 08/22/24 21:14
*Nursing Disposition Last Done: 08/22/24 21:00
ED- Cardiac Assessment Last Done: 08/22/24 15:06
ED- Pulmonary Assessment Last Done: 08/22/24 15:06
Discharge Date and Time
Discharge Date/Time: 08/22/24 21:03
[2024-08-22 15:50] LABS: Blood Urea Nitrogen 64 mg/dl (9-20); Calcium 8.8 mg/dl (8.4-10.2); Carbon Dioxide 30 mmol/L (22-30); Chloride 97 mmol/L (98-107); Estimated Creatinine Clearance 34 ml/min; Glucose 149 mg/dl (70-99); NT-proBNP 5130 pg/ml; Sodium 137 mmol/L (135-145); eGFR 32.91
[2024-08-22] MEDS: DUONEB 3 ML INH (15:52)
[2024-08-22 16:21] LABS: COVID-19 Antigen Negative (Negative)
[2024-08-22 16:48] LABS: ALT (SGPT) 14 U/L (0-50); AST (SGOT) 21 U/L (17-59); Albumin 3.4 g/dl (3.5-5.0); Alkaline Phosphatase 68 U/L (38-126); Direct Bilirubin 0.2 mg/dl (0.0-0.4); Potassium 5.6 mmol/L (3.5-5.1); Total Bilirubin 0.5 mg/dl (0.2-1.3); Total Protein 6.2 g/dl (6.3-8.2)
[2024-08-22] MEDS: DECADRON 10 MG IV (17:44)
[2024-08-22] MEDS: ROCEPHIN 2000 MG IV (17:45)
--- NOTE | 2024-08-22 18:53 | HPS.HSE ---
Family Physician
-
Family Physician: Maxime Manjarrez
Chief Complaint
-
cough
History of Present Illness
83-year-old male past medical history of CAD status post since, chronic HFrEF, permanent atrial fibrillation on Xarelto, BPH, history of DVT/PE, pulmonary hypertension, hyperlipidemia, alcohol use disorder, chronic indwelling Padilla catheter, CKD 3,
BPH, obesity, tobacco use disorder, venous insufficiency, hyperlipidemia, CVA, presenting for shortness of breath. Patient started having upper respiratory symptoms a week ago. He had productive cough, weakness and postnasal drip. He got better
but symptoms got worse 2 days ago. He has productive cough of clear phlegm. He is having shortness of breath.. No fevers. No chest pain. No sick contacts. No vomiting or diarrhea or abdominal pain. No swelling in the legs.
He smokes pipe. No history of lung problems such as asthma or COPD.
He does not drink alcohol much anymore.
Medical History
Past Medical History
Past Medical History: Reports Other (CAD status post since, chronic HFrEF, permanent atrial fibrillation on Xarelto, BPH, history of DVT/PE, pulmonary hypertension, hyperlipidemia, alcohol use disorder, chronic indwelling Padilla catheter, CKD 3, BPH,
obesity, tobacco use disorder, venous insufficiency, hyperlipidemia, CVA)
Past Surgical History: Reports Other (Tonsilectomy)
Social History
Tobacco: Smoker
Alcohol: None
Drug: None
Family History
Family History: Not pertinent
Allergies / Home Medications
Allergies reflects when Allergies were last updated in [employer].
Home Medications with original date entered in [employer]
Allergy/Medication List:
Allergies
Allergy/AdvReac Type Severity Reaction Status Date / Time
ammonium [Ammonium] Allergy AMMONIUM Verified 08/22/24 14:56
LACTATE
(LAC-HYDRIN)
clopidogrel [From Plavix] Allergy Rash Verified 08/22/24 14:56
hydrochlorothiazide Allergy 'killed my Verified 08/22/24 14:56
[From Dyazide] sex drive'
triamterene [From Dyazide] Allergy 'killed my Verified 08/22/[address] 14:[address]'
warfarin [Warfarin] Allergy RASH,INCREASED Verified 08/22/24 14:56
BACK PAIN
creams w/ ammonia hydrate Allergy bright red Uncoded 08/22/24 14:56
skin
reaction
Home Medications
vitamin B complex (Complex B-100 tablet,extended release) 1 tab PO DAILY Supplement 10/11/14
finasteride 5 mg tablet 5 mg PO DAILY prostate issue 12/22/18
tamsulosin 0.4 mg capsule (Flomax) 0.4 mg PO DAILY Urinary Issue 12/22/18
atorvastatin 40 mg tablet (Lipitor) 40 mg PO HS High Cholesterol 05/21/23
rivaroxaban 15 mg tablet (Xarelto) 15 mg PO QPM 30 days #30 tabs 06/03/23
ticagrelor 90 mg tablet (Brilinta) 90 mg PO BID 30 days #60 tabs 06/03/23
folic acid 1 mg tablet 1 mg PO DAILY Supplement 09/29/23
furosemide 40 mg tablet (Lasix) 40 mg PO BID Fluid Retention/Swelling 09/29/23
pantoprazole 40 mg tablet,delayed release 40 mg PO DAILY #30 tabs 10/08/23
acetaminophen 325 mg tablet (Tylenol) 650 mg PO Q4HPRN PRN mild pain/fever>100 10/11/23
bisacodyl 10 mg rectal suppository (Dulcolax (bisacodyl)) 10 mg [place] DAILYPRN PRN if MOM ineffective/on 5th day 10/11/23
magnesium hydroxide 400 mg/5 mL oral suspension (Milk of Magnesia) 2,400 mg PO DAILYPRN PRN IF NO BM ON 4TH DAY 10/11/23
sodium phosphates 19 gram-7 gram/118 mL enema (Fleet Enema) 118 ml KS DAILYPRN PRN if dulcolax ineffective/on 6th day 10/11/23
midodrine 5 mg tablet 10 mg PO TID Blood Pressure 10/19/23
multivitamin with folic acid 400 mcg tablet (Tab-A-Edd) 1 tab PO HS Supplement 10/19/23
potassium chloride 20 mEq oral packet 20 meq PO BID Electrolyte Repletion 10/19/23
colchicine 0.6 mg tablet 0.6 mg PO DAILY #4 tabs 10/23/23
levofloxacin 750 mg tablet 750 mg PO Q48H #3 tabs 10/23/23
Review of Systems
-
History Source: Patient
A 12 point ROS was completed and negative except as noted: Yes
Constitutional: Reports No Symptoms
EENT: Reports No Symptoms
Respiratory: Reports See HPI
Cardiac: Reports See HPI
Abdomen/GI: Reports No Symptoms
: Reports No Symptoms
Musculoskeletal: Reports No Symptoms
Skin: Reports No Symptoms
Neurological: Reports No Symptoms
Endocrine: Reports No Symptoms
Hematologic/Lymphatic: Reports No Symptoms
Psych: Reports No Symptoms
Physical Exam
Vital Signs
Vital Signs
Temp Pulse Resp BP Pulse Ox
98.4 F 94 28 131/84 95
08/22/24 14:56 08/22/24 18:30 08/22/24 18:30 08/22/24 18:02 08/22/24 18:30
Physical Exam
General: Well Developed, Well Nourished and No Apparent Distress
HEENT: NormoCephalic, Moist mucous membranes and Atraumatic
Respiratory: Clear
Cardiac: S1/S2 and Regular Rhythm; No Murmur or Rub
GI: Soft, Non Tender, Non Distended and Normal Bowel Sounds; No Organomegaly
Rectal: Deferred by Provider
Musculoskeletal: No Clubbing, No Cyanosis and No Edema
Skin: No Rash
Neuro: Nonfocal/grossly intact
Laboratory Results
-
08/22/24 15:17
08/22/24 16:20
Laboratory Results
Total Bilirubin 0.5 mg/dl (0.2-1.3) 08/22/24 16:20
AST 21 U/L (17-59) 08/22/24 16:20
ALT 14 U/L (0-50) 08/22/24 16:20
Alkaline Phosphatase 68 U/L (38-126) 08/22/24 16:20
Troponin I 0.060 ng/ml H* 08/22/24 15:17
Data Reviewed
-
Lab Data: Labs Reviewed by me
Old Records: Reviewed
Impression/Plan
-
IMPRESSION:
PLAN:
# Sepsis (leukocytosis, tachycardia) secondary to mild pneumonia left lung base
-COVID and influenza negative
-Check sputum culture
-Ceftriaxone/doxycycline
-Tachycardia has improved, will hold off on fluids due to HFrEF history and propensity to be volume overloaded, cardiac BNP 5000
# Hyperkalemia secondary to potassium supplement
# CKD 3
-Potassium 5.6
-Renal function at baseline
-Hold potassium supplement
-Lokelma dose
Chronic HFrEF
-Hold Lasix
Permanent atrial fibrillation
-Patient currently in A-fib with heart rate up to 105
-Continue Xarelto
History of DVT/PE
BPH
Chronic Padilla catheter
-Continue tamsulosin, finasteride
Obesity
Alcohol use disorder
Tobacco use disorder
History of venous insufficiency
Hyperlipidemia
-Continue statin
History of CVA
Full code
DVT prophylaxis�Xarelto
Cardiac diet
[2024-08-22] MEDS: LOKELMA 10 GRAM PO (19:22)
--- NOTE | 2024-08-22 21:00 | PTCARENOTE ---
Pt. admitted from E.D., AAO x 3, vs stable, a-fib on monitor, chronic nevarez with cloudy, sediment, tea-colored urine, call wiggins within reach.
[2024-08-22] MEDS: THERAGRAN 1 TABLET PO (21:57)
[2024-08-22] MEDS: LIPITOR 40 MG PO (21:57)
[2024-08-22] MEDS: VIBRAMYCIN 100 MG PO (21:59)
[2024-08-23] VITALS (8 sets, daily range): BP systolic 129–160; BP diastolic 64–83; PULSE 2–105; BMI 34.5
[2024-08-23] MEDS: ZAROXOLYN 5 MG PO (08:14)
[2024-08-23] MEDS: PROTONIX 40 MG PO (08:14)
[2024-08-23] MEDS: PROSCAR 5 MG PO (08:14)
[2024-08-23] MEDS: VIBRAMYCIN 100 MG PO ×2 (08:14→20:42)
[2024-08-23] MEDS: DESENEX/MITRAZOL/ZEASORB 1 APPLIC TOPICAL ×2 (08:15→20:42)
[2024-08-23 08:19] LABS: ALT (SGPT) 15 U/L (0-50); AST (SGOT) 19 U/L (17-59); Albumin 3.5 g/dl (3.5-5.0); Alkaline Phosphatase 69 U/L (38-126); Blood Urea Nitrogen 71 mg/dl (9-20); Calcium 8.8 mg/dl (8.4-10.2); Carbon Dioxide 32 mmol/L (22-30); Chloride 97 mmol/L (98-107); Estimated Creatinine Clearance 29 ml/min; Glucose 169 mg/dl (70-99); Potassium 5.7 mmol/L (3.5-5.1); Sodium 138 mmol/L (135-145); Total Bilirubin 0.5 mg/dl (0.2-1.3); Total Protein 6.2 g/dl (6.3-8.2); eGFR 27.83
[2024-08-23 08:31] LABS: % Basophils 0.1 % (0-2); % Immature Granulocytes 0.7 % (0-0.5); % Lymphocytes 2.5 % (20.5-51.1); % Monocytes 1.2 % (1.7-9.3); % Neutrophils 95.5 % (42.2-75.2); Absolute Immature Granulocytes 0.1 10^3/uL (0-0.05); Absolute Lymphocytes 0.3 10^3/uL (1.2-3.4); Absolute Monocytes 0.1 10^3/uL (0.1-0.6); Absolute Neutrophils 10.8 10^3/uL (1.4-6.5); Hemoglobin 11.1 g/dL (13.0-18.0); Mean Corp Hgb Conc. 28.5 g/dL (33.0-37.0); Mean Corpuscular Hgb 25.9 pg (27.0-31.0); Mean Corpuscular Volume 90.9 fL (80.0-94.0); Mean Platelet Volume 11.5 fL (7.4-10.4); Nucleated Red Blood Cells % 0 % (-); Platelet Count 152 10^3/uL (130-400); Red Blood Cell Count 4.29 10^6/uL (4.70-6.10); Red Cell Dist. Width 19.2 % (11.5-14.5); White Blood Cell Count 11.3 10^3/uL (4.8-10.8)
[2024-08-23 08:33] LABS: Anisocytosis 1+; Hypochromasia 1+; Macrocytosis 1+; Microcytosis 3+; Normal RBC Morphology No
--- NOTE | 2024-08-23 09:27 | CONS.URO ---
Consultation
-
Date/Time Consultation Performed: 08/23/24 0911
Performing Provider: Toni
Reason for Consultation: hematuria
Medical History
History of Present Illness
Pt admitted for SOB.
Long-standing pt of Dr Ortega: chronic Padilla -- recently changed with issues then hematuria
Past Medical History
Past Medical History: Other (CAD status post since, chronic HFrEF, permanent atrial fibrillation on Xarelto, BPH, history of DVT/PE, pulmonary hypertension, hyperlipidemia, alcohol use disorder, chronic indwelling Padilla catheter, CKD 3, BPH,
obesity, tobacco use disorder, venous insufficiency, hyperlipidemia, CVA)
Allergies/Home Medications
Allergies
Allergy/AdvReac Type Severity Reaction Status Date / Time
ammonium [Ammonium] Allergy AMMONIUM Verified 08/22/24 14:56
LACTATE
(LAC-HYDRIN)
clopidogrel [From Plavix] Allergy Rash Verified 08/22/24 14:56
hydrochlorothiazide Allergy 'killed my Verified 08/22/24 14:56
[From Dyazide] sex drive'
triamterene [From Dyazide] Allergy 'killed my Verified 08/22/24 14:[address]'
warfarin [Warfarin] Allergy RASH,INCREASED Verified 08/22/24 14:56
BACK PAIN
creams w/ ammonia hydrate Allergy bright red Uncoded 08/22/24 14:56
skin
reaction
Home Medications
�Medication �Instructions �Recorded �Confirmed �Type
finasteride 5 mg tablet 5 mg PO DAILY prostate issue 12/22/18 08/22/24 History
tamsulosin 0.4 mg capsule (Flomax) 0.4 mg PO QPM Urinary Issue 12/22/18 08/22/24 History
atorvastatin 40 mg tablet (Lipitor) 40 mg PO HS High Cholesterol 05/21/23 08/22/24 History
rivaroxaban 15 mg tablet (Xarelto) 15 mg PO QPM 30 days #30 tabs 06/03/23 08/22/24 Rx
folic acid 1 mg tablet 1 mg PO DAILY Supplement 09/29/23 08/22/24 History
pantoprazole 40 mg tablet,delayed 40 mg PO DAILY #30 tabs 10/08/23 08/22/24 Rx
release
multivitamin with folic acid 400 1 tab PO HS Supplement 10/19/23 08/22/24 History
mcg tablet (Tab-A-Edd)
potassium chloride 20 mEq oral 40 meq PO TID Electrolyte Repletion 10/19/23 08/22/24 History
packet
acetaminophen 500 mg tablet 1,000 mg PO DAILYPRN PRN mild pain 08/22/24 08/22/24 History
allopurinol 300 mg tablet 300 mg PO DAILY Gout 08/22/24 08/22/24 History
carisoprodol 350 mg tablet 350 mg PO TIDPRN PRN muscle spasms 08/22/24 08/22/24 History
cyanocobalamin (vitamin B-12) 1,000 mcg PO DAILY Supplement 08/22/24 08/22/24 History
1,000 mcg tablet
furosemide 80 mg tablet 80 mg PO BID Fluid 08/22/24 08/22/24 History
Retention/Swelling
metolazone 5 mg tablet 5 mg PO DAILY Thyroid 08/22/24 08/22/24 History
potassium chloride 20 mEq 20 meq PO MOFR Supplement 08/22/24 08/22/24 History
tablet,extended release
prednisone 5 mg tablet 5 mg PO DAILY Anti-Inflammatory 08/22/24 08/22/24 History
Physical Exam
Vital Signs
Vital Signs
Temp Pulse Resp BP Pulse Ox
97.2 F 95 18 135/74 99
08/23/24 07:05 08/23/24 07:05 08/23/24 07:05 08/23/24 08:14 08/23/24 07:05
Lab / Testing Results
Laboratory Results
08/23/24 06:00
08/23/24 06:00
Physical Exam
elderly male in bed
Genito-urinary: Padilla Catheter (draining yellow urine)
Assessment / Plan
-
hematuria due to Padilla trauma: transient, resolved
Rec: f/u with Dr Ortega as outpatient
[2024-08-23] MEDS: CARDIZEM 60 MG PO (10:15)
[2024-08-23] MEDS: LOKELMA 10 GRAM PO (10:15)
--- NOTE | 2024-08-23 10:19 | PTCARENOTE ---
AT 9:45, the patient has increase HR>149, no discomfort complain, MD is aware, new order prescribed. The patient is aware.
--- NOTE | 2024-08-23 10:19 | CON.PUL ---
Consultation
Consultation Request
Date/Time Consultation Requested: 08/22/2024
Date/Time Consultation Performed: 08/23/2024
Requesting Provider: Zohra Evans
Performing Provider: Merary Gonzalez
Reason for Consultation: Shortness of breath
Medical History
-
Chief Complaint: Dyspnea
History of Present Illness:
Patient is a 83-year-old gentleman with complicated past medical history including congestive heart failure, atrial fibrillation, history of DVT PE, pulmonary hypertension, hypertension, hyperlipidemia, alcohol use disorder, CKD and CVA who
presented to the hospital with worsening shortness of breath. Patient reports that he started having URI symptoms about a week ago and then after developing worsened runny nose he started to develop cough shortness of breath. Does report clear to
white expectoration with episodes of wheezing. Denies any fever or chills. Does not report any sick contacts. No chest pain, pleuritic discomfort, vomiting or diarrhea. No hemoptysis reported either.
Patient has never followed with a quality assurance tester before and has not had any pulmonary function testing performed. He is not aware of any known diagnosis of COPD or asthma however he does report chronic episodic cough with wheezing as well as
expectoration in the mornings.
Past Medical History: Reports Other (CAD status post since, chronic HFrEF, permanent atrial fibrillation on Xarelto, BPH, history of DVT/PE, pulmonary hypertension, hyperlipidemia, alcohol use disorder, chronic indwelling Padilla catheter, CKD 3, BPH,
obesity, tobacco use disorder, venous insufficiency, hyperlipidemia, CVA)
Past Surgical History: Reports Other (Tonsilectomy)
Social History
Tobacco: Smoked pipe for 50 plus years, quit 2 years ago
Alcohol: None
Drug: None
Family History
Family History: Not pertinent
Allergies / Home Medications
Allergies / Home Medications
Allergies
Allergy/AdvReac Type Severity Reaction Status Date / Time
ammonium [Ammonium] Allergy AMMONIUM Verified 08/22/24 14:56
LACTATE
(LAC-HYDRIN)
clopidogrel [From Plavix] Allergy Rash Verified 08/22/24 14:56
hydrochlorothiazide Allergy 'killed my Verified 08/22/24 14:56
[From Dyazide] sex drive'
triamterene [From Dyazide] Allergy 'killed my Verified 08/22/24 14:[address]'
warfarin [Warfarin] Allergy RASH,INCREASED Verified 08/22/24 14:56
BACK PAIN
creams w/ ammonia hydrate Allergy bright red Uncoded 08/22/24 14:56
skin
reaction
Home Medications
�Medication �Instructions �Recorded �Confirmed �Last Taken �Type
finasteride 5 mg tablet 5 mg PO DAILY prostate issue 12/22/18 08/22/24 08/22/24 History
tamsulosin 0.4 mg capsule (Flomax) 0.4 mg PO QPM Urinary Issue 12/22/18 08/22/24 08/21/24 History
atorvastatin 40 mg tablet (Lipitor) 40 mg PO HS High Cholesterol 05/21/23 08/22/24 08/21/24 History
rivaroxaban 15 mg tablet (Xarelto) 15 mg PO QPM 30 days #30 tabs 06/03/23 08/22/24 08/21/24 Rx
folic acid 1 mg tablet 1 mg PO DAILY Supplement 09/29/23 08/22/24 08/22/24 History
pantoprazole 40 mg tablet,delayed 40 mg PO DAILY #30 tabs 10/08/23 08/22/24 08/22/24 Rx
release
multivitamin with folic acid 400 1 tab PO HS Supplement 10/19/23 08/22/24 08/22/24 History
mcg tablet (Tab-A-Edd)
potassium chloride 20 mEq oral 40 meq PO TID Electrolyte Repletion 10/19/23 08/22/24 08/22/24 History
packet
acetaminophen 500 mg tablet 1,000 mg PO DAILYPRN PRN mild pain 08/22/24 08/22/24 08/22/24 History
allopurinol 300 mg tablet 300 mg PO DAILY Gout 08/22/24 08/22/24 08/21/24 History
carisoprodol 350 mg tablet 350 mg PO TIDPRN PRN muscle spasms 08/22/24 08/22/24 Unknown History
cyanocobalamin (vitamin B-12) 1,000 mcg PO DAILY Supplement 08/22/24 08/22/24 08/22/24 History
1,000 mcg tablet
furosemide 80 mg tablet 80 mg PO BID Fluid 08/22/24 08/22/24 08/22/24 History
Retention/Swelling
metolazone 5 mg tablet 5 mg PO DAILY Thyroid 08/22/24 08/22/24 08/22/24 History
potassium chloride 20 mEq 20 meq PO MOFR Supplement 08/22/24 08/22/24 08/21/24 History
tablet,extended release
prednisone 5 mg tablet 5 mg PO DAILY Anti-Inflammatory 08/22/24 08/22/24 08/22/24 History
Review of Systems
-
History Source: Patient
Constitutional: Weight Gain
EENT: Runny Nose
Respiratory: Cough, Trouble Breathing and Other (Episodic wheezing)
Cardiac: Other (Orthopnea, difficulty lying flat)
Musculoskeletal: Edema
Vitals / Labs / Diagnostic Testing
Vital Signs
Temp Pulse Resp BP Pulse Ox
97.2 F 140 18 135/74 99
08/23/24 07:05 08/23/24 10:15 08/23/24 07:05 08/23/24 08:14 08/23/24 07:05
Lab Data
08/23/24 06:00
08/23/24 06:00
Microbiology
08/22/24 15:51 Nasal Swab Influenza Types A & B (MIKEY) - Final
Negative for Influenza A & B, NAAT
Negative results must be combined with clinical observations
and patient history.
Nucleic Acid Amplification test (NAAT)performed on the
[employer] platform.
Diagnostic Testing:
Physical Exam
-
HEENT: Normocephalic
Cardiovascular: Regular Rhythm and Peripheral Edema (Bilateral lower extremity)
Respiratory: Wheeze (Bilateral and expiratory wheezing)
GI: Soft
Neurology: Awake and Alert
Skin: Warm
General: Comfortable
Assessment
-
83-year-old gentleman with longstanding history of smoking and underlying congestive heart failure, presents to the hospital with worsening shortness of breath, cough, episodic wheezing and clear expectoration after developing upper respiratory
tract infection about a week ago. Pulmonary consultation was requested for further workup and recommendations.
#1. 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 Prior BMP reviewed with elevated HCO3 suggestive of some degree of chronic hypercapnia. VBG performed suggestive of acute on chronic hypercapnia. I suspect this is related to
underlying COPD exacerbation as well as volume overload. Patient is fully awake, alert and oriented without any EVAPORATOR REPAIRER signs of CO2 narcosis.
-Start BiPAP support 12 x 6, patient pulling 3-400 tidal volume, will repeat venous blood gas in 2 to 3 hours
-Start diuresis and bronchodilators
-Continue nightly BiPAP and as needed for any shortness of breath
-Patient might have underlying history of JOSE GUADALUPE/sleep disordered breathing as well, will need outpatient sleep study once he recovers from acute illness
#2. Suspect acute on chronic COPD exacerbation. Patient has never been diagnosed with COPD or emphysema however he has more than 15-[id number] smoking history. Patient reports episodic cough with wheezing with expectoration suggestive of
underlying obstructive airway disease.
-Start DuoNeb 4 times daily scheduled, prednisone 40 mg daily
-Continue antibiotics
-Once patient is euvolemic, can consider a bedside spirometry however currently he is volume overloaded which can interfere with spirometry assessment
-Will need outpatient follow-up with pulmonary clinic with full pulmonary function testing and 6-minute walk test
-Patient quit smoking pipes about 2 years ago
-Patient is otherwise afebrile with clear to whitish expectoration, clinically pneumonia appears to be less likely, follow-up on chest CT. Legionella and pneumococcal antigen negative. Flu and COVID screen negative. Respiratory culture pending.
#3. Pulmonary hypertension, right heart catheter in 2022 was suggestive of mean pulmonary artery pressure of 42 with PVR of 4.12 and pulmonary capillary wedge pressure elevated at 28. Suggestive of both pre and postcapillary pulmonary hypertension
likely related to underlying heart failure, group 2. Patient also has risk factors for group 3 pulmonary hypertension including morbid obesity, underlying COPD and possibly underlying obstructive sleep apnea.
-Patient will need additional workup as outpatient including full pulmonary function testing, 6-minute walk test, polysomnogram
-Continue to optimize volume status and bronchodilator, no indication for pulmonary vasodilators for now
#4. Acute on chronic heart failure with preserved ejection fraction. Patient on exam appears to be volume overloaded with significantly elevated BNP and pedal edema
-Patient will likely benefit from diuresis
-Also noted worsened kidney function, query cardiorenal syndrome
-Will defer management to primary team as nephrology service and cardiology service are being consulted
#5. Morbid obesity with suspected sleep disordered breathing. Patient does not report snoring but does report daytime naps and at times excessive sleepiness
-Patient will benefit from sleep study after discharge
-Once patient is euvolemic, recommend overnight oximetry prior to discharge to evaluate for any need for home oxygen
Other significant medical comorbidities:
-Paroxysmal atrial fibrillation, on chronic anticoagulation
-History of DVT and PE, on Xarelto
-Chronic kidney disease stage III with hyperkalemia
-BPH
-History of smoking, quit 2 years ago
-Coronary artery disease with history of non-ST elevation NC in the past s/p PCI
-Prior history of alcoholism
-Hypertension and hyperlipidemia
-History of CVA
Total time spent on this consultation/encounter _79___ minutes which includes review of history, physical exam, medications, laboratory data, personal review of imaging, extensive review of outpatient records, discussion with care team and
respiratory therapy.
Data:
ECHO 09/2023
1. Mild left ventricular hypertrophy with low normal or mild globally reduced
systolic function, EF 50-55%
2. Thickened mitral leaflets, mitral annular calcification, mild mitral
regurgitation and normal left atrium
3. Aortic sclerosis with mild aortic regurgitation
4. Dilated right ventricle with preserved systolic function, dilated right
atrium, mild tricuspid regurgitation and moderate pulmonary hypertension, 57
mmHg systolic
[facility], 05/2023
CO 4.6, CI 2.2 with PVR 4.12 and PCWP 28, PA 60/30 (42). Pulm HTN with elevated PVR and PCWP. Elevated filling pressures
[facility], 05/2023
CAD, s/p PCI of LCX
[2024-08-23] MEDS: DELTASONE 40 MG PO (10:45)
[2024-08-23] MEDS: DUONEB 3 ML INH ×3 (11:03→20:13)
--- NOTE | 2024-08-23 11:03 | W.PN.HOSP.TC ---
Today's Communication/Plan
-
.
Assessment / Plan
Assessment / Plan
Physical Exam
General: No Apparent Distress, seems sob while talking, obese.
HEENT: NormoCephalic, Moist mucous membranes and Atraumatic
Respiratory: wheezes with rales Clear
Cardiac: S1/S2 tachy
GI: Soft, Non Tender, Non Distended and Normal Bowel Sounds;
Musculoskeletal: No ankle edema
Skin: No Rash
Neuro: AAOX3, he followed commands
Psych: calm.
A/P:
# SIRS Vs Sepsis (leukocytosis, tachycardia, left lung PNA
-COVID and influenza negative
-Check sputum culture, send for legionella
- Started on IV Ceftriaxone/doxycycline
# Acute hypoxic respiratory failure
Oxygen saturation was 82% on room air with respiratory distress.
Patient had respiratory distress called the ambulance with hypoxia
Currently on 2 L oxygen and receiving nebulizer treatment
# Hyperkalemia secondary to potassium supplement
# CKD 3b
Stop potassium supplement. Given Lokelma, will give another dose
# Acute on chronic heart failure with reduced ejection fraction
He has exertional shortness of breath. Lung examination positive for wheezes and rales
Last echocardiogram in 2023 showed LVEF 50%
Patient takes Lasix 80 mg twice a day with metolazone
Lasix was held on admission for kidney dysfunction
Will start back on Lasix intravenously but will discuss with nephrology
Primary anesthesia assistant Dr. Gramajo
Consult cardiology, order echocardiogram
#Permanent atrial fibrillation
Mildly positive troponin. No chest pain.
Elevation of troponin likely nonischemic myocardial injury due to congestive heart failure
Uncontrolled on mild exertion, will start the patient on Cardizem
-Continue Xarelto
# Chronic kidney disease stage IIIb
Monitor renal function while on diuretic therapy
Consult nephrology, follow-up with recommendations. Monitor for retention
# History of DVT/PE
# History of primary arthritis and gout. Continue with allopurinol therapy to avoid exacerbation while using diuretics
#BPH
Chronic Padilla catheter
Hematuria resolved , was traumatic hematuria secondary to Padilla. He was seen by urologist and Rec: f/u with Dr Ortega as outpatient
-Continue tamsulosin, finasteride
#Obesity
#History of alcohol use disorder, Tobacco use disorder
History of venous insufficiency
Hyperlipidemia
-Continue statin
#History of CVA
Full code
DVT prophylaxis�Xarelto
Cardiac diet
Total time spent to see the patient, examine the patient, review data and lab results, discuss treatment plan with patient, consultants and nursing staff around 63 minutes
Anticipated Discharge: > 48 hours
Subjective/Interval History
-
Date of Service: August 23, 2024
No chest pain
Mild SOB
No hematuria
Objective Data
-
Labs:
Laboratory Results
08/23/24
06:00
WBC 11.3 H
Hgb 11.1 L
Hct 39.0
Plt Count 152
Sodium 138
Potassium 5.7 H
Chloride 97 L
Carbon Dioxide 32 H
BUN 71 H
Creatinine 2.3 H
Glucose 169 H
Calcium 8.8
Total Bilirubin 0.5
AST 19
ALT 15
Alkaline Phosphatase 69
Vital Signs:
Vital Signs
Temp Pulse Resp BP Pulse Ox
97.2 F 140 18 135/74 99
08/23/24 07:05 08/23/24 10:15 08/23/24 07:05 08/23/24 08:14 08/23/24 07:05
I&O
08/22/24 08/23/24 08/24/24
06:59 06:59 06:59
Intake Total 220 / 220
Output Total 950 / 950
Balance -730 / -730
[2024-08-23 11:06] LABS: Venous Blood Gas B.E. 5.6 mmol/L (-4 to +4); Venous Blood Gas HCO3 35.1 mmol/L (22-27); Venous Blood Gas O2 Sat % 96.4 %; Venous Blood Gas pH 7.24 (7.32-7.43); Venous Blood Gas pO2 99 mmHg (30-50)
[2024-08-23 11:09] LABS: Venous Blood Gas pCO2 82 mmHg (35-48)
--- NOTE | 2024-08-23 11:14 | CON.ID ---
Consultation
-
Date/Time Consultation Requested: 08/23/2024 0642
Date/Time Consultation Performed: 08/23/2024 1045
Requesting Provider: Dr. Ivy
Performing Provider: Dr. Chaves
Reason for Consultation: Pneumonia
Chief Complaint / Past History
History of Present Illness
Romario Heller is an 83-year-old man being evaluated at the request of Dr. Ivy in regards to respiratory tract infection. History is obtained from chart review, patient interview.
The patient has a significant past history of CAD, A-fib and CHF and reports he was in his usual state of health until approximately 1 week prior when he developed URI symptomatology consisting of postnasal drip. This persisted, and seemed to do
well with [id number] treatments, but 2 days prior to admission symptomatology worsened. He reports cough with production of clear phlegm. He admits to wheezing and shortness of breath. No history of fevers, chills or chest pain. No sick
contacts. He has no prior history of similar symptomatology.
He denies any travel. There are no pets. He has no standing water at the house.
Past History
Additional Past Medical History:
A-fib (on Xarelto)
CAD; Hx CO
CHF
HTN
Dyslipidemia
CKD
Hx DVT
Additional Past Surgical History:
Tonsillectomy
Allergy History:
ammonium [Ammonium] Allergy (Verified 08/22/24 14:56)
AMMONIUM LACTATE (LAC-HYDRIN)
clopidogrel [From Plavix] Allergy (Verified 08/22/24 14:56)
Rash
hydrochlorothiazide [From Dyazide] Allergy (Verified 08/22/24 14:56)
'killed my sex drive'
triamterene [From Dyazide] Allergy (Verified 08/22/24 14:56)
'killed my sex drive'
warfarin [Warfarin] Allergy (Verified 08/22/24 14:56)
RASH,INCREASED BACK PAIN
creams w/ ammonia hydrate Allergy (Uncoded 08/22/24 14:56)
bright red skin reaction
Medications Reviewed: Yes
Current Antibiotics:
Ceftriaxone 1 g 24 hours
Doxycycline
Social History
Tobacco: Former Smoker (Pipe)
Alcohol: Former
Drug: None
Employment: Retired
Family History
Family History: Not Pertinent
Review of Systems
Vital Signs
Temp Pulse Resp BP Pulse Ox
97.2 F 140 18 135/74 99
08/23/24 07:05 08/23/24 10:15 08/23/24 07:05 08/23/24 08:14 08/23/24 07:05
Physical Exam
Physical Exam
Constitutional: No Acute Distress, Comfortable and Chronically Ill
Eyes: No Conjunctival Hemorrhage
Cardiovascular: S1/S2; Negative S3/S4
Pulmonary: Wheezes, Coarse and Other (Mildly labored)
Gastrointestinal: Soft, Non Tender, Non Distended and Normal Bowel Sounds
Extremities: Edema and Venous Insufficiency (Bilateral lower extremities); Negative Cyanosis
Skin: Warm and Dry; Negative Jaundice
Neurological: Awake and Alert
Psychological: Calm
.
Lab / Diagnostic Study Results
08/23/24 06:00
08/23/24 06:00
Abs Immat Gran (auto) 0.1 10^3/uL (0-0.05) H 08/23/24 06:00
Absolute Neuts (auto) 10.8 10^3/uL (1.4-6.5) H 08/23/24 06:00
Absolute Lymphs (auto) 0.3 10^3/uL (1.2-3.4) L 08/23/24 06:00
Absolute Monos (auto) 0.1 10^3/uL (0.1-0.6) 08/23/24 06:00
Absolute Basos (auto) 0.0 10^3/uL (0-0.2) 08/23/24 06:00
Immature Gran % 0.7 % (0-0.5) H 08/23/24 06:00
Neutrophils % 95.5 % (42.2-75.2) H 08/23/24 06:00
Lymphocytes % 2.5 % (20.5-51.1) L 08/23/24 06:00
Monocytes % 1.2 % (1.7-9.3) L 08/23/24 06:00
Eosinophils % 0.0 % (0-6) 08/23/24 06:00
Basophils % 0.1 % (0-2) 08/23/24 06:00
Microbiology Results
Micro:
08/22/24 19:18 Respiratory Culture - Pending
Sputum Gram Stain - Pending
08/22/24 15:51 Influenza Types A & B (MIKEY) - Final
Nasal Swab Negative for Influenza A & B, NAAT
Negative results must be combined with clinical observations
and patient history.
Nucleic Acid Amplification test (NAAT)performed on the
[employer] platform.
Imaging:
08/22/2024 CXR (2 view): Patchy opacity noted in the left lung base which may represent atelectasis or mild pneumonia. No pleural effusion or pneumothorax. Stable enlargement of the cardiac silhouette. Please see full dictation for additional
detail.
Assessment / Plan
Suspected pneumonia
Leukocytosis
A-fib (on Xarelto)
CAD; Hx CO
CHF
HTN
Dyslipidemia
CKD
Hx DVT
Recommendations:
Continue current empiric antibiotics.
Await sputum culture.
Continue with current respiratory treatments.
Monitor white count and temperature curve.
Check Legionella and pneumococcal urinary antigens.
Further recommendations as additional data is returned.
--- NOTE | 2024-08-23 15:25 | W.CON.NEPH ---
Consultation
-
Date/Time Consultation Requested: August 23, 2024 at 7 AM
Date/Time Consultation Performed: August 23, 2024 at 2 PM
Requesting Provider: Dr. Ivy
Performing Provider: Dr. Saldivar
Reason for Consultation: Hyperkalemia and acute kidney injury
Medical History
-
Chief Complaint: Hyperkalemia acute kidney injury CHF
History of Present Illness:
This is an 82-year-old gentleman who has no chronic kidney disease stage IIIa with baseline creatinine who has heart failure reduced ejection fraction on chronic diuretic therapy on Xarelto for atrial fibrillation. Presents hypercapnia on BiPAP.
Renal consult for acute on chronic kidney disease hyperkalemia.
He had leukocytosis being treated as a pneumonia although chest x-ray is showing some CHF.
He is otherwise comfortable on BiPAP able to provide history.
Past Medical History
Atrial fibrillation, heart failure reduced action fraction, hypertension, hyperlipidemia, pulmonary embolus, right lower extremity DVT, alcoholism, tobacco abuse, neuropathy, BPH, CKD 3A, cellulitis, venous insufficiency, tonsillectomy, hydrocele
surgery, cataract extraction
Social History
Tobacco: Smoker (Type)
Alcohol: Daily
Family History
was on dialysis
Lung cancer colon cancer.
Allergies / Home Medications
Allergy/AdvReac Type Severity Reaction Status Date / Time
ammonium [Ammonium] Allergy AMMONIUM Verified 08/22/24 14:56
LACTATE
(LAC-HYDRIN)
clopidogrel [From Plavix] Allergy Rash Verified 08/22/24 14:56
hydrochlorothiazide Allergy 'killed my Verified 08/22/24 14:56
[From Dyazide] sex drive'
triamterene [From Dyazide] Allergy 'killed my Verified 08/22/24 14:[address]'
warfarin [Warfarin] Allergy RASH,INCREASED Verified 08/22/24 14:56
BACK PAIN
creams w/ ammonia hydrate Allergy bright red Uncoded 08/22/24 14:56
skin
reaction
�Medication �Instructions �Recorded �Confirmed �Type
finasteride 5 mg tablet 5 mg PO DAILY prostate issue 12/22/18 08/22/24 History
tamsulosin 0.4 mg capsule (Flomax) 0.4 mg PO QPM Urinary Issue 12/22/18 08/22/24 History
atorvastatin 40 mg tablet (Lipitor) 40 mg PO HS High Cholesterol 05/21/23 08/22/24 History
rivaroxaban 15 mg tablet (Xarelto) 15 mg PO QPM 30 days #30 tabs 06/03/23 08/22/24 Rx
folic acid 1 mg tablet 1 mg PO DAILY Supplement 09/29/23 08/22/24 History
pantoprazole 40 mg tablet,delayed 40 mg PO DAILY #30 tabs 10/08/23 08/22/24 Rx
release
multivitamin with folic acid 400 1 tab PO HS Supplement 10/19/23 08/22/24 History
mcg tablet (Tab-A-Edd)
potassium chloride 20 mEq oral 40 meq PO TID Electrolyte Repletion 10/19/23 08/22/24 History
packet
acetaminophen 500 mg tablet 1,000 mg PO DAILYPRN PRN mild pain 08/22/24 08/22/24 History
allopurinol 300 mg tablet 300 mg PO DAILY Gout 08/22/24 08/22/24 History
carisoprodol 350 mg tablet 350 mg PO TIDPRN PRN muscle spasms 08/22/24 08/22/24 History
cyanocobalamin (vitamin B-12) 1,000 mcg PO DAILY Supplement 08/22/24 08/22/24 History
1,000 mcg tablet
furosemide 80 mg tablet 80 mg PO BID Fluid 08/22/24 08/22/24 History
Retention/Swelling
metolazone 5 mg tablet 5 mg PO DAILY Thyroid 08/22/24 08/22/24 History
potassium chloride 20 mEq 20 meq PO MOFR Supplement 08/22/24 08/22/24 History
tablet,extended release
prednisone 5 mg tablet 5 mg PO DAILY Anti-Inflammatory 08/22/24 08/22/24 History
Review of Systems
-
Shortness of breath
All other systems: Negative unless noted
Physical Exam
Vital Signs
Vital Signs
Temp Pulse Resp BP Pulse Ox
98.3 F 106 15 129/79 99
08/23/24 11:05 08/23/24 11:33 08/23/24 11:33 08/23/24 11:05 08/23/24 11:33
Lab Results
WBC 11.3 10^3/uL (4.8-10.8) H 08/23/24 06:00
RBC 4.29 10^6/uL (4.70-6.10) L 08/23/24 06:00
Hgb 11.1 g/dL (13.0-18.0) L 08/23/24 06:00
Hct 39.0 % (39.0-52.0) 08/23/24 06:00
Plt Count 152 10^3/uL (130-400) 08/23/24 06:00
Sodium 138 mmol/L (135-145) 08/23/24 06:00
Potassium 5.7 mmol/L (3.5-5.1) H 08/23/24 06:00
Chloride 97 mmol/L (98-107) L 08/23/24 06:00
Carbon Dioxide 32 mmol/L (22-30) H 08/23/24 06:00
BUN 71 mg/dl (9-20) H 08/23/24 06:00
Creatinine 2.3 mg/dL (0.7-1.3) H 08/23/24 06:00
eGFR 27.83 08/23/24 06:00
Glucose 169 mg/dl (70-99) H 08/23/24 06:00
Calcium 8.8 mg/dl (8.4-10.2) 08/23/24 06:00
Ycw-E-Qsjpvhtrfxg Pept 5130 pg/ml 08/22/24 15:17
Albumin 3.5 g/dl (3.5-5.0) 08/23/24 06:00
Physical Exam
General no acute distress
HEENT no cephalic atraumatic extraocular muscle intact no scleral icterus no JVD neck supple
lungs coarse breath sounds bilateral
heart regular S1-S2 positive
abdomen soft nontender positive bowel sounds
extremities edema
Neurologically nonfocal alert and oriented x 3
Skin no lesions no abrasions no petechiae
Psych normal affect no bizarre behavior
Data Reviewed
-
Radiology: Image Personally Visualized and interpreted
Labs: Labs Reviewed by me, Discussed with Physician and Discussed with Patient
Assessment/Plan
-
Assessment:
Acute kidney injury creatinine 2.3 on admission
Hyperkalemia
Anemia
Edema
Atrial fibrillation
Heart failure reduced ejection fraction= EF 50 to 55%
Moderate pulmonary hypertension
CKD 3A (1.7-2)
Hypercapnia with a CO2 of 80
Plan:
Acute on chronic kidney disease suspect this is cardiorenal with hyperkalemia.
CO2 retention appears to be multifactorial more likely from fluid rather than pneumonia
Continue BiPAP.
Will give 80 mg IV Lasix.
Repeat blood work this evening.
Antibiotics/blood cultures
Daily weights.
[2024-08-23] MEDS: LASIX 80 MG IV (15:59)
[2024-08-23 16:41] LABS: Venous Blood Gas B.E. 5.5 mmol/L (-4 to +4); Venous Blood Gas HCO3 34.6 mmol/L (22-27); Venous Blood Gas pH 7.29 (7.32-7.43); Venous Blood Gas pO2 80 mmHg (30-50)
[2024-08-23 16:51] LABS: Venous Blood Gas pCO2 72 mmHg (35-48)
--- NOTE | 2024-08-23 17:30 | CON.CAR ---
Consultation
Consultation Request
Date/Time Consultation Requested: 08/23/24 2:00
Date/Time Consultation Performed: 08/23/24 4:30
Requesting Provider: Dr Ivy
Performing Provider: Dr Ibarra
Reason for Consultation: sob
Medical History
-
Chief Complaint: sob
History of Present Illness:
83-year-old male with complex past medical history including coronary artery disease, chronic heart failure with preserved ejection fraction, permanent atrial fibrillation, history of DVT/PE, CVA, chronic alcoholism, stage III kidney disease,
hypertension, and hyperlipidemia presents with several days of upper respiratory tract infection, cough, and shortness of breath. He states that he had a postnasal drip for several days and had significant fatigue. He denied any chest pains. He
did have a cough with some clear sputum. The shortness of breath got better for a day or 2 but then worsened and he presented to the emergency room. He has no fever. He denies any chest pains. He denies any abdominal pain, nausea or vomiting.
He thinks he may be somewhat bloated and weight may be slightly up. He has been compliant with his medication. His breathing worsen he was placed on BiPAP. He states he has been drinking minimal alcohol recently. He has no wheezing. His
activity is poor to start with. He has no focal weakness or numbness.
Past Medical History
Past Medical History: Other (Permanent atrial fibrillation, chronic heart failure with preserved ejection fraction, coronary artery status post OR 2022 with PCI to left circumflex, CKD 3, CVA, hypertension, history of PE/DVT, chronic alcoholism,
obesity, gout, enlarged prostate and neuropathy.)
Past Surgical History: Other (cataracts)
Social History
Tobacco: Smoker
Alcohol: Occasional (Previous heavy alcohol use)
Drug: None
Employment: Retired
Family History
Family History: CAD and Cancer
Allergies / Home Medications
Allergy/AdvReac Type Severity Reaction Status Date / Time
ammonium [Ammonium] Allergy AMMONIUM Verified 08/22/24 14:56
LACTATE
(LAC-HYDRIN)
clopidogrel [From Plavix] Allergy Rash Verified 08/22/24 14:56
hydrochlorothiazide Allergy 'killed my Verified 08/22/24 14:56
[From Dyazide] sex drive'
triamterene [From Dyazide] Allergy 'killed my Verified 08/22/24 14:[address]'
warfarin [Warfarin] Allergy RASH,INCREASED Verified 08/22/24 14:56
BACK PAIN
creams w/ ammonia hydrate Allergy bright red Uncoded 08/22/24 14:56
skin
reaction
�Medication �Instructions �Recorded �Confirmed �Type
finasteride 5 mg tablet 5 mg PO DAILY prostate issue 12/22/18 08/22/24 History
tamsulosin 0.4 mg capsule (Flomax) 0.4 mg PO QPM Urinary Issue 12/22/18 08/22/24 History
atorvastatin 40 mg tablet (Lipitor) 40 mg PO HS High Cholesterol 05/21/23 08/22/24 History
rivaroxaban 15 mg tablet (Xarelto) 15 mg PO QPM 30 days #30 tabs 06/03/23 08/22/24 Rx
folic acid 1 mg tablet 1 mg PO DAILY Supplement 09/29/23 08/22/24 History
pantoprazole 40 mg tablet,delayed 40 mg PO DAILY #30 tabs 10/08/23 08/22/24 Rx
release
multivitamin with folic acid 400 1 tab PO HS Supplement 10/19/23 08/22/24 History
mcg tablet (Tab-A-Edd)
potassium chloride 20 mEq oral 40 meq PO TID Electrolyte Repletion 10/19/23 08/22/24 History
packet
acetaminophen 500 mg tablet 1,000 mg PO DAILYPRN PRN mild pain 08/22/24 08/22/24 History
allopurinol 300 mg tablet 300 mg PO DAILY Gout 08/22/24 08/22/24 History
carisoprodol 350 mg tablet 350 mg PO TIDPRN PRN muscle spasms 08/22/24 08/22/24 History
cyanocobalamin (vitamin B-12) 1,000 mcg PO DAILY Supplement 08/22/24 08/22/24 History
1,000 mcg tablet
furosemide 80 mg tablet 80 mg PO BID Fluid 08/22/24 08/22/24 History
Retention/Swelling
metolazone 5 mg tablet 5 mg PO DAILY Thyroid 08/22/24 08/22/24 History
potassium chloride 20 mEq 20 meq PO MOFR Supplement 08/22/24 08/22/24 History
tablet,extended release
prednisone 5 mg tablet 5 mg PO DAILY Anti-Inflammatory 08/22/24 08/22/24 History
Review of Systems
-
History Source: Patient
Constitutional: Weight Gain and Fatigue
EENT: Sore Throat and Runny Nose
Respiratory: Cough and Trouble Breathing
Cardiac: No Symptoms
Abdomen/GI: No Symptoms
: No Symptoms
Musculoskeletal: Muscle Pain and Muscle Stiffness
Skin: No Symptoms
Neurological: Weakness
Endocrine: No Symptoms
Hematologic/Lymphatic: No Symptoms
Physical Exam
Vital Signs
Temp Pulse Resp BP Pulse Ox
97.2 F 84 18 142/80 98
08/23/24 15:05 08/23/24 15:05 08/23/24 15:05 08/23/24 15:05 08/23/24 15:05
Lab Results
08/23/24 06:00
08/23/24 06:00
Troponin I 0.060 ng/ml H* 08/22/24 15:17
Bix-B-Lreuhzyhgxm Pept 5130 pg/ml 08/22/24 15:17
Physical Exam
General: Well Developed and Comfortable (on BIPAP)
HEENT: Normocephalic and Anicteric
Respiratory: Wheezes and Rhonchi
Cardiac: S1/S2, Irregular Rhythm and Murmur (6 syst LSB)
GI: Soft and Distended
Genito-urinary: No Costovertebral Tender
Musculoskeletal: Edema
Skin: Warm and Rash (Diffuse ecchymosis)
Neuro: AO x 3
Psych: Calm
Impression / Plan
-
Assess:
PCP: Dr. Manjarrez
Natural Sciences Professor: MORRIS Gramajo
Impression:
Presented 05/21/2023 with progressively worsening SOB
Acute on chronic HFpEF
Acute on Chronic kidney disease 3b
Hypercapnia with pCO2 82 on venous blood gas
CAD
Non-STEMI with peak troponin of 2.5
s/p 4 mm Xience to ostial/prox Circumflex 05/28/23
Permanent atrial fibrillation
Chronic Xarelto OAC
Hypertension
Dyslipidemia
History of pulmonary embolism
History of right lower extremity DVT
History of alcoholism
Tobacco abuse
Lower extremity neuropathy
BPH
Chronic kidney disease 3b
Cellulitis
Venous insufficiency
Rash, possibly contrast mediated or from recent initiation of Plavix
Echo 09/24: EF 50 to 55%, mild MR, dilated right ventricle with PA pressure 57
Echo 05/21/2023 (TDS): EF 40 to 45% mild to moderately reduced LV systolic function. No gross wall motion abnormalities. Mild concentric LVH. Mildly reduced RV systolic function. Mild AI, mild to moderate TR with PAP 60 mmHg.
Echo 07/30/2022: EF 55 to 60%, mild AI, mild TR with PAP 42 mmHg
Echo 01/14/2020: EF 60%, mild left atrial enlargement, mild AI, PAP 32 mmHg
Echo 12/19/18:� Mild concentric LVH, EF 65�70 percent, trace MR with severe left atrial dilatation, mild AR, mild to moderate tricuspid regurgitation, severe pulmonary hypertension with PA systolic pressure 65�70.
Plan:
He presents with shortness of breath in the setting of URI infection. CT scan of the chest was reviewed which is overall relatively unremarkable for pneumonia.
proBNP is elevated but kidney function is as well. I do suspect he is somewhat volume overloaded. Agree with Lasix 80 mg IV now.
Lasix will also help his hyperkalemia. Will repeat echocardiogram to reevaluate his LV function and right ventricle.
Check repeat troponin. I suspect abnormal troponin is likely nonischemic myocardial injury. He does have a known history of coronary artery disease.
Continue Xarelto for A-fib. He currently is on no rate control agents at this time for his permanent atrial fibrillation. Will add a low-dose diltiazem to help with rate control strategy.
Continue treatments for hypercapnia. with BIPAP,antibioitics
Cont Med rx for CAD. Cont atorvastatin and Xarelto.
Trend potassium and creatinine.
Hopefully BiPAP improves his hypercapnia. Would have low threshold to transfer to IMU if he does not significantly improve.
Data Reviewed
-
EKG: Tracing Personally Visualized and interpreted
Radiology: Report Reviewed by me
CT Scan: Report Reviewed by me
Medical Tests (Nuc Med, Echo etc): Report Reviewed by me
Labs: Labs Reviewed by me
Old Records: Reviewed
[2024-08-23] MEDS: STERILE WATER FOR INJECTION 10 ML IV (17:41)
[2024-08-23] MEDS: FLOMAX 0.4 MG PO (17:41)
[2024-08-23] MEDS: XARELTO 15 MG PO (17:42)
[2024-08-23] MEDS: ROCEPHIN 1000 MG IV (17:42)
[2024-08-23 17:56] LABS: Venous Blood Gas O2 Sat % 94.3 %
[2024-08-23] MEDS: LIPITOR 40 MG PO (20:42)
[2024-08-24] VITALS (10 sets, daily range): BP systolic 141–170; BP diastolic 77–94; PULSE 2–118; O2SAT 92–95; BMI 35.0
[2024-08-24 07:15] LABS: Hematocrit 34.6 % (39.0-52.0); Hemoglobin 10.5 g/dL (13.0-18.0); Mean Corp Hgb Conc. 30.3 g/dL (33.0-37.0); Mean Corpuscular Hgb 26.7 pg (27.0-31.0); Mean Platelet Volume 11.1 fL (7.4-10.4); Platelet Count 144 10^3/uL (130-400); Red Blood Cell Count 3.93 10^6/uL (4.70-6.10); Red Cell Dist. Width 19.1 % (11.5-14.5); White Blood Cell Count 11.8 10^3/uL (4.8-10.8)
[2024-08-24 07:28] LABS: Venous Blood Gas B.E. 10.7 mmol/L (-4 to +4); Venous Blood Gas O2 Sat % 72.3 %; Venous Blood Gas pH 7.33 (7.32-7.43); Venous Blood Gas pO2 45 mmHg (30-50)
[2024-08-24] MEDS: DELTASONE 40 MG PO (07:29)
[2024-08-24] MEDS: ZAROXOLYN 5 MG PO (07:30)
[2024-08-24] MEDS: PROTONIX 40 MG PO (07:30)
[2024-08-24] MEDS: PROSCAR 5 MG PO (07:31)
[2024-08-24] MEDS: CARDIZEM CD 120 MG PO (07:31)
[2024-08-24] MEDS: VIBRAMYCIN 100 MG PO ×2 (07:31→20:59)
[2024-08-24 07:32] LABS: Venous Blood Gas pCO2 74 mmHg (35-48)
[2024-08-24] MEDS: DESENEX/MITRAZOL/ZEASORB 1 APPLIC TOPICAL ×2 (07:34→20:59)
[2024-08-24 07:55] LABS: ALT (SGPT) 15 U/L (0-50); AST (SGOT) 16 U/L (17-59); Albumin 3.2 g/dl (3.5-5.0); Alkaline Phosphatase 64 U/L (38-126); Blood Urea Nitrogen 81 mg/dl (9-20); Calcium 8.5 mg/dl (8.4-10.2); Carbon Dioxide 37 mmol/L (22-30); Chloride 94 mmol/L (98-107); Estimated Creatinine Clearance 32 ml/min; Glucose 110 mg/dl (70-99); Potassium 4.1 mmol/L (3.5-5.1); Sodium 138 mmol/L (135-145); Total Bilirubin 0.4 mg/dl (0.2-1.3); Total Protein 5.7 g/dl (6.3-8.2); eGFR 31.04
[2024-08-24] MEDS: DUONEB 3 ML INH ×4 (08:00→19:43)
--- NOTE | 2024-08-24 10:52 | W.PN.CARDCBS ---
Addendum entered and electronically signed by Corey Mullins MD 08/24/24 13:06:
I saw and examined the patient.
The MULTI SPINDLE OPERATOR or PA's note was reviewed and I agree with the note.
Comment: General: Well developed, well nourished in NAD.
Neck: Supple, no JVD, HJR, carotids +2 B/L, no bruits bilaterally.
Heart: Non displaced PMI, RRR, no murmurs, No S3, S4, no rubs.
Lungs: Scattered rhonchi
Extremities: No clubbing, cyanosis or edema bilaterally.
Neuro: Grossly nonfocal, awake, alert and oriented x3.
He remains in CHF with improved renal function with diuresis. Continue IV Lasix and metolazone. Of note he is on 2 L of oxygen and was not on oxygen on admission. Repeat troponin in a.m. Check echocardiogram. Start diltiazem for poorly
controlled heart rate in A-fib
Original Note:
Today's Communication / Plan
-
Start diltiazem 120 mg daily today. If heart rates remain poorly controlled and blood pressure allows can consider up titration to twice daily dosing
Echo today
Repeat troponin in a.m.
Continue Xarelto, metolazone, atorvastatin
Impression / Plan
-
PCP: Dr. Manjarrez
Music Video Director: MORRIS Gramajo
Impression:
Presented 05/21/2023 with progressively worsening SOB
Acute on chronic HFpEF, proBNP 5130
Acute on Chronic kidney disease 3b
Hypercapnia with pCO2 82 on venous blood gas
Hyperkalemia, resolved
CAD
Non-STEMI with peak troponin of 2.5, s/p 4 mm Xience to ostial/prox Circumflex 05/28/23
Permanent atrial fibrillation
Chronic Xarelto OAC
Hypertension
Dyslipidemia
History of pulmonary embolism
History of right lower extremity DVT
History of alcoholism
Tobacco abuse
Lower extremity neuropathy
BPH
Chronic kidney disease 3b
Cellulitis
Venous insufficiency
Rash, possibly contrast mediated or from recent initiation of Plavix
Echo 09/24: EF 50 to 55%, mild MR, dilated right ventricle with PA pressure 57
Echo 05/21/2023 (TDS): EF 40 to 45% mild to moderately reduced LV systolic function. No gross wall motion abnormalities. Mild concentric LVH. Mildly reduced RV systolic function. Mild AI, mild to moderate TR with PAP 60 mmHg.
Echo 07/30/2022: EF 55 to 60%, mild AI, mild TR with PAP 42 mmHg
Echo 01/14/2020: EF 60%, mild left atrial enlargement, mild AI, PAP 32 mmHg
Echo 12/19/18:� Mild concentric LVH, EF 65�70 percent, trace MR with severe left atrial dilatation, mild AR, mild to moderate tricuspid regurgitation, severe pulmonary hypertension with PA systolic pressure 65�70.
Plan:
-He presents with shortness of breath in the setting of URI infection.
-CT scan of the chest was reviewed with bibasilar subsegmental atelectasis. No CT evidence for lobar pneumonia. Continues on antibiotics with ceftriaxone and doxycycline per primary service
-proBNP is elevated 5130, did receive 1 dose of Lasix 80 mg IV 08/23/2024. Ongoing diuresis with metolazone 5 mg daily. Unclear accuracy of weights as being performed by built in bed scale
-Initially found to have hyperkalemia which has resolved. K+ 4.1.
-Will repeat echocardiogram to reevaluate his LV function and right ventricle. Prior echo in 2023 with evidence of pulmonary hypertension.
-Longstanding history of tobacco abuse. Pulmonary now following and recommending DuoNebs, prednisone and antibiotics. Will need eventual full set of PFTs, 6-minute walk test, sleep study as outpatient.
-Check repeat troponin. I suspect abnormal troponin is likely nonischemic myocardial injury from acute hypoxic/hypercapnic respiratory insufficiency. He does have a known history of coronary artery disease.
-Continues on 2 L of oxygen via nasal cannula, wean as tolerated; patient was not on oxygen prior to admission
-Continue Xarelto for A-fib. He currently is on no rate control agents on admission for his permanent atrial fibrillation. New to low-dose diltiazem 120 mg 08/24/24 to help with rate control strategy. Hopefully heart rates will improve with better
respiratory status. If heart rates remain poorly controlled and blood pressure allows could consider up titration to twice daily dosing
-Cont Med rx for CAD. Cont atorvastatin and Xarelto.
History of Present Illness 08/23/2024:
83-year-old male with complex past medical history including coronary artery disease, chronic heart failure with preserved ejection fraction, permanent atrial fibrillation, history of DVT/PE, CVA, chronic alcoholism, stage III kidney disease,
hypertension, and hyperlipidemia presents with several days of upper respiratory tract infection, cough, and shortness of breath. He states that he had a postnasal drip for several days and had significant fatigue. He denied any chest pains. He
did have a cough with some clear sputum. The shortness of breath got better for a day or 2 but then worsened and he presented to the emergency room. He has no fever. He denies any chest pains. He denies any abdominal pain, nausea or vomiting.
He thinks he may be somewhat bloated and weight may be slightly up. He has been compliant with his medication. His breathing worsen he was placed on BiPAP. He states he has been drinking minimal alcohol recently. He has no wheezing. His
activity is poor to start with. He has no focal weakness or numbness.
Progress Note - Music Video Director
Subjective
Date of Service: August 24, 2024
Patient seen and examined. Patient sitting in chair on 2 L of oxygen. Notes some occasional dizziness when he stands and ambulates but was able to work with physical therapy. Still short of breath with activity. Basic biggest complaint is not
getting his MiraLAX which she takes regularly at home.
Objective
Labs:
08/24/24 07:06
08/24/24 07:06
Labs
Hgb 10.5 g/dL (13.0-18.0) L 08/24/24 07:06
Hct 34.6 % (39.0-52.0) L 08/24/24 07:06
Plt Count 144 10^3/uL (130-400) 08/24/24 07:06
Sodium 138 mmol/L (135-145) 08/24/24 07:06
Potassium 4.1 mmol/L (3.5-5.1) D 08/24/24 07:06
BUN 81 mg/dl (9-20) H 08/24/24 07:06
Creatinine 2.1 mg/dL (0.7-1.3) H 08/24/24 07:06
Glucose 110 mg/dl (70-99) H 08/24/24 07:06
Troponins
08/22/24
15:17
Troponin I 0.060 H*
Vital Signs and I&O:
Vital Signs
Temp Pulse Resp BP Pulse Ox
98.1 F 106 18 148/79 95
08/24/24 07:48 08/24/24 08:03 08/24/24 08:03 08/24/24 07:48 08/24/24 08:03
Vital Signs
Temp Pulse Resp BP Pulse Ox
98.1 F 106 18 148/79 95
08/24/24 07:48 08/24/24 08:03 08/24/24 08:03 08/24/24 07:48 08/24/24 08:03
Intake & Output
08/22/24 08/23/24 08/24/24 08/25/24
06:59 06:59 06:59 06:59
Intake Total 220 / 220 480 / 480
Output Total 950 / 950 2000 / 2000
Balance -730 / -730 -1520 / -1520
Physical Exam
Physical Exam
GEN: No distress, awake, Ox3, sitting in chair reading newspaper
HEENT: supple, anicteric, mmm
LUNGS: Few coarse breath sounds better after cough, no wheezes/rales; wearing oxygen via nasal cannula, 2 L/min
CV: Irregularly irregular, S1/S2, 1/6 syst LSB murmur
ABD: soft, BS+, NT/ND
EXT: Trace edema, skin changes consistent with chronic venous stasis
NEURO: Gross non-focal
SKIN: No rash, warm, dry, pink
--- NOTE | 2024-08-24 10:55 | CM ---
Patient seen bedside, initial assessment completed. Patient is a 83-year-old male past medical history of CAD status post since, chronic HFrEF, permanent atrial fibrillation on Xarelto, BPH, history of DVT/PE, pulmonary hypertension, hyperlipidemia,
alcohol use disorder, chronic indwelling Padilla catheter, CKD 3, BPH, obesity, tobacco use disorder, venous insufficiency, hyperlipidemia, CVA, presenting for shortness of breath.
Patient reports that he lives w/ his son in a single story home w/ some additions to the home. 2 small steps to enter the home. Patient is independent w/ the use of a RW. Has grab bars and humidifier in the home. Prev known to [facility] in the
past, prev known to [facility]. Patient engaged in OP therapy at in the past.
Address, point of contact and insurance verified
PCP: Maxime Manjarrez
Therapy assessed patient is currently recommending home PT at d/c
Plan: Home w/ home PT. CM will confirm w/ patient the provider and place referral
--- NOTE | 2024-08-24 12:15 | W.PN.PUL3 ---
Today's Communication / Plan
-
Continue nebulizer
Prednisone taper
Antibiotics per infectious disease-no infiltrate on CAT scan, microbiology negative-likely tracheobronchitis.
Continue diuretics, per nephrology.
Continue BiPAP at bedtime as needed-he does not like it. He will try his best.
At patient request: MiraLAX and probiotics started.
Eventual outpatient pulmonary follow-up
Assessment
-
83-year-old gentleman with longstanding history of smoking and underlying congestive heart failure, presents to the hospital with worsening shortness of breath, cough, episodic wheezing and clear expectoration after developing upper respiratory
tract infection about a week ago. Pulmonary consultation was requested for further workup and recommendations.
#1. 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 Prior BMP reviewed with elevated HCO3 suggestive of some degree of chronic hypercapnia. VBG performed suggestive of acute on chronic hypercapnia.
I suspect this is related to underlying COPD exacerbation as well as volume overload. Patient is fully awake, alert and oriented without any VAMP THROATER signs of CO2 narcosis.
-Continue BiPAP support-can transition to only at bedtime and as needed. Most recent VBG 08/24/2024 improved 7.33/74/45
-Continue diuresis per nephrology and cardiology.
-Patient might have underlying history of JOSE GUADALUPE/sleep disordered breathing as well, will need outpatient sleep study once he recovers from acute illness
#2. Suspect acute on chronic COPD exacerbation. Patient has never been diagnosed with COPD or emphysema however he has more than 12-[id number] smoking history. Patient reports episodic cough with wheezing with expectoration suggestive of
underlying obstructive airway disease.
-Continue DuoNeb 4 times daily scheduled, (he is usually not on inhalers)
-prednisone 40 mg daily-Taper by 10 mg every 72 hours to off.
-Continue antibiotics-per infectious disease. CT of the chest without infiltrate. Likely tracheobronchitis.
-Once patient is euvolemic, can consider a bedside spirometry however currently he is volume overloaded which can interfere with spirometry assessment
-Will need outpatient follow-up with pulmonary clinic with full pulmonary function testing and 6-minute walk test
-Patient quit smoking pipes about 2 years ago
-All microbiology negative.
#3. Pulmonary hypertension, right heart catheter in 2022 was suggestive of mean pulmonary artery pressure of 42 with PVR of 4.12 and pulmonary capillary wedge pressure elevated at 28. Suggestive of both pre and postcapillary pulmonary hypertension
likely related to underlying heart failure, group 2. Patient also has risk factors for group 3 pulmonary hypertension including morbid obesity, underlying COPD and possibly underlying obstructive sleep apnea.
-Patient will need additional workup as outpatient including full pulmonary function testing, 6-minute walk test, polysomnogram
-Continue to optimize volume status and bronchodilator, no indication for pulmonary vasodilators for now
#4. Acute on chronic heart failure with preserved ejection fraction. Patient on exam appears to be volume overloaded with significantly elevated BNP and pedal edema
-Patient will likely benefit from diuresis
-Also noted worsened kidney function, query cardiorenal syndrome
-Will defer management to primary team as nephrology service and cardiology service are being consulted
#5. Morbid obesity with suspected sleep disordered breathing. Patient does not report snoring but does report daytime naps and at times excessive sleepiness
-Patient will benefit from sleep study after discharge
-Once patient is euvolemic, recommend overnight oximetry prior to discharge to evaluate for any need for home oxygen
Other significant medical comorbidities:
-Paroxysmal atrial fibrillation, on chronic anticoagulation
-History of DVT and PE, on Xarelto
-Chronic kidney disease stage III with hyperkalemia
-BPH
-History of smoking, quit 2 years ago
-Coronary artery disease with history of non-ST elevation LA in the past s/p PCI
-Prior history of alcoholism
-Hypertension and hyperlipidemia
-History of CVA
Dr. Mittal updated son at the bedside 08/24/2024.
Will follow
Data:
ECHO 09/2023
1. Mild left ventricular hypertrophy with low normal or mild globally reduced
systolic function, EF 50-55%
2. Thickened mitral leaflets, mitral annular calcification, mild mitral
regurgitation and normal left atrium
3. Aortic sclerosis with mild aortic regurgitation
4. Dilated right ventricle with preserved systolic function, dilated right
atrium, mild tricuspid regurgitation and moderate pulmonary hypertension, 57
mmHg systolic
RH, 05/2023
CO 4.6, CI 2.2 with PVR 4.12 and PCWP 28, PA 60/30 (42). Pulm HTN with elevated PVR and PCWP. Elevated filling pressures
[facility], 05/2023
CAD, s/p PCI of LCX
Subjective Data
-
Date of Service:
Date of Service: August 24, 2024
Chief Complaint: Pulmonary Follow Up (Acute hypercapnic respiratory failure.)
Subjective:
Main complaint is constipation-would like his MiraLAX.
Continues to have coughing and chest congestion. Difficulty expectorating at times
Adequate appetite, denies swallowing difficulties.
Objective Data
Data Reviewed
Vital Signs / I&O / Oxygen:
Vital Signs
Temp Pulse Resp BP Pulse Ox
98.5 F 103 18 141/77 94
08/24/24 11:06 08/24/24 11:25 08/24/24 11:25 08/24/24 11:06 08/24/24 11:25
Intake and Output
08/23/24 08/24/24 08/25/24
06:59 06:59 06:59
Intake Total 220 / 220 480 / 480
Output Total 950 / 950 2000 / 2000
Balance -730 / -730 -1520 / -1520
SaO2 94
Nasal Cannula flow liters per 2
minute
Physical Exam
General: Comfortable (Sitting out of bed)
HEENT: Normocephalic
Cardiovascular: S1-S2
Respiratory: Wheeze (With forceful expiration.) and Other ( Bronchitic cough)
GI: Distended (Obese)
Neurology: Awake, Alert and Oriented
Skin: Warm
Labs/Micro/Reports
Lab Data
08/24/24 07:06
08/24/24 07:06
Microbiology
08/23/24 13:12 Sputum Respiratory Culture - Preliminary
Usual Respiratory Nai
08/23/24 13:12 Sputum Gram Stain - Preliminary
08/23/24 12:25 Urine Legionella Urinary Antigen - Final
Negative for Legionella pneumophila Serogroup 1 antigen.
A negative result does not rule out the possiblity of
Legionella infection due to other serogroups or species of
Legionella. Clinical correlation is recommended.
08/23/24 12:25 Urine Streptococcus pneumoniae Antigen (M - Final
Negative for Streptococcus pneumoniae antigen.
A negative result does not exclude infection with
Streptococcus pneumoniae. Clinical correlation is
recommended.
08/22/24 19:18 Sputum Respiratory Culture - Final
08/22/24 19:18 Sputum Gram Stain - Final
08/22/24 15:51 Nasal Swab Influenza Types A & B (MIKEY) - Final
Negative for Influenza A & B, NAAT
Negative results must be combined with clinical observations
and patient history.
Nucleic Acid Amplification test (NAAT)performed on the
[employer] platform.
--- NOTE | 2024-08-24 12:39 | W.PN.HOSP.TC ---
Today's Communication/Plan
-
Monitor vitals
See plan
Lasix per nephrology
Echo
Continue with steroids, nebs
dc abx if ok with ID
Assessment / Plan
Assessment / Plan
Physical Exam
General: No Apparent Distress, seems sob while talking, obese.
HEENT: NormoCephalic, Moist mucous membranes and Atraumatic
Respiratory: wheezes with rales Clear
Cardiac: S1/S2 tachy
GI: Soft, Non Tender, Non Distended and Normal Bowel Sounds;
Musculoskeletal: No ankle edema
Skin: No Rash
Neuro: AAOX3, he followed commands
Psych: calm.
A/P:
# SIRS Vs Sepsis (leukocytosis, tachycardia, left lung PNA
-COVID and influenza negative
-Check sputum culture, Legionella, strep negative
- Started on IV Ceftriaxone/doxycycline
CT chest does not appear to have pneumonia, discontinue further antibiotics if okay with infectious disease
# Acute hypercapnic hypoxic respiratory failure suspect multifactorial secondary to COPD and congestive heart failure
Oxygen saturation was 82% on room air with respiratory distress.
Patient had respiratory distress called the ambulance with hypoxia
Currently on 2 L oxygen and receiving nebulizer treatment
Suspect some chronic hypercapnia, BiPAP per pulmonary
Continue diuresis per nephrology and cardiology
Does appear to have underlying JOSE GUADALUPE/sleep disorder. Should get outpatient sleep study
COPD exacerbation
Continue steroids
DuoNeb
Pulmonary hypertension
# Hyperkalemia secondary to potassium supplement
# CKD 3b
Now improving
# Acute on chronic heart failure with reduced ejection fraction
He has exertional shortness of breath. Lung examination positive for wheezes and rales
Last echocardiogram in 2023 showed LVEF 50%
Patient takes Lasix 80 mg twice a day with metolazone
Lasix was held on admission for kidney dysfunction
Lasix per nephrology
Primary quality systems manager Dr. Graamjo
Consult cardiology, order echocardiogram
#Permanent atrial fibrillation
Mildly positive troponin. No chest pain.
Elevation of troponin likely nonischemic myocardial injury due to congestive heart failure
Uncontrolled on mild exertion, will start the patient on Cardizem
-Continue Xarelto
# Chronic kidney disease stage IIIb
Monitor renal function while on diuretic therapy
Consult nephrology, follow-up with recommendations. Monitor for retention
# History of DVT/PE
# History of primary arthritis and gout. Continue with allopurinol therapy to avoid exacerbation while using diuretics
#BPH
Chronic Padilla catheter
Hematuria resolved , was traumatic hematuria secondary to Padilla. He was seen by urologist and Rec: f/u with Dr Ortega as outpatient
-Continue tamsulosin, finasteride
#Obesity
#History of alcohol use disorder, Tobacco use disorder
History of venous insufficiency
Hyperlipidemia
-Continue statin
#History of CVA
Full code
DVT prophylaxis�Xarelto
Total time spent to see the patient, examine the patient, review data and lab results, discuss treatment plan with patient, consultants and nursing staff around 52 minutes
Anticipated Discharge: > 48 hours
Subjective/Interval History
-
Date of Service: August 24, 2024
denies pain
Objective Data
-
Labs:
Laboratory Results
08/24/24
07:06
WBC 11.8 H
Hgb 10.5 L
Hct 34.6 L
Plt Count 144
Sodium 138
Potassium 4.1 D
Chloride 94 L
Carbon Dioxide 37 H
BUN 81 H
Creatinine 2.1 H
Glucose 110 H
Calcium 8.5
Total Bilirubin 0.4
AST 16 L
ALT 15
Alkaline Phosphatase 64
Vital Signs:
Vital Signs
Temp Pulse Resp BP Pulse Ox
98.5 F 103 18 141/77 94
08/24/24 11:06 08/24/24 11:25 08/24/24 11:25 08/24/24 11:06 08/24/24 11:25
I&O
08/23/24 08/24/24 08/25/24
06:59 06:59 06:59
Intake Total 220 / 220 480 / 480
Output Total 950 / 950 1999 / 1999
Balance -730 / -730 -1520 / -1520
[2024-08-24] MEDS: MIRALAX 17 GRAMS PO (14:23)
[2024-08-24] MEDS: VISBIOME 1 CAP PO (14:23)
--- NOTE | 2024-08-24 14:30 | PTCARENOTE ---
08/24- Patient walked back to chair from stretcher upon return from Echo. Face is flushed; POX=85% on 2L with WL=587 in AFib. HR resolves info 95 still AFib with POX=93% when increased to 3L at rest. New O2 baseline seems to be 3L. Productive
harsh couch with inspiratory Wheezing BL; Lungs diminished BL. Upon ambulation, O2 needs rise to 4L to maintain O2 above 92%, and HR below 110. Patient stable at rest with O2 at 3L at this time.
--- NOTE | 2024-08-24 16:09 | W.PN.NEPH.PH ---
Today's Communication / Plan
-
lasix again
labs in am
Assessment/Plan
-
Assessment:
Acute kidney injury creatinine 2.3 on admission
Hyperkalemia
Anemia
Edema
Atrial fibrillation
Heart failure reduced ejection fraction= EF 50 to 55%
Moderate pulmonary hypertension
CKD 3A (1.7-2)
Hypercapnia with a CO2 of 80
Plan:
Acute on chronic kidney disease suspect this is cardiorenal with hyperkalemia.
stable renal function so far
CO2 retention appears to be multifactorial more likely from fluid rather than pneumonia
Continue BiPAP, steroid per pulm
cont 80 mg IV Lasix with close monitoring of met alkalosis
also on Metolazone daily
echo no change noted, normal EF and pulm HTN
hyperkalemia improved too
labs in am
d/w pt
-
-
Date of Service: August 24, 2024
CC / HPI / ROS
-
Chief Complaint:
JUAN, CKD
History of Present Illness:
cr stable 2.1
wt is up, met alkalosis 37, VBG Ph 7.33, PCO2 74
BP stable
Review of Systems:
sob better
no cp
no nv/
Labs
-
Labs:
WBC 11.8 10^3/uL (4.8-10.8) H 08/24/24 07:06
RBC 3.93 10^6/uL (4.70-6.10) L 08/24/24 07:06
Hgb 10.5 g/dL (13.0-18.0) L 08/24/24 07:06
Hct 34.6 % (39.0-52.0) L 08/24/24 07:06
Plt Count 144 10^3/uL (130-400) 08/24/24 07:06
Sodium 138 mmol/L (135-145) 08/24/24 07:06
Potassium 4.1 mmol/L (3.5-5.1) D 08/24/24 07:06
Chloride 94 mmol/L (98-107) L 08/24/24 07:06
Carbon Dioxide 37 mmol/L (22-30) H 08/24/24 07:06
BUN 81 mg/dl (9-20) H 08/24/24 07:06
Creatinine 2.1 mg/dL (0.7-1.3) H 08/24/24 07:06
eGFR 31.04 08/24/24 07:06
Glucose 110 mg/dl (70-99) H 08/24/24 07:06
Calcium 8.5 mg/dl (8.4-10.2) 08/24/24 07:06
Bgz-X-Nempiabhmte Pept 5130 pg/ml 08/22/24 15:17
Albumin 3.2 g/dl (3.5-5.0) L 08/24/24 07:06
Physical Exam
-
Vital Signs:
Vital Signs
Temp Pulse Resp BP Pulse Ox
98.7 F 102 18 152/87 94
08/24/24 15:09 08/24/24 15:50 08/24/24 15:50 08/24/24 15:09 08/24/24 15:50
Cardiovascular:: Regular rate and rhythm
Respiratory:: Bilateral: Wheeze
Lung Excursion:: Normal
Abdomen:: Nontender and Soft
Extremity Edema:: +3: Bilateral:
Padilla Catheter: Yes
[2024-08-24] MEDS: XARELTO 15 MG PO (17:13)
[2024-08-24] MEDS: FLOMAX 0.4 MG PO (17:13)
[2024-08-24] MEDS: LASIX 80 MG IV (17:14)
[2024-08-24] MEDS: ROCEPHIN 1000 MG IV (17:15)
[2024-08-24] MEDS: STERILE WATER FOR INJECTION 10 ML IV (17:15)
[2024-08-24] MEDS: LIPITOR 40 MG PO (20:59)
[2024-08-25] VITALS (8 sets, daily range): BP systolic 127–167; BP diastolic 73–91; PULSE 97; O2SAT 97; BMI 34.3
[2024-08-25 06:37] LABS: % Basophils 0.1 % (0-2); % Immature Granulocytes 0.2 % (0-0.5); % Lymphocytes 5.3 % (20.5-51.1); % Monocytes 6.4 % (1.7-9.3); Absolute Lymphocytes 0.6 10^3/uL (1.2-3.4); Absolute Monocytes 0.7 10^3/uL (0.1-0.6); Absolute Neutrophils 9.6 10^3/uL (1.4-6.5); Hematocrit 34.5 % (39.0-52.0); Hemoglobin 10.3 g/dL (13.0-18.0); Mean Corp Hgb Conc. 29.9 g/dL (33.0-37.0); Mean Corpuscular Hgb 25.9 pg (27.0-31.0); Mean Corpuscular Volume 86.7 fL (80.0-94.0); Mean Platelet Volume 10.6 fL (7.4-10.4); Nucleated Red Blood Cells % 0 % (-); Platelet Count 137 10^3/uL (130-400); Red Blood Cell Count 3.98 10^6/uL (4.70-6.10); Red Cell Dist. Width 18.9 % (11.5-14.5); White Blood Cell Count 10.9 10^3/uL (4.8-10.8)
[2024-08-25 06:58] LABS: ALT (SGPT) 15 U/L (0-50); AST (SGOT) 16 U/L (17-59); Albumin 3.2 g/dl (3.5-5.0); Alkaline Phosphatase 61 U/L (38-126); Blood Urea Nitrogen 87 mg/dl (9-20); Calcium 8.7 mg/dl (8.4-10.2); Carbon Dioxide 40 mmol/L (22-30); Chloride 94 mmol/L (98-107); Estimated Creatinine Clearance 36 ml/min; Glucose 103 mg/dl (70-99); Potassium 3.2 mmol/L (3.5-5.1); Sodium 142 mmol/L (135-145); Total Bilirubin 0.4 mg/dl (0.2-1.3); Total Protein 5.7 g/dl (6.3-8.2)
[2024-08-25 07:03] LABS: Troponin I 0.056 ng/ml
[2024-08-25] MEDS: DUONEB 3 ML INH ×4 (07:04→19:13)
[2024-08-25] MEDS: CARDIZEM CD 120 MG PO (07:27)
[2024-08-25] MEDS: VIBRAMYCIN 100 MG PO ×2 (07:27→20:17)
[2024-08-25] MEDS: PROTONIX 40 MG PO (07:27)
[2024-08-25] MEDS: DELTASONE 40 MG PO (07:27)
[2024-08-25] MEDS: PROSCAR 5 MG PO (07:27)
[2024-08-25] MEDS: VISBIOME 1 CAP PO (07:27)
[2024-08-25] MEDS: MIRALAX 17 GRAMS PO (07:27)
[2024-08-25] MEDS: LASIX 80 MG IV (07:27)
[2024-08-25] MEDS: ZAROXOLYN 5 MG PO (07:27)
[2024-08-25] MEDS: DESENEX/MITRAZOL/ZEASORB 1 APPLIC TOPICAL ×2 (07:30→20:20)
[2024-08-25] MEDS: KCL 40 MEQ PO ×2 (10:13→14:23)
--- NOTE | 2024-08-25 12:13 | W.PN.HOSP.TC ---
Today's Communication/Plan
-
Monitor vital signs see plan
Wean oxygen as tolerated
Continue with diuresis
Replete potassium
abx per ID
Monitor renal function
Assessment / Plan
Assessment / Plan
Physical Exam
General: No Apparent Distress, seems sob while talking, obese.
HEENT: NormoCephalic, Moist mucous membranes and Atraumatic
Respiratory: wheezes with rales Clear
Cardiac: S1/S2 tachy
GI: Soft, Non Tender, Non Distended and Normal Bowel Sounds;
Musculoskeletal: No ankle edema
Skin: No Rash
Neuro: AAOX3, he followed commands
Psych: calm.
A/P:
# SIRS Vs Sepsis (leukocytosis, tachycardia, likely tracheobronchitis
-COVID and influenza negative
-Check sputum culture, Legionella, strep negative
- Started on IV Ceftriaxone/doxycycline
CT chest does not appear to have pneumonia, discontinue further antibiotics if okay with infectious disease
# Acute hypercapnic hypoxic respiratory failure suspect multifactorial secondary to COPD and congestive heart failure
Oxygen saturation was 82% on room air with respiratory distress.
Patient had respiratory distress called the ambulance with hypoxia
Currently on 2 L oxygen and receiving nebulizer treatment; wean o2 as tolerated
Suspect some chronic hypercapnia, BiPAP per pulmonary
Continue diuresis per nephrology and cardiology
Does appear to have underlying JOSE GUADALUPE/sleep disorder. Should get outpatient sleep study
COPD exacerbation
Continue steroids
DuoNeb
Hypokalemia
Replete
Pulmonary hypertension
# CKD 3b
Now improving
# Acute on chronic heart failure with reduced ejection fraction
He has exertional shortness of breath. Lung examination positive for wheezes and rales
Last echocardiogram in 2023 showed LVEF 50%
Patient takes Lasix 80 mg twice a day with metolazone
Lasix was held on admission for kidney dysfunction
Lasix per nephrology
Primary satellite installation technician Dr. Gramajo
Consult cardiology, echo 08/25 without significant change. Preserved EF
#Permanent atrial fibrillation
Mildly positive troponin. No chest pain.
Elevation of troponin likely nonischemic myocardial injury due to congestive heart failure
Uncontrolled on mild exertion, now on cardizem
-Continue Xarelto
# Chronic kidney disease stage IIIb
Monitor renal function while on diuretic therapy
Consulted nephrology, follow-up with recommendations.
chronic nevarez on admit
# History of DVT/PE
# History of primary arthritis and gout. Continue with allopurinol therapy to avoid exacerbation while using diuretics
#BPH
Chronic Nevarez catheter
Hematuria resolved , was traumatic hematuria secondary to Nevarez. He was seen by urologist and Rec: f/u with Dr Ortega as outpatient
-Continue tamsulosin, finasteride
#Obesity
#History of alcohol use disorder, Tobacco use disorder
History of venous insufficiency
Hyperlipidemia
-Continue statin
#History of CVA
Full code
DVT prophylaxis�Xarelto
Total time spent to see the patient, examine the patient, review data and lab results, discuss treatment plan with patient, consultants and nursing staff around 51 minutes
Anticipated Discharge: 24 - 48 hours
Subjective/Interval History
-
Date of Service: August 25, 2024
denies pain
Objective Data
-
Labs:
Laboratory Results
08/25/24
06:19
WBC 10.9 H
Hgb 10.3 L
Hct 34.5 L
Plt Count 137
Sodium 142
Potassium 3.2 L
Chloride 94 L
Carbon Dioxide 40 H
BUN 87 H
Creatinine 1.9 H
Glucose 103 H
Calcium 8.7
Total Bilirubin 0.4
AST 16 L
ALT 15
Alkaline Phosphatase 61
Vital Signs:
Vital Signs
Temp Pulse Resp BP Pulse Ox
98.4 F 106 20 140/85 95
08/25/24 11:27 08/25/24 11:27 08/25/24 11:27 08/25/24 11:27 08/25/24 11:27
I&O
08/24/24 08/25/24 08/26/24
06:59 06:59 06:59
Intake Total 480 / 480 720 / 720 240 / 240
Output Total 1999 / 1999 1350 / 1350
Balance -1520 / -1520 -630 / -630 240 / 240
--- NOTE | 2024-08-25 12:17 | W.PN.PUL3 ---
Today's Communication / Plan
-
Continue BiPAP as needed, with naps and bedtime.
Obtain ABG on room air-hopefully can Get noninvasive mechanical ventilation approved prior to discharge
Continue nebulizer therapy-while in the hospital.
Prednisone taper-decrease to 30 mg daily. Decrease by 10 mg every 72 hours to off.
Antibiotics per infectious disease
Diuresis as able
Wean down FiO2 as able-currently on 2 L. Home oxygen assessment prior to discharge Tomorrow
Increase activity as able
Assessment
-
83-year-old gentleman with longstanding history of smoking and underlying congestive heart failure, presents to the hospital with worsening shortness of breath, cough, episodic wheezing and clear expectoration after developing upper respiratory
tract infection about a week ago. Pulmonary consultation was requested for further workup and recommendations.
#1. 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 Prior BMP reviewed with elevated HCO3 suggestive of some degree of chronic hypercapnia. VBG performed suggestive of acute on chronic hypercapnia.
I suspect this is related to underlying COPD exacerbation as well as volume overload/obesity hypoventilation syndrome and possibly obstructive sleep apnea undiagnosed.
Patient is fully awake, alert and oriented without any BOBBIN DRIER signs of CO2 narcosis.
-Continue BiPAP support-can transition to only at bedtime and as needed. Most recent VBG 08/24/2024 improved 7.33/74/45
-Continue diuresis per nephrology and cardiology.
-Echocardiogram noted with RV dysfunction/RV dilatation/TR 08/24/2024- likely chronic based on cardiac catheterization from 2022. -Given findings of pulmonary hypertension I would prefer him to be discharged on either BiPAP or noninvasive mechanical
ventilator.
Dr. Mittal extensively discussed with son and patient and he is willing.
Will need to get ABG on room air first. Depending on results then I will contact case management to start the process of approval.
Patient states that he is not interested in a polysomnogram.
#2. Suspect acute on chronic COPD exacerbation. Patient has never been diagnosed with COPD or emphysema however he has more than [id number] smoking history. Patient reports episodic cough with wheezing with expectoration suggestive of
underlying obstructive airway disease.
-Continue DuoNeb 4 times daily scheduled, (he is usually not on inhalers).
-prednisone 40 mg daily-Taper by 10 mg every 72 hours to off.
-Continue antibiotics-per infectious disease. CT of the chest without infiltrate. Likely tracheobronchitis.
-Eventual spirometry.
-Will need outpatient follow-up with pulmonary clinic with full pulmonary function testing and 6-minute walk test
-Patient quit smoking pipes about 2 years ago
-All microbiology negative.
#3. Pulmonary hypertension, right heart catheter in 2022 was suggestive of mean pulmonary artery pressure of 42 with PVR of 4.12 and pulmonary capillary wedge pressure elevated at 28. Suggestive of both pre and postcapillary pulmonary hypertension
likely related to underlying heart failure, group 2. Patient also has risk factors for group 3 pulmonary hypertension including morbid obesity, underlying COPD and possibly underlying obstructive sleep apnea.
-Patient will need additional workup as outpatient including full pulmonary function testing, 6-minute walk test, polysomnogram if patient is willing.
Will try to approve for noninvasive mechanical ventilation prior to discharge. Check ABG on room air.
-Continue to optimize volume status and bronchodilator, no indication for pulmonary vasodilators for now
#4. Acute on chronic heart failure with preserved ejection fraction. Patient on exam appears to be volume overloaded with significantly elevated BNP and pedal edema
-Clinically improved.
-Diuresis as able.
-Also noted worsened kidney function, query cardiorenal syndrome
-Will defer management to primary team as nephrology service and cardiology service are being consulted
#5. Morbid obesity with suspected sleep disordered breathing. Patient does not report snoring but does report daytime naps and at times excessive sleepiness
-Patient will benefit from sleep study after discharge
-Once patient is euvolemic, recommend overnight oximetry prior to discharge to evaluate for any need for home oxygen
Other significant medical comorbidities:
-Paroxysmal atrial fibrillation, on chronic anticoagulation
-History of DVT and PE, on Xarelto
-Chronic kidney disease stage III with hyperkalemia
-BPH
-History of smoking, quit 2 years ago
-Coronary artery disease with history of non-ST elevation OK in the past s/p PCI
-Prior history of alcoholism
-Hypertension and hyperlipidemia
-History of CVA
Dr. Mittal updated son at the bedside 08/24/2024 and 08/25/2024.
Will follow
Data:
ECHO 09/2023
1. Mild left ventricular hypertrophy with low normal or mild globally reduced
systolic function, EF 50-55%
2. Thickened mitral leaflets, mitral annular calcification, mild mitral
regurgitation and normal left atrium
3. Aortic sclerosis with mild aortic regurgitation
4. Dilated right ventricle with preserved systolic function, dilated right
atrium, mild tricuspid regurgitation and moderate pulmonary hypertension, 57
mmHg systolic
RHC, 05/2023
CO 4.6, CI 2.2 with PVR 4.12 and PCWP 28, PA 60/30 (42). Pulm HTN with elevated PVR and PCWP. Elevated filling pressures
LHC, 05/2023
CAD, s/p PCI of LCX
Subjective Data
-
Date of Service:
Date of Service: August 25, 2024
Chief Complaint: Pulmonary Follow Up (Acute hypercapnic respiratory failure.)
Objective Data
Data Reviewed
Vital Signs / I&O / Oxygen:
Vital Signs
Temp Pulse Resp BP Pulse Ox
98.4 F 106 20 140/85 95
08/25/24 11:27 08/25/24 11:27 08/25/24 11:27 08/25/24 11:27 08/25/24 11:27
Intake and Output
08/24/24 08/25/24 08/26/24
06:59 06:59 06:59
Intake Total 480 / 480 720 / 720 240 / 240
Output Total 1999 / 1999 1350 / 1350
Balance -1520 / -1520 -630 / -630 240 / 240
SaO2 95
Nasal Cannula flow liters per 2
minute
Physical Exam
General: Comfortable (Sitting out of bed)
HEENT: Normocephalic
Cardiovascular: S1-S2
Respiratory: Clear and Other ( Bronchitic cough)
GI: Distended (Obese)
Neurology: Awake, Alert, Oriented and AO x 3
Skin: Warm
Labs/Micro/Reports
Lab Data
08/25/24 06:19
08/25/24 06:19
Microbiology
08/23/24 13:12 Sputum Respiratory Culture - Final
Usual Respiratory Nai
08/23/24 13:12 Sputum Gram Stain - Final
08/23/24 12:25 Urine Legionella Urinary Antigen - Final
Negative for Legionella pneumophila Serogroup 1 antigen.
A negative result does not rule out the possiblity of
Legionella infection due to other serogroups or species of
Legionella. Clinical correlation is recommended.
08/23/24 12:25 Urine Streptococcus pneumoniae Antigen (M - Final
Negative for Streptococcus pneumoniae antigen.
A negative result does not exclude infection with
Streptococcus pneumoniae. Clinical correlation is
recommended.
08/22/24 19:18 Sputum Respiratory Culture - Final
08/22/24 19:18 Sputum Gram Stain - Final
08/22/24 15:51 Nasal Swab Influenza Types A & B (MIKEY) - Final
Negative for Influenza A & B, NAAT
Negative results must be combined with clinical observations
and patient history.
Nucleic Acid Amplification test (NAAT)performed on the
[employer] platform.
--- NOTE | 2024-08-25 12:26 | W.PN.CARDCBS ---
Today's Communication / Plan
-
Continue IV Lasix
Continue steroids and antibiotics
Hopefully wean oxygen off in the next 24 hours and change to oral Lasix
Impression / Plan
-
PCP: Dr. Manjarrez
Distribution Superintendent: MORRIS Gramajo
Impression:
Presented 05/21/2023 with progressively worsening SOB
Acute on chronic HFpEF, proBNP 5130
Acute on Chronic kidney disease 3b
Hypercapnia with pCO2 82 on venous blood gas
Nonischemic myocardial injury
CAD
Non-STEMI with peak troponin of 2.5, s/p 4 mm Xience to ostial/prox Circumflex 05/28/23
Permanent atrial fibrillation
Chronic Xarelto OAC
Hypertension
Dyslipidemia
History of pulmonary embolism
History of right lower extremity DVT
History of alcoholism
Tobacco abuse
Lower extremity neuropathy
BPH
Chronic kidney disease 3b
Cellulitis
Venous insufficiency
Rash, possibly contrast mediated or from recent initiation of Plavix
Echocardiogram 08/24/2024: Ejection fraction 60 to 65%, moderate concentric LVH, moderate TR with PA systolic of 56 mmHg, enlarged right ventricle which may have been hypokinetic, aortic root mildly dilated at 4.0 cm
Echo 09/24: EF 50 to 55%, mild MR, dilated right ventricle with PA pressure 57
Echo 05/21/2023 (TDS): EF 40 to 45% mild to moderately reduced LV systolic function. No gross wall motion abnormalities. Mild concentric LVH. Mildly reduced RV systolic function. Mild AI, mild to moderate TR with PAP 60 mmHg.
Echo 07/30/2022: EF 55 to 60%, mild AI, mild TR with PAP 42 mmHg
Echo 01/14/2020: EF 60%, mild left atrial enlargement, mild AI, PAP 32 mmHg
Echo 12/19/18:� Mild concentric LVH, EF 65�70 percent, trace MR with severe left atrial dilatation, mild AR, mild to moderate tricuspid regurgitation, severe pulmonary hypertension with PA systolic pressure 65�70.
Plan:
He continues to diurese with improved renal function
Creatinine improved to 1.9 on 08/25, this is near baseline of 1.7-1.8
Continue IV Lasix
Hopefully can wean oxygen off over the next 24 hours and changed to oral lasix
Pulmonary following as well, continue antibiotics and steroids and nebulizers
Continue Xarelto for A-fib. Heart rate control reasonable on Cardizem. May need higher dose
History of Present Illness 08/23/2024:
83-year-old male with complex past medical history including coronary artery disease, chronic heart failure with preserved ejection fraction, permanent atrial fibrillation, history of DVT/PE, CVA, chronic alcoholism, stage III kidney disease,
hypertension, and hyperlipidemia presents with several days of upper respiratory tract infection, cough, and shortness of breath. He states that he had a postnasal drip for several days and had significant fatigue. He denied any chest pains. He
did have a cough with some clear sputum. The shortness of breath got better for a day or 2 but then worsened and he presented to the emergency room. He has no fever. He denies any chest pains. He denies any abdominal pain, nausea or vomiting.
He thinks he may be somewhat bloated and weight may be slightly up. He has been compliant with his medication. His breathing worsen he was placed on BiPAP. He states he has been drinking minimal alcohol recently. He has no wheezing. His
activity is poor to start with. He has no focal weakness or numbness.
Progress Note - Distribution Superintendent
Subjective
Date of Service: August 25, 2024
No complaints
Objective
Labs:
08/25/24 06:19
08/25/24 06:19
Labs
Hgb 10.3 g/dL (13.0-18.0) L 08/25/24 06:19
Hct 34.5 % (39.0-52.0) L 08/25/24 06:19
Plt Count 137 10^3/uL (130-400) 08/25/24 06:19
Sodium 142 mmol/L (135-145) 08/25/24 06:19
Potassium 3.2 mmol/L (3.5-5.1) L 08/25/24 06:19
BUN 87 mg/dl (9-20) H 08/25/24 06:19
Creatinine 1.9 mg/dL (0.7-1.3) H 08/25/24 06:19
Glucose 103 mg/dl (70-99) H 08/25/24 06:19
Troponins
08/22/24 08/25/24
15:17 06:19
Troponin I 0.060 H* 0.056 H*
Vital Signs and I&O:
Vital Signs
Temp Pulse Resp BP Pulse Ox
98.4 F 106 20 140/85 95
08/25/24 11:27 08/25/24 11:27 08/25/24 11:27 08/25/24 11:27 08/25/24 11:27
Vital Signs
Temp Pulse Resp BP Pulse Ox
98.4 F 106 20 140/85 95
08/25/24 11:27 08/25/24 11:27 08/25/24 11:27 08/25/24 11:27 08/25/24 11:27
Intake & Output
08/23/24 08/24/24 08/25/24 08/26/24
06:59 06:59 06:59 06:59
Intake Total 220 / 220 480 / 480 720 / 720 240 / 240
Output Total 950 / 950 2000 / 2000 1350 / 1350
Balance -730 / -730 -1520 / -1520 -630 / -630 240 / 240
Physical Exam
Physical Exam
General: Well developed, well nourished in NAD.
Neck: Supple, no JVD, HJR, carotids +2 B/L, no bruits bilaterally.
Heart: Non displaced PMI, irregular, no murmurs, No S3, S4, no rubs.
Lungs: Scattered rhonchi
Extremities: Chronic venous stasis changes
Neuro: Grossly nonfocal, awake, alert and oriented x3.
--- NOTE | 2024-08-25 12:50 | PN.CDI ---
CDI
- -
CDI:
Physician Documentation Request
Admit Date: 08/22/24 19:20
Dear Doctor Toño,
Patient has CKD
Nephrology refers to the CKD 3 a and hospitalist as CKD 3b
2024 eGFR results:
Laboratory Tests
07/07/24 08/22/24 08/23/24
10:01 15:17 06:00
eGFR 40.00 32.91 27.83
08/24/24 08/25/24
07:06 06:19
eGFR 31.04 35.00
In an attempt to clarify potentially conflicting documentation, which of the following accurately represents the patient's renal status:
____ -CKD 3a
____ - CKD 3b
____ - Other
Stages of Chronic Kidney Disease*
Level Description GFR
G1 Normal or High >90
G2 Mildly decreased 60-89
G3a Mildly to moderately decreased 45-59
G3b Moderately to severely decreased 30-44
G4 Severely decreased 15-29
G5 Kidney failure <15
Use of terms such as suspected, likely, concern for, or probable (associated with a specific diagnosis that is being evaluated, monitored, or treated as if it exists) are acceptable and can be coded in the inpatient setting, when documented at the
time of discharge.
Thank you,
Nimisha Braxton RN, BSN
CDI Specialist
tiger text
Please use your independent medical judgment in providing your response.
*Source: Kidney Disease: Improving Global Outcomes (KDIGO) 2012
--- NOTE | 2024-08-25 12:58 | PN.CDI ---
CDI
- -
CDI:
Physician Documentation Request
Admit Date: 08/22/24 19:20
Dear Doctor Toño,
Hospitalist progress notes include a diagnosis of Acute on chronic heart failure with reduced ejection fraction
Cardiology refers to the heart failure as acute on chronic HFpEF.
Echo 08/24 report 'Estimated ejection fraction was 60-65%..'
In an attempt to clarify potentially conflicting documentation please clarify the type of CHF you are evaluating, treating or monitoring.
Type
Systolic
Diastolic
Combined Systolic/Diastolic
Other
Use of terms such as suspected, likely, concern for, or probable (associated with a specific diagnosis that is being evaluated, monitored, or treated as if it exists) are acceptable and can be coded in the inpatient setting, when documented at the
time of discharge.
Thank you,
Nimisha Braxton RN, BSN
CDI Specialist
tiger text
Please use your independent medical judgment in providing your response.
[2024-08-25 13:37] LABS: B.E. 13.3 mmol/L; HCO3 38.7 mmol/L (21-28); O2 Saturation % 82.6 % (94-98); PCO2 52 mmHg (35-48); pH 7.48 (7.35-7.45)
[2024-08-25 13:41] LABS: PO2 49 mmHg (83-108)
--- NOTE | 2024-08-25 16:34 | W.PN.ID1 ---
Date of Service
Date of Service: August 25, 2024
Today's Communication
Change ceftriaxone to oral cefdinir. Continue doxycycline.
Assessment / Plan
Suspected pneumonia
Leukocytosis
A-fib (on Xarelto)
CAD; Hx TN
CHF
HTN
Dyslipidemia
CKD
Hx DVT
Recommendations:
Sputum culture unrevealing.
Change ceftriaxone to cefdinir 300 mg p.o. daily x 7 days
Continue Doxy x 7 days
Continue with current respiratory treatments.
Monitor white count and temperature curve.
Chief Complaint
-: Pneumonia
Subjective / Review of Systems
Review of Systems: No Fever, No Chills, Cough and Sputum Production (Scant)
Vital Signs / Physical Exam
Vital Signs
Vital Signs
Temp Pulse Resp BP Pulse Ox
98.1 F 92 18 162/89 90
08/25/24 15:10 08/25/24 15:17 08/25/24 15:17 08/25/24 15:10 08/25/24 15:10
Physical Exam
Constitutional: No Acute Distress, Comfortable and Non-toxic
Eyes: No Conjunctival Hemorrhage and Sclera Anicteric
Cardiovascular: S1/S2; Negative S3/S4
Pulmonary: Wheezes and Non Labored; Negative Rales or Rhonchi
Gastrointestinal: Soft and Non Tender
Extremities: Negative Cyanosis or Erythema
Neurological: Awake and Alert
Psychological: Calm
Objective Data
Lab Data
Lab Results
08/25/24 06:19
08/25/24 06:19
Estimated Creat Clear 36 ml/min 08/25/24 06:19
Total Bilirubin 0.4 mg/dl (0.2-1.3) 08/25/24 06:19
AST 16 U/L (17-59) L 08/25/24 06:19
ALT 15 U/L (0-50) 08/25/24 06:19
Alkaline Phosphatase 61 U/L (38-126) 08/25/24 06:19
Most recent labs reviewed.
Micro Results:
08/23/24 13:12 Respiratory Culture - Final
Sputum Usual Respiratory Nai
Gram Stain - Final
08/23/24 12:25 Legionella Urinary Antigen - Final
Urine Negative for Legionella pneumophila Serogroup 1 antigen.
A negative result does not rule out the possiblity of
Legionella infection due to other serogroups or species of
Legionella. Clinical correlation is recommended.
Streptococcus pneumoniae Antigen (M - Final
Negative for Streptococcus pneumoniae antigen.
A negative result does not exclude infection with
Streptococcus pneumoniae. Clinical correlation is
recommended.
08/22/24 19:18 Respiratory Culture - Final
Sputum Gram Stain - Final
08/22/24 15:51 Influenza Types A & B (MIKEY) - Final
Nasal Swab Negative for Influenza A & B, NAAT
Negative results must be combined with clinical observations
and patient history.
Nucleic Acid Amplification test (NAAT)performed on the
[employer] platform.
Imaging:
08/22/2024 CXR (2 view): Patchy opacity noted in the left lung base which may represent atelectasis or mild pneumonia. No pleural effusion or pneumothorax. Stable enlargement of the cardiac silhouette. Please see full dictation for additional
detail.
[2024-08-25] MEDS: XARELTO 15 MG PO (17:29)
[2024-08-25] MEDS: FLOMAX 0.4 MG PO (17:29)
--- NOTE | 2024-08-25 17:38 | W.PN.NEPH.PH ---
Today's Communication / Plan
-
hold lasix and metolazone for alaklemia
start diamox
labs in am
Assessment/Plan
-
Assessment:
Acute kidney injury creatinine 2.3 on admission
Hyperkalemia
Anemia
Edema
Atrial fibrillation
Heart failure reduced ejection fraction= EF 50 to 55%
Moderate pulmonary hypertension
CKD 3A (1.7-2)
Hypercapnia with a CO2 of 80
Plan:
Acute on chronic kidney disease suspect this is cardiorenal with hyperkalemia.
improving renal function so far
mild alkalemia from met alkalosis, hold diuretics
will start diamox 250mg BID x2days
Continue BiPAP, steroid per pulm
echo no change noted, normal EF and pulm HTN
hypokalemia-s/p po kcl
labs in am
d/w pt
-
-
Date of Service: August 25, 2024
CC / HPI / ROS
-
Chief Complaint:
JUAN, CKD
History of Present Illness:
cr down to 1.9, k low 3.2
wt is down
met alkalosis 40, Ph 7.48, PCO2 52
BP stable
Review of Systems:
sob better
no cp
no nv/
Labs
-
Labs:
WBC 10.9 10^3/uL (4.8-10.8) H 08/25/24 06:19
RBC 3.98 10^6/uL (4.70-6.10) L 08/25/24 06:19
Hgb 10.3 g/dL (13.0-18.0) L 08/25/24 06:19
Hct 34.5 % (39.0-52.0) L 08/25/24 06:19
Plt Count 137 10^3/uL (130-400) 08/25/24 06:19
Sodium 142 mmol/L (135-145) 08/25/24 06:19
Potassium 3.2 mmol/L (3.5-5.1) L 08/25/24 06:19
Chloride 94 mmol/L (98-107) L 08/25/24 06:19
Carbon Dioxide 40 mmol/L (22-30) H 08/25/24 06:19
BUN 87 mg/dl (9-20) H 08/25/24 06:19
Creatinine 1.9 mg/dL (0.7-1.3) H 08/25/24 06:19
eGFR 35.00 08/25/24 06:19
Glucose 103 mg/dl (70-99) H 08/25/24 06:19
Calcium 8.7 mg/dl (8.4-10.2) 08/25/24 06:19
Knx-I-Hyuhzxjzggq Pept 5130 pg/ml 08/22/24 15:17
Albumin 3.2 g/dl (3.5-5.0) L 08/25/24 06:19
Physical Exam
-
Vital Signs:
Vital Signs
Temp Pulse Resp BP Pulse Ox
98.1 F 92 18 162/89 90
08/25/24 15:10 08/25/24 15:17 08/25/24 15:17 08/25/24 15:10 08/25/24 15:10
Cardiovascular:: Regular rate and rhythm
Respiratory:: Bilateral: Coarse
Lung Excursion:: Normal
Abdomen:: Nontender and Soft
Extremity Edema:: +3: Bilateral:
Padilla Catheter: Yes
[2024-08-25] MEDS: LIPITOR 40 MG PO (20:17)
[2024-08-25] MEDS: DIAMOX 250 MG PO (20:17)
[2024-08-26 01:42] VITALS: PULSE 2
[2024-08-26 05:10] VITALS: BMI 35.0
[2024-08-26] MEDS: DUONEB 3 ML INH ×4 (07:13→19:50)
[2024-08-26 07:39] VITALS: BP 143/80
[2024-08-26 08:38] LABS: % Basophils 0.1 % (0-2); % Eosinophils 0.1 % (0-6); % Immature Granulocytes 0.6 % (0-0.5); % Lymphocytes 7.3 % (20.5-51.1); % Monocytes 8.3 % (1.7-9.3); % Neutrophils 83.6 % (42.2-75.2); Absolute Immature Granulocytes 0.1 10^3/uL (0-0.05); Absolute Lymphocytes 0.7 10^3/uL (1.2-3.4); Absolute Monocytes 0.8 10^3/uL (0.1-0.6); Absolute Neutrophils 7.6 10^3/uL (1.4-6.5); Hemoglobin 10.5 g/dL (13.0-18.0); Mean Corp Hgb Conc. 29.2 g/dL (33.0-37.0); Mean Corpuscular Hgb 25.8 pg (27.0-31.0); Mean Corpuscular Volume 88.5 fL (80.0-94.0); Mean Platelet Volume 11.7 fL (7.4-10.4); Nucleated Red Blood Cells % 0 % (-); Platelet Count 149 10^3/uL (130-400); Red Blood Cell Count 4.07 10^6/uL (4.70-6.10); Red Cell Dist. Width 19.2 % (11.5-14.5)
[2024-08-26] MEDS: PROSCAR 5 MG PO (09:14)
[2024-08-26] MEDS: DELTASONE 30 MG PO (09:15)
[2024-08-26] MEDS: OMNICEF 300 MG PO (09:16)
[2024-08-26] MEDS: VIBRAMYCIN 100 MG PO ×2 (09:16→20:41)
[2024-08-26] MEDS: PROTONIX 40 MG PO (09:16)
[2024-08-26] MEDS: MIRALAX 17 GRAMS PO (09:17)
[2024-08-26] MEDS: VISBIOME 1 CAP PO (09:17)
[2024-08-26] MEDS: DIAMOX 250 MG PO ×2 (09:17→20:41)
[2024-08-26 09:18] LABS: ALT (SGPT) 14 U/L (0-50); AST (SGOT) 18 U/L (17-59); Albumin 3.7 g/dl (3.5-5.0); Alkaline Phosphatase 61 U/L (38-126); Blood Urea Nitrogen 83 mg/dl (9-20); Carbon Dioxide 35 mmol/L (22-30); Chloride 96 mmol/L (98-107); Estimated Creatinine Clearance 34 ml/min; Glucose 98 mg/dl (70-99); Potassium 3.6 mmol/L (3.5-5.1); Sodium 143 mmol/L (135-145); Total Bilirubin 0.5 mg/dl (0.2-1.3); Total Protein 6.1 g/dl (6.3-8.2); eGFR 32.91
[2024-08-26] MEDS: CARDIZEM CD 120 MG PO (09:18)
--- NOTE | 2024-08-26 13:15 | W.PN.HOSP.TC ---
Today's Communication/Plan
-
Monitor vital signs see plan
On Diamox
Wean oxygen as tolerated
Continue with prednisone
Continue with BiPAP as tolerated
cw abx
Assessment / Plan
Assessment / Plan
Physical Exam
General: No Apparent Distress, seems sob while talking, obese.
HEENT: NormoCephalic, Moist mucous membranes and Atraumatic
Respiratory: wheezes with rales Clear
Cardiac: S1/S2 tachy
GI: Soft, Non Tender, Non Distended and Normal Bowel Sounds;
Musculoskeletal: No ankle edema
Skin: No Rash
Neuro: AAOX3, he followed commands
Psych: calm.
A/P:
# SIRS Vs Sepsis (leukocytosis, tachycardia, likely tracheobronchitis
-COVID and influenza negative
-Check sputum culture, Legionella, strep negative
- now on Po abx
# Acute hypercapnic hypoxic respiratory failure suspect multifactorial secondary to COPD and congestive heart failure
Oxygen saturation was 82% on room air with respiratory distress.
Patient had respiratory distress called the ambulance with hypoxia
Currently on 2 L oxygen and receiving nebulizer treatment; wean o2 as tolerated
Suspect some chronic hypercapnia, BiPAP per pulmonary
Pulmonary trying to get noninvasive ventilator approve prior to dc
Continue diuresis per nephrology and cardiology; holding lasix and metolozone; on diamox
Does appear to have underlying JOSE GUADALUPE/sleep disorder. Should get outpatient sleep study
COPD exacerbation
Continue steroids
DuoNeb
Hypokalemia
Replete
Pulmonary hypertension
# CKD 3b
Now improving
# Acute on chronic heart failure with preserved ejection fraction
He has exertional shortness of breath. Lung examination positive for wheezes and rales
Last echocardiogram in 2023 showed LVEF 50%
Patient takes Lasix 80 mg twice a day with metolazone
Lasix per nephrology
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 Gramajo
Consulted cardiology, echo 08/25 without significant change. Preserved EF
#Permanent atrial fibrillation
Mildly positive troponin. No chest pain.
Elevation of troponin likely nonischemic myocardial injury due to congestive heart failure
Uncontrolled on mild exertion, now on cardizem
-Continue Xarelto
# Chronic kidney disease stage IIIb
Monitor renal function while on diuretic therapy
Consulted nephrology, follow-up with recommendations.
chronic nevarez on admit
# History of DVT/PE
# History of primary arthritis and gout. Continue with allopurinol therapy to avoid exacerbation while using diuretics
#BPH
Chronic Nevarez catheter
Hematuria resolved , was traumatic hematuria secondary to Nevarez. He was seen by urologist and Rec: f/u with Dr Ortega as outpatient
-Continue tamsulosin, finasteride
#Obesity
#History of alcohol use disorder, Tobacco use disorder
History of venous insufficiency
Hyperlipidemia
-Continue statin
#History of CVA
Full code
DVT prophylaxis�Xarelto
Total time spent to see the patient, examine the patient, review data and lab results, discuss treatment plan with patient, consultants and nursing staff around 52 minutes
Anticipated Discharge: Within 24 hours
Subjective/Interval History
-
Date of Service: August 26, 2024
denies pain
Objective Data
-
Labs:
Laboratory Results
08/26/24
06:53
WBC 9.0
Hgb 10.5 L
Hct 36.0 L
Plt Count 149
Sodium 143
Potassium 3.6
Chloride 96 L
Carbon Dioxide 35 H
BUN 83 H
Creatinine 2.0 H
Glucose 98
Calcium 9.0
Total Bilirubin 0.5
AST 18
ALT 14
Alkaline Phosphatase 61
Vital Signs:
Vital Signs
Temp Pulse Resp BP Pulse Ox
98.3 F 97 16 143/80 90
08/26/24 07:39 08/26/24 11:16 08/26/24 11:16 08/26/24 07:39 08/26/24 11:16
I&O
08/25/24 08/26/24 08/27/24
06:59 06:59 06:59
Intake Total 720 / 720 1180 / 1180
Output Total 1350 / 1350 1750 / 1750
Balance -630 / -630 -570 / -570
--- NOTE | 2024-08-26 13:18 | W.PN.NEPH.PH ---
Today's Communication / Plan
-
Continue Diamox
Assessment/Plan
-
Assessment:
Acute kidney injury creatinine 2.3 on admission
Hyperkalemia
Anemia
Edema
Atrial fibrillation
Heart failure reduced ejection fraction= EF 50 to 55%
Moderate pulmonary hypertension
CKD 3A (1.7-2)
Hypercapnia with a CO2 of 80
Plan:
Acute on chronic kidney disease suspect this is cardiorenal with hyperkalemia.
improving renal function so far
mild alkalemia from met alkalosis, hold diuretics
diamox 250mg BID x2days
Lasix on hold
Continue BiPAP, steroid per pulm
echo no change noted, normal EF and pulm HTN
labs in am
d/w pt
-
-
Date of Service: August 26, 2024
CC / HPI / ROS
-
Chief Complaint:
JUAN, CKD
History of Present Illness:
cr down to 1.9, k low 3.2
wt is down
met alkalosis 40, Ph 7.48, PCO2 52
BP stable
Review of Systems:
sob better
no cp
no nv/
Labs
-
Labs:
WBC 9.0 10^3/uL (4.8-10.8) 08/26/24 06:53
RBC 4.07 10^6/uL (4.70-6.10) L 08/26/24 06:53
Hgb 10.5 g/dL (13.0-18.0) L 08/26/24 06:53
Hct 36.0 % (39.0-52.0) L 08/26/24 06:53
Plt Count 149 10^3/uL (130-400) 08/26/24 06:53
Sodium 143 mmol/L (135-145) 08/26/24 06:53
Potassium 3.6 mmol/L (3.5-5.1) 08/26/24 06:53
Chloride 96 mmol/L (98-107) L 08/26/24 06:53
Carbon Dioxide 35 mmol/L (22-30) H 08/26/24 06:53
BUN 83 mg/dl (9-20) H 08/26/24 06:53
Creatinine 2.0 mg/dL (0.7-1.3) H 08/26/24 06:53
eGFR 32.91 08/26/24 06:53
Glucose 98 mg/dl (70-99) 08/26/24 06:53
Calcium 9.0 mg/dl (8.4-10.2) 08/26/24 06:53
Igu-L-Ylltqvdqxfv Pept 5130 pg/ml 08/22/24 15:17
Albumin 3.7 g/dl (3.5-5.0) 08/26/24 06:53
Physical Exam
-
Vital Signs:
Vital Signs
Temp Pulse Resp BP Pulse Ox
98.3 F 97 16 143/80 90
08/26/24 07:39 08/26/24 11:16 08/26/24 11:16 08/26/24 07:39 08/26/24 11:16
Cardiovascular:: Regular rate and rhythm
Respiratory:: Bilateral: Coarse
Lung Excursion:: Normal
Abdomen:: Nontender and Soft
Extremity Edema:: +3: Bilateral:
Padilla Catheter: Yes
--- NOTE | 2024-08-26 13:32 | W.PN.PUL3 ---
Today's Communication / Plan
-
Case management evaluation to try to approve noninvasive mechanical ventilator- discussed.
Based on walking test will need oxygen at discharge 3 L.
Diuresis as able-currently on Diamox
Continue nebulizers while in the hospital
Oral antibiotics complete total 7 days.
Prednisone taper 30 mg and decrease by 10 mg every 72 hours to off.
Hopefully discharge planning soon
Assessment
-
83-year-old gentleman with longstanding history of smoking and underlying congestive heart failure, presents to the hospital with worsening shortness of breath, cough, episodic wheezing and clear expectoration after developing upper respiratory
tract infection about a week ago. Pulmonary consultation was requested for further workup and recommendations.
#1. 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 Overall improved-compensated.
ABG 08/25/2024: 7.48/52/49-compensated.
I suspect this is related to underlying COPD exacerbation as well as volume overload/obesity hypoventilation syndrome and possibly obstructive sleep apnea undiagnosed.
Patient is fully awake, alert and oriented without any POWDER LINE REPAIRER signs of CO2 narcosis.
-Continue BiPAP support-can transition to only at bedtime and as needed.
-Continue diuresis per nephrology and cardiology.
-Echocardiogram noted with RV dysfunction/RV dilatation/TR 08/24/2024- likely chronic based on cardiac catheterization from 2022. -
Given findings of pulmonary hypertension I would prefer him to be discharged on either BiPAP or noninvasive mechanical ventilator.
Dr. Mittal extensively discussed with son and patient and he is willing 08/25/2024.
Discussed with case reviewer-start process for approving noninvasive mechanical ventilation.
Patient states that he is not interested in a polysomnogram.
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 Multiple admissions to the hospital with shortness of breath and respiratory failure. His most recent pCO2 is 52 on RA (08/25/2024). Patient has to use oxygen continuously-based on last
assessment.
Has minimal effort dyspnea. Patient is very limited due to his breathing and arthritis. Due to his COPD and hypoventilation, patient have risk of worsening chronic respiratory failure. I have considered bilevel, bilevel ST and bilevel VAPS
therapy and they all have been ruled out due to patient's worsening condition. The patient now requires a unique mode of ventilation not offered unless costly options. The patient requires a device that we will not fail in the event of a power
failure and is also portable for mobility within the home when needed. Due to the patient's worsening condition, I am prescribing noninvasive ventilation therapy to decrease the chance of continued unplanned expensive medical encounters including
physician office visits, emergency/urgent care treatment and hospital admissions.
Oxygen assessment noted: Patient requires 3 L with ambulation. Likely will require oxygen to go home.
Can reassess in the outpatient setting
#2. Suspect acute on chronic COPD exacerbation. Patient has never been diagnosed with COPD or emphysema however he has more than [id number] smoking history. Patient reports episodic cough with wheezing with expectoration suggestive of
underlying obstructive airway disease.
Not bronchospastic on exam 08/26/2024.
-Continue DuoNeb 4 times daily scheduled, (he is usually not on inhalers)-while in the hospital.
-prednisone 40 mg daily-Taper by 10 mg every 72 hours to off.
-Continue antibiotics-per infectious disease. CT of the chest without infiltrate. Likely tracheobronchitis.
-Eventual pulmonary function testing in the outpatient setting.
-Will need outpatient follow-up with pulmonary clinic with full pulmonary function testing and 6-minute walk test
-Patient quit smoking pipes about 2 years ago
#3. Pulmonary hypertension, right heart catheter in 2022 was suggestive of mean pulmonary artery pressure of 42 with PVR of 4.12 and pulmonary capillary wedge pressure elevated at 28. Suggestive of both pre and postcapillary pulmonary hypertension
likely related to underlying heart failure, group 2. Patient also has risk factors for group 3 pulmonary hypertension including morbid obesity, underlying COPD and possibly underlying obstructive sleep apnea.
-Patient will need additional workup as outpatient including full pulmonary function testing, 6-minute walk test, polysomnogram if patient is willing-will be discussed in the outpatient setting at this point he is not interested.
Will try to approve for noninvasive mechanical ventilation prior to discharge.
-Continue to optimize volume status and bronchodilator, no indication for pulmonary vasodilators for now
#4. Acute on chronic heart failure with preserved ejection fraction. Patient on exam appears to be volume overloaded with significantly elevated BNP and pedal edema
-Clinically improved.
-Diuresis as able-currently on Diamox.
-Also noted worsened kidney function, query cardiorenal syndrome
-Will defer management to primary team as nephrology service and cardiology service are being consulted
#5. Morbid obesity with suspected sleep disordered breathing. Patient does not report snoring but does report daytime naps and at times excessive sleepiness
-Patient will benefit from sleep study after discharge
-Once patient is euvolemic, recommend overnight oximetry prior to discharge to evaluate for any need for home oxygen
Other significant medical comorbidities:
-Paroxysmal atrial fibrillation, on chronic anticoagulation
-History of DVT and PE, on Xarelto
-Chronic kidney disease stage III with hyperkalemia
-BPH
-History of smoking, quit 2 years ago
-Coronary artery disease with history of non-ST elevation MD in the past s/p PCI
-Prior history of alcoholism
-Hypertension and hyperlipidemia
-History of CVA
Dr. Mittal updated son at the bedside 08/24/2024 and 08/25/2024.
Will follow
Data:
ECHO 09/2023
1. Mild left ventricular hypertrophy with low normal or mild globally reduced
systolic function, EF 50-55%
2. Thickened mitral leaflets, mitral annular calcification, mild mitral
regurgitation and normal left atrium
3. Aortic sclerosis with mild aortic regurgitation
4. Dilated right ventricle with preserved systolic function, dilated right
atrium, mild tricuspid regurgitation and moderate pulmonary hypertension, 57
mmHg systolic
RHC, 05/2023
CO 4.6, CI 2.2 with PVR 4.12 and PCWP 28, PA 60/30 (42). Pulm HTN with elevated PVR and PCWP. Elevated filling pressures
LHC, 05/2023
CAD, s/p PCI of LCX
Subjective Data
-
Date of Service:
Date of Service: August 26, 2024
Chief Complaint: Pulmonary Follow Up (Acute hypercapnic respiratory failure.)
Subjective:
He offers no new complaints
Denies increase in cough and phlegm production
Remains on low rate supplemental oxygen
Trying to use BiPAP as able
Review of Systems
Cardiopulmonary: Dyspnea (none at rest) and Dyspnea on Exertion (n)
GI: Abdominal Pain (n) and Nausea (n)
Objective Data
Data Reviewed
Vital Signs / I&O / Oxygen:
Vital Signs
Temp Pulse Resp BP Pulse Ox
98.3 F 97 16 143/80 90
08/26/24 07:39 08/26/24 11:16 08/26/24 11:16 08/26/24 07:39 08/26/24 11:16
Intake and Output
08/25/24 08/26/24 08/27/24
06:59 06:59 06:59
Intake Total 720 / 720 1180 / 1180
Output Total 1350 / 1350 1750 / 1750
Balance -630 / -630 -570 / -570
SaO2 90
Nasal Cannula flow liters per 4
minute
Physical Exam
General: Comfortable (Sitting out of bed)
HEENT: Normocephalic
Cardiovascular: S1-S2
Respiratory: Clear and Other ( Bronchitic cough)
GI: Distended (Obese)
Neurology: Awake, Alert, Oriented and AO x 3
Skin: Warm
Labs/Micro/Reports
Lab Data
08/26/24 06:53
08/26/24 06:53
Laboratory Results
08/25/24
13:23
pH 7.48 H
pCO2 52 H
pO2 49 L*
HCO3 38.7 H
O2 Delivery Level
Microbiology
08/23/24 13:12 Sputum Respiratory Culture - Final
Usual Respiratory Nai
08/23/24 13:12 Sputum Gram Stain - Final
08/23/24 12:25 Urine Legionella Urinary Antigen - Final
Negative for Legionella pneumophila Serogroup 1 antigen.
A negative result does not rule out the possiblity of
Legionella infection due to other serogroups or species of
Legionella. Clinical correlation is recommended.
08/23/24 12:25 Urine Streptococcus pneumoniae Antigen (M - Final
Negative for Streptococcus pneumoniae antigen.
A negative result does not exclude infection with
Streptococcus pneumoniae. Clinical correlation is
recommended.
08/22/24 19:18 Sputum Respiratory Culture - Final
08/22/24 19:18 Sputum Gram Stain - Final
--- NOTE | 2024-08-26 14:47 | W.PN.CARDCBS ---
Addendum entered and electronically signed by Alfredito Ruffin MD 08/26/24 16:00:
I saw and examined the patient.
The Shipyard Helper's note was reviewed and I agree with the note.
Comment: Briefly, 83-year-old man past medical history of heart failure preserved ejection fraction chronic kidney disease presenting with acute decompensated heart failure and hypercapnic respiratory failure
No cardiac complaints this morning, resting comfortably out of bed to chair
From a volume standpoint he appears to be improved and is responding well to current diuretic regimen
Given chronic kidney disease and metabolic alkalosis nephrology has been managing diuretics and recommending Diamox
Will defer further diuresis to nephrology
With history of permanent atrial fibrillation would continue home doses of diltiazem and Xarelto
We will sign off, please recall as needed
Original Note:
Today's Communication / Plan
-
diamox
increase cardizem cd
Impression / Plan
-
PCP: Dr. Manjarrez
Rock Mason: MORRIS Gramajo
Impression:
Presented 05/21/2023 with progressively worsening SOB
Acute on chronic HFpEF, proBNP 5130
Acute on Chronic kidney disease 3b
Hypercapnia with pCO2 82 on venous blood gas
Nonischemic myocardial injury
CAD
Non-STEMI with peak troponin of 2.5, s/p 4 mm Xience to ostial/prox Circumflex 05/28/23
Permanent atrial fibrillation
Chronic Xarelto OAC
Hypertension
Dyslipidemia
History of pulmonary embolism
History of right lower extremity DVT
History of alcoholism
Tobacco abuse
Lower extremity neuropathy
BPH
Chronic kidney disease 3b
Cellulitis
Venous insufficiency
Rash, possibly contrast mediated or from recent initiation of Plavix
Echocardiogram 08/24/2024: Ejection fraction 60 to 65%, moderate concentric LVH, moderate TR with PA systolic of 56 mmHg, enlarged right ventricle which may have been hypokinetic, aortic root mildly dilated at 4.0 cm
Echo 09/24: EF 50 to 55%, mild MR, dilated right ventricle with PA pressure 57
Echo 05/21/2023 (TDS): EF 40 to 45% mild to moderately reduced LV systolic function. No gross wall motion abnormalities. Mild concentric LVH. Mildly reduced RV systolic function. Mild AI, mild to moderate TR with PAP 60 mmHg.
Echo 07/30/2022: EF 55 to 60%, mild AI, mild TR with PAP 42 mmHg
Echo 01/14/2020: EF 60%, mild left atrial enlargement, mild AI, PAP 32 mmHg
Echo 12/19/18:� Mild concentric LVH, EF 65�70 percent, trace MR with severe left atrial dilatation, mild AR, mild to moderate tricuspid regurgitation, severe pulmonary hypertension with PA systolic pressure 65�70.
Plan:
-presented with SOB. proBNP 5130. No pleural effusions or lobar pneumonia noted by CT of the chest. Bibasilar atelectasis noted.
-Unclear if weights accurate as appear relatively unchanged from admission. Suspected cardiorenal syndrome. Creatinine 2.0 on 08/26, baseline felt to be 1.7-1.8. Lasix is now on hold due to alkalemia and has been ordered Diamox for 2 days by
nephrology. as OP was taking lasix 80mg BID and zaroxolyn 5mg twice per week
-Continue BiPAP at bedtime. Wean supplemental oxygen as able. eval for home O2
-Echocardiogram this admission without significant change compared to prior, EF preserved
-Pulmonary following as well for suspected copd exacerbation, continue antibiotics and steroids and nebulizers
-no BB with COPD. no longer on tele per nursing protocol. will increase diltiazem to 180mg daily as BP/HR trends elevated.
-not candidate for acei/arb/sglt2 inhibitor due to chronic renal insufficiency.
-continue renally dosed xarelto. he had called urology 08/18/24 as was noted to have bleeding around nevarez and was advised to hold xarelto. unclear how long was held but has been receiving here and hgb stable at 10.5.
-trop peaked at 0.06. suspected nonischemic myocardial injury in setting of acute CHF/COPD. he is noted to have severe coronary artery calcifications by chest CT. he had been on brilinta with xarelto post circ PCI 05/2023 however stopped this 1 year
post PCI. consider adding back baby aspirin however need to weigh with bleeding risk
-continue OP lipitor
-PT/OT
History of Present Illness 08/23/2024:
83-year-old male with complex past medical history including coronary artery disease, chronic heart failure with preserved ejection fraction, permanent atrial fibrillation, history of DVT/PE, CVA, chronic alcoholism, stage III kidney disease,
hypertension, and hyperlipidemia presents with several days of upper respiratory tract infection, cough, and shortness of breath. He states that he had a postnasal drip for several days and had significant fatigue. He denied any chest pains. He
did have a cough with some clear sputum. The shortness of breath got better for a day or 2 but then worsened and he presented to the emergency room. He has no fever. He denies any chest pains. He denies any abdominal pain, nausea or vomiting.
He thinks he may be somewhat bloated and weight may be slightly up. He has been compliant with his medication. His breathing worsen he was placed on BiPAP. He states he has been drinking minimal alcohol recently. He has no wheezing. His
activity is poor to start with. He has no focal weakness or numbness.
Progress Note - Rock Mason
Subjective
Date of Service: August 26, 2024
states was able to tolerate bipap overnight
Objective
Labs:
08/26/24 06:53
08/26/24 06:53
Labs
Hgb 10.5 g/dL (13.0-18.0) L 08/26/24 06:53
Hct 36.0 % (39.0-52.0) L 08/26/24 06:53
Plt Count 149 10^3/uL (130-400) 08/26/24 06:53
Sodium 143 mmol/L (135-145) 08/26/24 06:53
Potassium 3.6 mmol/L (3.5-5.1) 08/26/24 06:53
BUN 83 mg/dl (9-20) H 08/26/24 06:53
Creatinine 2.0 mg/dL (0.7-1.3) H 08/26/24 06:53
Glucose 98 mg/dl (70-99) 08/26/24 06:53
Troponins
08/25/24
06:19
Troponin I 0.056 H*
Vital Signs and I&O:
Vital Signs
Temp Pulse Resp BP Pulse Ox
98.3 F 97 16 143/80 90
08/26/24 07:39 08/26/24 11:16 08/26/24 11:16 08/26/24 07:39 08/26/24 11:16
Vital Signs
Temp Pulse Resp BP Pulse Ox
98.3 F 97 16 143/80 90
08/26/24 07:39 08/26/24 11:16 08/26/24 11:16 08/26/24 07:39 08/26/24 11:16
Intake & Output
08/24/24 08/25/24 08/26/24 08/27/24
07:59 07:59 07:59 07:59
Intake Total 480 / 480 720 / 720 1180 / 1180
Output Total 1999 / 1999 1350 / 1350 1750 / 1750
Balance -1520 / -1520 -630 / -630 -570 / -570
Physical Exam
Physical Exam
GEN: No distress, awake, alert, oriented x3. obese. on supp O2. chronically ill appearing
HEENT: supple, anicteric, mmm, eomi
LUNGS: CTA B/L, exp wheezes B/L which cleared with cough
CV: Irreg, S1/S2, no murmur
EXT: No cyanosis, clubbing. 2+ edema of B/L LE with chronic skin discoloration/changes
NEURO: Gross non-focal
SKIN: Warm, pink, dry. No rash
[2024-08-26 15:06] VITALS: BP 166/83
--- NOTE | 2024-08-26 15:36 | CM ---
Chart reviewed. Care ongoing.
Spoke w/ pulmonary, patient requiring noninvasive mechanical ventilator and home O2 at d/c. Home O2 assessment completed today, patient requires 3L. Spoke w/ Leticia/[facility] DME supplier, regarding d/c needs. Per Leticia, will email CM the instructions
and prefilled form for ventilator request. CM faxed script and clinicals to [facility] for oxygen set up.
Therapy cont to follow and assess patient, recommending home PT
Spoke w/ patient bedside regarding DME. Patient aware of needs, agreeable to [employer] as supplier. Patient agreeable to home PT, preferring [facility]. Referral sent in [facility] for [facility]. [facility] will cont to assist in obtaining DME for patient
Plan: Home w/ [facility] and DME
--- NOTE | 2024-08-26 15:49 | W.PN.ID1 ---
Date of Service
Date of Service: August 26, 2024
Today's Communication
Sign off
Assessment / Plan
Suspected pneumonia
Leukocytosis
A-fib (on Xarelto)
CAD; Hx AL
CHF
HTN
Dyslipidemia
CKD
Hx DVT
Recommendations:
Sputum culture unrevealing.
Continue cefdinir 300 mg p.o. daily through 09/01
Continue Doxy through 09/01
Continue with current respiratory treatments.
Little more to offer from a Infectious Disease standpoint.
Will see again at your request.
Chief Complaint
-: Pneumonia
Subjective / Review of Systems
Review of Systems: No Fever and No Chills
Vital Signs / Physical Exam
Vital Signs
Vital Signs
Temp Pulse Resp BP Pulse Ox
98.9 F 88 16 166/83 96
08/26/24 15:06 08/26/24 15:24 08/26/24 15:24 08/26/24 15:06 08/26/24 15:24
Physical Exam
Constitutional: No Acute Distress, Comfortable and Non-toxic
Eyes: No Conjunctival Hemorrhage and Sclera Anicteric
Pulmonary: Wheezes and Non Labored; Negative Rales or Rhonchi
Gastrointestinal: Soft and Non Distended
Neurological: Awake and Alert
Psychological: Calm
Objective Data
Lab Data
Lab Results
08/26/24 06:53
08/26/24 06:53
Estimated Creat Clear 34 ml/min 08/26/24 06:53
Total Bilirubin 0.5 mg/dl (0.2-1.3) 08/26/24 06:53
AST 18 U/L (17-59) 08/26/24 06:53
ALT 14 U/L (0-50) 08/26/24 06:53
Alkaline Phosphatase 61 U/L (38-126) 08/26/24 06:53
Most recent labs reviewed.
Micro Results:
08/23/24 13:12 Respiratory Culture - Final
Sputum Usual Respiratory Nai
Gram Stain - Final
08/23/24 12:25 Legionella Urinary Antigen - Final
Urine Negative for Legionella pneumophila Serogroup 1 antigen.
A negative result does not rule out the possiblity of
Legionella infection due to other serogroups or species of
Legionella. Clinical correlation is recommended.
Streptococcus pneumoniae Antigen (M - Final
Negative for Streptococcus pneumoniae antigen.
A negative result does not exclude infection with
Streptococcus pneumoniae. Clinical correlation is
recommended.
08/22/24 19:18 Respiratory Culture - Final
Sputum Gram Stain - Final
08/22/24 15:51 Influenza Types A & B (MIKEY) - Final
Nasal Swab Negative for Influenza A & B, NAAT
Negative results must be combined with clinical observations
and patient history.
Nucleic Acid Amplification test (NAAT)performed on the
[employer] platform.
Imaging:
08/22/2024 CXR (2 view): Patchy opacity noted in the left lung base which may represent atelectasis or mild pneumonia. No pleural effusion or pneumothorax. Stable enlargement of the cardiac silhouette. Please see full dictation for additional
detail.
[2024-08-26] MEDS: DESENEX/MITRAZOL/ZEASORB 1 APPLIC TOPICAL ×2 (16:29→20:36)
[2024-08-26] MEDS: FLOMAX 0.4 MG PO (16:30)
[2024-08-26] MEDS: XARELTO 15 MG PO (16:30)
[2024-08-26] MEDS: LIPITOR 40 MG PO (20:41)
[2024-08-26 22:19] VITALS: PULSE 104; PULSE 2
[2024-08-26 23:47] VITALS: BP 161/77
[2024-08-27] VITALS (7 sets, daily range): BP systolic 129–155; BP diastolic 35–88; PULSE 2–111; O2SAT 96–98; BMI 34.5
[2024-08-27] MEDS: DUONEB 3 ML INH ×4 (07:27→19:53)
[2024-08-27 07:59] LABS: % Basophils 0.1 % (0-2); % Eosinophils 0.1 % (0-6); % Immature Granulocytes 0.6 % (0-0.5); % Lymphocytes 6.3 % (20.5-51.1); % Monocytes 8.1 % (1.7-9.3); % Neutrophils 84.8 % (42.2-75.2); Absolute Immature Granulocytes 0.1 10^3/uL (0-0.05); Absolute Lymphocytes 0.7 10^3/uL (1.2-3.4); Absolute Monocytes 0.9 10^3/uL (0.1-0.6); Absolute Neutrophils 8.8 10^3/uL (1.4-6.5); Hematocrit 35.9 % (39.0-52.0); Hemoglobin 10.4 g/dL (13.0-18.0); Mean Corpuscular Hgb 25.4 pg (27.0-31.0); Mean Corpuscular Volume 87.6 fL (80.0-94.0); Mean Platelet Volume 11.2 fL (7.4-10.4); Nucleated Red Blood Cells % 0 % (-); Platelet Count 137 10^3/uL (130-400); Red Cell Dist. Width 18.8 % (11.5-14.5); White Blood Cell Count 10.4 10^3/uL (4.8-10.8)
[2024-08-27] MEDS: CARDIZEM CD 180 MG PO (08:17)
[2024-08-27] MEDS: DELTASONE 30 MG PO (08:17)
[2024-08-27] MEDS: MIRALAX 17 GRAMS PO (08:19)
[2024-08-27] MEDS: DIAMOX 250 MG PO (08:19)
[2024-08-27] MEDS: DESENEX/MITRAZOL/ZEASORB 1 APPLIC TOPICAL ×2 (08:29→20:33)
[2024-08-27] MEDS: PROSCAR 5 MG PO (08:29)
[2024-08-27] MEDS: VIBRAMYCIN 100 MG PO ×2 (08:29→20:33)
[2024-08-27] MEDS: OMNICEF 300 MG PO (08:29)
[2024-08-27] MEDS: PROTONIX 40 MG PO (08:29)
[2024-08-27] MEDS: VISBIOME 1 CAP PO (08:29)
[2024-08-27 08:34] LABS: ALT (SGPT) 15 U/L (0-50); AST (SGOT) 16 U/L (17-59); Albumin 3.3 g/dl (3.5-5.0); Alkaline Phosphatase 57 U/L (38-126); Blood Urea Nitrogen 79 mg/dl (9-20); Calcium 8.9 mg/dl (8.4-10.2); Carbon Dioxide 40 mmol/L (22-30); Chloride 94 mmol/L (98-107); Estimated Creatinine Clearance 35 ml/min; Glucose 90 mg/dl (70-99); Potassium 3.5 mmol/L (3.5-5.1); Sodium 141 mmol/L (135-145); Total Bilirubin 0.6 mg/dl (0.2-1.3); Total Protein 5.8 g/dl (6.3-8.2)
--- NOTE | 2024-08-27 09:44 | W.PN.PUL3 ---
Today's Communication / Plan
-
Continue prednisone taper
Oral antibiotics
Nebulizers while in the hospital
Encourage incentive spirometry
May discharge on albuterol HFA as needed
employee relations manager arranging for noninvasive mechanical ventilator-discussion/prescription has been filled out.
Continue Oxy supplementation to maintain pulse ox above 90%
Weight loss will be helpful
Hopefully discharge soon-pulmonary follow-up after discharge. Information has been left in the chart.
Assessment
-
83-year-old gentleman with longstanding history of smoking and underlying congestive heart failure, presents to the hospital with worsening shortness of breath, cough, episodic wheezing and clear expectoration after developing upper respiratory
tract infection about a week ago. Pulmonary consultation was requested for further workup and recommendations.
#1. 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 Clinically improved.
ABG 08/25/2024: 7.48/52/49-compensated.
Hypercapnia due to COPD/obesity hypoventilation syndrome/untreated obstructive sleep apnea.
-Continue BiPAP support-can transition to only at bedtime and as needed.
-Continue diuresis per nephrology and cardiology.
-Echocardiogram noted with RV dysfunction/RV dilatation/TR 08/24/2024- likely chronic based on cardiac catheterization from 2022. -
Given findings of pulmonary hypertension I would prefer him to be discharged on either BiPAP or noninvasive mechanical ventilator.
Dr. Mittal extensively discussed with son and patient and he is willing 08/25/2024.
Patient states that he is not interested in a polysomnogram.
-
Documentation for noninvasive mechanical ventilation:
Noninvasive volume ventilation is required due to obesity hypoventilation syndrome, bilevel has been considered and ruled out, including bilevel VAPS. Patient requires pressure greater than 30 cm of water which is not supported by bilevel VAPS due
to body habitus. A traditional ventilator will exceed pressures greater than 30 cm with a max pressure of 50 cm of water.
Oxygen assessment noted: Patient requires 3 L with ambulation. Likely will require oxygen to go home.
Can reassess in the outpatient setting
#2. Suspect acute on chronic COPD exacerbation. Patient has never been diagnosed with COPD or emphysema however he has more than 41-hiya-sttg smoking history. Patient reports episodic cough with wheezing with expectoration suggestive of
underlying obstructive airway disease.
Not bronchospastic on exam 08/26/2024.
-Continue DuoNeb 4 times daily scheduled, (he is usually not on inhalers)-while in the hospital.
-prednisone to 30 mg- Decrease by 10 mg every 72 hours to off.
-Antibiotics-per infectious disease. CT of the chest without infiltrate. Likely tracheobronchitis. To complete oral antibiotics in the next few days.
-Eventual pulmonary function testing in the outpatient setting.
-Will need outpatient follow-up with pulmonary clinic with full pulmonary function testing and 6-minute walk test
-Patient quit smoking pipes about 2 years ago
#3. Pulmonary hypertension, right heart catheter in 2022 was suggestive of mean pulmonary artery pressure of 42 with PVR of 4.12 and pulmonary capillary wedge pressure elevated at 28. Suggestive of both pre and postcapillary pulmonary hypertension
likely related to underlying heart failure, group 2. Patient also has risk factors for group 3 pulmonary hypertension including morbid obesity, underlying COPD and possibly underlying obstructive sleep apnea.
-Patient will need additional workup as outpatient including full pulmonary function testing, 6-minute walk test, polysomnogram if patient is willing-will be discussed in the outpatient setting at this point he is not interested.
Will try to approve for noninvasive mechanical ventilation prior to discharge.
-Continue to optimize volume status and bronchodilator, no indication for pulmonary vasodilators for now
#4. Acute on chronic heart failure with preserved ejection fraction. Patient on exam appears to be volume overloaded with significantly elevated BNP and pedal edema
-Clinically improved.
-Diuresis as able-currently on Diamox.
-Also noted worsened kidney function, query cardiorenal syndrome
-Will defer management to primary team as nephrology service and cardiology service are being consulted
#5. Morbid obesity with suspected sleep disordered breathing. Patient does not report snoring but does report daytime naps and at times excessive sleepiness
-Patient will benefit from sleep study after discharge
-Once patient is euvolemic, recommend overnight oximetry prior to discharge to evaluate for any need for home oxygen
Other significant medical comorbidities:
-Paroxysmal atrial fibrillation, on chronic anticoagulation
-History of DVT and PE, on Xarelto
-Chronic kidney disease stage III with hyperkalemia
-BPH
-History of smoking, quit 2 years ago
-Coronary artery disease with history of non-ST elevation NE in the past s/p PCI
-Prior history of alcoholism
-Hypertension and hyperlipidemia
-History of CVA
Dr. Mittal updated son at the bedside 08/24/2024 and 08/25/2024.
-
Patient approaching time for discharge from the pulmonary perspective. Hopefully can arrange for noninvasive mechanical ventilation and oxygen therapy.
Data:
ECHO 09/2023
1. Mild left ventricular hypertrophy with low normal or mild globally reduced
systolic function, EF 50-55%
2. Thickened mitral leaflets, mitral annular calcification, mild mitral
regurgitation and normal left atrium
3. Aortic sclerosis with mild aortic regurgitation
4. Dilated right ventricle with preserved systolic function, dilated right
atrium, mild tricuspid regurgitation and moderate pulmonary hypertension, 57
mmHg systolic
RHC, 05/2023
CO 4.6, CI 2.2 with PVR 4.12 and PCWP 28, PA 60/30 (42). Pulm HTN with elevated PVR and PCWP. Elevated filling pressures
LH, 05/2023
CAD, s/p PCI of LCX
Subjective Data
-
Date of Service:
Date of Service: August 27, 2024
Chief Complaint: Pulmonary Follow Up (Acute hypercapnic respiratory failure.)
Subjective:
No new complaints from the pulmonary perspective
Denies increased phlegm production
Tolerating noninvasive mechanical ventilation at night.
Review of Systems
Cardiopulmonary: Dyspnea (none at rest)
GI: Abdominal Pain (n) and Nausea (n)
Neuro: Headache (n)
Objective Data
Data Reviewed
Vital Signs / I&O / Oxygen:
Vital Signs
Temp Pulse Resp BP Pulse Ox
97.5 F 77 18 129/65 93
08/27/24 07:00 08/27/24 08:17 08/27/24 07:28 08/27/24 08:17 08/27/24 07:00
Intake and Output
08/26/24 08/27/24 08/28/24
06:59 06:59 06:59
Intake Total 1180 / 1180 960 / 960
Output Total 1750 / 1750 1700 / 1700
Balance -570 / -570 -740 / -740
SaO2 93
Nasal Cannula flow liters per 4
minute
Physical Exam
General: Comfortable (Sitting out of bed)
HEENT: Normocephalic
Cardiovascular: S1-S2
Respiratory: Clear and Other ( Bronchitic cough)
GI: Distended (Obese)
Neurology: Awake, Alert, Oriented and AO x 3
Skin: Warm
Labs/Micro/Reports
Lab Data
08/27/24 06:23
08/27/24 06:23
Microbiology
08/23/24 13:12 Sputum Respiratory Culture - Final
Usual Respiratory Nai
08/23/24 13:12 Sputum Gram Stain - Final
--- NOTE | 2024-08-27 10:03 | CM ---
CM faxed pre filled form for ventilator, pulm note, and ABG to [facility].
Per Leticia, on day of d/c, patient will need to d/c before 2 pm in order for RT to visit home for set up and instruct
Script for home O2 submitted yesterday
[facility] referred to for home PT
Plan: Home w/ [facility] and DME
[2024-08-27] MEDS: MUCINEX 1200 MG PO ×2 (10:32→20:33)
--- NOTE | 2024-08-27 13:05 | W.PN.HOSP.TC ---
Today's Communication/Plan
-
Monitor vital signs see plan
process development manager trying to get noninvasive ventilator prior to DC, pulmonary following
Continue with steroids
Continue with p.o. antibiotics
Nephrology for diuresis
Discharge planning
Assessment / Plan
Assessment / Plan
Physical Exam
General: No Apparent Distress, seems sob while talking, obese.
HEENT: NormoCephalic, Moist mucous membranes and Atraumatic
Respiratory: wheezes with rales Clear
Cardiac: S1/S2 tachy
GI: Soft, Non Tender, Non Distended and Normal Bowel Sounds;
Musculoskeletal: No ankle edema
Skin: No Rash
Neuro: AAOX3, he followed commands
Psych: calm.
A/P:
# SIRS Vs Sepsis (leukocytosis, tachycardia, likely tracheobronchitis
-COVID and influenza negative
-Check sputum culture, Legionella, strep negative
- now on Po abx, continue cefdinir and doxycycline through 09/01
# Acute hypercapnic hypoxic respiratory failure suspect multifactorial secondary to COPD and congestive heart failure
Oxygen saturation was 82% on room air with respiratory distress.
Patient had respiratory distress called the ambulance with hypoxia
Upon home O2 evaluation, qualified for 3 L NC
Suspect some chronic hypercapnia, BiPAP per pulmonary
process development manager arranging for noninvasive mechanical ventilator with pulmonary help
Pulmonary trying to get noninvasive ventilator approve prior to dc
Continue diuresis per nephrology and cardiology; holding lasix and metolozone; was on diamox
Does appear to have underlying JOSE GUADALUPE/sleep disorder. Should get outpatient sleep study
COPD exacerbation
Continue steroids
DuoNeb
Hypokalemia
Replete
Pulmonary hypertension
# CKD 3b
Now improving
# Acute on chronic heart failure with preserved ejection fraction
He has exertional shortness of breath. Lung examination positive for wheezes and rales
Last echocardiogram in 2023 showed LVEF 50%
Patient takes Lasix 80 mg twice a day with metolazone
Lasix per nephrology
Primary air hammer operator Dr. Gramajo
Consulted cardiology, echo 08/25 without significant change. Preserved EF
#Permanent atrial fibrillation
Mildly positive troponin. No chest pain.
Elevation of troponin likely nonischemic myocardial injury due to congestive heart failure
Uncontrolled on mild exertion, now on cardizem
-Continue Xarelto
# Chronic kidney disease stage IIIb
Monitor renal function while on diuretic therapy
Consulted nephrology, follow-up with recommendations.
chronic nevarez on admit
# History of DVT/PE
# History of primary arthritis and gout. Continue with allopurinol therapy to avoid exacerbation while using diuretics
#BPH
Chronic Nevarez catheter
Hematuria resolved , was traumatic hematuria secondary to Nevarez. He was seen by urologist and Rec: f/u with Dr Ortega as outpatient
-Continue tamsulosin, finasteride
#Obesity
#History of alcohol use disorder, Tobacco use disorder
History of venous insufficiency
Hyperlipidemia
-Continue statin
#History of CVA
Full code
DVT prophylaxis�Xarelto
Total time spent to see the patient, examine the patient, review data and lab results, discuss treatment plan with patient, consultants and nursing staff around 51 minutes
Anticipated Discharge: Within 24 hours
Subjective/Interval History
-
Date of Service: August 27, 2024
Has some cough
Objective Data
-
Labs:
Laboratory Results
08/27/24
06:23
WBC 10.4
Hgb 10.4 L
Hct 35.9 L
Plt Count 137
Sodium 141
Potassium 3.5
Chloride 94 L
Carbon Dioxide 40 H
BUN 79 H
Creatinine 1.9 H
Glucose 90
Calcium 8.9
Total Bilirubin 0.6
AST 16 L
ALT 15
Alkaline Phosphatase 57
Vital Signs:
Vital Signs
Temp Pulse Resp BP Pulse Ox
97.5 F 99 16 129/65 97
08/27/24 07:00 08/27/24 11:10 08/27/24 11:10 08/27/24 08:17 08/27/24 08:07
I&O
08/26/24 08/27/24 08/28/24
06:59 06:59 06:59
Intake Total 1180 / 1180 960 / 960
Output Total 1750 / 1750 1700 / 1700
Balance -570 / -570 -740 / -740
--- NOTE | 2024-08-27 14:40 | VNURNOTE ---
Home health liaison met with patient and step son Stanton to discuss resuming [facility] services. Patient and Stanton made aware that all questions about the NIV should be directed to the respiratory therapist coming to the house tomorrow and that home health
nurses are not managing the NIV. Patient and son acknowledged understanding. Patient aware visiting nurse will call him to schedule [facility] visit within 1-2 days of discharge.
--- NOTE | 2024-08-27 15:35 | W.PN.NEPH.PH ---
Today's Communication / Plan
-
ABG in the morning
Assessment/Plan
-
Assessment:
Acute kidney injury creatinine 2.3 on admission
Hyperkalemia
Anemia
Edema
Atrial fibrillation
Heart failure reduced ejection fraction= EF 50 to 55%
Moderate pulmonary hypertension
CKD 3A (1.7-2)
Hypercapnia with a CO2 of 80
Plan:
Acute on chronic kidney disease suspect this is cardiorenal with hyperkalemia.
improving renal function so far
mild alkalemia from met alkalosis, hold diuretics
Lasix on hold
Continue BiPAP, steroid per pulm
echo no change noted, normal EF and pulm HTN
Status post Diamox for alkalosis.
Bicarbonate remains at 40
Renal function stable 1.9
Continue to hold the Lasix we will check an ABG tomorrow
labs in am
d/w pt
-
-
Date of Service: August 27, 2024
CC / HPI / ROS
-
Chief Complaint:
JUAN, CKD
History of Present Illness:
cr down to 1.9, k low 3.2
wt is down
met alkalosis 40, Ph 7.48, PCO2 52
BP stable
Review of Systems:
sob better
no cp
no nv/
Labs
-
Labs:
WBC 10.4 10^3/uL (4.8-10.8) 08/27/24 06:23
RBC 4.10 10^6/uL (4.70-6.10) L 08/27/24 06:23
Hgb 10.4 g/dL (13.0-18.0) L 08/27/24 06:23
Hct 35.9 % (39.0-52.0) L 08/27/24 06:23
Plt Count 137 10^3/uL (130-400) 08/27/24 06:23
Sodium 141 mmol/L (135-145) 08/27/24 06:23
Potassium 3.5 mmol/L (3.5-5.1) 08/27/24 06:23
Chloride 94 mmol/L (98-107) L 08/27/24 06:23
Carbon Dioxide 40 mmol/L (22-30) H 08/27/24 06:23
BUN 79 mg/dl (9-20) H 08/27/24 06:23
Creatinine 1.9 mg/dL (0.7-1.3) H 08/27/24 06:23
eGFR 35.00 08/27/24 06:23
Glucose 90 mg/dl (70-99) 08/27/24 06:23
Calcium 8.9 mg/dl (8.4-10.2) 08/27/24 06:23
Qmq-P-Qydgitwluqc Pept 5130 pg/ml 08/22/24 15:17
Albumin 3.3 g/dl (3.5-5.0) L 08/27/24 06:23
Physical Exam
-
Vital Signs:
Vital Signs
Temp Pulse Resp BP Pulse Ox
98.3 F 96 16 148/73 98
08/27/24 15:00 08/27/24 15:33 08/27/24 15:33 08/27/24 15:00 08/27/24 15:00
Cardiovascular:: Regular rate and rhythm
Respiratory:: Bilateral: Coarse
Lung Excursion:: Normal
Abdomen:: Nontender and Soft
Extremity Edema:: +3: Bilateral:
Padilla Catheter: Yes
[2024-08-27] MEDS: XARELTO 15 MG PO (17:52)
[2024-08-27] MEDS: FLOMAX 0.4 MG PO (17:52)
[2024-08-27] MEDS: DUONEB INH (19:57)
[2024-08-27] MEDS: LIPITOR 40 MG PO (21:00)
[2024-08-28 03:32] VITALS: PULSE 2
[2024-08-28 05:41] VITALS: BMI 34.6
[2024-08-28 06:18] LABS: Venous Blood Gas HCO3 36.3 mmol/L (22-27); Venous Blood Gas O2 Sat % 80.6 %; Venous Blood Gas pH 7.31 (7.32-7.43); Venous Blood Gas pO2 52 mmHg (30-50)
[2024-08-28 06:22] LABS: % Basophils 0.1 % (0-2); % Eosinophils 0.3 % (0-6); % Immature Granulocytes 0.5 % (0-0.5); % Lymphocytes 5.1 % (20.5-51.1); % Monocytes 7.9 % (1.7-9.3); % Neutrophils 86.1 % (42.2-75.2); Absolute Immature Granulocytes 0.1 10^3/uL (0-0.05); Absolute Lymphocytes 0.6 10^3/uL (1.2-3.4); Absolute Monocytes 0.9 10^3/uL (0.1-0.6); Absolute Neutrophils 9.9 10^3/uL (1.4-6.5); Hematocrit 34.5 % (39.0-52.0); Hemoglobin 10.2 g/dL (13.0-18.0); Mean Corp Hgb Conc. 29.6 g/dL (33.0-37.0); Mean Corpuscular Hgb 25.6 pg (27.0-31.0); Mean Corpuscular Volume 86.5 fL (80.0-94.0); Mean Platelet Volume 11.3 fL (7.4-10.4); Nucleated Red Blood Cells % 0 % (-); Platelet Count 141 10^3/uL (130-400); Red Blood Cell Count 3.99 10^6/uL (4.70-6.10); Red Cell Dist. Width 18.4 % (11.5-14.5); White Blood Cell Count 11.5 10^3/uL (4.8-10.8)
[2024-08-28 06:26] LABS: Venous Blood Gas pCO2 72 mmHg (35-48)
[2024-08-28 06:44] LABS: ALT (SGPT) 15 U/L (0-50); AST (SGOT) 14 U/L (17-59); Albumin 3.3 g/dl (3.5-5.0); Alkaline Phosphatase 57 U/L (38-126); Blood Urea Nitrogen 83 mg/dl (9-20); Calcium 9.1 mg/dl (8.4-10.2); Carbon Dioxide 38 mmol/L (22-30); Chloride 94 mmol/L (98-107); Estimated Creatinine Clearance 34 ml/min; Glucose 109 mg/dl (70-99); Potassium 3.4 mmol/L (3.5-5.1); Sodium 139 mmol/L (135-145); Total Bilirubin 0.7 mg/dl (0.2-1.3); Total Protein 5.6 g/dl (6.3-8.2); eGFR 32.91
[2024-08-28 07:00] VITALS: BP 157/77
[2024-08-28] MEDS: DUONEB 3 ML INH ×2 (07:50→12:01)
[2024-08-28] MEDS: DELTASONE 30 MG PO (08:26)
[2024-08-28] MEDS: VIBRAMYCIN 100 MG PO (08:26)
[2024-08-28] MEDS: PROTONIX 40 MG PO (08:28)
[2024-08-28] MEDS: OMNICEF 300 MG PO (08:28)
[2024-08-28] MEDS: MUCINEX 1200 MG PO (08:30)
[2024-08-28] MEDS: CARDIZEM CD 180 MG PO (08:37)
[2024-08-28] MEDS: VISBIOME 1 CAP PO (08:38)
[2024-08-28] MEDS: PROSCAR 5 MG PO (08:38)
[2024-08-28] MEDS: MIRALAX 17 GRAMS PO (08:39)
[2024-08-28] MEDS: DESENEX/MITRAZOL/ZEASORB 1 APPLIC TOPICAL (08:42)
--- NOTE | 2024-08-28 09:58 | CM ---
CM following re: discharge planning.
Reviewed pt's chart, met with pt.
According to pt is medically stable to be discharged today. Pt is aware, expressed his agreement and pt stated his son will transport home. IMM reviewed, placed on chart, pt has a copy.
Two Oxygen tanks delivered to pt's room by [facility] and oxygen concentrator with Bi-pap machine will be delivered to pt's home when pt arrived home. Pt is aware to call [facility] as soon as he is leaving the hospital.
JEEVAN spoke to [facility] liaison and she confirmed that Bi-pap and oxygen concentrator will be delivered to pt's home when opt discharged and is home
Pt will have [facility] services at home. [facility] liaison following.
Please fax discharge instructions to [facility] at [phone].
D/C plan: hoe with [facility], home Oxygen, Bi-pap machine and family support. Son to transport.
--- NOTE | 2024-08-28 10:29 | W.PN.NEPH.PH ---
Today's Communication / Plan
-
dc on lasix 40 bid and hold metolozone that he was on otpt
Assessment/Plan
-
Assessment:
Acute kidney injury creatinine 2.3 on admission
Hyperkalemia
Anemia
Edema
Atrial fibrillation
Heart failure reduced ejection fraction= EF 50 to 55%
Moderate pulmonary hypertension
CKD 3A (1.7-2)
Hypercapnia with a CO2 of 80
Plan:
Acute on chronic kidney disease suspect this is cardiorenal with hyperkalemia.
improving renal function so far
mild alkalemia from met alkalosis, hold diuretics
Lasix on hold
Continue BiPAP, steroid per pulm
echo no change noted, normal EF and pulm HTN
Status post Diamox for alkalosis.
Bicarbonate remains at 40
Renal function stable 1.9
VBG noted
DC on lasix 40 bid
hold metolozone on DC
d/w pt
-
-
Date of Service: August 28, 2024
CC / HPI / ROS
-
Chief Complaint:
JUAN, CKD
History of Present Illness:
cr down to 1.9, k low 3.2
wt is down
met alkalosis 40, Ph 7.48, PCO2 52
BP stable
Review of Systems:
sob better
no cp
no nv/
Labs
-
Labs:
WBC 11.5 10^3/uL (4.8-10.8) H 08/28/24 06:02
RBC 3.99 10^6/uL (4.70-6.10) L 08/28/24 06:02
Hgb 10.2 g/dL (13.0-18.0) L 08/28/24 06:02
Hct 34.5 % (39.0-52.0) L 08/28/24 06:02
Plt Count 141 10^3/uL (130-400) 08/28/24 06:02
Sodium 139 mmol/L (135-145) 08/28/24 06:02
Potassium 3.4 mmol/L (3.5-5.1) L 08/28/24 06:02
Chloride 94 mmol/L (98-107) L 08/28/24 06:02
Carbon Dioxide 38 mmol/L (22-30) H 08/28/24 06:02
BUN 83 mg/dl (9-20) H 08/28/24 06:02
Creatinine 2.0 mg/dL (0.7-1.3) H 08/28/24 06:02
eGFR 32.91 08/28/24 06:02
Glucose 109 mg/dl (70-99) H 08/28/24 06:02
Calcium 9.1 mg/dl (8.4-10.2) 08/28/24 06:02
Kny-O-Hcjfhnfjogj Pept 5130 pg/ml 08/22/24 15:17
Albumin 3.3 g/dl (3.5-5.0) L 08/28/24 06:02
Physical Exam
-
Vital Signs:
Vital Signs
Temp Pulse Resp BP Pulse Ox
97.9 F 89 20 157/77 97
08/28/24 07:00 08/28/24 07:52 08/28/24 07:52 08/28/24 07:00 08/28/24 07:52
Cardiovascular:: Regular rate and rhythm
Respiratory:: Bilateral: Coarse and Bilateral: Wheeze
Lung Excursion:: Normal
Abdomen:: Nontender and Soft
Extremity Edema:: +1: Bilateral:
Padilla Catheter: Yes
--- NOTE | 2024-08-28 11:13 | W.PN.HOSP.TC ---
Addendum entered and electronically signed by Carlos Lundberg MD 08/28/24 11:22:
Now per nephrology, decrease Lasix to 40 mg twice daily and to hold metolazone on discharge. Changes made.
Original Note:
Today's Communication/Plan
-
Monitor vital signs see plan
Discussed with nephrology, okay to go back on home dose diuresis
Discussed with pulmonary, okay to be discharged on prednisone taper with albuterol as needed
Per home health care case manager, BiPAP will be delivered today
Discharge today
Time of discharge 38 minutes
Assessment / Plan
Assessment / Plan
Physical Exam
General: No Apparent Distress, seems sob while talking, obese.
HEENT: NormoCephalic, Moist mucous membranes and Atraumatic
Respiratory: wheezes with rales Clear
Cardiac: S1/S2,irregular irregular
GI: Soft, Non Tender, Non Distended and Normal Bowel Sounds;
Musculoskeletal: No ankle edema
Skin: No Rash
Neuro: AAOX3, he followed commands
Psych: calm.
A/P:
# SIRS Vs Sepsis (leukocytosis, tachycardia, likely tracheobronchitis
-COVID and influenza negative
-Check sputum culture, Legionella, strep negative
- now on Po abx, continue cefdinir and doxycycline through 09/01
# Acute hypercapnic hypoxic respiratory failure suspect multifactorial secondary to COPD and congestive heart failure
Oxygen saturation was 82% on room air with respiratory distress.
Patient had respiratory distress called the ambulance with hypoxia
Upon home O2 evaluation, qualified for 3-4 L NC
Suspect some chronic hypercapnia, BiPAP per pulmonary
insurance account manager arranging for noninvasive mechanical ventilator with pulmonary help. Per home health care case manager will have BiPAP delivered today. Discussed with pulmonary and okay to be discharged from their standpoint
Pulmonary trying to get noninvasive ventilator approve prior to dc
Continue diuresis per nephrology and cardiology; holding lasix and metolozone; was on diamox. Discussed with Dr. Manzo 08/28, okay to put back on home dose Lasix and metolazone
Does appear to have underlying JOSE GUADALUPE/sleep disorder. Should get outpatient sleep study
COPD exacerbation
Continue steroids
DuoNeb
Discharged on prednisone taper, albuterol as needed. Discussed with pulmonary
Hypokalemia
Replete
Pulmonary hypertension
# CKD 3b
Now improving
# Acute on chronic heart failure with preserved ejection fraction
He has exertional shortness of breath. Lung examination positive for wheezes and rales
Last echocardiogram in 2023 showed LVEF 50%
Patient takes Lasix 80 mg twice a day with metolazone; restart on dc
Lasix per nephrology
Primary rn home care Dr. Gramajo
Consulted cardiology, echo 08/25 without significant change. Preserved EF
#Permanent atrial fibrillation
Mildly positive troponin. No chest pain.
Elevation of troponin likely nonischemic myocardial injury due to congestive heart failure
Uncontrolled on mild exertion, now on cardizem
-Continue Xarelto
# Chronic kidney disease stage IIIb
Monitor renal function while on diuretic therapy
Consulted nephrology, follow-up with recommendations.
chronic nevarez on admit
# History of DVT/PE
# History of primary arthritis and gout. Continue with allopurinol therapy to avoid exacerbation while using diuretics
#BPH
Chronic Nevarez catheter
Hematuria resolved , was traumatic hematuria secondary to Nevarez. He was seen by urologist and Rec: f/u with Dr Ortega as outpatient
-Continue tamsulosin, finasteride
#Obesity
#History of alcohol use disorder, Tobacco use disorder
History of venous insufficiency
Hyperlipidemia
-Continue statin
#History of CVA
Full code
DVT prophylaxis�Xarelto
Anticipated Discharge: Today
Subjective/Interval History
-
Date of Service: August 28, 2024
denies pain
Objective Data
-
Labs:
Laboratory Results
08/28/24
06:02
WBC 11.5 H
Hgb 10.2 L
Hct 34.5 L
Plt Count 141
Sodium 139
Potassium 3.4 L
Chloride 94 L
Carbon Dioxide 38 H
BUN 83 H
Creatinine 2.0 H
Glucose 109 H
Calcium 9.1
Total Bilirubin 0.7
AST 14 L
ALT 15
Alkaline Phosphatase 57
Vital Signs:
Vital Signs
Temp Pulse Resp BP Pulse Ox
97.9 F 89 20 157/77 97
08/28/24 07:00 08/28/24 07:52 08/28/24 07:52 08/28/24 07:00 08/28/24 07:52
I&O
08/27/24 08/28/24 08/29/24
06:59 06:59 06:59
Intake Total 960 / 960 1080 / 1080
Output Total 1700 / 1700 1525 / 1525
Balance -740 / -740 -445 / -445
--- NOTE | 2024-08-28 11:22 | W.DCSUMMARY ---
Discharge Summary
Discharge Data
Date of Admission: 08/22/24
Date of Discharge: 08/28/24
-
Pending Results: No
Hospital Course
83-year-old male with past medical history of COPD, congestive heart failure, pulmonary hypertension, CKD stage IIIb, permanent atrial fibrillation, DVT/PE, arthritis, gout, BPH, chronic Padilla catheter, obesity, alcohol use disorder, venous
sufficiency, CVA, hyperlipidemia came to the hospital with acute hypercapnic hypoxic respiratory failure which was likely thought was multifactorial secondary to COPD and congestive heart failure. Patient was seen by cardiology and pulmonary
throughout hospitalization. For his CHF he was also seen by nephrology. Patient respiratory status continues to be tenuous. He was seen by pulmonary throughout hospitalization. He was finally approved for noninvasive ventilator prior to
discharge. Regarding diuresis he was initially started on IV Lasix which was later transitioned to p.o. Lasix prior to discharge. Per nephrology commendation his Lasix dose on discharge was decreased and metolazone was put on hold due to metabolic
alkalosis. For his COPD exacerbation he was discharged on prednisone taper. Pulmonary recommended albuterol as needed on discharge. He also had significant pulmonary hypertension for which she was instructed to follow-up outpatient. Patient also
had a home O2 evaluation done where he required home oxygen which was approved prior to discharge. He also appeared to have tracheobronchitis which was treated with antibiotics. Infectious disease recommended p.o. antibiotics prior to discharge
through 09/01/2024. Once his symptoms continue to improve, he was then discharged home with instructions to follow-up with all his physicians outpatient.
Discharge Plan
-
Patient Disposition: Home with Home Care
Discharge Diagnosis/Procedures: Tracheobronchitis
Acute hypercapnic hypoxic respiratory failure suspect multifactorial secondary to COPD and congestive heart failure
Suspected obstructive sleep apnea, obesity hypoventilation syndrome
Pulmonary hypertension
CKD stage IIIb
Diet: As tolerated
Activity: With assistance and As tolerated
Driving Restrictions: As prior to admission
Bathing Restrictions: None
Blood Work: BMP early next week with pcp
Referrals:
Maxime Manjarrez I., DO [Family Provider] - in less than 1 week
Merary Gonzalez MD [Active] - in two to three weeks
Daniel Tse MD [Active] -
Adryan Ortega MD [Active] -
Sheldon Gramajo MD [Active] - 09/14/24 10:00 am (You have a cardiology follow-up appointment at the [place] office. Please call with questions)
Prescriptions:
New
guaifenesin 600 mg Tablet Extended Release 12hr
1,200 mg PO Q12 Qty: 14 0RF
Lactobac/Bifidobac [Visbiome]
1 cap PO DAILY Qty: 10 0RF
miconazole nitrate [Miconazorb AF] 2 % Powder
1 applic topical BID Qty: 85 0RF
doxycycline hyclate 100 mg Capsule
100 mg PO Q12 Qty: 10 0RF
polyethylene glycol 3350 17 gram Powder In Packet
17 g PO DAILY Qty: 30 0RF
cefdinir 300 mg Capsule
300 mg PO DAILY Qty: 5 0RF
prednisone 10 mg Tablet
See Rx Instructions .ROUTE .COMPLEX Qty: 18 0RF
Rx Instructions:
Take By Mouth:
30 mg daily x3 days,
20 mg daily x3 days, 10 mg daily x3 days.
albuterol sulfate 90 mcg/actuation HFA aerosol inhaler
2 puff inhalation Q6H PRN (Reason: shortness of breath or wheezing) Qty: 8.5 0RF
diltiazem HCl 180 mg Capsule,Extended Release 24hr
180 mg PO DAILY Qty: 30 0RF
furosemide [Lasix] 40 mg tablet
40 mg PO BID Qty: 60 0RF
Continued
tamsulosin [Flomax] 0.4 MG capsule
0.4 mg PO QPM
finasteride 5 MG tablet
5 mg PO DAILY
atorvastatin [Lipitor] 40 MG tablet
40 mg PO HS
Xarelto 15 mg Tablet
15 mg PO QPM 30 Days Qty: 30 0RF
folic acid 1 mg Tablet
1 mg PO DAILY
pantoprazole 40 mg Tablet,Delayed Release (Dr/Ec)
40 mg PO DAILY Qty: 30 0RF
multivitamin with folic acid [Tab-A-Edd] 400 mcg Tablet
1 tab PO HS
cyanocobalamin (vitamin B-12) 1,000 mcg Tablet
1,000 mcg PO DAILY
acetaminophen 500 mg Tablet
1,000 mg PO DAILYPRN PRN (Reason: mild pain)
carisoprodol 350 mg Tablet
350 mg PO TIDPRN PRN (Reason: muscle spasms)
potassium chloride 20 mEq Tablet Extended Release
20 meq PO MOFR
Rx Instructions:
in addition to regular daily dose
allopurinol 300 mg Tablet
300 mg PO DAILY
Changed
potassium chloride 20 mEq Packet
40 meq PO DAILY Qty: 0 0RF
Held
metolazone 5 mg Tablet
5 mg PO DAILY
Hold Instructions: Until instructed to restart by PCP or nephrology
prednisone 5 mg Tablet
5 mg PO DAILY
Hold Instructions: restart when done with taper
Rx Instructions:
filled on 07/27/24 for 30 days
Discontinued
furosemide 80 mg Tablet
80 mg PO BID
Discharge Orders:
Discharge Patient (As Directed); Ordered 08/28/24
Ordered By: Carlos Lundberg
Discharge Date and Time
Discharge Date/Time: 08/28/24 14:09
Print Language: LIBERIAN
--- NOTE | 2024-08-28 12:26 | W.PN.PUL3 ---
Today's Communication / Plan
-
Discharged on albuterol HFA as needed
Prednisone taper
Noninvasive mechanical ventilator
Diuresis
Oxygen therapy
Outpatient pulmonary follow-up
Sign off
Assessment
-
83-year-old gentleman with longstanding history of smoking and underlying congestive heart failure, presents to the hospital with worsening shortness of breath, cough, episodic wheezing and clear expectoration after developing upper respiratory
tract infection about a week ago. Pulmonary consultation was requested for further workup and recommendations.
#1. 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 Clinically improved.
ABG 08/25/2024: 7.48/52/49-compensated.
Hypercapnia due to COPD/obesity hypoventilation syndrome/untreated obstructive sleep apnea.
-Continue BiPAP support-can transition to only at bedtime and as needed.
-Continue diuresis per nephrology and cardiology.
-Echocardiogram noted with RV dysfunction/RV dilatation/TR 08/24/2024- likely chronic based on cardiac catheterization from 2022. -
Given findings of pulmonary hypertension I would prefer him to be discharged on either BiPAP or noninvasive mechanical ventilator.
Dr. Mittal extensively discussed with son and patient and he is willing 08/25/2024.
Patient states that he is not interested in a polysomnogram.
-
Documentation for noninvasive mechanical ventilation:
Noninvasive volume ventilation is required due to obesity hypoventilation syndrome, bilevel has been considered and ruled out, including bilevel VAPS. Patient requires pressure greater than 30 cm of water which is not supported by bilevel VAPS due
to body habitus. A traditional ventilator will exceed pressures greater than 30 cm with a max pressure of 50 cm of water.
Noninvasive ventilator has been set up. Compliance was encouraged.
He understand risk of readmission and without usage of this.
Oxygen assessment noted: Patient requires 3 L with ambulation. Likely will require oxygen to go home.
Can reassess in the outpatient setting
#2. Suspect acute on chronic COPD exacerbation. Patient has never been diagnosed with COPD or emphysema however he has more than [id number] smoking history. Patient reports episodic cough with wheezing with expectoration suggestive of
underlying obstructive airway disease.
Not bronchospastic on exam 08/26/2024.
-Continue DuoNeb 4 times daily scheduled, (he is usually not on inhalers)-while in the hospital.
-Will discharge on albuterol HFA as needed.
-prednisone to 30 mg- Decrease by 10 mg every 72 hours to off.
-Antibiotics-per infectious disease. CT of the chest without infiltrate. Likely tracheobronchitis. To complete oral antibiotics in the next few days.
-Eventual pulmonary function testing in the outpatient setting.
-Will need outpatient follow-up with pulmonary clinic with full pulmonary function testing and 6-minute walk test
-Patient quit smoking pipes about 2 years ago
#3. Pulmonary hypertension, right heart catheter in 2022 was suggestive of mean pulmonary artery pressure of 42 with PVR of 4.12 and pulmonary capillary wedge pressure elevated at 28. Suggestive of both pre and postcapillary pulmonary hypertension
likely related to underlying heart failure, group 2. Patient also has risk factors for group 3 pulmonary hypertension including morbid obesity, underlying COPD and possibly underlying obstructive sleep apnea.
-Patient will need additional workup as outpatient including full pulmonary function testing, 6-minute walk test, polysomnogram if patient is willing-will be discussed in the outpatient setting at this point he is not interested.
Noninvasive mechanical ventilator as above.
-Continue to optimize volume status and bronchodilator, no indication for pulmonary vasodilators for now
#4. Acute on chronic heart failure with preserved ejection fraction. Patient on exam appears to be volume overloaded with significantly elevated BNP and pedal edema
-Clinically improved.
-Diuresis as able-currently on Diamox. Patient has compensatory metabolic alkalosis this needs to be followed in the outpatient setting. Hopefully as he wears his noninvasive mechanical ventilator this will improve.
-Also noted worsened kidney function, query cardiorenal syndrome
-Will defer management to primary team as nephrology service and cardiology service are being consulted
#5. Morbid obesity with suspected sleep disordered breathing. Patient does not report snoring but does report daytime naps and at times excessive sleepiness
-Patient will benefit from sleep study after discharge
-Once patient is euvolemic, recommend overnight oximetry prior to discharge to evaluate for any need for home oxygen
Other significant medical comorbidities:
-Paroxysmal atrial fibrillation, on chronic anticoagulation
-History of DVT and PE, on Xarelto
-Chronic kidney disease stage III with hyperkalemia
-BPH
-History of smoking, quit 2 years ago
-Coronary artery disease with history of non-ST elevation [facility] in the past s/p PCI
-Prior history of alcoholism
-Hypertension and hyperlipidemia
-History of CVA
Dr. Mittal updated son at the bedside 08/24/2024 and 08/25/2024.
-
Patient ready for discharge from the pulmonary perspective. Hopefully can arrange for noninvasive mechanical ventilation and oxygen therapy.
-
Discussed with Dr. Lundberg-discharge planning today.
Sign off. Information to follow-up has been left in the chart.
Data:
ECHO 09/2023
1. Mild left ventricular hypertrophy with low normal or mild globally reduced
systolic function, EF 50-55%
2. Thickened mitral leaflets, mitral annular calcification, mild mitral
regurgitation and normal left atrium
3. Aortic sclerosis with mild aortic regurgitation
4. Dilated right ventricle with preserved systolic function, dilated right
atrium, mild tricuspid regurgitation and moderate pulmonary hypertension, 57
mmHg systolic
RHC, 05/2023
CO 4.6, CI 2.2 with PVR 4.12 and PCWP 28, PA 60/30 (42). Pulm HTN with elevated PVR and PCWP. Elevated filling pressures
LHC, 05/2023
CAD, s/p PCI of LCX
Subjective Data
-
Date of Service:
Date of Service: August 28, 2024
Chief Complaint: Pulmonary Follow Up (Acute hypercapnic respiratory failure.)
Objective Data
Data Reviewed
Vital Signs / I&O / Oxygen:
Vital Signs
Temp Pulse Resp BP Pulse Ox
97.9 F 90 20 157/77 97
08/28/24 07:00 08/28/24 12:03 08/28/24 12:03 08/28/24 07:00 08/28/24 12:03
Intake and Output
08/27/24 08/28/24 08/29/24
06:59 06:59 06:59
Intake Total 960 / 960 1080 / 1080
Output Total 1700 / 1700 1525 / 1525
Balance -740 / -740 -445 / -445
SaO2 97
Nasal Cannula flow liters per 4
minute
Physical Exam
General: Comfortable (Sitting out of bed)
HEENT: Normocephalic
Cardiovascular: S1-S2
Respiratory: Clear and Other ( Bronchitic cough)
GI: Distended (Obese)
Neurology: Awake, Alert, Oriented and AO x 3
Skin: Warm
Labs/Micro/Reports
Lab Data
08/28/24 06:02
08/28/24 06:02
Microbiology
08/23/24 13:12 Sputum Respiratory Culture - Final
Usual Respiratory Nai
08/23/24 13:12 Sputum Gram Stain - Final
[2024-08-28 13:04] VITALS: BP 155/77
== END 2024-08-28 14:09 | disposition home health service (06) | DRG 190 ==
LOC: 4 WEST ACU 19:20
PROVIDERS: Internal Medicine; Internal Medicine Critical Care Medicine; Internal Medicine Nephrology; Physician Assistant; Physician Assistant Medical; ADMITTING PHYSICIAN Hospitalist; ATTENDING PHYSICIAN Internal Medicine; CONSULT PHYSICIAN Internal Medicine; CONSULT PHYSICIAN Internal Medicine Cardiovascular Disease; CONSULT PHYSICIAN Internal Medicine Infectious Disease; CONSULT PHYSICIAN Specialist; EMERGENCY PHYSICIAN Student in an Organized Health Care Education/Training Program; FAMILY PHYSICIAN Internal Medicine; OTHER PHYSICIAN Specialist
DX: J44.1 Chronic obstructive pulmonary disease with (acute) exacerbation (principal); I50.33 Acute on chronic diastolic (congestive) heart failure; J96.01 Acute respiratory failure with hypoxia; J96.02 Acute respiratory failure with hypercapnia; N17.9 Acute kidney failure, unspecified; E87.3 Alkalosis; I13.0 Hypertensive heart and chronic kidney disease with heart failure and stage 1 through stage 4 chronic kidney disease, or unspecified chronic kidney disease; E66.2 Morbid (severe) obesity with alveolar hypoventilation; I48.21 Permanent atrial fibrillation; I5A Non-ischemic myocardial injury (non-traumatic); N18.32 Chronic kidney disease, stage 3b; F17.290 Nicotine dependence, other tobacco product, uncomplicated; I27.20 Pulmonary hypertension, unspecified; I25.10 Atherosclerotic heart disease of native coronary artery without angina pectoris; E87.5 Hyperkalemia; Z86.711 Personal history of pulmonary embolism; Z86.718 Personal history of other venous thrombosis and embolism; Z86.73 Personal history of transient ischemic attack (TIA), and cerebral infarction without residual deficits; Z68.34 Body mass index [BMI] 34.0-34.9, adult; Z98.61 Coronary angioplasty status; Z79.01 Long term (current) use of anticoagulants
CPT/HCPCS: 36600; 71046; 71250; 80048; 80053; 80076; 82805; 83880; 84132; 84484; 85025; 85027; 87070; 87205; 87449; 87502; 87811; 87899; 93005; 93306; 94640; 94660; 96374; 96375; 97116; 97163; 97167; 97530; 97535; 99285

== ENCOUNTER → 2024-09-02 15:36 | Outpatient (REF) | payer MEDICARE, BC, SELFPAY ==
[2024-09-02 16:47] LABS: % Basophils 0.1 % (0-2); % Eosinophils 0.4 % (0-6); % Immature Granulocytes 0.9 % (0-0.5); % Lymphocytes 4.7 % (20.5-51.1); % Monocytes 5.6 % (1.7-9.3); % Neutrophils 88.3 % (42.2-75.2); Absolute Eosinophils 0.1 10^3/uL (0-0.7); Absolute Immature Granulocytes 0.1 10^3/uL (0-0.05); Absolute Lymphocytes 0.7 10^3/uL (1.2-3.4); Absolute Monocytes 0.9 10^3/uL (0.1-0.6); Absolute Neutrophils 13.9 10^3/uL (1.4-6.5); Hematocrit 37.3 % (39.0-52.0); Hemoglobin 10.9 g/dL (13.0-18.0); Mean Corp Hgb Conc. 29.2 g/dL (33.0-37.0); Mean Corpuscular Hgb 25.3 pg (27.0-31.0); Mean Corpuscular Volume 86.7 fL (80.0-94.0); Mean Platelet Volume 11.7 fL (7.4-10.4); Nucleated Red Blood Cells % 0 % (-); Platelet Count 177 10^3/uL (130-400); White Blood Cell Count 15.8 10^3/uL (4.8-10.8)
[2024-09-02 16:55] LABS: Blood Urea Nitrogen 67 mg/dl (9-20); Calcium 8.9 mg/dl (8.4-10.2); Carbon Dioxide 31 mmol/L (22-30); Chloride 97 mmol/L (98-107); Glucose 145 mg/dl (70-99); Sodium 140 mmol/L (135-145); eGFR 32.91
== END ==
LOC: CLAB 15:36
PROVIDERS: ATTENDING PHYSICIAN Internal Medicine
DX: N18.32 Chronic kidney disease, stage 3b (principal); D63.1 Anemia in chronic kidney disease
CPT/HCPCS: 80048; 85025

== ENCOUNTER 2024-09-24 05:53 | Outpatient (RCR) | payer SELFPAY | END 2024-09-24 23:59 | disposition home or self-care (01) | LOC: RPT 05:53 | PROVIDERS: ATTENDING PHYSICIAN Internal Medicine Cardiovascular Disease; FAMILY PHYSICIAN Internal Medicine | DX: I89.0 Lymphedema, not elsewhere classified (principal); Z73.6 Limitation of activities due to disability | CPT/HCPCS: 97162; 97530; 97760 ==

== ENCOUNTER → 2024-09-24 13:15 | Outpatient (REF) | payer MEDICARE, BC, SELFPAY ==
[2024-09-24 15:19] LABS: Blood Urea Nitrogen 48 mg/dl (9-20); Calcium 9.2 mg/dl (8.4-10.2); Carbon Dioxide 34 mmol/L (22-30); Chloride 95 mmol/L (98-107); Glucose 109 mg/dl (70-99); Potassium 3.6 mmol/L (3.5-5.1); Sodium 141 mmol/L (135-145); eGFR 37.35
[2024-09-24 15:27] LABS: NT-proBNP 1520 pg/ml
== END ==
LOC: CLAB 13:15
PROVIDERS: ATTENDING PHYSICIAN Internal Medicine Cardiovascular Disease; FAMILY PHYSICIAN Internal Medicine
DX: I10 Essential (primary) hypertension (principal)
CPT/HCPCS: 36415; 80048; 83880

== ENCOUNTER → 2024-10-09 15:35 | Outpatient (REF) | payer MEDICARE, BC, SELFPAY | LOC: CLAB 15:35 | PROVIDERS: ATTENDING PHYSICIAN Specialist; FAMILY PHYSICIAN Internal Medicine | DX: R97.20 Elevated prostate specific antigen [PSA] (principal) | CPT/HCPCS: 36415; 84153 ==

== ENCOUNTER → 2024-12-07 17:45 | Outpatient (REF) | payer MEDICARE, BC, SELFPAY ==
[2024-12-07 18:23] LABS: Blood Urea Nitrogen 74 mg/dl (9-20); Calcium 8.6 mg/dl (8.4-10.2); Carbon Dioxide 32 mmol/L (22-30); Chloride 99 mmol/L (98-107); Glucose 97 mg/dl (70-99); Potassium 3.3 mmol/L (3.5-5.1); Sodium 138 mmol/L (135-145); eGFR 30.85
== END ==
LOC: CLAB 17:45
PROVIDERS: ATTENDING PHYSICIAN Internal Medicine Cardiovascular Disease; FAMILY PHYSICIAN Internal Medicine
DX: I13.0 Hypertensive heart and chronic kidney disease with heart failure and stage 1 through stage 4 chronic kidney disease, or unspecified chronic kidney disease (principal); I50.33 Acute on chronic diastolic (congestive) heart failure
CPT/HCPCS: 36415; 80048

== ENCOUNTER → 2024-12-25 15:57 | Outpatient (REF) | payer MEDICARE, BC, SELFPAY ==
[2024-12-25 16:26] LABS: Hematocrit 41.4 % (39.0-52.0); Hemoglobin 12.1 g/dL (13.0-18.0); Mean Corp Hgb Conc. 29.2 g/dL (33.0-37.0); Mean Corpuscular Volume 89.6 fL (80.0-94.0); Nucleated Red Blood Cells % 0 % (-); Platelet Count 162 10^3/uL (130-400); Red Cell Dist. Width 20.0 % (11.5-14.5)
[2024-12-25 16:34] LABS: ALT (SGPT) < 10 U/L (0-50); AST (SGOT) 17 U/L (17-59); Albumin 3.5 g/dl (3.5-5.0); Alkaline Phosphatase 62 U/L (38-126); Blood Urea Nitrogen 66 mg/dl (9-20); Calcium 8.4 mg/dl (8.4-10.2); Carbon Dioxide 34 mmol/L (22-30); Chloride 98 mmol/L (98-107); Glucose 91 mg/dl (70-99); HDL Cholesterol 21 mg/dl; LDL Cholesterol, Calculated 45 mg/dl; Potassium 3.7 mmol/L (3.5-5.1); Sodium 139 mmol/L (135-145); Total Protein 5.6 g/dl (6.3-8.2); Very Low Density Lipoprotein 17 mg/dl (0-30); eGFR 29.17
== END ==
LOC: CLAB 15:57
PROVIDERS: ATTENDING PHYSICIAN Internal Medicine
DX: E66.813 Obesity, class 3 (principal); I50.32 Chronic diastolic (congestive) heart failure; Z97.8 Presence of other specified devices; I48.21 Permanent atrial fibrillation; N18.31 Chronic kidney disease, stage 3a; G31.9 Degenerative disease of nervous system, unspecified; D68.69 Other thrombophilia; Z00.00 Encounter for general adult medical examination without abnormal findings; E66.2 Morbid (severe) obesity with alveolar hypoventilation; I27.20 Pulmonary hypertension, unspecified; J44.9 Chronic obstructive pulmonary disease, unspecified; G47.33 Obstructive sleep apnea (adult) (pediatric); Z68.35 Body mass index [BMI] 35.0-35.9, adult
CPT/HCPCS: 36415; 80053; 80061; 85025

== ENCOUNTER → 2025-02-04 09:42 | Outpatient (REF) | payer MEDICARE, BC, SELFPAY ==
[2025-02-04 12:18] LABS: Blood Urea Nitrogen 45 mg/dl (9-20); Calcium 9.1 mg/dl (8.4-10.2); Carbon Dioxide 33 mmol/L (22-30); Chloride 99 mmol/L (98-107); Glucose 86 mg/dl (70-99); Potassium 3.7 mmol/L (3.5-5.1); Sodium 140 mmol/L (135-145); eGFR 32.71
== END ==
LOC: HWLAB 09:42
PROVIDERS: ATTENDING PHYSICIAN Internal Medicine Cardiovascular Disease; FAMILY PHYSICIAN Internal Medicine
DX: I10 Essential (primary) hypertension (principal); I48.21 Permanent atrial fibrillation; N18.31 Chronic kidney disease, stage 3a; I50.23 Acute on chronic systolic (congestive) heart failure
CPT/HCPCS: 36415; 80048; 83880

== ENCOUNTER → 2025-03-10 16:16 | Outpatient (REF) | payer MEDICARE, BC, SELFPAY ==
[2025-03-10 17:59] LABS: Hematocrit 43.9 % (39.0-52.0); Hemoglobin 13.1 g/dL (13.0-18.0); Mean Corp Hgb Conc. 29.8 g/dL (33.0-37.0); Mean Corpuscular Volume 92.6 fL (80.0-94.0); Nucleated Red Blood Cells % 0 % (-); Platelet Count 136 10^3/uL (130-400); Red Cell Dist. Width 19.5 % (11.5-14.5)
[2025-03-10 18:06] LABS: ALT (SGPT) 10 U/L (0-50); AST (SGOT) 17 U/L (17-59); Albumin 3.4 g/dl (3.5-5.0); Alkaline Phosphatase 59 U/L (38-126); Blood Urea Nitrogen 41 mg/dl (9-20); Calcium 8.9 mg/dl (8.4-10.2); Carbon Dioxide 35 mmol/L (22-30); Chloride 98 mmol/L (98-107); Glucose 82 mg/dl (70-99); HDL Cholesterol 28 mg/dl; LDL Cholesterol, Calculated 43 mg/dl; Potassium 3.9 mmol/L (3.5-5.1); Sodium 138 mmol/L (135-145); Total Protein 5.6 g/dl (6.3-8.2); Very Low Density Lipoprotein 18 mg/dl (0-30); eGFR 34.79
== END ==
LOC: CLAB 16:16
PROVIDERS: ATTENDING PHYSICIAN Internal Medicine
DX: I10 Essential (primary) hypertension (principal); Z74.09 Other reduced mobility; E87.6 Hypokalemia; I50.32 Chronic diastolic (congestive) heart failure; G60.9 Hereditary and idiopathic neuropathy, unspecified; N18.32 Chronic kidney disease, stage 3b; E78.2 Mixed hyperlipidemia
CPT/HCPCS: 36415; 80053; 80061; 85025

== ENCOUNTER → 2025-03-25 13:01 | Outpatient (REF) | payer MEDICARE, BC, SELFPAY ==
[2025-03-25 13:49] LABS: Blood Urea Nitrogen 50 mg/dl (9-20); Calcium 9.1 mg/dl (8.4-10.2); Carbon Dioxide 37 mmol/L (22-30); Chloride 97 mmol/L (98-107); Glucose 83 mg/dl (70-99); Potassium 3.9 mmol/L (3.5-5.1); Sodium 141 mmol/L (135-145); eGFR 34.79
== END ==
LOC: CLAB 13:01
PROVIDERS: ATTENDING PHYSICIAN Internal Medicine Nephrology; FAMILY PHYSICIAN Internal Medicine
DX: I13.0 Hypertensive heart and chronic kidney disease with heart failure and stage 1 through stage 4 chronic kidney disease, or unspecified chronic kidney disease (principal); D63.1 Anemia in chronic kidney disease
CPT/HCPCS: 80048; 83970